=== PATIENT | female | born 1990 | race Caucasian/White ===

== ENCOUNTER 2017-01-04 15:49 | Inpatient (IN) | payer BC ==
[~2017-01-04] VITALS: Ht 165.1 cm; Wt 100.4 kg
[~2017-01-04 15:49] MED LIST: CLIN150 PO
[2017-01-04 15:55] VITALS: BP 123/71; PULSE 124; RESP 16; TEMP 103.1; O2SAT 96
[2017-01-04 17:50] VITALS: BP 119/56; PULSE 124; RESP 26; TEMP 100.8; O2SAT 96
[2017-01-04] MEDS ORDERED: SODIUM CHLOR 0.9% 1000 ML INJ 1,000 ML IV ONE ×3 (18:06)
[2017-01-04] MEDS ORDERED: CEFEPIME INJ 2,000 MG in SODIUM CHLORIDE 0.9% INJ 100 ML IV STA ×2 (18:09→22:59)
--- NOTE | 2017-01-04 18:11 | PD ---
HPI Chief Complaint: Pain: Acute or Chronic Time Seen by Provider: 18:11 Travel History International Travel<30 days: No Contact w/Intl Traveler<30days: No Traveled to known affect area: No History of Present Illness HPI 26-year-old female with history of IV drug use presents to emergency department for evaluation of severe left hip pain, inability to ambulate secondary to the pain, fever, chills, worsening over the last 3 days. Patient states 3 days ago she developed an ache in her left hip. She had associated fever but thought she was getting the flu. Hip pain persisted and this morning she was unable to bear weight on the left lower extremity secondary to the pain. She has had low back pain as well. Denies any injury. States the pain is a 10 out of 10, exacerbated with any movement or touch. Patient denies any chest pain or tightness. No difficulty breathing. Patient does not want her IV drug use discussed in front of her grandmother. PFSH Past Medical History ADHD: No Anxiety: Yes Depression: Yes Cancer: No Cardiovascular Problems: No Diabetes: No Diminished Hearing: No GERD: Yes Hepatitis: Yes (HEP C) Hypertension: Yes Psychiatric: No Immunizations Current: Yes Migraines: Yes Seizures: Yes ( A CHILD) Thyroid Disease: No Ulcer: No Influenza Vaccination: No ?: Not LMP: 12/28/2016 : 1 Miscarriage: 1 : 1 Ovarian Cysts: Yes Past Surgical History Appendectomy: No Cholecystectomy: No Tympanostomy Tube: Yes ( CHILD) Other Surgery: Yes (RIGHT ARM PLASTIC SURGERY/LACERATION REPAIR.) Social History Alcohol Use: No Tobacco Use: Yes (1/2 PPD) Substance Use: Yes (YEARS AGO) Allergies-Medications (Allergen,Severity, Reaction): Coded Allergies: Amoxicillin (Verified Allergy, Severe, HIVES, 01/04/17) Codeine (Verified Allergy, Severe, Hives, 01/04/17) Dilantin (Verified Allergy, Severe, HIVES, 01/04/17) *MDRO Multi-Drug Resistant Organism (Verified Adverse Reaction, Unknown, ) MRSA (wound) - 03/09/16 Reported Meds & Prescriptions Reported Meds & Active Scripts Active No Active Prescriptions or Reported Medications Review of Systems Except as stated in HPI: all other systems reviewed are Neg Physical Exam Narrative GENERAL: Well-nourished female patient, lying in bed, in no acute distress SKIN: Warm and dry. HEAD: Atraumatic. Normocephalic. EYES: Pupils equal and round. No scleral icterus. No injection or drainage. ENT: No nasal bleeding or discharge. Mucous membranes pink and moist. NECK: Trachea midline. No JVD. CARDIOVASCULAR: Tachycardic rate and rhythm. No murmur appreciated. RESPIRATORY: No accessory muscle use. Clear to auscultation. Breath sounds equal bilaterally. GASTROINTESTINAL: Abdomen soft, non-tender, nondistended. Hepatic and splenic margins not palpable. MUSCULOSKELETAL: No obvious deformities. No clubbing. No cyanosis. No edema. No erythema. Significant tenderness to palpation of the anterior aspect of the left hip. No deformity. Patient will not actively move the hip. She reports severe pain with passive flexion and rotation. Distal pulses are palpable. Cap refills within normal limits. NEUROLOGICAL: Awake and alert. No obvious cranial nerve deficits. Motor grossly within normal limits. Normal speech. Data Data Last Documented VS Vital Signs Date Time Temp Pulse Resp B/P Pulse Ox O2 Delivery O2 Flow Rate FiO2 01/04/17 20:38 98.5 86 18 107/61 100 Room Air Orders Influenzae A/B Antigen (01/04/17 16:19) Electrocardiogram (01/04/17 18:06) Complete Blood Count With Diff (01/04/17 18:06) Comprehensive Metabolic Panel (01/04/17 18:06) Prothrombin Time / Inr (Pt) (01/04/17 18:06) Act Partial Throm Time (Ptt) (01/04/17 18:06) Lactic Acid Sepsis Protocol (01/04/17 18:06) Magnesium (Mg) (01/04/17 18:06) Ckmb (Isoenzyme) Profile (01/04/17 18:06) Troponin I (01/04/17 18:06) Urinalysis - C+S If Indicated (01/04/17 18:06) Blood Culture (01/04/17 18:06) Chest, Single Ap (01/04/17 18:06) Blood Glucose (01/04/17 18:06) Ecg Monitoring (01/04/17 18:06) Iv Access Insert/Monitor (01/04/17 18:06) Oximetry (01/04/17 18:06) Oxygen Administration (01/04/17 18:06) Acetaminophen (Tylenol) (01/04/17 18:15) Sodium Chlor 0.9% 1000 Ml Inj (Ns 1000 M (01/04/17 18:06) Sodium Chlor 0.9% 1000 Ml Inj (Ns 1000 M (01/04/17 18:06) Sodium Chlor 0.9% 1000 Ml Inj (Ns 1000 M (01/04/17 18:06) Hip, Uni(Ap&Lat) W Ap Pelvis (01/04/17 ) Westergren Sedimentation Rate (01/04/17 18:06) Vancomycin Inj (Vancomycin Inj) (01/04/17 18:15) Cefepime Inj (Maxipime Inj) (01/04/17 18:09) Mri L Spine W&W/O Contrast (01/04/17 ) Mri Joint Hip W&W/O Contrast (01/04/17 ) Ketorolac Inj (Toradol Inj) (01/04/17 19:15) Morphine Inj (Morphine Inj) (01/04/17 19:15) Ondansetron Inj (Zofran Inj) (01/04/17 19:15) Urinary Catheter Management WM.Q8H (01/04/17 19:36) Gadodiamide Pf Inj (Omniscan Pf Inj) (01/04/17 20:15) Ct Guided Aspiration (01/04/17 21:23) Consult Orthopedic (01/04/17 ) Synovial Fl Cell Count + Diff (01/04/17 21:25) Fluid Culture And Gram Stain (01/04/17 21:25) Admit Order (Ed Use Only) (01/04/17 21:30) Labs Laboratory Tests Test 01/04/17 18:42 White Blood Count 17.3 TH/MM3 Red Blood Count 3.86 MIL/MM3 Hemoglobin 11.3 GM/DL Hematocrit 33.7 % Mean Corpuscular Volume 87.2 FL Mean Corpuscular Hemoglobin 29.2 PG Mean Corpuscular Hemoglobin 33.4 % Concent Red Cell Distribution Width 13.2 % Platelet Count 217 TH/MM3 Mean Platelet Volume 8.6 FL Neutrophils (%) (Auto) 87.3 % Lymphocytes (%) (Auto) 5.0 % Monocytes (%) (Auto) 7.5 % Eosinophils (%) (Auto) 0.0 % Basophils (%) (Auto) 0.2 % Neutrophils # (Auto) 15.1 TH/MM3 Lymphocytes # (Auto) 0.9 TH/MM3 Monocytes # (Auto) 1.3 TH/MM3 Eosinophils # (Auto) 0.0 TH/MM3 Basophils # (Auto) 0.0 TH/MM3 CBC Comment DIFF FINAL Differential Comment Erythrocyte Sedimentation Rate 72 mm/hr Prothrombin Time 11.8 SEC Prothromb Time International 1.1 RATIO Ratio Activated Partial 31.3 SEC Thromboplast Time Urine Color YELLOW Urine Turbidity HAZY Urine pH 8.0 Urine Specific [place] 1.013 Urine Protein 30 mg/dL Urine Glucose (UA) NEG mg/dL Urine Ketones NEG mg/dL Urine Occult Blood MOD Urine Nitrite NEG Urine Bilirubin NEG Urine Urobilinogen LESS THAN 2.0 MG/DL Urine Leukocyte Esterase NEG Urine RBC 10 /hpf Urine WBC 3 /hpf Urine Squamous Epithelial 7 /hpf Cells Urine Bacteria RARE /hpf Urine Mucus FEW /lpf Microscopic Urinalysis Comment CATH-CULT NOT IND Sodium Level 134 MEQ/L Potassium Level 3.6 MEQ/L Chloride Level 99 MEQ/L Carbon Dioxide Level 23.3 MEQ/L Anion Gap 12 MEQ/L Blood Urea Nitrogen 5 MG/DL Creatinine 0.77 MG/DL Estimat Glomerular Filtration 91 ML/MIN Rate Random Glucose 127 MG/DL Lactic Acid Level 1.0 mmol/L Calcium Level 8.2 MG/DL Magnesium Level 1.9 MG/DL Total Bilirubin 0.8 MG/DL Aspartate Amino Transf 9 U/L (AST/SGOT) Alanine Aminotransferase 21 U/L (ALT/SGPT) Alkaline Phosphatase 57 U/L Total Creatine Kinase 22 U/L Troponin I LESS THAN 0.02 NG/ML Total Protein 7.5 GM/DL Albumin 2.7 GM/DL [facility] Medical Decision Making Medical Screen Exam Complete: Yes Emergency Medical Condition: Yes Medical Record Reviewed: Yes Differential Diagnosis Septic joint versus discitis versus epidural abscess versus sepsis Narrative Course 26-year-old female with history of IV drug abuse presents to the emergency department for evaluation of worsening left hip pain over the last 3 days with associated fever. Patient is unable to ambulate secondary to pain. Assessment of the left hip is very limited secondary to severe left hip pain. Patient does have lumbar spine tenderness to palpation. Sepsis workup was initiated. Patient is given IV fluids. I discussed the patient with my attending physician Dr. Maco Banegas who recommends holding off on antibiotics at this time until further evaluation of the hip in case of septic joint for joint aspiration. Last Impressions Chest X-Ray 01/04/17 1806 Signed Impressions: Service Date/Time: Wednesday, January 04, 2017 18:49 - CONCLUSION: No acute disease. There is no evidence of pneumonia. Castillo Bedoya MD Lumbar Spine MRI 01/04/17 0000 Signed Impressions: Service Date/Time: Wednesday, January 04, 2017 19:33 - CONCLUSION: 1. Degenerative change at the L4-5 level with annular disc bulge and high intensity zone the posterior annulus most characteristic of a small annular tear. 2. Small amount of free fluid in the cul-de-sac. Castillo Bedoya MD Hip and Pelvis X-Ray 01/04/17 0000 Signed Impressions: Service Date/Time: Wednesday, January 04, 2017 18:51 - CONCLUSION: Unremarkable exam with no underlying bony abnormality. Castillo Bedoya MD Hip MRI 01/04/17 0000 Signed Impressions: Service Date/Time: Wednesday, January 04, 2017 19:33 - CONCLUSION: Tiny bilateral joint effusion. Miguel Bhatia MD Laboratory Tests Test 01/04/17 18:42 White Blood Count 17.3 TH/MM3 Red Blood Count 3.86 MIL/MM3 Hemoglobin 11.3 GM/DL Hematocrit 33.7 % Mean Corpuscular Volume 87.2 FL Mean Corpuscular Hemoglobin 29.2 PG Mean Corpuscular Hemoglobin 33.4 % Concent Red Cell Distribution Width 13.2 % Platelet Count 217 TH/MM3 Mean Platelet Volume 8.6 FL Neutrophils (%) (Auto) 87.3 % Lymphocytes (%) (Auto) 5.0 % Monocytes (%) (Auto) 7.5 % Eosinophils (%) (Auto) 0.0 % Basophils (%) (Auto) 0.2 % Neutrophils # (Auto) 15.1 TH/MM3 Lymphocytes # (Auto) 0.9 TH/MM3 Monocytes # (Auto) 1.3 TH/MM3 Eosinophils # (Auto) 0.0 TH/MM3 Basophils # (Auto) 0.0 TH/MM3 CBC Comment DIFF FINAL Differential Comment Erythrocyte Sedimentation Rate 72 mm/hr Prothrombin Time 11.8 SEC Prothromb Time International 1.1 RATIO Ratio Activated Partial 31.3 SEC Thromboplast Time Urine Color YELLOW Urine Turbidity HAZY Urine pH 8.0 Urine Specific [place] 1.013 Urine Protein 30 mg/dL Urine Glucose (UA) NEG mg/dL Urine Ketones NEG mg/dL Urine Occult Blood MOD Urine Nitrite NEG Urine Bilirubin NEG Urine Urobilinogen LESS THAN 2.0 MG/DL Urine Leukocyte Esterase NEG Urine RBC 10 /hpf Urine WBC 3 /hpf Urine Squamous Epithelial 7 /hpf Cells Urine Bacteria RARE /hpf Urine Mucus FEW /lpf Microscopic Urinalysis Comment CATH-CULT NOT IND Sodium Level 134 MEQ/L Potassium Level 3.6 MEQ/L Chloride Level 99 MEQ/L Carbon Dioxide Level 23.3 MEQ/L Anion Gap 12 MEQ/L Blood Urea Nitrogen 5 MG/DL Creatinine 0.77 MG/DL Estimat Glomerular Filtration 91 ML/MIN Rate Random Glucose 127 MG/DL Lactic Acid Level 1.0 mmol/L Calcium Level 8.2 MG/DL Magnesium Level 1.9 MG/DL Total Bilirubin 0.8 MG/DL Aspartate Amino Transf 9 U/L (AST/SGOT) Alanine Aminotransferase 21 U/L (ALT/SGPT) Alkaline Phosphatase 57 U/L Total Creatine Kinase 22 U/L Troponin I LESS THAN 0.02 NG/ML Total Protein 7.5 GM/DL Albumin 2.7 GM/DL 2100 MRI of the left hip show small bilateral joint effusions. MRI of the lumbar spine degenerative changes at L4 5 with an annular tear. A call has been placed to Dr. Andrea, orthopedic surgeon adult remedial education instructor. 2121 Dr Andrea is in the emergency department. He requests CT guided aspiration of the left hip. He also requests antibiotics be held until after the aspiration. [address] Morales. Patient be admitted to the hospitalist service. She is aware that the patient has not yet received antibiotics and is waiting for CT guided aspiration. I have also informed the patient about the need for aspiration. She is in agreement with the splenic care. I ordered culture Gram stain of synovial fluid as well as well as cell count and differential 0 I am informed by radiology that the aspiration procedure will not be done tonight. A call is placed to Dr. Andrea to make him aware and see if antibiotics can be administered in the meantime. 2254 I have not heard back from Dr. Andrea. I spoke with Dr. Morales the admitting physician who agrees that waiting until tomorrow morning for antibiotics is not ideal as the patient is septic. She will be given a dose of antibiotics her in the ED. Sepsis Criteria SIRS Criteria (2 or more): Temp > 100.9 or < 96.8, Heart rate over 90 Sepsis Criteria (SIRS+source): Infect source susp/known Diagnosis Primary Impression: Sepsis Qualified Code: A41.9 - Sepsis, due to unspecified organism Additional Impressions: Left hip pain IV drug abuse Admitting Information Admitting Physician Requests: Admit Scripts No Active Prescriptions or Reported Meds Condition: Stable Oralia Raymond Jan 04, 2017 18:11
[2017-01-04] MEDS ORDERED: VANCOMYCIN INJ 1,000 MG in SODIUM CHLOR 0.9% 250 ML INJ 250 ML IV ONE ×2 (18:15→23:00)
[2017-01-04] MEDS ORDERED: ACETAMINOPHEN 325 MG TAB PO ONE (18:15)
[2017-01-04 19:02] LABS: AUTOMATED NEUTROPHIL # 15.1 TH/MM3 (1.8-7.7); BASOPHIL % 0.2 % (0.0-2.0); HEMATOCRIT 33.7 % (35.0-46.0); HEMO FLAGS DIFF FINAL; LYMPHOCYTE # 0.9 TH/MM3 (1.0-4.8); MEAN CELL VOLUME 87.2 FL (80.0-100.0); MEAN CORPUSCULAR HEMOGLOBIN 29.2 PG (27.0-34.0); MEAN CORPUSCULAR HGB CONC 33.4 % (32.0-36.0); MONO % 7.5 % (0.0-8.0); NEUT % 87.3 % (16.0-70.0); PLATELET COUNT 217 TH/MM3 (150-450); RED BLOOD COUNT 3.86 MIL/MM3 (4.00-5.30); RED CELL DISTRIBUTION WIDTH 13.2 % (11.6-17.2); WHITE BLOOD COUNT 17.3 TH/MM3 (4.0-11.0)
[2017-01-04 19:05] LABS: APTT (PATIENT) 31.3 SEC (24.3-30.1); INTERNATIONAL NORMALIZED RATIO 1.1 RATIO; PROTHROMBIN TIME - PATIENT 11.8 SEC (9.8-11.6)
--- NOTE | 2017-01-04 19:07 | RADRPT ---
EXAM DATE/TIME: 01/04/2017 18:49 [facility] COMPARISON: No previous studies available for comparison. INDICATIONS : Fever MEDICAL HISTORY : None. SURGICAL HISTORY : None. ENCOUNTER: Initial ACUITY: 3 days PAIN SCORE: 0/10 LOCATION: chest FINDINGS: A single view of the chest demonstrates the lungs to be symmetrically aerated without evidence of mas s, infiltrate or effusion. The cardiomediastinal contours are unremarkable. Osseous structures are intact. CONCLUSION: No acute disease. There is no evidence of pneumonia. Castillo Bedoya MD on January 04, 2017 at 19:05 Board Certified Radiologist. This report was verified electronically.
[2017-01-04 19:13] LABS: ANION GAP 12 MEQ/L (5-15); AST (GOT) 9 U/L (15-37); BICARBONATE 23.3 MEQ/L (21.0-32.0); BLOOD UREA NITROGEN 5 MG/DL (7-18); CHLORIDE 99 MEQ/L (98-107); GLOMERULAR FILTRATION RATE 91 ML/MIN (>89); MAGNESIUM 1.9 MG/DL (1.5-2.5); POTASSIUM 3.6 MEQ/L (3.5-5.1); SODIUM (NA) 134 MEQ/L (136-145)
[2017-01-04 19:14] LABS: BACTERIA, URINE RARE /hpf; BLOOD, URINE MOD (NEG); GLUCOSE,URINE NEG (NEG); KETONE, URINE NEG (NEG); MUCUS URINE FEW /lpf (OCC); NITRITE,URINE NEG (NEG); SQUAMOUS EPITHELIAL CELL URINE 7 /hpf (0-5); URINE COLOR YELLOW (YELLW/STRAW)
[2017-01-04] MEDS ORDERED: ONDANSETRON HCL 4 MG/2 ML VIAL IV PUSH ONE (19:15)
[2017-01-04] MEDS ORDERED: KETOROLAC TROMETHAMINE 30 MG/ML (IVP) VIAL IV PUSH ONE (19:15)
[2017-01-04] MEDS ORDERED: MORPHINE SULFATE 4 MG/ML INJ IV PUSH ONE (19:15)
[2017-01-04 19:16] LABS: COMMENT (UR) CATH-CULT NOT IND; CULTURE IF INDICATED CATH CULTURE NOT IND
[2017-01-04 19:18] LABS: ALKALINE PHOSPHATASE 57 U/L (45-117); ALT (GPT) 21 U/L (10-53); TOTAL BILIRUBIN ADULT 0.8 MG/DL (0.2-1.0)
--- NOTE | 2017-01-04 19:20 | RADRPT ---
EXAM DATE/TIME: 01/04/2017 18:51 [facility] COMPARISON: No previous studies available for comparison. INDICATIONS : Left hip pain, denies injury MEDICAL HISTORY : None. SURGICAL HISTORY : None. ENCOUNTER: Initial ACUITY: 3 days PAIN SCORE: 10/10 LOCATION: chest FINDINGS: Examination of the left hip was performed with AP Pelvis. The primary and secondary trabecular patte rn of the femoral neck is intact. The hip joint is of normal width without significant sclerosis or bony hypertrophy. The acetabulum is grossly intact. CONCLUSION: Unremarkable exam with no underlying bony abnormality. Castillo Bedoya MD on January 04, 2017 at 19:17 Board Certified Radiologist. This report was verified electronically.
[2017-01-04 19:21] LABS: CREATINE KINASE 22 U/L (26-192)
[2017-01-04] MEDS ORDERED: GADODIAMIDE PF 287 MG/ML 20 ML VIAL (for RAD MRI) IV ONE (20:15)
[2017-01-04 20:38] VITALS: BP 107/61; PULSE 86; RESP 18; TEMP 98.5; O2SAT 100
--- NOTE | 2017-01-04 20:46 | RADRPT ---
EXAM DATE/TIME: 01/04/2017 19:33 [facility] COMPARISON: No previous studies available for comparison. INDICATIONS : Septic joint. CONTRAST: 20 cc Omniscan (gadodiamide) IV MEDICAL HISTORY : Hepatitis C. SURGICAL HISTORY : None. ENCOUNTER: Initial ACUITY: 1 day PAIN SCORE: 7/10 LOCATION: Left hip TECHNIQUE: Multiplanar, multisequence MRI examination was performed without contrast and after the intravenous a dministration of gadolinium. FINDINGS: BONE/CARTILAGE: Bone marrow signal is homogeneous. Articular cartilage signal is within normal limits. LABRUM: Within normal limits. MUSCLES/TENDONS: All of the visualized muscles and tendons are intact. Minimal fluid within the hip joint bilaterally. POST-CONTRAST: There are no abnormal areas of enhancement on the post-contrast images. CONCLUSION: Tiny bilateral joint effusion. Miguel Bhatia MD on January 04, 2017 at 20:40 Board Certified Radiologist. This report was verified electronically.
--- NOTE | 2017-01-04 20:48 | RADRPT ---
EXAM DATE/TIME: 01/04/2017 19:33 [facility] COMPARISON: No previous studies available for comparison. INDICATIONS : Lower back pain. Evaluate for Abscess. CONTRAST: 20 cc Omniscan (gadodiamide) IV MEDICAL HISTORY : Hepatitis C. SURGICAL HISTORY : None. ENCOUNTER: Initial ACUITY: 1 day PAIN SCORE: 5/10 LOCATION: Paraspinal TECHNIQUE: Multiplanar multisequence MRI of the lumbar spine was performed with and without contrast. FINDINGS: Study is degraded by motion artifact especially the axial images. The most caudal appearing lumbar vertebra is numbered as L5. VERTEBRAE: Homogeneous signal. Normal alignment. CONUS: Normal level and configuration. DISCS: There is desiccation of the L4-5 level with small anterior extradural defect present on the sagittal images. There is a small high intensity zone in the posterior annulus. This demonstrates enhancement after gadolinium administration. T12-L1: The thecal sac has a normal diameter. No evidence of disc bulge or protrusion. The neural foramina are patent bilaterally. L1-L2: The thecal sac has a normal diameter. No evidence of disc bulge or protrusion. The neural foramina are patent bilaterally. L2-L3: The thecal sac has a normal diameter. No evidence of disc bulge or protrusion. The neural foramina are patent bilaterally. L3-L4: The thecal sac has a normal diameter. No evidence of disc bulge or protrusion. The neural foramina are patent bilaterally. L4-L5: There is a diffuse annular disc bulge with high intensity zone along the posterior annular region. Th ere is mild flattening to the site. The neural foramina are patent. There are mild degenerative lucas es involving the facet joints. L5-S1: The thecal sac has a normal diameter. No evidence of disc bulge or protrusion. The neural foramina are patent bilaterally. There are mild degenerative changes involving the facet joints. There is a sm all amount of free fluid in the cul-de-sac. CONCLUSION: 1. Degenerative change at the L4-5 level with annular disc bulge and high intensity zone the posterio r annulus most characteristic of a small annular tear. 2. Small amount of free fluid in the cul-de-sac. Castillo Bedoya MD on January 04, 2017 at 20:42 Board Certified Radiologist. This report was verified electronically.
[2017-01-04] MEDS ORDERED: BISACODYL 10 MG SUPP PR PRN (21:45)
[2017-01-04] MEDS ORDERED: ONDANSETRON HCL 4 MG/2 ML VIAL IVP PRN (21:45)
--- NOTE | 2017-01-04 21:46 | HHI.HP ---
[facility] No Primary Care Physician Admission Diagnosis SEPSIS; r/o septic joint (L hip); IVDA Diagnoses: (1) Sepsis Diagnosis: Principal (2) Left hip pain Diagnosis: Principal (3) Septic joint Diagnosis: Principal (4) IVDU (intravenous drug user) Diagnosis: Principal (5) Tobacco abuse Diagnosis: Principal Travel History International Travel<30 Days: No Contact w/Intl Traveler <30 Da: No Traveled to Known Affected Are: No History of Present Illness This is a 26-year-old female with a PMH of Anxiety, Depression, Hepatitis C, Tobacco Abuse and IVDU who presented to the ER w/ complaints of severe left hip pain x3 days. States pain has become so severe she's unable to ambulate due to worsening pain. Reports associated fever/chills. Admits to recent IVDU, however doesn't want to discuss in front of family. On arrival, BP 123/71, HR 124, O2 sat 96% on RA, Temp 103.1. WBC 17.3. Chemistry essentially unremarkable. UA negative for UTI. CXR with no acute findings. Hip X-ray unremarkable. MRI L Spine degenerative changes at L4 5 with annular disc bulge and likely annular tear. MRI Hip with tiny bilateral joint effusion. Dr. Andrea consulted by ER physician, recommended CT-Guided Drainage by IR, no antibiotics until drainage. Review of Systems Except as stated in HPI: all other systems reviewed are Neg ROS: 14 point review of systems otherwise negative. Past Family Social History Past Medical History PMH: Anxiety, Depression, Hepatitis C, Tobacco Abuse and IVDU Past Surgical History PAST SURGICAL HISTORY: Right Arm Surgery, Tympanostomy Tube Allergies: Coded Allergies: Amoxicillin (Verified Allergy, Severe, HIVES, 01/04/17) Codeine (Verified Allergy, Severe, Hives, 01/04/17) Dilantin (Verified Allergy, Severe, HIVES, 01/04/17) *MDRO Multi-Drug Resistant Organism (Verified Adverse Reaction, Unknown, ) MRSA (wound) - 03/09/16 Family History PAST FAMILY HISTORY: Reviewed. No h/o DM or CAD Social History PAST SOCIAL HISTORY: Negative for all,. Smokes 1/2ppd. Admits to ongoing IVDU. Physical Exam Vital Signs Vital Signs Date Time Temp Pulse Resp B/P Pulse Ox O2 Delivery O2 Flow Rate FiO2 01/04/17 20:38 98.5 86 18 107/61 100 Room Air 01/04/17 17:50 100.8 124 26 119/56 96 Room Air 01/04/17 15:55 103.1 124 16 123/71 96 Physical Exam PE: GENERAL: Young female in no acute distress. HEENT: PERRLA, EOMI. No scleral icterus or conjunctival pallor. No lid lag or facial droop. CARDIOVASCULAR: Regular rate and rhythm. No obvious murmurs to auscultation. No chest tenderness to palpation. RESPIRATORY: No obvious rhonchi or wheezing. Clear to auscultation. Breath sounds equal bilaterally. GASTROINTESTINAL: Abdomen soft, non-tender, nondistended. BS normal. MUSCULOSKELETAL: Decreased ROM of LLE due to significant pain, no cyanosis or edema. Pulses intact. NEUROLOGICAL: Awake, alert and oriented x4. No focal neurologic deficits. Moving both upper and lower extremities spontaneously. Laboratory Laboratory Tests Test 01/04/17 18:42 White Blood Count 17.3 Red Blood Count 3.86 Hemoglobin 11.3 Hematocrit 33.7 Mean Corpuscular Volume 87.2 Mean Corpuscular Hemoglobin 29.2 Mean Corpuscular Hemoglobin 33.4 Concent Red Cell Distribution Width 13.2 Platelet Count 217 Mean Platelet Volume 8.6 Neutrophils (%) (Auto) 87.3 Lymphocytes (%) (Auto) 5.0 Monocytes (%) (Auto) 7.5 Eosinophils (%) (Auto) 0.0 Basophils (%) (Auto) 0.2 Neutrophils # (Auto) 15.1 Lymphocytes # (Auto) 0.9 Monocytes # (Auto) 1.3 Eosinophils # (Auto) 0.0 Basophils # (Auto) 0.0 CBC Comment DIFF FINAL Differential Comment Erythrocyte Sedimentation Rate 72 Prothrombin Time 11.8 Prothromb Time International 1.1 Ratio Activated Partial 31.3 Thromboplast Time Urine Color YELLOW Urine Turbidity HAZY Urine pH 8.0 Urine Specific [place] 1.013 Urine Protein 30 Urine Glucose (UA) NEG Urine Ketones NEG Urine Occult Blood MOD Urine Nitrite NEG Urine Bilirubin NEG Urine Urobilinogen LESS THAN 2.0 Urine Leukocyte Esterase NEG Urine RBC 10 Urine WBC 3 Urine Squamous Epithelial 7 Cells Urine Bacteria RARE Urine Mucus FEW Microscopic Urinalysis Comment CATH-CULT NOT IND Sodium Level 134 Potassium Level 3.6 Chloride Level 99 Carbon Dioxide Level 23.3 Anion Gap 12 Blood Urea Nitrogen 5 Creatinine 0.77 Estimat Glomerular Filtration 91 Rate Random Glucose 127 Lactic Acid Level 1.0 Calcium Level 8.2 Magnesium Level 1.9 Total Bilirubin 0.8 Aspartate Amino Transf 9 (AST/SGOT) Alanine Aminotransferase 21 (ALT/SGPT) Alkaline Phosphatase 57 Total Creatine Kinase 22 Troponin I LESS THAN 0.02 Total Protein 7.5 Albumin 2.7 Date/Time Procedure Status Source Growth 01/04/17 18:42 Aerobic Blood Culture Received Blood Peripheral Pending 01/04/17 18:42 Anaerobic Blood Culture Received Blood Peripheral Pending 01/04/17 16:20 Influenza Types A,B Antigen (MEERA) - Final Complete Nasal Washing NEGATIVE FOR FLU A AND B ANTIGEN.... Result Diagram: 01/04/17184101/04/171841 Assessment and Plan Problem List: (1) Sepsis ICD Code: A41.9 Status: Acute (2) Left hip pain ICD Code: M25.552 Status: Acute (3) Septic joint ICD Code: M00.9 Status: Acute (4) IVDU (intravenous drug user) ICD Code: F19.90 Status: Acute (5) Tobacco abuse ICD Code: Z72.0 Status: Acute Assessment and Plan A/P: 1. Sepsis: Temp 103.1, HR 124, WBC 17.3, Source-likely Left Hip/? Endocarditis. S/p Blood Cultures in ER. Follow up cultures, IVF for hydration. 2. Septic Joint: severe left hip pain w/ h/o IVDU, concern for septic joint, MRI Hip w/ small bilateral joint effusions, images reviewed by me. Dr. Andrea consulted by ER physician, recommended holding off on antibiotics and obtaining CT-Guided Drainage of left hip joint. Per Radiology, CT-Guided Drainage cannot be done till am. Holding off on antibiotics until tomorrow morning would not be ideal as pt has clear evidence of sepsis. Will proceed w/ initial doses, plan for drainage in am. 3. Left Hip Pain: Secondary to above. Analgesics/antiemetics as needed. 4. IVDU: admits to recent IVDU, however does not wish for this to be discussed in front of family. Ativan prn for agitation. 5. Tobacco Abuse: Counselled. Ativan/NicoDerm prn if needed. 6. DVT Prophylaxis: SCD/Teds. 7. Social work for d/c planning as needed. 8. Case discussed w/ ER physician at length. Physician Certification 2 Midnight Certification Type: Admission for Inpatient Services Order for Inpatient Services The services are ordered in accordance with Medicare regulations or non- Medicare payer requirements, as applicable. In the case of services not specified as inpatient-only, they are appropriately provided as inpatient services in accordance with the 2-midnight benchmark. Estimated LOS (days): 2 days is the estimated time the patient will need to remain in the hospital, assuming treatment plan goals are met and no additional complications. Post-Hospital Plan: Not yet determined Problem Qualifiers (1) Sepsis: Qualified Code: A41.9 - Sepsis, due to unspecified organism Fina Morales MD Jan 04, 2017 21:46
[2017-01-04] MEDS: SODIUM CHLOR 0.9% 1000 ML INJ 1,000 ML IV SCH (22:09)
[2017-01-04 22:50] VITALS: BP 98/69; PULSE 88; RESP 18; TEMP 98.5; O2SAT 98
[2017-01-05] VITALS (9 sets, daily range): BP systolic 96–115; BP diastolic 55–72; PULSE 85–134; RESP 22; TEMP 96.7–98.6; O2SAT 95–100
[2017-01-05] MEDS ORDERED: KETOROLAC TROMETHAMINE 30 MG/ML (IVP) VIAL IV PUSH ONE (00:15)
[2017-01-05] MEDS ORDERED: MIDAZOLAM HCL 2 MG/2 ML VIAL IV PUSH PRN (00:30)
[2017-01-05] MEDS ORDERED: LORazepam 2 MG/ML VIAL IV PUSH PRN (00:30)
[2017-01-05] MEDS ORDERED: fentaNYL 2,500 MCG/NS 250 ML IV SCH (00:30)
[2017-01-05] MEDS ORDERED: MORPHINE SULFATE 4 MG/ML INJ IV PUSH ONE (05:00)
[2017-01-05] MEDS: SODIUM CHLOR 0.9% 1000 ML INJ 1,000 ML IV SCH ×2 (05:11→13:49)
--- NOTE | 2017-01-05 07:03 | PD.ORT.PN ---
Subjective Subjective Remarks Patient has four-day history of left hip pain. Denies traumatic injury. Questionable septic joint. Objective Vitals Vital Signs Date Time Temp Pulse Resp B/P Pulse Ox O2 Delivery O2 Flow Rate FiO2 01/05/17 06:45 18 01/05/17 04:00 98.1 99 22 108/72 99 01/05/17 00:08 112/69 01/05/17 00:00 97.7 85 22 112/69 100 01/04/17 22:50 98.5 88 18 98/69 98 Room Air 01/04/17 20:38 98.5 86 18 107/61 100 Room Air 01/04/17 17:50 100.8 124 26 119/56 96 Room Air 01/04/17 15:55 103.1 124 16 123/71 96 I/O 01/04/17 01/04/17 01/04/17 01/05/17 01/05/17 01/05/17 07:00 15:00 23:00 07:00 15:00 23:00 Intake Total 480 ml Output Total 1550 ml Balance -1070 ml Intake Oral 480 ml Output Urine Total 1550 ml # Bowel Movements 0 Result Diagram: 01/04/17 1842 01/04/17 1842 Other Results Laboratory Tests Test 01/04/17 18:42 Prothrombin Time 11.8 SEC (9.8-11.6) Prothromb Time International 1.1 RATIO Ratio Imaging Last 24 hours Impressions Chest X-Ray 01/04/17 1806 Signed Impressions: Service Date/Time: Wednesday, January 04, 2017 18:49 - CONCLUSION: No acute disease. There is no evidence of pneumonia. Castillo Bedoya MD Objective Remarks Patient has pain with hip range of motion. Skin intact around hip. No warmth or erythema. No tenderness around her knee or ankle. Sensation intact left foot. Assessment & Plan Assessment and Plan History of IV drug use Possible septic left hip Interventional radiology to aspirate left hip today--need to send fluid for cultures, Gram stain, and cell count Possible surgery later today if hip aspirate fluid appears to be infection Nothing by mouth after 9 AM for possible surgery this evening Consents on chart Rex Vickers MD Jan 05, 2017 07:03
[2017-01-05 07:19] LABS: AUTOMATED NEUTROPHIL # 8.9 TH/MM3 (1.8-7.7); BASOPHIL % 0.2 % (0.0-2.0); EOSINOPHIL % 0.3 % (0.0-4.0); HEMATOCRIT 30.8 % (35.0-46.0); HEMO FLAGS DIFF FINAL; LYMPH % 6.6 % (9.0-44.0); LYMPHOCYTE # 0.7 TH/MM3 (1.0-4.8); MEAN CELL VOLUME 87.7 FL (80.0-100.0); MEAN CORPUSCULAR HEMOGLOBIN 29.4 PG (27.0-34.0); MEAN CORPUSCULAR HGB CONC 33.6 % (32.0-36.0); MONO % 5.8 % (0.0-8.0); NEUT % 87.1 % (16.0-70.0); PLATELET COUNT 188 TH/MM3 (150-450); RED BLOOD COUNT 3.51 MIL/MM3 (4.00-5.30); RED CELL DISTRIBUTION WIDTH 13.3 % (11.6-17.2); WHITE BLOOD COUNT 10.2 TH/MM3 (4.0-11.0)
[2017-01-05 07:36] LABS: ALT (GPT) 16 U/L (10-53); ANION GAP 11 MEQ/L (5-15); AST (GOT) 11 U/L (15-37); BICARBONATE 20.6 MEQ/L (21.0-32.0); BLOOD UREA NITROGEN 4 MG/DL (7-18); CHLORIDE 105 MEQ/L (98-107); GLOMERULAR FILTRATION RATE 124 ML/MIN (>89); POTASSIUM 3.9 MEQ/L (3.5-5.1); SODIUM (NA) 137 MEQ/L (136-145)
[2017-01-05 07:38] LABS: ALKALINE PHOSPHATASE 48 U/L (45-117); TOTAL BILIRUBIN ADULT 0.7 MG/DL (0.2-1.0)
[2017-01-05] MEDS: SODIUM CHLORIDE 0.9% FLUSH 5 ML FLUSH FLUSH SCH ×2 (09:00→21:00)
--- NOTE | 2017-01-05 09:06 | HHI.PR ---
Subjective Remarks Follow-up sepsis/septic joint 01/05/17-patient seen and examined, currently afebrile and nothing by mouth pending CT-guided left hip aspiration. Complains of poorly controlled pain Objective Vitals Vital Signs Date Time Temp Pulse Resp B/P Pulse Ox O2 Delivery O2 Flow Rate FiO2 01/05/17 08:20 98.5 134 22 115/55 95 01/05/17 06:45 18 01/05/17 04:00 98.1 99 22 108/72 99 01/05/17 00:08 112/69 01/05/17 00:00 97.7 85 22 112/69 100 01/04/17 22:50 98.5 88 18 98/69 98 Room Air 01/04/17 20:38 98.5 86 18 107/61 100 Room Air 01/04/17 17:50 100.8 124 26 119/56 96 Room Air 01/04/17 15:55 103.1 124 16 123/71 96 I/O 01/04/17 01/04/17 01/04/17 01/05/17 01/05/17 01/05/17 07:00 15:00 23:00 07:00 15:00 23:00 Intake Total 480 ml Output Total 1550 ml Balance -1070 ml Intake Oral 480 ml Output Urine Total 1550 ml # Bowel Movements 0 Result Diagram: 01/05/17 0638 01/05/17 0638 Imaging Last Impressions Chest X-Ray 01/04/17 1806 Signed Impressions: Service Date/Time: Wednesday, January 04, 2017 18:49 - CONCLUSION: No acute disease. There is no evidence of pneumonia. Castillo Bedoya MD Lumbar Spine MRI 01/04/17 0000 Signed Impressions: Service Date/Time: Wednesday, January 04, 2017 19:33 - CONCLUSION: 1. Degenerative change at the L4-5 level with annular disc bulge and high intensity zone the posterior annulus most characteristic of a small annular tear. 2. Small amount of free fluid in the cul-de-sac. Castillo Bedoya MD Hip and Pelvis X-Ray 01/04/17 0000 Signed Impressions: Service Date/Time: Wednesday, January 04, 2017 18:51 - CONCLUSION: Unremarkable exam with no underlying bony abnormality. Castillo Bedoya MD Hip MRI 01/04/17 0000 Signed Impressions: Service Date/Time: Wednesday, January 04, 2017 19:33 - CONCLUSION: Tiny bilateral joint effusion. Miguel Bhatia MD Objective Remarks GENERAL: NAD SKIN: Warm and dry. HEAD: Normocephalic. EYES: No scleral icterus. No injection or drainage. NECK: Supple, trachea midline. No JVD or lymphadenopathy. CARDIOVASCULAR: Regular rate and rhythm without murmurs, gallops, or rubs. RESPIRATORY: Breath sounds equal bilaterally. No accessory muscle use. GASTROINTESTINAL: Abdomen soft, non-tender, nondistended. MUSCULOSKELETAL: No cyanosis, or edema. Left Hip joint TTP with decrease ROM BACK: Nontender without obvious deformity. No CVA tenderness. A/P Problem List: (1) Sepsis ICD Code: A41.9 Status: Acute (2) Left hip pain ICD Code: M25.552 Status: Acute (3) Septic joint ICD Code: M00.9 Status: Acute (4) IVDU (intravenous drug user) ICD Code: F19.90 Status: Acute (5) Tobacco abuse ICD Code: Z72.0 Status: Acute Assessment and Plan 26-year-old female with 1. Sepsis: Source-likely Left Hip/?Endocarditis. Currently on cefepime pending culture report 2. Septic Joint: severe left hip pain w/ h/o IVDU, concern for septic joint, MRI Hip w/ small bilateral joint effusions. Appreciate input from orthopedic surgery however plan for CT-Guided Drainage of left hip joint if positive should proceed to the OR. Continue current IV antibiotics 3. Left Hip Pain: Secondary to above. Analgesics/antiemetics as needed. 4. IVDU: admits to recent IVDU, check UDS and 2-D echo pending. Ativan prn for agitation. 5. Tobacco Abuse: Counselled. Ativan/NicoDerm prn if needed. 6. DVT Prophylaxis: SCD/Teds. Problem Qualifiers (1) Sepsis: Qualified Code: A41.9 - Sepsis, due to unspecified organism Miguel Hernandez MD Jan 05, 2017 09:06
--- NOTE | 2017-01-05 09:27 | MB ---
cc: LASHA WOLFF MD, TODD DATE OF CONSULTATION: 01/05/2017 REASON FOR CONSULTATION Left hip pain. CONSULTING PHYSICIAN Dr. Wolff HISTORY OF PRESENT ILLNESS Carla is a 26-year-old female who has a history of anxiety, depression, hepatitis, tobacco abuse and IV drug use. She presented to the emergency room complaining of left hip pain x4 days. The pain has gotten so severe that she is unable to ambulate. She does not recall a recent fall or injury. She does have a recent history of IV drug use. She presented to the emergency room where x-rays were negative. MRI of her hips revealed small joint effusions. She is currently awake and alert on the fifth floor. Her main complaint is her left hip. Pain is worse with movement and is improved with rest. PAST MEDICAL HISTORY ILLNESSES 1. Anxiety. 2. Depression. 3. Hepatitis C. 4. Tobacco abuse. SURGERIES 1. Tympanostomy tubes. 2. Right arm surgery. ALLERGIES 1. AMOXICILLIN. 2. CODEINE. 3. DILANTIN. MEDICATIONS Please see the EMR for a complete list of inpatient medications. This was reviewed. FAMILY HISTORY Noncontributory. SOCIAL HISTORY The patient smokes half-a-pack a day. She uses IV drugs. REVIEW OF SYSTEMS The patient denies headache, visual changes, neck pain, chest pain, shortness of breath, abdominal pain, nausea, vomiting or recent weight loss, numbness or tingling of the extremities. She complains of left hip pain. Pain is worse with movement. PHYSICAL EXAMINATION GENERAL: The patient is a well-developed, well-nourished 26-year-old female who is moderately overweight. She is awake and alert. VITAL SIGNS: Temperature 98.5, pulse 134, respirations 22, blood pressure 115/55. O2 sat is 95% on room air. HEAD: The patient is normocephalic. Pupils are equal. NECK: Soft, nontender. Trachea is midline. ABDOMEN: Soft, nontender, nondistended. EXTREMITIES: Examination of right and left upper extremities reveals no pain with shoulder, elbow or wrist motion. Skin is intact to both hands. Radial pulses are palpable. Timber Estimator strength is +5. Sensation is intact in radial, ulna and median nerve distributions. Examination of right leg reveals no pain with hip, knee or ankle motion. Skin is intact. Dorsalis pedis pulse is palpable. Sensation is intact. Skin is intact in the right foot. Examination of left leg reveals pain with hip motion. She has mild tenderness to deep palpation around the hip. Skin is intact. She has no tenderness around her knee, tibia or ankle. Sensation is intact in the left foot. Dorsalis pedis pulse is palpable. MRI MRI of the pelvis was reviewed. MRI reveals no evidence of acute fracture. There is small joint effusions bilaterally. IMPRESSION 1. History of IV drug use. 2. Left hip pain. PLAN The treatment options were discussed with the patient. At that this point MRI reveals very small joint effusions of her hips. I would expect that if the patient had a septic joint she would have a larger joint effusion of her hip. At this point I would recommend interventional radiology to aspirate the left hip to obtain fluid for cell count, cultures and Gram stain. If this fluid appears to the infection then she would need surgery for arthrotomy of left hip with irrigation and debridement. Risks of surgery include bleeding, infection, injuries to arteries, nerves and blood vessels, avascular necrosis of her hip as well as medical complications including blood clot, stroke, heart attack and . All questions were answered. I will await the results of her hip aspiration to make final decision for surgery. All questions were answered. A mid-level provider in my office (nurse practitioner or physician billing assistant) may see this patient on follow-up visits and continue to implement the objectives of this plan including: Starting or adjusting medications, injections , cast application, orthotics, brace application, physical therapy, radiological studies (including x-ray, MRI, CT, ultrasound, bone scan), vascular studies, neurologic studies, specialist consultation, and proceeding with surgical management, as appropriate. MD JERSEY Hollis/AMINTA /9:05 AM /9:16 AM TRAVIS
--- NOTE | 2017-01-05 11:17 | RADRPT ---
EXAM DATE/TIME: 01/05/2017 07:00 [facility] COMPARISON: MRI HIP LEFT W & W/O CONTRAST, January 04, 2017, 19:33. INDICATIONS: Left hip aspiration. FINDINGS: The patient was sent for CT guided left hip aspiration. Upon review of the recent MRI of the hips it was noted that there was only a miniscule amount of joint fluid and therefore this patient's fluid i s not amenable to aspiration. CONCLUSION: Only a miniscule amount of joint fluid present which would not be amenable to CT guided aspiration. Dillon Archibald MD on January 05, 2017 at 10:54 Board Certified Radiologist. This report was verified electronically.
[2017-01-05 13:38] LABS: AMPHETAMINE, URINE NEG (NEG); BARBITURATES, URINE NEG (NEG); COCAINE, URINE NEG (NEG)
--- NOTE | 2017-01-05 14:42 | EKG ---
Date Performed: 01/04/2017 Time Performed: 19:07:58 PTAGE: 26 years EKG: SINUS TACHYCARDIA POSSIBLE LEFT ATRIAL ENLARGEMENT POSSIBLE RIGHT VENTRICULAR CONDUCTION DE LAY SEPTAL MYOCARDIAL INFARCTION ABNORMAL ECG PREVIOUS TRACING : 04/06/2014 09.43 Compared to prior tracing no significant change DOCTOR: Leo Bradford Interpretating Date/Time 01/05/2017 14:42:06
--- NOTE | 2017-01-05 15:43 | EC ---
Study Study Date:01/05/2017 STUDY CONCLUSIONS SUMMARY LEFT VENTRICLE: The cavity size was normal. Wall thickness was normal. Systolic function was normal. The estimated ejection fraction was in the range of 55% to 60%. Wall motion was normal; there were no regional wall motion abnormalities. Impressions: No evidence of endocarditis. If LV function is below 40, please consider prescribing an ACEI or ARB or document rationale for non-use. PROCEDURE DATA STUDY STATUS: Elective. Procedure: Transthoracic echocardiography. Image quality was good. Scanning was performed from the parasternal, apical, and subcostal acoustic windows. Study completion: The patient tolerated the procedure well. Transthoracic echocardiography. M-mode, complete 2D, complete spectral Doppler, and color Doppler. Patient status: Inpatient. CARDIAC ANATOMY LEFT VENTRICLE: The cavity size was normal. Wall thickness was normal. Systolic function was normal. The estimated ejection fraction was in the range of 55% to 60%. Wall motion was normal; there were no regional wall motion abnormalities. AORTIC VALVE: Trileaflet; normal thickness leaflets. Doppler: Transvalvular velocity was within the normal range. There was no stenosis. No regurgitation. AORTA: Aortic root: The aortic root was normal in size. MITRAL VALVE: Structurally normal valve. Doppler: Transvalvular velocity was within the normal range. There was no evidence for stenosis. No regurgitation. Peak gradient: 3mm Hg (D). LEFT ATRIUM: The atrium was normal in size. RIGHT VENTRICLE: The cavity size was normal. Wall thickness was normal. PULMONIC VALVE: Doppler: Transvalvular velocity was within the normal range. There was no evidence for stenosis. No regurgitation. TRICUSPID VALVE: Structurally normal valve. Doppler: Transvalvular velocity was within the normal range. No regurgitation. PULMONARY ARTERY: The main pulmonary artery was normal-sized. Systolic pressure was within the normal range. RIGHT ATRIUM: The atrium was normal in size. PERICARDIUM: There was no pericardial effusion. SYSTEMIC VEINS: Inferior vena cava: The vessel was normal in size. BASIC MEASUREMENTS ADULT NORMAL Left ventricle LV internal dimension, ED, chordal level, 47.3 mm 43-52 PLAX LV internal dimension, ES, chordal level, 36.2 mm 23-38 PLAX Fractional shortening, chordal level, PLAX *23 % >29 LV posterior wall thickness, ED 8.71 mm IVS/LVPW ratio, ED 1.17 <1.3 Ventricular septum Septal thickness, ED 10.2 mm Aortic valve Leaflet separation 22 mm 15-26 Left atrium Anterior-posterior dimension 33 mm Right ventricle RV internal dimension, ED, PLAX 26.2 mm 19-38 BASIC MEASUREMENTS ADULT NORMAL Aortic valve Leaflet separation 22 mm 15-26 Aorta Root diameter, ED 30 mm 20-37 DOPPLER MEASUREMENTS ADULT NORMAL Mitral valve Peak E-wave velocity 80.5 cm/s Peak A-wave velocity 66.6 cm/s Peak gradient, D 3 mm Hg Peak E/A ratio 1.2 Tricuspid valve Regurgitant peak velocity 242 cm/s Peak RV-RA gradient, S 23 mm Hg Maximal regurgitant velocity 242 cm/s LEGEND: Mean values are shown as u=mean value. Asterisk (*) wilde values outside specified normal range. Prepared and signed by Delmar Booker [id number]
[2017-01-05] MEDS ORDERED: Vancomycin Consult Pharmacy 1 EA OTHER SCH (16:30)
[2017-01-05] MEDS ORDERED: VANCOMYCIN INJ 1,000 MG in SODIUM CHLOR 0.9% 250 ML INJ 250 ML IV SCH (16:30)
[2017-01-05] MEDS: VANCOMYCIN INJ 1,400 MG in SODIUM CHLORID 0.9% 500 ML INJ 500 ML IV SCH (21:56)
[2017-01-06] VITALS: BP 102/58; PULSE 100; RESP 22; TEMP 97.3; O2SAT 98
[2017-01-06] MEDS: VANCOMYCIN INJ 1,400 MG in SODIUM CHLORID 0.9% 500 ML INJ 500 ML IV SCH ×3 (03:07→21:14)
[2017-01-06] MEDS: SODIUM CHLOR 0.9% 1000 ML INJ 1,000 ML IV SCH ×3 (03:08→23:43)
[2017-01-06 04:00] VITALS: BP 118/73; PULSE 97; RESP 18; TEMP 98.6; O2SAT 96
--- NOTE | 2017-01-06 07:08 | PD.ORT.PN ---
Subjective Subjective Remarks Patient has 5-day history of left hip pain. Denies traumatic injury or fall. She states that pain started when she was getting up out of bed and felt a pop in her hip Objective Vitals Vital Signs Date Time Temp Pulse Resp B/P Pulse Ox O2 Delivery O2 Flow Rate FiO2 01/06/17 04:00 98.6 97 18 118/73 96 01/06/17 00:00 97.3 100 22 102/58 98 01/05/17 21:00 105 01/05/17 20:00 97.0 102 22 98/56 98 01/05/17 16:27 96.7 105 22 96/58 97 01/05/17 15:59 96.7 105 22 96/58 97 01/05/17 14:50 20 01/05/17 12:34 98.6 95 22 105/59 96 01/05/17 08:20 98.5 134 22 115/55 95 I/O 01/05/17 01/05/17 01/05/17 01/06/17 01/06/17 01/06/17 07:00 15:00 23:00 07:00 15:00 23:00 Intake Total 480 ml 1100 ml 240 ml Output Total 1550 ml 925 ml 650 ml 1850 ml Balance -1070 ml -925 ml 450 ml -1610 ml Intake Oral 480 ml 1100 ml 240 ml Output Urine Total 1550 ml 925 ml 650 ml 1850 ml # Bowel Movements 0 Result Diagram: 01/05/17 0638 01/05/17 0638 Imaging Last 24 hours Impressions Chest X-Ray 01/04/17 1806 Signed Impressions: Service Date/Time: Wednesday, January 04, 2017 18:49 - CONCLUSION: No acute disease. There is no evidence of pneumonia. Castillo Bedoya MD Objective Remarks Patient has minimal pain with gentle hip range of motion. Skin intact around hip. No warmth or erythema. She has mild tenderness to palpation around the gluteus muscles of right hip. No tenderness around her knee or ankle. Sensation intact left foot. Assessment & Plan Assessment and Plan 5 day history of left hip pain--MRI reveals minimal fluid which makes hip joint infection unlikely. She has minimal pain with gentle rotation of her hip today. Continue physical therapy. Surgery will likely not be necessary. Rex Vickers MD Jan 06, 2017 07:08
[2017-01-06 08:00] VITALS: BP_SYST 114; BP_SYST 121; BP_DIAS 64; BP_DIAS 68; PULSE 109; PULSE 94; RESP 18; RESP 20; TEMP 100.2; TEMP 99.7; O2SAT 96; O2SAT 97
[2017-01-06] MEDS: SODIUM CHLORIDE 0.9% FLUSH 5 ML FLUSH FLUSH SCH ×2 (08:51→21:00)
--- NOTE | 2017-01-06 10:52 | HHI.PR ---
Subjective Remarks Follow-up sepsis/septic joint 01/05/17-patient seen and examined, currently afebrile and nothing by mouth pending CT-guided left hip aspiration. Complains of poorly controlled pain 01/06/17-patient seen and examined;all Repeat Blood culture +; patient still complaining of left hip pain. Afebrile today Objective Vitals Vital Signs Date Time Temp Pulse Resp B/P Pulse Ox O2 Delivery O2 Flow Rate FiO2 01/06/17 09:58 20 01/06/17 08:00 100.2 94 18 114/64 97 01/06/17 04:00 98.6 97 18 118/73 96 01/06/17 00:00 97.3 100 22 102/58 98 01/05/17 21:00 105 01/05/17 20:00 97.0 102 22 98/56 98 01/05/17 16:27 96.7 105 22 96/58 97 01/05/17 15:59 96.7 105 22 96/58 97 01/05/17 12:34 98.6 95 22 105/59 96 I/O 01/05/17 01/05/17 01/05/17 01/06/17 01/06/17 01/06/17 07:00 15:00 23:00 07:00 15:00 23:00 Intake Total 480 ml 1100 ml 240 ml Output Total 1550 ml 925 ml 650 ml 1850 ml Balance -1070 ml -925 ml 450 ml -1610 ml Intake Oral 480 ml 1100 ml 240 ml Output Urine Total 1550 ml 925 ml 650 ml 1850 ml # Bowel Movements 0 Result Diagram: 01/05/17 0638 01/05/17 0638 Imaging Last Impressions Consultation 01/05/17 0700 Signed Impressions: Service Date/Time: Thursday, January 05, 2017 07:00 - CONCLUSION: Only a miniscule amount of joint fluid present which would not be amenable to CT guided aspiration. Dillon Archibald MD Chest X-Ray 01/04/17 1806 Signed Impressions: Service Date/Time: Wednesday, January 04, 2017 18:49 - CONCLUSION: No acute disease. There is no evidence of pneumonia. Castillo Bedoya MD Lumbar Spine MRI 01/04/17 0000 Signed Impressions: Service Date/Time: Wednesday, January 04, 2017 19:33 - CONCLUSION: 1. Degenerative change at the L4-5 level with annular disc bulge and high intensity zone the posterior annulus most characteristic of a small annular tear. 2. Small amount of free fluid in the cul-de-sac. Castillo Bedoya MD Hip and Pelvis X-Ray 01/04/17 0000 Signed Impressions: Service Date/Time: Wednesday, January 04, 2017 18:51 - CONCLUSION: Unremarkable exam with no underlying bony abnormality. Castillo Bedoya MD Hip MRI 01/04/17 0000 Signed Impressions: Service Date/Time: Wednesday, January 04, 2017 19:33 - CONCLUSION: Tiny bilateral joint effusion. Miguel Bhatia MD Objective Remarks GENERAL: NAD SKIN: Warm and dry. HEAD: Normocephalic. EYES: No scleral icterus. No injection or drainage. NECK: Supple, trachea midline. No JVD or lymphadenopathy. CARDIOVASCULAR: Regular rate and rhythm without murmurs, gallops, or rubs. RESPIRATORY: Breath sounds equal bilaterally. No accessory muscle use. GASTROINTESTINAL: Abdomen soft, non-tender, nondistended. MUSCULOSKELETAL: No cyanosis, or edema. Left Hip joint TTP with decrease ROM BACK: Nontender without obvious deformity. No CVA tenderness. A/P Problem List: (1) Sepsis ICD Code: A41.9 Status: Acute (2) Left hip pain ICD Code: M25.552 Status: Acute (3) Septic joint ICD Code: M00.9 Status: Acute (4) IVDU (intravenous drug user) ICD Code: F19.90 Status: Acute (5) Tobacco abuse ICD Code: Z72.0 Status: Acute Assessment and Plan 26-year-old female with 1. Sepsis: Source-likely Left Hip/?Endocarditis. Currently on Vancomycin pending culture report 2. Bacteremia: Repeat culture all Positive therefore will consult Infectious Disease specialist. Continue with current abx. Consider CT abdomen vs Chest 3. Septic Joint?: MRI Hip w/ small bilateral joint effusions however per Orthopedic surgery this makes infection less likely. Continue current IV antibiotics and Analgesics/antiemetics as needed. PT to treat 4. IVDU: admits to recent IVDU negative UDS and 2-D echo without endocarditis however 2/2 bacteremia may consider Cardiology consult for KRISTINA. Ativan prn for agitation. 5. Tobacco Abuse: Counselled. Ativan/NicoDerm prn if needed. 6. DVT Prophylaxis: SCD/Teds. Problem Qualifiers (1) Sepsis: Qualified Code: A41.9 - Sepsis, due to unspecified organism Miguel Hernandez MD Jan 06, 2017 10:52
[2017-01-06] MEDS ORDERED: DOCUSATE SODIUM 50 MG/SENNA 8.6 MG TAB PO PRN (11:00)
[2017-01-06] MEDS ORDERED: ALUMINUM/MAGNESIUM/SIMETH 30 ML CUP PO PRN (11:00)
[2017-01-06 12:00] VITALS: BP 121/68; PULSE 109; RESP 20; TEMP 99.7; O2SAT 96
[2017-01-06 16:00] VITALS: BP 109/58; PULSE 105; TEMP 100.9; O2SAT 95
--- NOTE | 2017-01-06 18:18 | MB ---
cc: RAFFI POTTER MD DATE OF CONSULTATION 01/06/[address] Hernandez REASON FOR CONSULTATION Bacteremia, questionable left hip septic arthritis. HISTORY OF PRESENT ILLNESS This is a 26-year-old white female who presented to the emergency department with left hip pain of severe nature. The patient reportedly was having difficulty ambulating because of the pain and she was also having fever and chills. The patient reportedly felt like she was having the flu because of her symptoms. She presented to the emergency department because of the severe pain which was making it difficult for her to ambulate. The patient had blood cultures taken on admission and all of the bottles drawn have gram-positive cocci including four bottles identified as having staph aureus. The patient uses IV drugs. She notes that she has used IV Dilaudid and that the last time was within the week before admission. She is having current chills and was shaking while I was examining her a few minutes ago. The temperature was 103.1 degrees in the emergency department. Her last T-max was 100.2 degrees early today. She also had elevated white blood cell count on admission. 2-D echocardiogram did not reveal any evidence of endocarditis. The patient denies headache, visual difficulties, shortness of breath. She notes that she gets a pain which radiates from the back of her neck down her left side of her body to her left toes and comes back up to her left hip where she states the pain is currently severe. She expresses concerns that her pain medication has been changed. The MRI of the hip shows tiny bilateral joint effusions and an MRI of the lumbar spine shows degenerative changes at L4-L5 level with annular disk bulge and high intensity zone at the posterior annulus most characteristic of a small annular tear. A small amount of free fluid was noted in the cul-de-sac. Chest x-ray shows no acute disease. PAST MEDICAL HISTORY IV drug use. ALLERGIES AMOXICILLIN CODEINE DILANTIN MEDICATIONS 1. Vancomycin. 2. Oxycodone. SOCIAL HISTORY Positive tobacco, half a pack of cigarettes a day. No alcohol. Positive illicit drugs in the form of IV drug use. FAMILY HISTORY Noncontributory. REVIEW OF SYSTEMS Pertinent as mentioned above in history of present illness. PHYSICAL EXAMINATION GENERAL: This is a well-developed female who is in no acute distress. She is moderately obese. VITAL SIGNS: Temperature of 99.7, blood pressure 151/58, respirations 20, heart rate 109. HEENT: The head is atraumatic. Extraocular movements grossly intact, pupils reactive to light. No icterus. No conjunctival erythema. Oropharynx no visible lesions. Moist mucosa. NECK: Supple without adenopathy. LUNGS: Clear breath sounds bilateral. HEART: Regular rate and rhythm. No audible murmurs, rubs or gallops. ABDOMEN: Bowel sounds present, soft, no tenderness appreciated. RECTAL: Not performed. EXTREMITIES: No clubbing, cyanosis or edema. No splinter his hemorrhages at the nail bed. NEUROLOGIC: Nonfocal. SKIN: No rash. PSYCHIATRIC: Patient is calm and cooperative. LABORATORY DATA WBC 10.2, platelets 188, hemoglobin 10.3, 87% neutrophils, creatinine 0.59, BUN four, sodium 137. IMPRESSION 1. Bacteremia with staph aureus in patient was a history of IV drug use and is currently using IV drugs. 2. Rule out endocarditis. 3. Left hip pain. Questionable septic arthritis related to bacteremia. RECOMMENDATIONS 1. Continue vancomycin 2. Monitor sensitivity of the staph aureus 3. Repeat blood cultures to check for clearance of the bacteria from the blood stream 4. Consider cardiology consultation for KRISTINA Thank you for this consultation. The patient's progress will be monitored and further recommendations will be given on followup. Raffi Potter MD FD/ /3:05 PM /5:49 PM
[2017-01-06] MEDS ORDERED: PHARMACY ORDERED LAB XX ONE (19:45)
[2017-01-06 20:00] VITALS: BP 108/64; PULSE 95; PULSE 98; RESP 18; TEMP 98.7; O2SAT 96
[2017-01-07] VITALS: BP 105/67; PULSE 91; RESP 18; TEMP 98.5; O2SAT 97
[2017-01-07] MEDS: SODIUM CHLOR 0.9% 1000 ML INJ 1,000 ML IV SCH ×2 (03:45→19:43)
[2017-01-07] MEDS: VANCOMYCIN INJ 1,500 MG in SODIUM CHLORID 0.9% 500 ML INJ 500 ML IV SCH ×3 (03:47→20:01)
[2017-01-07 04:00] VITALS: BP 95/56; PULSE 105; RESP 18; TEMP 95.5; O2SAT 96
[2017-01-07 08:00] VITALS: BP 101/55; PULSE 95; RESP 18; TEMP 99.8; O2SAT 94
--- NOTE | 2017-01-07 08:44 | HHI.PR ---
Subjective Remarks Follow-up sepsis/septic joint 01/05/17-patient seen and examined, currently afebrile and nothing by mouth pending CT-guided left hip aspiration. Complains of poorly controlled pain 01/06/17-patient seen and examined;all Repeat Blood culture +; patient still complaining of left hip pain. Afebrile today 01/07/17-patient seen and examined; Tmax 100.9 at 4 PM yesterday however afebrile this morning. was able to lift left leg and hip however still has difficulty putting weight on it. Objective Vitals Vital Signs Date Time Temp Pulse Resp B/P Pulse Ox O2 Delivery O2 Flow Rate FiO2 01/07/17 07:28 20 01/07/17 04:00 95.5 105 18 95/56 96 01/07/17 00:00 98.5 91 18 105/67 97 01/06/17 20:00 98.7 98 18 108/64 96 01/06/17 20:00 95 01/06/17 16:00 100.9 105 109/58 95 01/06/17 12:00 99.7 109 20 121/68 96 I/O 01/06/17 01/06/17 01/06/17 01/07/17 01/07/17 01/07/17 07:00 15:00 23:00 07:00 15:00 23:00 Intake Total 240 ml 480 ml 2000 ml Output Total 1850 ml 1800 ml 3500 ml Balance -1610 ml -1320 ml -1500 ml Intake Oral 240 ml 480 ml IV Total 2000 ml Output Urine Total 1850 ml 1800 ml 3500 ml # Bowel Movements 1 Result Diagram: 01/05/17 0638 01/07/17 0706 Imaging Last Impressions Consultation 01/05/17 0700 Signed Impressions: Service Date/Time: Thursday, January 05, 2017 07:00 - CONCLUSION: Only a miniscule amount of joint fluid present which would not be amenable to CT guided aspiration. Dillon Archibald MD Chest X-Ray 01/04/17 1806 Signed Impressions: Service Date/Time: Wednesday, January 04, 2017 18:49 - CONCLUSION: No acute disease. There is no evidence of pneumonia. Castillo Bedoya MD Lumbar Spine MRI 01/04/17 0000 Signed Impressions: Service Date/Time: Wednesday, January 04, 2017 19:33 - CONCLUSION: 1. Degenerative change at the L4-5 level with annular disc bulge and high intensity zone the posterior annulus most characteristic of a small annular tear. 2. Small amount of free fluid in the cul-de-sac. Castillo Bedoya MD Hip and Pelvis X-Ray 01/04/17 0000 Signed Impressions: Service Date/Time: Wednesday, January 04, 2017 18:51 - CONCLUSION: Unremarkable exam with no underlying bony abnormality. Castillo Bedoya MD Hip MRI 01/04/17 0000 Signed Impressions: Service Date/Time: Wednesday, January 04, 2017 19:33 - CONCLUSION: Tiny bilateral joint effusion. Miguel Bhatia MD Objective Remarks GENERAL: NAD SKIN: Warm and dry. HEAD: Normocephalic. EYES: No scleral icterus. No injection or drainage. NECK: Supple, trachea midline. No JVD or lymphadenopathy. CARDIOVASCULAR: Regular rate and rhythm without murmurs, gallops, or rubs. RESPIRATORY: Breath sounds equal bilaterally. No accessory muscle use. GASTROINTESTINAL: Abdomen soft, non-tender, nondistended. MUSCULOSKELETAL: No cyanosis, or edema. Left Hip joint TTP with decrease ROM BACK: Nontender without obvious deformity. No CVA tenderness. A/P Problem List: (1) Sepsis ICD Code: A41.9 Status: Acute (2) Left hip pain ICD Code: M25.552 Status: Acute (3) Septic joint ICD Code: M00.9 Status: Acute (4) IVDU (intravenous drug user) ICD Code: F19.90 Status: Acute (5) Tobacco abuse ICD Code: Z72.0 Status: Acute Assessment and Plan 26-year-old female with 1. Sepsis: Source-likely Left Hip/?Endocarditis. Currently on Vancomycin 2. Bacteremia with staph aureus. Currently on vancomycin pending the repeat blood culture. Appreciate input from infectious disease specialist. Consider KRISTINA secondary to patient history of IVDU. 3. Hip Pain/Septic Joint?: MRI Hip w/ small bilateral joint effusions however per Orthopedic surgery this makes infection less likely. Continue current IV antibiotics and Analgesics/antiemetics as needed. PT to treat 4. IVDU: admits to recent IVDU negative UDS and 2-D echo without endocarditis however 2/2 bacteremia may consider Cardiology consult for KRISTINA. Ativan prn for agitation. 5. Tobacco Abuse: Counselled. Ativan/NicoDerm prn if needed. 6. DVT Prophylaxis: SCD/Teds. Problem Qualifiers (1) Sepsis: Qualified Code: A41.9 - Sepsis, due to unspecified organism Miguel Hernandez MD Jan 07, 2017 08:44
[2017-01-07] MEDS: SODIUM CHLORIDE 0.9% FLUSH 5 ML FLUSH FLUSH SCH ×2 (09:00→20:01)
[2017-01-07 12:00] VITALS: BP 109/62; PULSE 101; RESP 20; TEMP 101; O2SAT 96
--- NOTE | 2017-01-07 14:55 | HHI.IDPN ---
Note Infectious Disease Note Patient is sitting in bedside chair. Moved from bed by PT. Notes the chills has improved. Has night sweats. Blood culture has MSSA 01/05 and 01/06. Still febrile. Had temp of 101 today. Patient is a 26-year-old white female who presented to the emergency department with left hip pain of severe nature. The patient reportedly was having difficulty ambulating because of the pain and she was also having fever and chills. PAST MEDICAL HISTORY IV drug use. ALLERGIES AMOXICILLIN CODEINE DILANTIN MEDICATIONS Vancomycin. SOCIAL HISTORY Positive tobacco, half a pack of cigarettes a day. No alcohol. Positive illicit drugs in the form of IV drug use. OBJECTIVE: Vital Signs Date Time Temp Pulse Resp B/P Pulse Ox O2 Delivery O2 Flow Rate FiO2 01/07/17 12:00 101.0 101 20 109/62 96 01/07/17 11:23 18 01/07/17 08:00 99.8 95 18 101/55 94 01/07/17 04:00 95.5 105 18 95/56 96 01/07/17 00:00 98.5 91 18 105/67 97 01/06/17 20:00 98.7 98 18 108/64 96 01/06/17 20:00 95 01/06/17 16:00 100.9 105 109/58 95 01/06/17 01/06/17 01/07/17 15:00 23:00 07:00 Intake Total 480 ml 2000 ml Output Total 1800 ml 3500 ml Balance -1320 ml -1500 ml Intake Oral 480 ml IV Total 2000 ml Output Urine Total 1800 ml 3500 ml # Bowel Movements 1 Laboratory Tests Test 01/07/17 07:06 Creatinine 0.59 MG/DL Estimat Glomerular Filtration 124 ML/MIN Rate Microbiology Date/Time Procedure Status Source Growth 01/04/17 16:20 Influenza Types A,B Antigen (MEERA) - Final Complete Nasal Washing NEGATIVE FOR FLU A AND B ANTIGEN.... 01/04/17 18:30 Aerobic Blood Culture - Final Complete Blood Peripheral Staphylococcus Aureus 01/04/17 18:30 Anaerobic Blood Culture - Final Complete Staphylococcus Aureus 01/04/17 18:42 Aerobic Blood Culture - Final Complete Blood Peripheral Staphylococcus Aureus 01/04/17 18:42 Anaerobic Blood Culture - Final Complete Staphylococcus Aureus 01/05/17 12:55 Aerobic Blood Culture - Final Complete Blood Peripheral Staphylococcus Aureus 01/05/17 12:55 Anaerobic Blood Culture - Final Complete Staphylococcus Aureus 01/05/17 13:05 Aerobic Blood Culture - Final Complete Blood Peripheral Staphylococcus Aureus 01/05/17 13:05 Anaerobic Blood Culture - Final Complete Staphylococcus Aureus 01/06/17 20:59 Aerobic Blood Culture - Preliminary Resulted Blood Peripheral NO GROWTH IN 1 DAY 01/06/17 20:59 Anaerobic Blood Culture - Preliminary Resulted Blood Peripheral NO GROWTH IN 1 DAY IMAGING: Consultation 01/05/17 0700 Signed Impressions: Service Date/Time: Thursday, January 05, 2017 07:00 - CONCLUSION: Only a miniscule amount of joint fluid present which would not be amenable to CT guided aspiration. Dillon Archibald MD Chest X-Ray 01/04/17 1806 Signed Impressions: Service Date/Time: Wednesday, January 04, 2017 18:49 - CONCLUSION: No acute disease. There is no evidence of pneumonia. Castillo Bedoya MD Lumbar Spine MRI 01/04/17 0000 Signed Impressions: Service Date/Time: Wednesday, January 04, 2017 19:33 - CONCLUSION: 1. Degenerative change at the L4-5 level with annular disc bulge and high intensity zone the posterior annulus most characteristic of a small annular tear. 2. Small amount of free fluid in the cul-de-sac. Castillo Bedoya MD Hip and Pelvis X-Ray 01/04/17 0000 Signed Impressions: Service Date/Time: Wednesday, January 04, 2017 18:51 - CONCLUSION: Unremarkable exam with no underlying bony abnormality. Castillo Bedoya MD Hip MRI 01/04/17 0000 Signed Impressions: Service Date/Time: Wednesday, January 04, 2017 19:33 - CONCLUSION: Tiny bilateral joint effusion. Miguel Bhatia MD PHYSICAL EXAMINATION GENERAL: No acute distress. HEENT: No icterus. No conjunctival erythema. Oropharynx no visible lesions. Moist mucosa. NECK: Supple without adenopathy. LUNGS: Clear breath sounds. HEART: Regular rate and rhythm. No audible murmurs, rubs or gallops. ABDOMEN: Bowel sounds present, soft, no tenderness appreciated. EXTREMITIES: No clubbing, cyanosis or edema. No splinter hemorrhages at the nail bed. NEUROLOGIC: Nonfocal. SKIN: No rash. PSYCHIATRIC: Patient is calm and cooperative. IMPRESSION 1. Bacteremia with staph aureus in patient was a history of IV drug use and is currently using IV drugs. MSSA. 2. Rule out endocarditis. 3. Left hip pain. Questionable septic arthritis related to bacteremia. RECOMMENDATIONS 1. Continue vancomycin 2. Monitor repeat blood cultures to check for clearance of the bacteria from the blood Raffi Mccloud MD Jan 07, 2017 14:55
[2017-01-07 16:00] VITALS: BP 103/60; PULSE 105; RESP 20; TEMP 99.6; O2SAT 96
[2017-01-07 20:00] VITALS: BP 109/60; PULSE 100; PULSE 121; RESP 18; TEMP 98; O2SAT 94
[2017-01-07] MEDS: ACETAMINOPHEN 325 MG TAB PO PRN (20:00)
[2017-01-08] VITALS (10 sets, daily range): BP systolic 105–120; BP diastolic 50–67; PULSE 87–103; RESP 18–20; TEMP 97.8–100.4; O2SAT 94–97
[2017-01-08] MEDS ORDERED: PHARMACY ORDERED LAB XX ONE (03:45)
[2017-01-08] MEDS: VANCOMYCIN INJ 1,500 MG in SODIUM CHLORID 0.9% 500 ML INJ 500 ML IV SCH ×3 (04:17→20:15)
[2017-01-08] MEDS: SODIUM CHLOR 0.9% 1000 ML INJ 1,000 ML IV SCH ×2 (05:43→15:43)
--- NOTE | 2017-01-08 08:07 | PD.ORT.PN ---
Subjective Subjective Remarks s/p left hip pain with unknown etiology patient slightly improving. was able to stand and pivot. still pain with full weight bearing. Objective Vitals Vital Signs Date Time Temp Pulse Resp B/P Pulse Ox O2 Delivery O2 Flow Rate FiO2 01/08/17 04:00 97.8 97 18 105/50 97 01/08/17 00:00 98.1 87 18 109/64 94 01/07/17 20:00 98.0 100 18 109/60 94 01/07/17 20:00 121 01/07/17 16:00 99.6 105 20 103/60 96 01/07/17 15:38 18 01/07/17 12:00 101.0 101 20 109/62 96 I/O 01/07/17 01/07/17 01/07/17 01/08/17 01/08/17 01/08/17 07:00 15:00 23:00 07:00 15:00 23:00 Intake Total 2000 ml 1200 ml 1022 ml Output Total 3500 ml 4200 ml 2500 ml 8000 ml Balance -1500 ml -3000 ml -1478 ml -8000 ml Intake Oral 1200 ml IV Total 2000 ml 1022 ml Output Urine Total 3500 ml 4200 ml 2500 ml 8000 ml Result Diagram: 01/05/17 0638 01/07/17 0706 Imaging Last 24 hours Impressions Chest X-Ray 01/04/17 1806 Signed Impressions: Service Date/Time: Wednesday, January 04, 2017 18:49 - CONCLUSION: No acute disease. There is no evidence of pneumonia. Castillo Bedoya MD Objective Remarks Patient has minimal pain with gentle hip range of motion. Skin intact around hip. No warmth or erythema. She has mild tenderness to palpation around the gluteus muscles of right hip. No tenderness around her knee or ankle. Sensation intact left foot. Assessment & Plan Assessment and Plan 6 day history of left hip pain--MRI reveals minimal fluid which makes hip joint infection unlikely. She has minimal pain with gentle rotation of her hip today. Continue physical therapy. continue progressing with weight bearing and walking. continue medical management Surgery will likely not be necessary. John Stewart Jan 08, 2017 08:07
[2017-01-08] MEDS: ACETAMINOPHEN 325 MG TAB PO PRN (08:52)
[2017-01-08] MEDS: SODIUM CHLORIDE 0.9% FLUSH 5 ML FLUSH FLUSH SCH ×2 (08:53→20:15)
--- NOTE | 2017-01-08 09:16 | HHI.PR ---
Subjective Remarks Follow-up sepsis/septic joint 01/05/17-patient seen and examined, currently afebrile and nothing by mouth pending CT-guided left hip aspiration. Complains of poorly controlled pain 01/06/17-patient seen and examined;all Repeat Blood culture +; patient still complaining of left hip pain. Afebrile today 01/07/17-patient seen and examined; Tmax 100.9 at 4 PM yesterday however afebrile this morning. was able to lift left leg and hip however still has difficulty putting weight on it. 01/08/17-patient seen and examined, states she was able to sit in a chair yesterday however this morning she complains of some left hip pain . MAXIMUM TEMPERATURE current 100.4 Objective Vitals Vital Signs Date Time Temp Pulse Resp B/P Pulse Ox O2 Delivery O2 Flow Rate FiO2 01/08/17 08:25 100.4 94 20 117/67 95 01/08/17 04:00 97.8 97 18 105/50 97 01/08/17 00:00 98.1 87 18 109/64 94 01/07/17 20:00 98.0 100 18 109/60 94 01/07/17 20:00 121 01/07/17 16:00 99.6 105 20 103/60 96 01/07/17 15:38 18 01/07/17 12:00 101.0 101 20 109/62 96 I/O 01/07/17 01/07/17 01/07/17 01/08/17 01/08/17 01/08/17 07:00 15:00 23:00 07:00 15:00 23:00 Intake Total 2000 ml 1200 ml 1022 ml Output Total 3500 ml 4200 ml 2500 ml 8000 ml Balance -1500 ml -3000 ml -1478 ml -8000 ml Intake Oral 1200 ml IV Total 2000 ml 1022 ml Output Urine Total 3500 ml 4200 ml 2500 ml 8000 ml Result Diagram: 01/05/17 0638 01/07/17 0706 Objective Remarks GENERAL: NAD SKIN: Warm and dry. HEAD: Normocephalic. EYES: No scleral icterus. No injection or drainage. NECK: Supple, trachea midline. No JVD or lymphadenopathy. CARDIOVASCULAR: Regular rate and rhythm without murmurs, gallops, or rubs. RESPIRATORY: Breath sounds equal bilaterally. No accessory muscle use. GASTROINTESTINAL: Abdomen soft, non-tender, nondistended. MUSCULOSKELETAL: No cyanosis, or edema. Left Hip joint TTP with decrease ROM BACK: Nontender without obvious deformity. No CVA tenderness. A/P Problem List: (1) Sepsis ICD Code: A41.9 Status: Acute (2) Left hip pain ICD Code: M25.552 Status: Acute (3) Septic joint ICD Code: M00.9 Status: Acute (4) IVDU (intravenous drug user) ICD Code: F19.90 Status: Acute (5) Tobacco abuse ICD Code: Z72.0 Status: Acute Assessment and Plan 26-year-old female with 1. Sepsis: Currently on Vancomycin 2. Bacteremia with staph aureus. Currently on vancomycin pending the repeat blood culture. Appreciate input from infectious disease specialist. 3. Hip Pain/Septic Joint?: MRI Hip w/ small bilateral joint effusions however per Orthopedic surgery this makes infection less likely. Continue current IV antibiotics and Analgesics/antiemetics as needed. PT to treat 4. IVDU: admits to recent IVDU negative UDS and 2-D echo without endocarditis. Ativan prn for agitation. 5. Tobacco Abuse: Counselled. Ativan/NicoDerm prn if needed. 6. DVT Prophylaxis: SCD/Teds. Problem Qualifiers (1) Sepsis: Qualified Code: A41.9 - Sepsis, due to unspecified organism Miguel Hernandez MD Jan 08, 2017 09:16
--- NOTE | 2017-01-08 16:18 | HHI.IDPN ---
Note Infectious Disease Note Patient notes she gets sweats at night. Also notes mild chills. Has night sweats. Blood culture has MSSA 01/05 and 01/06 and 01/07. Still has febrile episodes. Notes left hip pain. Patient is a 26-year-old white female who presented to the emergency department with left hip pain of severe nature. The patient reportedly was having difficulty ambulating because of the pain and she was also having fever and chills. Patient reports that she was told by her mother that she got hives as a child when she was treated with amoxicillin. PAST MEDICAL HISTORY IV drug use. ALLERGIES AMOXICILLIN CODEINE DILANTIN MEDICATIONS Vancomycin. SOCIAL HISTORY Positive tobacco, half a pack of cigarettes a day. No alcohol. Positive illicit drugs in the form of IV drug use. OBJECTIVE: Vital Signs Date Time Temp Pulse Resp B/P Pulse Ox O2 Delivery O2 Flow Rate FiO2 01/08/17 12:00 98.0 93 20 120/66 94 01/08/17 08:25 100.4 94 20 117/67 95 01/08/17 08:00 89 01/08/17 04:00 97.8 97 18 105/50 97 01/08/17 00:00 98.1 87 18 109/64 94 01/07/17 20:00 98.0 100 18 109/60 94 01/07/17 20:00 121 01/07/17 01/07/17 01/08/17 15:00 23:00 07:00 Intake Total 1200 ml 1022 ml Output Total 4200 ml 2500 ml 8000 ml Balance -3000 ml -1478 ml -8000 ml Intake Oral 1200 ml IV Total 1022 ml Output Urine Total 4200 ml 2500 ml 8000 ml Laboratory Tests Test 01/07/17 07:06 Creatinine 0.59 MG/DL Estimat Glomerular Filtration 124 ML/MIN Rate Microbiology Date/Time Procedure Status Source Growth 01/06/17 20:59 Aerobic Blood Culture - Preliminary Resulted Blood Peripheral Gram Positive Cocci 01/06/17 20:59 Anaerobic Blood Culture - Final Resulted Staphylococcus Aureus Microbiology Date/Time Procedure Status Source Growth 01/04/17 16:20 Influenza Types A,B Antigen (MEERA) - Final Complete Nasal Washing NEGATIVE FOR FLU A AND B ANTIGEN.... 01/04/17 18:30 Aerobic Blood Culture - Final Complete Blood Peripheral Staphylococcus Aureus 01/04/17 18:30 Anaerobic Blood Culture - Final Complete Staphylococcus Aureus 01/04/17 18:42 Aerobic Blood Culture - Final Complete Blood Peripheral Staphylococcus Aureus 01/04/17 18:42 Anaerobic Blood Culture - Final Complete Staphylococcus Aureus 01/05/17 12:55 Aerobic Blood Culture - Final Complete Blood Peripheral Staphylococcus Aureus 01/05/17 12:55 Anaerobic Blood Culture - Final Complete Staphylococcus Aureus 01/05/17 13:05 Aerobic Blood Culture - Final Complete Blood Peripheral Staphylococcus Aureus 01/05/17 13:05 Anaerobic Blood Culture - Final Complete Staphylococcus Aureus 01/06/17 20:59 Aerobic Blood Culture - Preliminary Resulted Blood Peripheral NO GROWTH IN 1 DAY 01/06/17 20:59 Anaerobic Blood Culture - Preliminary Resulted Blood Peripheral NO GROWTH IN 1 DAY IMAGING: Consultation 01/05/17 0700 Signed Impressions: Service Date/Time: Thursday, January 05, 2017 07:00 - CONCLUSION: Only a miniscule amount of joint fluid present which would not be amenable to CT guided aspiration. Dillon Archibald MD Chest X-Ray 01/04/17 1806 Signed Impressions: Service Date/Time: Wednesday, January 04, 2017 18:49 - CONCLUSION: No acute disease. There is no evidence of pneumonia. Castillo Bedoya MD Lumbar Spine MRI 01/04/17 0000 Signed Impressions: Service Date/Time: Wednesday, January 04, 2017 19:33 - CONCLUSION: 1. Degenerative change at the L4-5 level with annular disc bulge and high intensity zone the posterior annulus most characteristic of a small annular tear. 2. Small amount of free fluid in the cul-de-sac. Castillo Bedoya MD Hip and Pelvis X-Ray 01/04/17 0000 Signed Impressions: Service Date/Time: Wednesday, January 04, 2017 18:51 - CONCLUSION: Unremarkable exam with no underlying bony abnormality. Castillo Bedoya MD Hip MRI 01/04/17 0000 Signed Impressions: Service Date/Time: Wednesday, January 04, 2017 19:33 - CONCLUSION: Tiny bilateral joint effusion. Miguel Bhatia MD PHYSICAL EXAMINATION GENERAL: No acute distress. HEENT: No icterus. No conjunctival erythema. Oropharynx no visible lesions. Moist mucosa. NECK: Supple without adenopathy. LUNGS: Clear breath sounds. HEART: Regular rate and rhythm. No audible murmurs, rubs or gallops. ABDOMEN: Bowel sounds present, soft, no tenderness. EXTREMITIES: No clubbing, cyanosis or edema. No splinter hemorrhages at the nail bed. no peripheral embolic phenomena. NEUROLOGIC: Nonfocal. SKIN: No rash. PSYCHIATRIC: Patient is calm and cooperative. IMPRESSION 1. Bacteremia with staph aureus in patient was a history of IV drug use and is currently using IV drugs. MSSA. persistent bacteremia. 2. Probable endocarditis. 3. Left hip pain. Questionable septic arthritis related to bacteremia. RECOMMENDATIONS 1. Continue vancomycin 2. Start Cefazolin. Bacteremia not clearing and therefore Vancomycin does not appear to be effective. Monitor closely for reaction. 3. Consult cardiology for KRISTINA. 4. Repeat blood culture. 5. Monitor repeat blood cultures to check for clearance of the bacteria from the blood. Raffi Mccloud MD Jan 08, 2017 16:18
[2017-01-09] MEDS: SODIUM CHLOR 0.9% 1000 ML INJ 1,000 ML IV SCH ×3 (01:31→21:16)
[2017-01-09] MEDS: VANCOMYCIN INJ 1,500 MG in SODIUM CHLORID 0.9% 500 ML INJ 500 ML IV SCH ×3 (04:05→21:16)
[2017-01-09 06:08] VITALS: BP 112/68; PULSE 90; RESP 18; TEMP 97.8; O2SAT 96
--- NOTE | 2017-01-09 07:24 | MB ---
cc: SHIMON GALICIA DO DATE OF CONSULTATION 01/08/2017 REASON FOR CONSULTATION Consideration of KRISTINA. HISTORY OF PRESENT ILLNESS Carla Baxter is a 26-year-old female who presents to [facility] emergency room on January 04, 2017 with the complaint of severe left hip pain for three days. She originally was unable to ambulate due to the worsening of pain. She has also had some fevers and chills. She does have a history of IV drug abuse using Dilaudid off and on since the age of 17. While here, she was found to have bacteremia with staph aureus. Because of this, I was asked to see her for consideration of KRISTINA. She denies chest pain or shortness of breath at this time. PAST MEDICAL HISTORY 1. Anxiety 2. Depression 3. Hepatitis C 4. Tobacco abuse 5. IV drug abuse PAST SURGICAL HISTORY 1. Right arm surgery 2. Tympanostomy tube ALLERGIES 1. Amoxicillin 2. Codeine 3. Dilantin MEDICATIONS Denies SOCIAL HISTORY Admits to IV drug abuse with Dilaudid off and on since the age of 17, last use was around one week ago. Smokes a half-a-pack a day. Denies alcohol abuse. FAMILY HISTORY Denies premature coronary artery disease or sudden cardiac within the family. PHYSICAL EXAMINATION VITAL SIGNS: Temperature 98.7, heart rate 95, blood pressure 109/59, respirations 20, pulse ox 95% on room air. GENERAL: In general, the patient appears in mild distress due to hip pain. Alert awake and oriented x3. HEAD, EYES, EARS, NOSE, AND THROAT: Extraocular muscles intact. Mucous membranes moist. NECK: Supple. No JVD at 45 degrees. No carotid bruits heard bilaterally. Carotid upstroke is brisk in nature. HEART: Regular rate and rhythm. Positive first and second heart sounds with no noted murmurs, gallops or rubs. PMI is difficult to ascertain, but does not appear displaced. LUNGS: Clear to auscultation bilaterally. No wheezes, rales or rhonchi. ABDOMEN: Soft, nontender, nondistended. No organomegaly noted. EXTREMITIES: Show no clubbing or cyanosis. Decreased range of motion of the left lower extremity due to pain. NEUROLOGIC: No focal deficits. SKIN: Warm, dry and intact. OSTEOPATHIC: No kyphoscoliosis, lordosis or paraspinal tender points. LABORATORY FINDINGS Hemoglobin 10.3, hematocrit 30.8, platelets 188. Potassium 3.9, BUN 8, creatinine 0.59, lactic acid 1.0. Electrocardiogram (January 04, 2017 at 1907) sinus tachycardia, possible left atrial enlargement, possible right ventricular conduction delay. IMPRESSION 1. Staph aureus bacteremia which has not cleared. 2. History of IV drug abuse with Dilaudid since the age of 17, last use around one week ago. 3. Left hip pain with possible septic arthritis 4. Probable endocarditis. RECOMMENDATIONS 1. Carla appears to have bacteremia with staph aureus which has been unable to clear with current antibiotics. 2. Transthoracic echocardiogram was done showing no valvular lesions for endocarditis, but due to her history as well as inability to clear her blood with antibiotics, it was felt that she needs to undergo transesophageal echocardiogram. 3. I spoke to her about the risks, benefits and alternatives and she understands and consents as such. 4. She will be n.p.o. after midnight with a plan for KRISTINA in the morning. 5. Further recommendations will be made after KRISTINA. Thank you for allowing me to Carla Baxter. If there are any questions, please do not hesitate to call. Shimon Galicia DO VGP/DJL /10:12 PM /7:13 AM
--- NOTE | 2017-01-09 07:28 | PD.ORT.PN ---
Subjective Subjective Remarks s/p left hip pain with unknown etiology patient slightly improving. was able to stand and pivot. still pain with full weight bearing. reports pain with motion is slightly improving Objective Vitals Vital Signs Date Time Temp Pulse Resp B/P Pulse Ox O2 Delivery O2 Flow Rate FiO2 01/09/17 06:08 97.8 90 18 112/68 96 01/08/17 23:00 97.9 97 20 109/57 95 01/08/17 20:05 100.0 102 18 118/63 94 01/08/17 18:11 98 01/08/17 16:00 98.7 95 20 109/59 95 01/08/17 15:00 103 01/08/17 12:00 98.0 93 20 120/66 94 01/08/17 08:25 100.4 94 20 117/67 95 01/08/17 08:00 89 I/O 01/08/17 01/08/17 01/08/17 01/09/17 01/09/17 01/09/17 07:00 15:00 23:00 07:00 15:00 23:00 Intake Total 600 ml 400 ml Output Total 8000 ml 2300 ml Balance -8000 ml -1700 ml 400 ml Intake Oral 600 ml IV Total 400 ml Output Urine Total 8000 ml 2300 ml # Voids 2 6 # Bowel Movements 0 Result Diagram: 01/05/17 0638 01/07/17 0706 Imaging Last 24 hours Impressions Chest X-Ray 01/04/17 1806 Signed Impressions: Service Date/Time: Wednesday, January 04, 2017 18:49 - CONCLUSION: No acute disease. There is no evidence of pneumonia. Castillo Bedoya MD Objective Remarks Patient has minimal pain with gentle hip range of motion. Skin intact around hip. No warmth or erythema. She has mild tenderness to palpation around the gluteus muscles of right hip. No tenderness around her knee or ankle. Sensation intact left foot. Assessment & Plan Assessment and Plan 7 day history of left hip pain--MRI reveals minimal fluid which makes hip joint infection unlikely. She has minimal pain with gentle rotation of her hip today. Continue physical therapy. continue progressing with weight bearing and walking. continue medical management Surgery will likely not be necessary. will order CRP and sed rate today to evaluate infection markers in blood John Stewart Jan 09, 2017 07:28
[2017-01-09 08:00] VITALS: BP 119/63; PULSE 85; PULSE 87; RESP 20; TEMP 97.8; O2SAT 96
[2017-01-09] MEDS: SODIUM CHLORIDE 0.9% FLUSH 5 ML FLUSH FLUSH SCH ×2 (09:00→21:16)
--- NOTE | 2017-01-09 09:27 | HHI.PR ---
Subjective Remarks Follow-up sepsis/septic joint 01/05/17-patient seen and examined, currently afebrile and nothing by mouth pending CT-guided left hip aspiration. Complains of poorly controlled pain 01/06/17-patient seen and examined;all Repeat Blood culture +; patient still complaining of left hip pain. Afebrile today 01/07/17-patient seen and examined; Tmax 100.9 at 4 PM yesterday however afebrile this morning. was able to lift left leg and hip however still has difficulty putting weight on it. 01/08/17-patient seen and examined, states she was able to sit in a chair yesterday however this morning she complains of some left hip pain . MAXIMUM TEMPERATURE current 100.4 01/09/17-patient seen and examined, still spiking fever. Currently nothing by mouth pending KRISTINA Objective Vitals Vital Signs Date Time Temp Pulse Resp B/P Pulse Ox O2 Delivery O2 Flow Rate FiO2 01/09/17 08:00 97.8 85 20 119/63 96 01/09/17 06:08 97.8 90 18 112/68 96 01/08/17 23:00 97.9 97 20 109/57 95 01/08/17 20:05 100.0 102 18 118/63 94 01/08/17 18:11 98 01/08/17 16:00 98.7 95 20 109/59 95 01/08/17 15:00 103 01/08/17 12:00 98.0 93 20 120/66 94 I/O 01/08/17 01/08/17 01/08/17 01/09/17 01/09/17 01/09/17 06:59 14:59 22:59 06:59 14:59 22:59 Intake Total 600 ml 400 ml Output Total 8000 ml 2300 ml Balance -8000 ml -1700 ml 400 ml Intake Oral 600 ml IV Total 400 ml Output Urine Total 8000 ml 2300 ml # Voids 2 6 # Bowel Movements 0 Result Diagram: 01/05/17 0638 01/07/17 0706 Objective Remarks GENERAL: NAD SKIN: Warm and dry. HEAD: Normocephalic. EYES: No scleral icterus. No injection or drainage. NECK: Supple, trachea midline. No JVD or lymphadenopathy. CARDIOVASCULAR: Regular rate and rhythm without murmurs, gallops, or rubs. RESPIRATORY: Breath sounds equal bilaterally. No accessory muscle use. GASTROINTESTINAL: Abdomen soft, non-tender, nondistended. MUSCULOSKELETAL: No cyanosis, or edema. Left Hip joint TTP with decrease ROM BACK: Nontender without obvious deformity. No CVA tenderness. A/P Problem List: (1) Sepsis ICD Code: A41.9 Status: Acute (2) Left hip pain ICD Code: M25.552 Status: Acute (3) Septic joint ICD Code: M00.9 Status: Acute (4) IVDU (intravenous drug user) ICD Code: F19.90 Status: Acute (5) Tobacco abuse ICD Code: Z72.0 Status: Acute (6) Bacteremia due to Gram-positive bacteria ICD Code: A49.9 Status: Acute Assessment and Plan 26-year-old female with 1. Sepsis: Currently on Vancomycin and Ancef 2. Bacteremia with staph aureus. Currently on vancomycin and Ancef pending KRISTINA 01/09/17 from cardiology to rule out endocarditis as patient with a history of IVDU. Appreciate input from infectious disease specialist. 3. Hip Pain/Septic Joint?: MRI Hip w/ small bilateral joint effusions however per Orthopedic surgery this makes infection less likely. Continue current IV antibiotics and Analgesics/antiemetics as needed. PT to treat 4. IVDU: admits to recent IVDU negative UDS and 2-D echo without endocarditis however patient still spiking fever therefore KRISTINA pending per cardiology today 01/09/17. Ativan prn for agitation. 5. Tobacco Abuse: Counselled. Ativan/NicoDerm prn if needed. 6. DVT Prophylaxis: SCD/Teds. Problem Qualifiers (1) Sepsis: Qualified Code: A41.9 - Sepsis, due to unspecified organism Miguel Hernandez MD Jan 09, 2017 09:27
--- NOTE | 2017-01-09 10:46 | PD.CARD.PN ---
Subjective Subjective Remarks No events overnight, still having fevers Hip pain is somewhat better Objective Medications Current Medications Medications (Trade) Dose Ordered Sig/Michelle Route Start Time Stop Time Status Last Admin (NS 1000 ml Inj) 1,000 ml @ 100 mls/hr Q10H IV 01/04/17 21:43 01/09/17 09:58 (NS Flush) 2 ml UNSCH PRN FLUSH 01/04/17 21:45 (NS Flush) 2 ml BID FLUSH 01/05/17 09:00 01/08/17 20:15 (Zofran Inj) 4 mg Q6H PRN IVP 01/04/17 21:45 (Dulcolax Supp) 10 mg DAILY PRN [place] 01/04/17 21:45 (Tylenol) 650 mg Q6H PRN PO 01/04/17 21:45 01/08/17 08:52 (Roxicodone) 10 mg Q4H PRN PO 01/04/17 21:45 01/09/17 08:40 Oxycodone HCl 5 mg 5 mg Q4H PRN PO 01/04/17 21:45 (Vancomycin Consult Pharmacy) 0 ml @ 0 mls/hr UNSCH OTHER 01/05/17 16:30 (Ibis-Colace) 1 tab BID PRN PO 01/06/17 11:00 (Mag-Al Plus Susp Liq) 30 ml Q6H PRN PO 01/06/17 11:00 Temazepam 15 mg 15 mg HS PRN PO 01/06/17 11:00 (Vancomycin Inj/ NS 500 ml Inj) 515 ml @ 250 mls/hr Q8H IV 01/07/17 04:00 01/09/17 04:05 Miscellaneous Information SPECIFIC LAB TO BE DRAWN:VANCOMYCIN TROUGH DATE TO... ONCE ONCE XX 01/10/17 03:45 01/10/17 03:46 (Ancef Inj/NS Inj) 100 ml @ 200 mls/hr Q8H IV 01/08/17 17:00 01/09/17 08:40 Vital Signs / I&O Vital Signs Date Time Temp Pulse Resp B/P Pulse Ox O2 Delivery O2 Flow Rate FiO2 01/09/17 08:00 97.8 85 20 119/63 96 01/09/17 06:08 97.8 90 18 112/68 96 01/08/17 23:00 97.9 97 20 109/57 95 01/08/17 20:05 100.0 102 18 118/63 94 01/08/17 18:11 98 01/08/17 16:00 98.7 95 20 109/59 95 01/08/17 15:00 103 01/08/17 12:00 98.0 93 20 120/66 94 I/O 01/08/17 01/08/17 01/08/17 01/09/17 01/09/17 01/09/17 07:00 15:00 23:00 07:00 15:00 23:00 Intake Total 600 ml 400 ml Output Total 8000 ml 2300 ml Balance -8000 ml -1700 ml 400 ml Intake Oral 600 ml IV Total 400 ml Output Urine Total 8000 ml 2300 ml # Voids 2 6 # Bowel Movements 0 Physical Exam GENERAL: NAD, AAOx3 SKIN: Warm and dry. HEAD: Atraumatic. Normocephalic. EYES: Pupils equal and round. No scleral icterus. No injection or drainage. ENT: No nasal bleeding or discharge. Mucous membranes pink and moist. NECK: Trachea midline. No JVD. CARDIOVASCULAR: Regular rate and rhythm. RESPIRATORY: No accessory muscle use. Clear to auscultation. Breath sounds equal bilaterally. GASTROINTESTINAL: Abdomen soft, non-tender, nondistended. Hepatic and splenic margins not palpable. MUSCULOSKELETAL: Extremities without clubbing, cyanosis, or edema. No obvious deformities. NEUROLOGICAL: Awake and alert. No obvious cranial nerve deficits. Motor grossly within normal limits. Five out of 5 muscle strength in the arms and legs. Normal speech. PSYCHIATRIC: Appropriate mood and affect; insight and judgment normal. Laboratory Laboratory Tests Test 01/06/17 01/07/17 01/08/17 20:59 07:06 04:00 Vancomycin Level Trough 8.2 MCG/ML 12.3 MCG/ML (5.0-10.0) (5.0-10.0) Creatinine 0.59 MG/DL (0.50-1.00) Estimat Glomerular Filtration 124 ML/MIN Rate (>89) Assessment and Plan Problem List: (1) Bacteremia due to Gram-positive bacteria (2) Left hip pain (3) IVDU (intravenous drug user) (4) Tobacco abuse Assessment and Plan 1) Continual bacteremia with concern for endocarditis due to recent IV drug use 2) Plan KRISTINA today, risk, benefits and alternatives were explained to the patient and patient consented 3) Discussed tobacco cessation for greater than 3 mins, unwilling to stop at this time 4) Further recommendations after KRISTINA Shimon Beth DO Jan 09, 2017 10:46
[2017-01-09 15:00] VITALS: PULSE 95
[2017-01-09 16:04] VITALS: BP 109/55; PULSE 91; RESP 20; TEMP 97.3; O2SAT 96
[2017-01-09 16:18] LABS: AUTOMATED NEUTROPHIL # 8.9 TH/MM3 (1.8-7.7); BASOPHIL # 0.1 TH/MM3 (0-0.2); BASOPHIL % 0.5 % (0.0-2.0); EOSINOPHIL # 0.4 TH/MM3 (0-0.4); EOSINOPHIL % 3.2 % (0.0-4.0); HEMATOCRIT 31.7 % (35.0-46.0); HEMO FLAGS DIFF FINAL; LYMPH % 18.4 % (9.0-44.0); LYMPHOCYTE # 2.3 TH/MM3 (1.0-4.8); MEAN CELL VOLUME 86.5 FL (80.0-100.0); MEAN CORPUSCULAR HEMOGLOBIN 28.7 PG (27.0-34.0); MEAN CORPUSCULAR HGB CONC 33.2 % (32.0-36.0); MONO % 6.6 % (0.0-8.0); NEUT % 71.3 % (16.0-70.0); PLATELET COUNT 414 TH/MM3 (150-450); RED BLOOD COUNT 3.67 MIL/MM3 (4.00-5.30); RED CELL DISTRIBUTION WIDTH 13.5 % (11.6-17.2); WHITE BLOOD COUNT 12.5 TH/MM3 (4.0-11.0)
--- NOTE | 2017-01-09 16:34 | HHI.IDPN ---
Note Infectious Disease Note Patient feels a little. Low grade temp. Complains of L. hip pain. Blood culture has MSSA 01/05 and 01/06 and 01/07. Tolerating Ancef. Patient is a 26-year-old white female who presented to the emergency department with left hip pain of severe nature. The patient reportedly was having difficulty ambulating because of the pain and she was also having fever and chills. Patient reports that she was told by her mother that she got hives as a child when she was treated with amoxicillin. PAST MEDICAL HISTORY IV drug use. ALLERGIES AMOXICILLIN CODEINE DILANTIN MEDICATIONS Vancomycin. Ancef. SOCIAL HISTORY Positive tobacco, half a pack of cigarettes a day. No alcohol. Positive illicit drugs in the form of IV drug use. OBJECTIVE: Vital Signs Date Time Temp Pulse Resp B/P Pulse Ox O2 Delivery O2 Flow Rate FiO2 01/09/17 16:04 97.3 91 20 109/55 96 01/09/17 15:00 95 01/09/17 08:00 97.8 85 20 119/63 96 01/09/17 08:00 87 01/09/17 06:08 97.8 90 18 112/68 96 01/08/17 23:00 97.9 97 20 109/57 95 01/08/17 20:05 100.0 102 18 118/63 94 01/08/17 18:11 98 01/08/17 01/08/17 01/09/17 15:00 23:00 07:00 Intake Total 600 ml 400 ml Output Total 2300 ml Balance -1700 ml 400 ml Intake Oral 600 ml IV Total 400 ml Output Urine Total 2300 ml # Voids 2 6 # Bowel Movements 0 Laboratory Tests Test 01/09/17 15:46 White Blood Count 12.5 TH/MM3 Red Blood Count 3.67 MIL/MM3 Hemoglobin 10.5 GM/DL Hematocrit 31.7 % Mean Corpuscular Volume 86.5 FL Mean Corpuscular Hemoglobin 28.7 PG Mean Corpuscular Hemoglobin 33.2 % Concent Red Cell Distribution Width 13.5 % Platelet Count 414 TH/MM3 Mean Platelet Volume 7.6 FL Neutrophils (%) (Auto) 71.3 % Lymphocytes (%) (Auto) 18.4 % Monocytes (%) (Auto) 6.6 % Eosinophils (%) (Auto) 3.2 % Basophils (%) (Auto) 0.5 % Neutrophils # (Auto) 8.9 TH/MM3 Lymphocytes # (Auto) 2.3 TH/MM3 Monocytes # (Auto) 0.8 TH/MM3 Eosinophils # (Auto) 0.4 TH/MM3 Basophils # (Auto) 0.1 TH/MM3 CBC Comment DIFF FINAL Differential Comment Microbiology Date/Time Procedure Status Source Growth 01/06/17 20:59 Aerobic Blood Culture - Final Complete Blood Peripheral Staphylococcus Aureus 01/06/17 20:59 Anaerobic Blood Culture - Final Complete Staphylococcus Aureus 01/09/17 15:46 Aerobic Blood Culture Received Blood Peripheral Pending 01/09/17 15:46 Anaerobic Blood Culture Received Blood Peripheral Pending Microbiology Date/Time Procedure Status Source Growth 01/06/17 20:59 Aerobic Blood Culture - Preliminary Resulted Blood Peripheral Gram Positive Cocci 01/06/17 20:59 Anaerobic Blood Culture - Final Resulted Staphylococcus Aureus Microbiology Date/Time Procedure Status Source Growth 01/04/17 16:20 Influenza Types A,B Antigen (MEERA) - Final Complete Nasal Washing NEGATIVE FOR FLU A AND B ANTIGEN.... 01/04/17 18:30 Aerobic Blood Culture - Final Complete Blood Peripheral Staphylococcus Aureus 01/04/17 18:30 Anaerobic Blood Culture - Final Complete Staphylococcus Aureus 01/04/17 18:42 Aerobic Blood Culture - Final Complete Blood Peripheral Staphylococcus Aureus 01/04/17 18:42 Anaerobic Blood Culture - Final Complete Staphylococcus Aureus 01/05/17 12:55 Aerobic Blood Culture - Final Complete Blood Peripheral Staphylococcus Aureus 01/05/17 12:55 Anaerobic Blood Culture - Final Complete Staphylococcus Aureus 01/05/17 13:05 Aerobic Blood Culture - Final Complete Blood Peripheral Staphylococcus Aureus 01/05/17 13:05 Anaerobic Blood Culture - Final Complete Staphylococcus Aureus 01/06/17 20:59 Aerobic Blood Culture - Preliminary Resulted Blood Peripheral NO GROWTH IN 1 DAY 01/06/17 20:59 Anaerobic Blood Culture - Preliminary Resulted Blood Peripheral NO GROWTH IN 1 DAY IMAGING: Consultation 01/05/17 0700 Signed Impressions: Service Date/Time: Thursday, January 05, 2017 07:00 - CONCLUSION: Only a miniscule amount of joint fluid present which would not be amenable to CT guided aspiration. Dillon Archibald MD Chest X-Ray 01/04/17 1806 Signed Impressions: Service Date/Time: Wednesday, January 04, 2017 18:49 - CONCLUSION: No acute disease. There is no evidence of pneumonia. Castillo Bedoya MD Lumbar Spine MRI 01/04/17 0000 Signed Impressions: Service Date/Time: Wednesday, January 04, 2017 19:33 - CONCLUSION: 1. Degenerative change at the L4-5 level with annular disc bulge and high intensity zone the posterior annulus most characteristic of a small annular tear. 2. Small amount of free fluid in the cul-de-sac. Castillo Bedoya MD Hip and Pelvis X-Ray 01/04/17 0000 Signed Impressions: Service Date/Time: Wednesday, January 04, 2017 18:51 - CONCLUSION: Unremarkable exam with no underlying bony abnormality. Castillo Bedoya MD Hip MRI 01/04/17 0000 Signed Impressions: Service Date/Time: Wednesday, January 04, 2017 19:33 - CONCLUSION: Tiny bilateral joint effusion. Miguel Bhatia MD PHYSICAL EXAMINATION GENERAL: No acute distress. HEENT: No icterus. No conjunctival erythema. Oropharynx no visible lesions. Moist mucosa. NECK: Supple without adenopathy. LUNGS: Clear breath sounds. HEART: Regular rate and rhythm. No audible murmurs, rubs or gallops. ABDOMEN: Bowel sounds present, soft. EXTREMITIES: L hip has focal cristhian of tenderness at the posterior aspect. No clubbing, cyanosis or edema. No splinter hemorrhages at the nail bed. no peripheral embolic phenomena. NEUROLOGIC: Nonfocal. SKIN: No rash. PSYCHIATRIC: Calm and cooperative. IMPRESSION 1. Bacteremia with staph aureus. History of IV drug use and is currently using IV drugs. MSSA. persistent bacteremia. 2. Probable endocarditis. 3. Left hip pain. Questionable septic arthritis related to bacteremia. Tiny amount of joint fluid seen. Thermal notamenable to aspiration. RECOMMENDATIONS 1. Stop vancomycin 2. Continue Ancef. Increase dose to 2gms IV Q8 hours. Bacteremia not clearing and therefore Vancomycin does not appear to be effective. Monitor closely for reaction. 3. Monitor KRISTINA results. 4. Repeat blood culture. 5. Monitor repeat blood cultures to check for clearance of the bacteria from the blood. 6. Heating pad to left hip. Raffi Mccloud MD Jan 09, 2017 16:34
[2017-01-09 16:40] LABS: BICARBONATE 30.4 MEQ/L (21.0-32.0); POTASSIUM 3.7 MEQ/L (3.5-5.1)
[2017-01-09] MEDS: ceFAZolin 2 GM PREMIX 50 ML IV SCH (16:50)
--- NOTE | 2017-01-09 19:03 | ETE ---
Study Study Date:01/09/2017 STUDY CONCLUSIONS SUMMARY - Left ventricle: The cavity size was normal. Systolic function was normal. The estimated ejection fraction was in the range of 55% to 60%. Wall motion was normal; there were no regional wall motion abnormalities. - Aortic valve: There is a probable, small, mobile vegetation on the aortic aspect of the right coronary cusp. - Left atrium: No evidence of thrombus in the atrial cavity or appendage. - Tricuspid valve: Appears that there is a mass with a mobile section to it on the tricuspid valve. Concern for possible chronic changes of the septal or posterior valve with acute endocarditis vs possible abscess. Mild tricuspid regurgitation. Clinical correlation. Impressions: Probableendocarditis of the aortic valve on the right coronary cusp. Probable endocarditis of the tricuspid valve with questionable chronic changes and acute component vs. possible abscess. If LV function is below 40, please consider prescribing an ACEI or ARB or document rationale for non-use. PROCEDURE DATA Consent: The risks, benefits, and alternatives to the procedure were explained to the patient and informed consent was obtained. Procedure: Initial setup. The patient was brought to the laboratory in the fasting state. Intravenous access was obtained. Surface ECG leads and pulse oximetric signals were monitored. Sedation. Conscious sedation was administered by cardiology staff. Transesophageal echocardiography. Topical anesthesia was obtained using viscous lidocaine. A transesophageal probe was inserted by the attending hat model. Image quality was good. Study completion: All IVs inserted during the procedure were removed. The patient tolerated the procedure well. There were no complications. Transesophageal echocardiography. 2D, complete spectral Doppler, and color Doppler. CARDIAC ANATOMY LEFT VENTRICLE: The cavity size was normal. Systolic function was normal. The estimated ejection fraction was in the range of 55% to 60%. Wall motion was normal; there were no regional wall motion abnormalities. AORTIC VALVE: [place]. There is a probable, small, mobile vegetation on the aortic aspect of the right coronary cusp. MITRAL VALVE: The valve appears to be grossly normal. Doppler: There was no evidence for stenosis. Trace regurgitation. LEFT ATRIUM: The atrium was normal in size. No evidence of thrombus in the atrial cavity or appendage. The appendage was morphologically a left appendage. ATRIAL SEPTUM: No defect or patent foramen ovale was identified. PULMONIC VALVE: Not well visualized. Doppler: There was no evidence for stenosis. No significant regurgitation. TRICUSPID VALVE: Appears that there is a mass with a mobile section to it on the tricuspid valve. Concern for possible chronic changes of the septal or posterior valve with acute endocarditis vs possible abscess. Mild tricuspid regurgitation. Clinical correlation. PERICARDIUM: There was no pericardial effusion. Amended Shimon Beth [id number]
[2017-01-09 20:00] VITALS: BP 106/58; PULSE 101; RESP 20; TEMP 98.6; O2SAT 93
[2017-01-09 23:00] VITALS: PULSE 95
[2017-01-10] VITALS (8 sets, daily range): BP systolic 99–125; BP diastolic 55–71; PULSE 80–100; RESP 18–20; TEMP 97.3–101.1; O2SAT 94–97
[2017-01-10] MEDS: ACETAMINOPHEN 325 MG TAB PO PRN (02:01)
[2017-01-10] MEDS: ceFAZolin 2 GM PREMIX 50 ML IV SCH ×3 (02:01→17:50)
[2017-01-10] MEDS ORDERED: PHARMACY ORDERED LAB XX ONE (03:45)
[2017-01-10] MEDS: VANCOMYCIN INJ 1,500 MG in SODIUM CHLORID 0.9% 500 ML INJ 500 ML IV SCH (05:58)
[2017-01-10 06:14] LABS: AUTOMATED NEUTROPHIL # 8.5 TH/MM3 (1.8-7.7); BASOPHIL # 0.1 TH/MM3 (0-0.2); BASOPHIL % 0.9 % (0.0-2.0); EOSINOPHIL # 0.3 TH/MM3 (0-0.4); EOSINOPHIL % 2.7 % (0.0-4.0); HEMATOCRIT 33.2 % (35.0-46.0); HEMO FLAGS DIFF FINAL; LYMPH % 16.8 % (9.0-44.0); MEAN CELL VOLUME 87.3 FL (80.0-100.0); MEAN CORPUSCULAR HEMOGLOBIN 28.6 PG (27.0-34.0); MEAN CORPUSCULAR HGB CONC 32.8 % (32.0-36.0); MONO % 7.3 % (0.0-8.0); NEUT % 72.3 % (16.0-70.0); PLATELET COUNT 366 TH/MM3 (150-450); RED CELL DISTRIBUTION WIDTH 13.5 % (11.6-17.2); WHITE BLOOD COUNT 11.7 TH/MM3 (4.0-11.0)
[2017-01-10 06:55] LABS: BICARBONATE 26.3 MEQ/L (21.0-32.0); POTASSIUM 4.1 MEQ/L (3.5-5.1)
--- NOTE | 2017-01-10 07:27 | PD.ORT.PN ---
Subjective Subjective Remarks Patient has left hip pain--she states that pain is improving. she still has difficulty walking. Denies traumatic injury or fall. She states that pain started when she was getting up out of bed and felt a pop in her hip Objective Vitals Vital Signs Date Time Temp Pulse Resp B/P Pulse Ox O2 Delivery O2 Flow Rate FiO2 01/10/17 04:00 97.6 90 20 99/61 97 01/10/17 00:00 101.1 100 20 102/55 94 01/09/17 23:00 95 01/09/17 20:00 98.6 101 20 106/58 93 01/09/17 16:04 97.3 91 20 109/55 96 01/09/17 15:00 95 01/09/17 08:00 97.8 85 20 119/63 96 01/09/17 08:00 87 I/O 01/09/17 01/09/17 01/09/17 01/10/17 01/10/17 01/10/17 07:00 15:00 23:00 07:00 15:00 23:00 Intake Total 0 ml 480 ml 240 ml Balance 0 ml 480 ml 240 ml Intake Oral 0 ml 480 ml 240 ml # Voids 6 2 2 2 # Bowel Movements 0 0 1 Result Diagram: 01/10/17 0518 01/10/17 0518 Imaging Last 24 hours Impressions Chest X-Ray 01/04/17 1806 Signed Impressions: Service Date/Time: Wednesday, January 04, 2017 18:49 - CONCLUSION: No acute disease. There is no evidence of pneumonia. Castillo Bedoya MD Objective Remarks Patient has minimal pain with gentle hip range of motion. She is able to flex her hip from 0 to 100 with minimal discomfort. Skin intact around hip. No warmth or erythema. She has mild tenderness to palpation around the gluteus muscles of right hip. No tenderness around her knee or ankle. Sensation intact left foot. Dorsalis pedis pulses palpable Assessment & Plan Assessment and Plan 8 day history of left hip pain--MRI reveals minimal fluid which makes hip joint infection unlikely. She has minimal pain with hip motion today. Continue physical therapy. continue progressing with weight bearing and walking. continue medical management Surgery will likely not be necessary. Rex Vickers MD Jan 10, 2017 07:27
--- NOTE | 2017-01-10 09:44 | HHI.PR ---
Subjective Remarks Follow-up sepsis/septic joint 01/05/17-patient seen and examined, currently afebrile and nothing by mouth pending CT-guided left hip aspiration. Complains of poorly controlled pain 01/06/17-patient seen and examined;all Repeat Blood culture +; patient still complaining of left hip pain. Afebrile today 01/07/17-patient seen and examined; Tmax 100.9 at 4 PM yesterday however afebrile this morning. was able to lift left leg and hip however still has difficulty putting weight on it. 01/08/17-patient seen and examined, states she was able to sit in a chair yesterday however this morning she complains of some left hip pain . MAXIMUM TEMPERATURE current 100.4 01/09/17-patient seen and examined, still spiking fever. Currently nothing by mouth pending KRISTINA 01/10/17-patient seen and examined, KRISTINA performed yesterday with finding of endocarditis to tricuspid and aortic valves. Patient still spiking fevers. Now able to move up her left hip more and walk Objective Vitals Vital Signs Date Time Temp Pulse Resp B/P Pulse Ox O2 Delivery O2 Flow Rate FiO2 01/10/17 08:26 97.3 80 18 105/56 95 01/10/17 04:00 97.6 90 20 99/61 97 01/10/17 00:00 101.1 100 20 102/55 94 01/09/17 23:00 95 01/09/17 20:00 98.6 101 20 106/58 93 01/09/17 16:04 97.3 91 20 109/55 96 01/09/17 15:00 95 I/O 01/09/17 01/09/17 01/09/17 01/10/17 01/10/17 01/10/17 07:00 15:00 23:00 07:00 15:00 23:00 Intake Total 0 ml 480 ml 240 ml Balance 0 ml 480 ml 240 ml Intake Oral 0 ml 480 ml 240 ml # Voids 6 2 2 2 # Bowel Movements 0 0 1 Result Diagram: 01/10/1751701/10/17517 Imaging Last Impressions Consultation 01/05/17 0700 Signed Impressions: Service Date/Time: Thursday, January 05, 2017 07:00 - CONCLUSION: Only a miniscule amount of joint fluid present which would not be amenable to CT guided aspiration. Dillon Archibald MD Chest X-Ray 01/04/17 1806 Signed Impressions: Service Date/Time: Wednesday, January 04, 2017 18:49 - CONCLUSION: No acute disease. There is no evidence of pneumonia. Castillo Bedoya MD Lumbar Spine MRI 01/04/17 0000 Signed Impressions: Service Date/Time: Wednesday, January 04, 2017 19:33 - CONCLUSION: 1. Degenerative change at the L4-5 level with annular disc bulge and high intensity zone the posterior annulus most characteristic of a small annular tear. 2. Small amount of free fluid in the cul-de-sac. Castillo Bedoya MD Hip and Pelvis X-Ray 01/04/17 0000 Signed Impressions: Service Date/Time: Wednesday, January 04, 2017 18:51 - CONCLUSION: Unremarkable exam with no underlying bony abnormality. Castillo Bedoya MD Hip MRI 01/04/17 0000 Signed Impressions: Service Date/Time: Wednesday, January 04, 2017 19:33 - CONCLUSION: Tiny bilateral joint effusion. Miguel Bhatia MD Objective Remarks GENERAL: NAD SKIN: Warm and dry. HEAD: Normocephalic. EYES: No scleral icterus. No injection or drainage. NECK: Supple, trachea midline. No JVD or lymphadenopathy. CARDIOVASCULAR: Regular rate and rhythm without murmurs, gallops, or rubs. RESPIRATORY: Breath sounds equal bilaterally. No accessory muscle use. GASTROINTESTINAL: Abdomen soft, non-tender, nondistended. MUSCULOSKELETAL: No cyanosis, or edema. Left Hip joint TTP with decrease ROM BACK: Nontender without obvious deformity. No CVA tenderness. 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 Endocarditis tricuspid valve, aortic valve endocarditis: Status post KRISTINA . Currently on Ancef IV pending the recommendation from ID. May consider CT as consult 2. Sepsis: Currently on Ancef 3. Bacteremia with staph aureus. Currently on Ancef . KRISTINA 01/09/17 positive for endocarditis. Appreciate input from cardiology. Appreciate input from infectious disease specialist. 4. Hip Pain/Septic Joint?: MRI Hip w/ small bilateral joint effusions however per Orthopedic surgery this makes infection less likely. Continue current IV antibiotics and Analgesics/antiemetics as needed. PT to treat 5. IVDU: admits to recent IVDU negative UDS and 2-D echo without endocarditis however KRISTINA positive for endocarditis performed on 01/09/17. Ativan prn for agitation. 6. Tobacco Abuse: Counselled. Ativan/NicoDerm prn if needed. 7. DVT Prophylaxis: SCD/Teds. Problem Qualifiers (1) Sepsis: Qualified Code: A41.9 - Sepsis, due to unspecified organism Miguel Hernandez MD Jan 10, 2017 09:44
[2017-01-10] MEDS: SODIUM CHLOR 0.9% 1000 ML INJ 1,000 ML IV SCH ×2 (10:04→13:04)
[2017-01-10] MEDS: SODIUM CHLORIDE 0.9% FLUSH 5 ML FLUSH FLUSH SCH ×2 (10:04→22:53)
[2017-01-10] MEDS: VANCOMYCIN INJ 1,600 MG in SODIUM CHLORID 0.9% 500 ML INJ 500 ML IV SCH ×2 (13:04→22:57)
[2017-01-10] MEDS ORDERED: VANCOMYCIN INJ 1,600 MG in SODIUM CHLORID 0.9% 500 ML INJ 500 ML IV SCH (14:00)
--- NOTE | 2017-01-10 17:15 | HHI.IDPN ---
Note Infectious Disease Note ID Xcover for . is a 26 y/o CF ([place] descent) who presented to the emergency department with left hip pain of severe nature. The patient reportedly was having difficulty ambulating because of the pain and she was also having fever and chills. Patient reports that she was told by her mother that she got hives as a child when she was treated with amoxicillin. Sepsis workup demonstrated MSSA bacteremia, persistent. KRISTINA positive for tricuspid and aortic valve vegetations. MRI with left hip changes likely septic emboli related early changes. Fevers, last temp 6 hrs back. Complains of Left hip pain and limited range of motion. Blood culture has MSSA 01/05 and 01/06 and 01/07. Tolerating Ancef. No rash No diarrhea No CP or airway symptoms. PAST MEDICAL HISTORY IV drug use. ALLERGIES AMOXICILLIN CODEINE DILANTIN MEDICATIONS Vancomycin. Ancef. SOCIAL HISTORY Positive tobacco, half a pack of cigarettes a day. No alcohol. Positive illicit drugs in the form of IV drug use. OBJECTIVE: Vital Signs Date Time Temp Pulse Resp B/P Pulse Ox O2 Delivery O2 Flow Rate FiO2 01/10/17 16:36 92 01/10/17 16:35 92 01/10/17 12:18 97.7 93 18 125/66 97 01/10/17 08:26 97.3 80 18 105/56 95 01/10/17 04:00 97.6 90 20 99/61 97 01/10/17 00:00 101.1 100 20 102/55 94 01/09/17 23:00 95 01/09/17 20:00 98.6 101 20 106/58 93 01/09/17 01/09/17 01/10/17 15:00 23:00 07:00 Intake Total 0 ml 480 ml 240 ml Balance 0 ml 480 ml 240 ml Intake Oral 0 ml 480 ml 240 ml # Voids 2 2 2 # Bowel Movements 0 1 Laboratory Tests Test 01/10/17 05:18 White Blood Count 11.7 TH/MM3 Red Blood Count 3.80 MIL/MM3 Hemoglobin 10.9 GM/DL Hematocrit 33.2 % Mean Corpuscular Volume 87.3 FL Mean Corpuscular Hemoglobin 28.6 PG Mean Corpuscular Hemoglobin 32.8 % Concent Red Cell Distribution Width 13.5 % Platelet Count 366 TH/MM3 Mean Platelet Volume 7.9 FL Neutrophils (%) (Auto) 72.3 % Lymphocytes (%) (Auto) 16.8 % Monocytes (%) (Auto) 7.3 % Eosinophils (%) (Auto) 2.7 % Basophils (%) (Auto) 0.9 % Neutrophils # (Auto) 8.5 TH/MM3 Lymphocytes # (Auto) 2.0 TH/MM3 Monocytes # (Auto) 0.9 TH/MM3 Eosinophils # (Auto) 0.3 TH/MM3 Basophils # (Auto) 0.1 TH/MM3 CBC Comment DIFF FINAL Differential Comment Sodium Level 136 MEQ/L Potassium Level 4.1 MEQ/L Chloride Level 101 MEQ/L Carbon Dioxide Level 26.3 MEQ/L Anion Gap 9 MEQ/L Blood Urea Nitrogen 6 MG/DL Creatinine 0.67 MG/DL Estimat Glomerular Filtration 107 ML/MIN Rate Random Glucose 100 MG/DL Calcium Level 9.3 MG/DL Vancomycin Level Trough 13.1 MCG/ML Microbiology Date/Time Procedure Status Source Growth 01/09/17 15:46 Aerobic Blood Culture - Preliminary Resulted Blood Peripheral NO GROWTH IN 1 DAY 01/09/17 15:46 Anaerobic Blood Culture - Preliminary Resulted Blood Peripheral NO GROWTH IN 1 DAY 01/06/17 20:59 Aerobic Blood Culture - Final Complete Blood Peripheral Staphylococcus Aureus 01/06/17 20:59 Anaerobic Blood Culture - Final Complete Staphylococcus Aureus IMAGING: Consultation 01/05/17 0700 Signed Impressions: Service Date/Time: Thursday, January 05, 2017 07:00 - CONCLUSION: Only a miniscule amount of joint fluid present which would not be amenable to CT guided aspiration. Dillon Archibald MD Chest X-Ray 01/04/17 1806 Signed Impressions: Service Date/Time: Wednesday, January 04, 2017 18:49 - CONCLUSION: No acute disease. There is no evidence of pneumonia. Castillo Bedoya MD Lumbar Spine MRI 01/04/17 0000 Signed Impressions: Service Date/Time: Wednesday, January 04, 2017 19:33 - CONCLUSION: 1. Degenerative change at the L4-5 level with annular disc bulge and high intensity zone the posterior annulus most characteristic of a small annular tear. 2. Small amount of free fluid in the cul-de-sac. Castillo Bedoya MD Hip and Pelvis X-Ray 01/04/17 0000 Signed Impressions: Service Date/Time: Wednesday, January 04, 2017 18:51 - CONCLUSION: Unremarkable exam with no underlying bony abnormality. Castillo Bedoya MD Hip MRI 01/04/17 0000 Signed Impressions: Service Date/Time: Wednesday, January 04, 2017 19:33 - CONCLUSION: Tiny bilateral joint effusion. Miguel Bhatia MD PHYSICAL EXAMINATION GENERAL: No acute distress. HEENT: No icterus. No conjunctival erythema. Oropharynx no visible lesions. Moist mucosa. NECK: Supple without adenopathy. LUNGS: Clear breath sounds. HEART: Regular rate and rhythm. No audible murmurs, rubs or gallops. ABDOMEN: Bowel sounds present, soft. EXTREMITIES: L hip has focal cristhian of tenderness at the posterior aspect. No clubbing, cyanosis or edema. No splinter hemorrhages at the nail bed. no peripheral embolic phenomena. NEUROLOGIC: Nonfocal. SKIN: No rash. PSYCHIATRIC: Calm and cooperative. 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 IVDA Left hip likely infected septic arthritis. Recs: Continue Ancef. Increase dose to 2gms IV Q8 hours. DC Vanco IV Tolerated Ancef well. Monitor repeat blood cultures to check for clearance of the bacteria from the blood. If bacteremia persists will consider Genta IV for synergy for 2 weeks or till clearance of bacteremia. Clinically stable at present time. Follow cultures Follow clinically. Will follow prn over the weekend. to resume care on Thursday. Daphne Garvin MD Jan 10, 2017 17:15
[2017-01-11] VITALS (8 sets, daily range): BP systolic 107–124; BP diastolic 56–68; PULSE 86–106; RESP 18–20; TEMP 96.3–98.9; O2SAT 93–96
[2017-01-11] MEDS: ceFAZolin 2 GM PREMIX 50 ML IV SCH ×3 (00:50→16:43)
[2017-01-11] MEDS: VANCOMYCIN INJ 1,600 MG in SODIUM CHLORID 0.9% 500 ML INJ 500 ML IV SCH ×2 (06:15→14:32)
[2017-01-11] MEDS: SODIUM CHLOR 0.9% 1000 ML INJ 1,000 ML IV SCH ×3 (06:17→23:43)
--- NOTE | 2017-01-11 07:16 | PD.ORT.PN ---
Subjective Subjective Remarks Patient has left hip pain--she states that pain is improving. she still has difficulty walking. Denies traumatic injury or fall. She states that pain started when she was getting up out of bed and felt a pop in her hip. Blood cultures positive. KRISTINA positive for endocarditis Objective Vitals Vital Signs Date Time Temp Pulse Resp B/P Pulse Ox O2 Delivery O2 Flow Rate FiO2 01/11/17 06:20 16 01/11/17 06:00 98.2 93 18 110/57 94 01/11/17 00:23 98.9 99 18 113/59 93 01/10/17 20:00 99.2 98 20 109/71 95 01/10/17 17:16 98.7 91 18 105/62 94 01/10/17 16:36 92 01/10/17 16:35 92 01/10/17 12:18 97.7 93 18 125/66 97 01/10/17 08:26 97.3 80 18 105/56 95 I/O 01/10/17 01/10/17 01/10/17 01/11/17 01/11/17 01/11/17 07:00 15:00 23:00 07:00 15:00 23:00 Intake Total 240 ml 120 ml 4097 ml 988 ml Balance 240 ml 120 ml 4097 ml 988 ml Intake Oral 240 ml 120 ml 480 ml IV Total 3617 ml 988 ml # Voids 2 3 5 2 # Bowel Movements 1 0 0 Result Diagram: 01/10/17 0518 01/10/17 0518 Imaging Last 24 hours Impressions Chest X-Ray 01/04/17 1806 Signed Impressions: Service Date/Time: Wednesday, January 04, 2017 18:49 - CONCLUSION: No acute disease. There is no evidence of pneumonia. Castillo Bedoya MD Objective Remarks Patient has minimal pain with gentle hip range of motion. She is able to flex her hip from 0 to 100 with minimal discomfort. Skin intact around hip. No warmth or erythema. She has mild tenderness to palpation around the gluteus muscles of right hip. No tenderness around her knee or ankle. Sensation intact left foot. Dorsalis pedis pulses palpable Assessment & Plan Assessment and Plan 9 day history of left hip pain--initial MRI reveals minimal effusion. She continues to have some pain with hip motion . Continue physical therapy. continue progressing with weight bearing and walking. continue medical management Repeat MRI of left hip to evaluate for joint effusion--if joint effusion present , needs aspiration of hip. Rex Vickers MD Jan 11, 2017 07:16
[2017-01-11] MEDS ORDERED: LORazepam 2 MG/ML VIAL IV PUSH ONE (09:00)
[2017-01-11] MEDS: SODIUM CHLORIDE 0.9% FLUSH 5 ML FLUSH FLUSH SCH ×2 (09:00→21:00)
--- NOTE | 2017-01-11 10:04 | HHI.PR ---
Subjective Remarks Follow-up sepsis/septic joint 01/05/17-patient seen and examined, currently afebrile and nothing by mouth pending CT-guided left hip aspiration. Complains of poorly controlled pain 01/06/17-patient seen and examined;all Repeat Blood culture +; patient still complaining of left hip pain. Afebrile today 01/07/17-patient seen and examined; Tmax 100.9 at 4 PM yesterday however afebrile this morning. was able to lift left leg and hip however still has difficulty putting weight on it. 01/08/17-patient seen and examined, states she was able to sit in a chair yesterday however this morning she complains of some left hip pain . MAXIMUM TEMPERATURE current 100.4 01/09/17-patient seen and examined, still spiking fever. Currently nothing by mouth pending KRISTINA 01/10/17-patient seen and examined, KRISTINA performed yesterday with finding of endocarditis to tricuspid and aortic valves. Patient still spiking fevers. Now able to move up her left hip more and walk 01/11/17-patient seen and examined; continue to complaint of left hip however currently afebrile. KRISTINA report was amended by cardiology 01/10/[address] Kirit Robins Objective Vitals Vital Signs Date Time Temp Pulse Resp B/P Pulse Ox O2 Delivery O2 Flow Rate FiO2 01/11/17 08:27 97.4 86 18 107/68 94 01/11/17 06:20 16 01/11/17 06:00 98.2 93 18 110/57 94 01/11/17 00:23 98.9 99 18 113/59 93 01/10/17 20:00 99.2 98 20 109/71 95 01/10/17 17:16 98.7 91 18 105/62 94 01/10/17 16:36 92 01/10/17 16:35 92 01/10/17 12:18 97.7 93 18 125/66 97 I/O 01/10/17 01/10/17 01/10/17 01/11/17 01/11/17 01/11/17 07:00 15:00 23:00 07:00 15:00 23:00 Intake Total 240 ml 120 ml 4097 ml 988 ml Balance 240 ml 120 ml 4097 ml 988 ml Intake Oral 240 ml 120 ml 480 ml IV Total 3617 ml 988 ml # Voids 2 3 5 2 # Bowel Movements 1 0 0 Result Diagram: 01/10/17 0518 01/11/17 0646 Imaging Last Impressions Consultation 01/05/17 0700 Signed Impressions: Service Date/Time: Thursday, January 05, 2017 07:00 - CONCLUSION: Only a miniscule amount of joint fluid present which would not be amenable to CT guided aspiration. Dillon Archibald MD Chest X-Ray 01/04/17 1806 Signed Impressions: Service Date/Time: Wednesday, January 04, 2017 18:49 - CONCLUSION: No acute disease. There is no evidence of pneumonia. Castillo Bedoya MD Lumbar Spine MRI 01/04/17 0000 Signed Impressions: Service Date/Time: Wednesday, January 04, 2017 19:33 - CONCLUSION: 1. Degenerative change at the L4-5 level with annular disc bulge and high intensity zone the posterior annulus most characteristic of a small annular tear. 2. Small amount of free fluid in the cul-de-sac. Castillo Bedoya MD Hip and Pelvis X-Ray 01/04/17 0000 Signed Impressions: Service Date/Time: Wednesday, January 04, 2017 18:51 - CONCLUSION: Unremarkable exam with no underlying bony abnormality. Castillo Bedoya MD Hip MRI 01/04/17 0000 Signed Impressions: Service Date/Time: Wednesday, January 04, 2017 19:33 - CONCLUSION: Tiny bilateral joint effusion. Miguel Bhatia MD Objective Remarks GENERAL: NAD SKIN: Warm and dry. HEAD: Normocephalic. EYES: No scleral icterus. No injection or drainage. NECK: Supple, trachea midline. No JVD or lymphadenopathy. CARDIOVASCULAR: Regular rate and rhythm without murmurs, gallops, or rubs. RESPIRATORY: Breath sounds equal bilaterally. No accessory muscle use. GASTROINTESTINAL: Abdomen soft, non-tender, nondistended. MUSCULOSKELETAL: No cyanosis, or edema. Left Hip joint TTP with decrease ROM BACK: Nontender without obvious deformity. No CVA tenderness. 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 Endocarditis tricuspid valve, aortic valve endocarditis: Status post KRISTINA however report amended by cardiology yesterday with possible finding of abscess versus endocarditis on tricuspid valve. Currently on Ancef IV pending the recommendation from ID. May consider CTS consult 2. Sepsis: Currently on Ancef 3. Bacteremia with staph aureus. Currently on Ancef . KRISTINA 01/09/17 positive for endocarditis. Appreciate input from cardiology. Appreciate input from infectious disease specialist. 4. Hip Pain/Septic Joint?: MRI Hip w/ small bilateral joint effusions however per Orthopedic surgery this makes infection less likely however secondary to continue left hip pain, will repeat hip MRI today 01/11/17. Continue current IV antibiotics and Analgesics/antiemetics as needed. PT to treat 5. IVDU: admits to recent IVDU negative UDS and 2-D echo without endocarditis however KRISTINA positive for endocarditis performed on 01/09/17. Ativan prn for agitation. 6. Tobacco Abuse: Counselled. Ativan/NicoDerm prn if needed. 7. DVT Prophylaxis: SCD/Teds. Problem Qualifiers (1) Sepsis: Qualified Code: A41.9 - Sepsis, due to unspecified organism Miguel Hernandez MD Jan 11, 2017 10:04
--- NOTE | 2017-01-11 10:04 | RADRPT ---
EXAM DATE/TIME: 01/11/2017 09:16 [facility] COMPARISON: MRI HIP LEFT W & W/O CONTRAST, January 04, 2017, 19:33. INDICATIONS : Increased size of left hip joint effusion MEDICAL HISTORY : IVDA SURGICAL HISTORY : None. ENCOUNTER: Initial ACUITY: 1 week PAIN SCORE: 7/10 LOCATION: Left hip TECHNIQUE: Multiplanar, multisequence MRI examination was performed without contrast. FINDINGS: BONE/CARTILAGE: Bone marrow signal is homogeneous. Articular cartilage signal is within normal limits. LABRUM: Within normal limits. MUSCLES/TENDONS: All of the visualized muscles and tendons are intact. MISCELLANEOUS: No evidence of joint effusion. Physiologic fluid is present. There is slight increase in T2 signal id entified within the tendon of the vastus lateralis muscle at the insertion of the greater trochanter. CONCLUSION: No evidence of significant joint effusion. There is a slight increase in T2 signal identified within the tendon of the vastus lateralis muscle at the insertion of the greater trochanter which may reflec t any tendinopathy.. Eula Núñez MD on January 11, 2017 at 9:40 Board Certified Radiologist. This report was verified electronically.
[2017-01-11] MEDS ORDERED: PHARMACY ORDERED LAB XX ONE (13:45)
[2017-01-12] VITALS: BP 102/55; PULSE 97; RESP 18; TEMP 98.8; O2SAT 96
[2017-01-12] MEDS: ceFAZolin 2 GM PREMIX 50 ML IV SCH ×3 (00:31→19:00)
[2017-01-12 05:23] VITALS: BP 100/59; PULSE 103; RESP 18; TEMP 98.2; O2SAT 94
[2017-01-12] MEDS: SODIUM CHLORIDE 0.9% FLUSH 5 ML FLUSH FLUSH SCH ×2 (08:00→21:17)
[2017-01-12 08:58] VITALS: BP 109/58; PULSE 95; RESP 18; TEMP 96.3; O2SAT 92
--- NOTE | 2017-01-12 09:05 | HHI.PR ---
Subjective Remarks Follow-up sepsis/septic joint 01/05/17-patient seen and examined, currently afebrile and nothing by mouth pending CT-guided left hip aspiration. Complains of poorly controlled pain 01/06/17-patient seen and examined;all Repeat Blood culture +; patient still complaining of left hip pain. Afebrile today 01/07/17-patient seen and examined; Tmax 100.9 at 4 PM yesterday however afebrile this morning. was able to lift left leg and hip however still has difficulty putting weight on it. 01/08/17-patient seen and examined, states she was able to sit in a chair yesterday however this morning she complains of some left hip pain . MAXIMUM TEMPERATURE current 100.4 01/09/17-patient seen and examined, still spiking fever. Currently nothing by mouth pending KRISTINA 01/10/17-patient seen and examined, KRISTINA performed yesterday with finding of endocarditis to tricuspid and aortic valves. Patient still spiking fevers. Now able to move up her left hip more and walk 01/11/17-patient seen and examined; continue to complaint of left hip however currently afebrile. KRISTINA report was amended by cardiology 01/10/[address] Kirit Robins 01/12/17-patient seen and examined, afebrile, repeat blood culture 01/09/17 negative to date, no acute event overnight Objective Vitals Vital Signs Date Time Temp Pulse Resp B/P Pulse Ox O2 Delivery O2 Flow Rate FiO2 01/12/17 08:58 96.3 95 18 109/58 92 01/12/17 05:23 98.2 103 18 100/59 94 01/12/17 00:00 98.8 97 18 102/55 96 01/11/17 21:00 93 01/11/17 20:00 97.8 106 20 113/56 96 01/11/17 17:43 17 01/11/17 16:13 96.3 87 18 110/59 96 01/11/17 12:33 97.1 88 18 124/65 95 I/O 01/11/17 01/11/17 01/11/17 01/12/17 01/12/17 01/12/17 07:00 15:00 23:00 07:00 15:00 23:00 Intake Total 988 ml 360 ml 720 ml Balance 988 ml 360 ml 720 ml Intake Oral 360 ml 720 ml IV Total 988 ml # Voids 2 4 5 2 1 # Bowel Movements 0 2 1 0 Result Diagram: 01/10/17 0518 01/11/17 0646 Imaging Last Impressions Hip MRI 01/11/17 0000 Signed Impressions: Service Date/Time: Wednesday, January 11, 2017 09:16 - CONCLUSION: No evidence of significant joint effusion. There is a slight increase in T2 signal identified within the tendon of the vastus lateralis muscle at the insertion of the greater trochanter which may reflect any tendinopathy.. Eula Núñez MD Consultation 01/05/17 0700 Signed Impressions: Service Date/Time: Thursday, January 05, 2017 07:00 - CONCLUSION: Only a miniscule amount of joint fluid present which would not be amenable to CT guided aspiration. Dillon Archibald MD Chest X-Ray 01/04/17 1806 Signed Impressions: Service Date/Time: Wednesday, January 04, 2017 18:49 - CONCLUSION: No acute disease. There is no evidence of pneumonia. Castillo Bedoya MD Lumbar Spine MRI 01/04/17 0000 Signed Impressions: Service Date/Time: Wednesday, January 04, 2017 19:33 - CONCLUSION: 1. Degenerative change at the L4-5 level with annular disc bulge and high intensity zone the posterior annulus most characteristic of a small annular tear. 2. Small amount of free fluid in the cul-de-sac. Castillo Bedoya MD Hip and Pelvis X-Ray 01/04/17 0000 Signed Impressions: Service Date/Time: Wednesday, January 04, 2017 18:51 - CONCLUSION: Unremarkable exam with no underlying bony abnormality. Castillo eBdoya MD Objective Remarks GENERAL: NAD SKIN: Warm and dry. HEAD: Normocephalic. EYES: No scleral icterus. No injection or drainage. NECK: Supple, trachea midline. No JVD or lymphadenopathy. CARDIOVASCULAR: Regular rate and rhythm without murmurs, gallops, or rubs. RESPIRATORY: Breath sounds equal bilaterally. No accessory muscle use. GASTROINTESTINAL: Abdomen soft, non-tender, nondistended. MUSCULOSKELETAL: No cyanosis, or edema. BACK: Nontender without obvious deformity. No CVA tenderness. 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 Endocarditis tricuspid valve, aortic valve endocarditis: Status post KRISTINA however report amended by cardiology yesterday with possible finding of abscess versus endocarditis on tricuspid valve. Currently on Ancef IV pending the recommendation from ID. 2. Sepsis: Currently on Ancef 3. Bacteremia with staph aureus. Currently on Ancef and repeat blood culture NTD. KRISTINA 01/09/17 positive for endocarditis. Appreciate input from cardiology. Appreciate input from infectious disease specialist. 4. Hip Pain/Septic Joint?: MRI Hip w/ small bilateral joint effusions however per Orthopedic surgery this makes infection less likely however secondary to continue left hip pain, repeat hip MRI 01/11/17 with No evidence of significant joint effusion . Continue current IV antibiotics and Analgesics/ antiemetics as needed. PT to treat 5. IVDU: admits to recent IVDU negative UDS and 2-D echo without endocarditis however KRISTINA positive for endocarditis performed on 01/09/17. Ativan prn for agitation. 6. Tobacco Abuse: Counselled. Ativan/NicoDerm prn if needed. 7. DVT Prophylaxis: SCD/Teds. Problem Qualifiers (1) Sepsis: Qualified Code: A41.9 - Sepsis, due to unspecified organism Miguel Hernandez MD Jan 12, 2017 09:05
[2017-01-12 12:00] VITALS: BP 129/58; PULSE 100; RESP 18; TEMP 97.1; O2SAT 90
[2017-01-12] MEDS: SODIUM CHLOR 0.9% 1000 ML INJ 1,000 ML IV SCH ×2 (12:32→19:43)
--- NOTE | 2017-01-12 13:30 | HHI.IDPN ---
Note Infectious Disease Note Patient feels okay. No longer getting chills. Denies SOB Afebrile. Last blood culture negative x 3 days. Complains of L. hip pain. Reported to be ambulating. Blood culture has MSSA 01/05 and 01/06 and 01/07. Tolerating Ancef. Patient is a 26-year-old white female who presented to the emergency department with left hip pain of severe nature. PAST MEDICAL HISTORY IV drug use. ALLERGIES AMOXICILLIN CODEINE DILANTIN MEDICATIONS Ancef. SOCIAL HISTORY Positive tobacco, half a pack of cigarettes a day. No alcohol. Positive illicit drugs in the form of IV drug use. OBJECTIVE: Vital Signs Date Time Temp Pulse Resp B/P Pulse Ox O2 Delivery O2 Flow Rate FiO2 01/12/17 12:00 97.1 100 18 129/58 90 01/12/17 08:58 96.3 95 18 109/58 92 01/12/17 05:23 98.2 103 18 100/59 94 01/12/17 00:00 98.8 97 18 102/55 96 01/11/17 21:00 93 01/11/17 20:00 97.8 106 20 113/56 96 01/11/17 17:43 17 01/11/17 16:13 96.3 87 18 110/59 96 01/11/17 01/11/17 01/12/17 15:00 23:00 07:00 Intake Total 360 ml 720 ml Balance 360 ml 720 ml Intake Oral 360 ml 720 ml # Voids 4 5 2 # Bowel Movements 2 1 0 Laboratory Tests Test 01/11/17 06:46 Creatinine 0.55 MG/DL Estimat Glomerular Filtration 135 ML/MIN Rate Microbiology Date/Time Procedure Status Source Growth 01/09/17 15:46 Aerobic Blood Culture - Preliminary Resulted Blood Peripheral NO GROWTH IN 3 DAYS 01/09/17 15:46 Anaerobic Blood Culture - Preliminary Resulted Blood Peripheral NO GROWTH IN 3 DAYS Microbiology Date/Time Procedure Status Source Growth 01/06/17 20:59 Aerobic Blood Culture - Preliminary Resulted Blood Peripheral Gram Positive Cocci 01/06/17 20:59 Anaerobic Blood Culture - Final Resulted Staphylococcus Aureus Date/Time Procedure Status Source Growth 01/04/17 16:20 Influenza Types A,B Antigen (MEERA) - Final Complete Nasal Washing NEGATIVE FOR FLU A AND B ANTIGEN.... 01/04/17 18:30 Aerobic Blood Culture - Final Complete Blood Peripheral Staphylococcus Aureus 01/04/17 18:30 Anaerobic Blood Culture - Final Complete Staphylococcus Aureus 01/04/17 18:42 Aerobic Blood Culture - Final Complete Blood Peripheral Staphylococcus Aureus 01/04/17 18:42 Anaerobic Blood Culture - Final Complete Staphylococcus Aureus 01/05/17 12:55 Aerobic Blood Culture - Final Complete Blood Peripheral Staphylococcus Aureus 01/05/17 12:55 Anaerobic Blood Culture - Final Complete Staphylococcus Aureus 01/05/17 13:05 Aerobic Blood Culture - Final Complete Blood Peripheral Staphylococcus Aureus 01/05/17 13:05 Anaerobic Blood Culture - Final Complete Staphylococcus Aureus 01/06/17 20:59 Aerobic Blood Culture - Preliminary Resulted Blood Peripheral NO GROWTH IN 1 DAY 01/06/17 20:59 Anaerobic Blood Culture - Preliminary Resulted Blood Peripheral NO GROWTH IN 1 DAY IMAGING: Consultation 01/05/17 0700 Signed Impressions: Service Date/Time: Thursday, January 05, 2017 07:00 - CONCLUSION: Only a miniscule amount of joint fluid present which would not be amenable to CT guided aspiration. Dillon Archibald MD Chest X-Ray 01/04/17 1806 Signed Impressions: Service Date/Time: Wednesday, January 04, 2017 18:49 - CONCLUSION: No acute disease. There is no evidence of pneumonia. Castillo Bedoya MD Lumbar Spine MRI 01/04/17 0000 Signed Impressions: Service Date/Time: Wednesday, January 04, 2017 19:33 - CONCLUSION: 1. Degenerative change at the L4-5 level with annular disc bulge and high intensity zone the posterior annulus most characteristic of a small annular tear. 2. Small amount of free fluid in the cul-de-sac. Castillo Bedoya MD Hip and Pelvis X-Ray 01/04/17 0000 Signed Impressions: Service Date/Time: Wednesday, January 04, 2017 18:51 - CONCLUSION: Unremarkable exam with no underlying bony abnormality. Castillo Bedoya MD Hip MRI 01/04/17 0000 Signed Impressions: Service Date/Time: Wednesday, January 04, 2017 19:33 - CONCLUSION: Tiny bilateral joint effusion. Miguel Bhatia MD PHYSICAL EXAMINATION GENERAL: No acute distress. HEENT: No icterus. No conjunctival erythema. Oropharynx no visible lesions. Moist mucosa. NECK: Supple without adenopathy. LUNGS: Clear breath sounds. HEART: Regular rate and rhythm. No audible murmurs, rubs or gallops. ABDOMEN: Bowel sounds present, soft. EXTREMITIES: No clubbing, cyanosis or edema. No splinter hemorrhages at the nail bed. no peripheral embolic phenomena. NEUROLOGIC: Nonfocal. SKIN: No rash. PSYCHIATRIC: Calm and cooperative. IMPRESSION 1. Tricuspid and Aortic valve endocarditis. MSSA. Positive KRISTINA. Bacteremia with staph aureus. History of IV drug use and is 2. Left hip pain. bilateral tiny hip joint effusion. RECOMMENDATIONS 1. Continue Ancef. Plan on 6 weeks of treatment given the involvement of the aortic valve. 2. Repeat blood culture tomorrow. 3. Cardiothoracic surgery to determine if surgery is necessary. Raffi Mccloud MD Jan 12, 2017 13:30
[2017-01-12 16:07] VITALS: BP 111/59; PULSE 98; RESP 17; TEMP 98.2; O2SAT 95
[2017-01-12 20:32] VITALS: BP 115/64; PULSE 109; RESP 20; TEMP 97.1; O2SAT 95
[2017-01-13] VITALS (7 sets, daily range): BP systolic 108–147; BP diastolic 56–66; PULSE 90–110; RESP 16–20; TEMP 96.2–99.5; O2SAT 93–96
[2017-01-13] MEDS: ceFAZolin 2 GM PREMIX 50 ML IV SCH ×3 (01:17→18:03)
[2017-01-13] MEDS: SODIUM CHLORIDE 0.9% FLUSH 5 ML FLUSH FLUSH SCH ×2 (09:30→20:08)
[2017-01-13 09:50] LABS: BASOPHIL # 0.1 TH/MM3 (0-0.2); BASOPHIL % 0.8 % (0.0-2.0); EOSINOPHIL # 0.2 TH/MM3 (0-0.4); EOSINOPHIL % 2.5 % (0.0-4.0); HEMATOCRIT 34.6 % (35.0-46.0); HEMO FLAGS DIFF FINAL; LYMPH % 23.4 % (9.0-44.0); MEAN CELL VOLUME 87.6 FL (80.0-100.0); MEAN CORPUSCULAR HEMOGLOBIN 29.3 PG (27.0-34.0); MEAN CORPUSCULAR HGB CONC 33.4 % (32.0-36.0); MONO % 4.6 % (0.0-8.0); NEUT % 68.7 % (16.0-70.0); PLATELET COUNT 417 TH/MM3 (150-450); RED BLOOD COUNT 3.96 MIL/MM3 (4.00-5.30); RED CELL DISTRIBUTION WIDTH 13.5 % (11.6-17.2); WHITE BLOOD COUNT 8.7 TH/MM3 (4.0-11.0)
--- NOTE | 2017-01-13 11:56 | HHI.PR ---
Subjective Remarks The pt was resting comfortably. Pain was controlled. She has been having bowel movements. She is working on quitting using drugs. Discussed with nursing. Objective Vitals Vital Signs Date Time Temp Pulse Resp B/P Pulse Ox O2 Delivery O2 Flow Rate FiO2 01/13/17 08:05 97.4 91 17 108/57 95 01/13/17 05:00 97.7 90 20 108/60 96 01/13/17 00:29 96.7 110 18 120/56 96 01/12/17 20:32 97.1 109 20 115/64 95 01/12/17 16:07 98.2 98 17 111/59 95 01/12/17 12:00 97.1 100 18 129/58 90 I/O 01/12/17 01/12/17 01/12/17 01/13/17 01/13/17 01/13/17 07:00 15:00 23:00 07:00 15:00 23:00 Intake Total 353 ml Output Total 600 ml 13 ml Balance -247 ml -13 ml IV Total 353 ml Output Urine Total 600 ml 13 ml # Voids 2 1 1 1 # Bowel Movements 0 1 0 0 1 Result Diagram: 01/13/17 0932 01/11/17 0646 Imaging Last Impressions Hip MRI 01/11/17 0000 Signed Impressions: Service Date/Time: Wednesday, January 11, 2017 09:16 - CONCLUSION: No evidence of significant joint effusion. There is a slight increase in T2 signal identified within the tendon of the vastus lateralis muscle at the insertion of the greater trochanter which may reflect any tendinopathy.. Eula Núñez MD Consultation 01/05/17 0700 Signed Impressions: Service Date/Time: Thursday, January 05, 2017 07:00 - CONCLUSION: Only a miniscule amount of joint fluid present which would not be amenable to CT guided aspiration. Dillon Archibald MD Chest X-Ray 01/04/17 1806 Signed Impressions: Service Date/Time: Wednesday, January 04, 2017 18:49 - CONCLUSION: No acute disease. There is no evidence of pneumonia. Castillo Bedoya MD Lumbar Spine MRI 01/04/17 0000 Signed Impressions: Service Date/Time: Wednesday, January 04, 2017 19:33 - CONCLUSION: 1. Degenerative change at the L4-5 level with annular disc bulge and high intensity zone the posterior annulus most characteristic of a small annular tear. 2. Small amount of free fluid in the cul-de-sac. Castillo Bedoya MD Hip and Pelvis X-Ray 01/04/17 0000 Signed Impressions: Service Date/Time: Wednesday, January 04, 2017 18:51 - CONCLUSION: Unremarkable exam with no underlying bony abnormality. Castillo Bedoya MD Objective Remarks GENERAL: NAD SKIN: Warm and dry. HEAD: Normocephalic. EYES: No scleral icterus. No injection or drainage. NECK: Supple, trachea midline. No JVD or lymphadenopathy. CARDIOVASCULAR: Regular rate and rhythm without murmurs, gallops, or rubs. RESPIRATORY: Breath sounds equal bilaterally. No accessory muscle use. GASTROINTESTINAL: Abdomen soft, non-tender, nondistended. MUSCULOSKELETAL: No cyanosis, or edema. BACK: Nontender without obvious deformity. No CVA tenderness. PSYCH: Mood and affect appropriate. Procedures KRISTINA Medications and IVs Current Medications Medications (Trade) Dose Ordered Sig/Michelle Route Start Time Stop Time Status Last Admin (NS 1000 ml Inj) 1,000 ml @ 100 mls/hr Q10H IV 01/04/17 21:43 01/12/17 12:32 (NS Flush) 2 ml UNSCH PRN FLUSH 01/04/17 21:45 (NS Flush) 2 ml BID FLUSH 01/05/17 09:00 01/13/17 09:30 (Zofran Inj) 4 mg Q6H PRN IVP 01/04/17 21:45 (Dulcolax Supp) 10 mg DAILY PRN ND 01/04/17 21:45 (Tylenol) 650 mg Q6H PRN PO 01/04/17 21:45 01/10/17 02:01 (Roxicodone) 10 mg Q4H PRN PO 01/04/17 21:45 01/13/17 09:30 (Roxicodone) 5 mg Q4H PRN PO 01/04/17 21:45 (Ibis-Colace) 1 tab BID PRN PO 01/06/17 11:00 (Mag-Al Plus Susp Liq) 30 ml Q6H PRN PO 01/06/17 11:00 Temazepam 15 mg 15 mg HS PRN PO 01/06/17 11:00 (Ancef 2 Gm Premix) 50 ml @ 100 mls/hr Q8H IV 01/09/17 17:00 01/13/17 09:29 A/P Problem List: (1) 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 Cardiology and ID consults appreciated. Status post KRISTINA 01/09/17. Has bacteremia with staph aureus. Repeat cultures negative. - continue Ancef. - CT surgery consult pending. Hip Pain MRI hip w/ small bilateral joint effusions, however per orthopedic surgery this makes infection less likely. Repeat hip MRI 01/11/17 with no evidence of significant joint effusion. - Continue analgesics/antiemetics as needed. - PT to treat. IVDU Admits to recent IVDU. Negative UDS. - Ativan prn for agitation. Tobacco Abuse Counselled. - Ativan/NicoDerm prn if needed. DVT Prophylaxis: SCD/Teds. Discharge Planning Awaiting CTS input. Problem Qualifiers (1) Sepsis: Qualified Code: A41.9 - Sepsis, due to unspecified organism Castillo Lane DO Jan 13, 2017 11:56
[2017-01-13] MEDS: SODIUM CHLOR 0.9% 1000 ML INJ 1,000 ML IV SCH ×2 (14:04→15:43)
[2017-01-14] VITALS (9 sets, daily range): BP systolic 109–125; BP diastolic 55–70; PULSE 86–110; RESP 16–18; TEMP 97.2–98.2; O2SAT 94–96
[2017-01-14] MEDS: ceFAZolin 2 GM PREMIX 50 ML IV SCH ×3 (00:18→16:36)
[2017-01-14] MEDS: SODIUM CHLOR 0.9% 1000 ML INJ 1,000 ML IV SCH ×3 (01:43→23:54)
[2017-01-14] MEDS: SODIUM CHLORIDE 0.9% FLUSH 5 ML FLUSH FLUSH SCH ×2 (07:47→21:38)
--- NOTE | 2017-01-14 16:18 | HHI.PR ---
Subjective Remarks The pt complained of left hip pain. She said it got worse overnight. Her friends were at the bedside. Objective Vitals Vital Signs Date Time Temp Pulse Resp B/P Pulse Ox O2 Delivery O2 Flow Rate FiO2 01/14/17 15:56 96 01/14/17 13:18 97.8 96 18 124/67 95 01/14/17 09:10 97.9 88 18 110/64 94 01/14/17 08:52 87 01/14/17 06:18 20 01/14/17 04:24 98.2 86 18 111/66 94 01/14/17 00:52 97.8 106 18 118/55 95 01/13/17 20:22 99.5 103 16 141/61 93 01/13/17 20:00 104 01/13/17 16:50 96.2 103 16 147/56 94 I/O 01/13/17 01/13/17 01/13/17 01/14/17 01/14/17 01/14/17 07:00 15:00 23:00 07:00 15:00 23:00 Intake Total 353 ml 1053 ml 850 ml Output Total 600 ml 13 ml Balance -247 ml -13 ml 1053 ml 850 ml IV Total 353 ml 1053 ml 850 ml Output Urine Total 600 ml 13 ml # Voids 1 2 2 # Bowel Movements 0 1 0 Result Diagram: 01/13/17 0932 01/11/17 0646 Imaging Last Impressions Hip MRI 01/11/17 0000 Signed Impressions: Service Date/Time: Wednesday, January 11, 2017 09:16 - CONCLUSION: No evidence of significant joint effusion. There is a slight increase in T2 signal identified within the tendon of the vastus lateralis muscle at the insertion of the greater trochanter which may reflect any tendinopathy.. Eula Núñez MD Consultation 01/05/17 0700 Signed Impressions: Service Date/Time: Thursday, January 05, 2017 07:00 - CONCLUSION: Only a miniscule amount of joint fluid present which would not be amenable to CT guided aspiration. Dillon Archibald MD Chest X-Ray 01/04/17 1806 Signed Impressions: Service Date/Time: Wednesday, January 04, 2017 18:49 - CONCLUSION: No acute disease. There is no evidence of pneumonia. Castillo Bedoya MD Lumbar Spine MRI 01/04/17 0000 Signed Impressions: Service Date/Time: Wednesday, January 04, 2017 19:33 - CONCLUSION: 1. Degenerative change at the L4-5 level with annular disc bulge and high intensity zone the posterior annulus most characteristic of a small annular tear. 2. Small amount of free fluid in the cul-de-sac. Castillo Bedoya MD Hip and Pelvis X-Ray 01/04/17 0000 Signed Impressions: Service Date/Time: Wednesday, January 04, 2017 18:51 - CONCLUSION: Unremarkable exam with no underlying bony abnormality. Castillo Bedoya MD Objective Remarks GENERAL: NAD SKIN: Warm and dry. HEAD: Normocephalic. EYES: No scleral icterus. No injection or drainage. NECK: Supple, trachea midline. No JVD or lymphadenopathy. CARDIOVASCULAR: Regular rate and rhythm without murmurs, gallops, or rubs. RESPIRATORY: Breath sounds equal bilaterally. No accessory muscle use. GASTROINTESTINAL: Abdomen soft, non-tender, nondistended. MUSCULOSKELETAL: No cyanosis, or edema. Tenderness to palpation of left hip. BACK: Nontender without obvious deformity. No CVA tenderness. PSYCH: Mood and affect appropriate. Procedures KRISTINA Medications and IVs Current Medications Medications (Trade) Dose Ordered Sig/Michelle Route Start Time Stop Time Status Last Admin (NS 1000 ml Inj) 1,000 ml @ 100 mls/hr Q10H IV 01/04/17 21:43 01/14/17 12:32 (NS Flush) 2 ml UNSCH PRN FLUSH 01/04/17 21:45 (NS Flush) 2 ml BID FLUSH 01/05/17 09:00 01/13/17 20:08 (Zofran Inj) 4 mg Q6H PRN IVP 01/04/17 21:45 (Dulcolax Supp) 10 mg DAILY PRN [place] 01/04/17 21:45 (Tylenol) 650 mg Q6H PRN PO 01/04/17 21:45 01/10/17 02:01 (Roxicodone) 10 mg Q4H PRN PO 01/04/17 21:45 01/14/17 14:19 (Roxicodone) 5 mg Q4H PRN PO 01/04/17 21:45 (Ibis-Colace) 1 tab BID PRN PO 01/06/17 11:00 (Mag-Al Plus Susp Liq) 30 ml Q6H PRN PO 01/06/17 11:00 Temazepam 15 mg 15 mg HS PRN PO 01/06/17 11:00 (Ancef 2 Gm Premix) 50 ml @ 100 mls/hr Q8H IV 01/09/17 17:00 01/14/17 07:45 A/P Problem List: (1) 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 Cardiology and ID consults appreciated. Status post KRISTINA 01/09/17. Has bacteremia with staph aureus. Repeat cultures negative. - continue Ancef. - CT surgery consult pending. Hip Pain MRI hip w/ small bilateral joint effusions, however per orthopedic surgery this makes infection less likely. Repeat hip MRI 01/11/17 with no evidence of significant joint effusion. - Continue analgesics/antiemetics as needed. Added Toradol 01/14. - PT to treat. IVDU Admits to recent IVDU. Negative UDS. - Ativan prn for agitation. Tobacco Abuse Counselled. - Ativan/NicoDerm prn if needed. DVT Prophylaxis: SCD/Teds. Discharge Planning Awaiting CTS input. Problem Qualifiers (1) Sepsis: Qualified Code: A41.9 - Sepsis, due to unspecified organism Castillo Lane DO Jan 14, 2017 16:18
[2017-01-14] MEDS ORDERED: KETOROLAC TROMETHAMINE 30 MG/ML (IVP) VIAL IV PUSH ONE (17:00)
[2017-01-14] MEDS: KETOROLAC TROMETHAMINE 30 MG/ML (IVP) VIAL IV PUSH SCH (18:00)
[2017-01-15] VITALS (7 sets, daily range): BP systolic 97–125; BP diastolic 55–69; PULSE 81–106; RESP 16–18; TEMP 97.1–98.2; O2SAT 93–97
[2017-01-15] MEDS: KETOROLAC TROMETHAMINE 30 MG/ML (IVP) VIAL IV PUSH SCH ×4 (00:16→17:07)
[2017-01-15] MEDS: ceFAZolin 2 GM PREMIX 50 ML IV SCH ×3 (00:16→17:07)
[2017-01-15] MEDS: SODIUM CHLOR 0.9% 1000 ML INJ 1,000 ML IV SCH ×2 (06:04→17:07)
[2017-01-15] MEDS: SODIUM CHLORIDE 0.9% FLUSH 5 ML FLUSH FLUSH SCH ×2 (08:51→21:00)
--- NOTE | 2017-01-15 10:13 | PD.CONS ---
History of Present Illness Service CT Surgery Consult Requested By Dr. Lane Reason for Consult Endocarditis of tricuspid and aortic valves Primary Care Physician No Primary Care Physician Diagnoses: (1) Endocarditis of tricuspid valve (2) Endocarditis of aortic valve (3) Endocarditis due to Staphylococcus (4) Septic joint (5) IV drug abuse History of Present Illness 26-year-old female with a PMH of Anxiety, Depression, Hepatitis C, Tobacco Abuse and IVDU who presented to the ER w/ complaints of severe left hip pain x3 days. She was admitted and found to have staph sepsis. She had a KRISTINA which showed vegetations on the tricuspid and aortic valves. She continues to use IV drugs.. Review of Systems ROS Limitations: Clinical Condition Constitutional: COMPLAINS OF: Diaphoretic episodes, Fatigue, Fever, Chills Endocrine: DENIES: Abnorml menstrual pattern, Heat/cold intolerance, Polydipsia , Polyuria, Polyphagia Eyes: DENIES: Blurred vision, Diplopia, Eye inflammation, Eye pain, Vision loss , Photosensitivity, Double Vision Ears, nose, mouth, throat: DENIES: Tinnitus, Hearing loss, Vertigo, Nasal discharge, Oral lesions, Throat pain, Hoarseness, Ear Pain, Running Nose, Epistaxis, Sinus Pain, Toothache, Odynophagia Respiratory: COMPLAINS OF: Cough, DENIES: Apneas, Snoring, Wheezing, Hemoptysis, Sputum production, Shortness of breath Cardiovascular: DENIES: Chest pain, Palpitations, Syncope, Dyspnea on Exertion , PND, Lower Extremity Edema, Orthopnea, Claudication Gastrointestinal: DENIES: Abdominal pain, Black stools, Bloody stools, Constipation, Diarrhea, Nausea, Vomiting, Difficulty Swallowing, Anorexia Genitourinary: DENIES: Abnormal vaginal bleeding, Dysmenorrhea, Dyspareunia, Sexual dysfunction, Urinary frequency, Urinary incontinence, Urgency, Hematuria , Dysuria, Nocturia, Vaginal discharge Musculoskeletal: COMPLAINS OF: Joint pain, Muscle aches, Stiffness Integumentary: DENIES: Abnormal pigmentation, Pruritus, Rash, Nail changes, Breast masses, Breast skin changes, Nipple discharge Hematologic/lymphatic: DENIES: Bruising, Lymphadenopathy Immunologic/allergic: DENIES: Eczema, Urticaria Neurologic: COMPLAINS OF: Abnormal gait Except as stated in HPI: all other systems reviewed are Neg Past Family Social History Allergies: Coded Allergies: Amoxicillin (Verified Allergy, Severe, HIVES, 01/04/17) Codeine (Verified Allergy, Severe, Hives, 01/04/17) Dilantin (Verified Allergy, Severe, HIVES, 01/04/17) *MDRO Multi-Drug Resistant Organism (Verified Adverse Reaction, Unknown, ) MRSA (wound) - 03/09/16 Past Medical History Past Medical History PMH: Anxiety, Depression, Hepatitis C, Tobacco Abuse and IVDU Past Surgical History PAST SURGICAL HISTORY: Right Arm Surgery, Tympanostomy Tube Family History PAST FAMILY HISTORY: Reviewed. No h/o DM or CAD Social History PAST SOCIAL HISTORY: Negative for all,. Smokes 1/2ppd. Admits to ongoing IVDU. Physical Exam Vital Signs Vital Signs Date Time Temp Pulse Resp B/P Pulse Ox O2 Delivery O2 Flow Rate FiO2 01/15/17 07:57 97.6 81 18 102/55 93 01/15/17 04:55 97.6 84 16 97/56 94 01/15/17 00:03 97.1 88 16 118/67 97 01/14/17 20:40 97.3 92 16 109/60 96 01/14/17 18:00 110 01/14/17 17:28 97.2 103 18 125/70 96 01/14/17 15:56 96 01/14/17 13:18 97.8 96 18 124/67 95 Physical Exam GENERAL: This is a well-nourished, well-developed patient, in no apparent distress. SKIN: No rashes, ecchymoses or lesions. Cool and dry. HEAD: Atraumatic. Normocephalic. No temporal or scalp tenderness. EYES: Pupils equal round and reactive. Extraocular motions intact. No scleral icterus. No injection or drainage. ENT: Nose without bleeding, purulent drainage or septal hematoma. Throat without erythema, tonsillar hypertrophy or exudate. Uvula midline. Airway patent. NECK: Trachea midline. No JVD or lymphadenopathy. Supple, nontender, no meningeal signs. CARDIOVASCULAR: Regular rate and rhythm without murmurs, gallops, or rubs. RESPIRATORY: Clear to auscultation. Breath sounds equal bilaterally. No wheezes , rales, or rhonchi. GASTROINTESTINAL: Abdomen soft, non-tender, nondistended. No hepato-splenomegaly , or palpable masses. No guarding. MUSCULOSKELETAL: Extremities without clubbing, cyanosis, or edema. No joint tenderness, effusion, or edema noted. No calf tenderness. Negative Homans sign bilaterally. NEUROLOGICAL: Awake and alert. Cranial nerves II through XII intact. Motor and sensory grossly within normal limits. Five out of 5 muscle strength in all muscle groups. Normal speech. Laboratory Date/Time Procedure Status Source Growth 01/13/17 09:32 Aerobic Blood Culture - Preliminary Resulted Blood Peripheral NO GROWTH IN 1 DAY 01/13/17 09:32 Anaerobic Blood Culture - Preliminary Resulted Blood Peripheral NO GROWTH IN 1 DAY Result Diagram: 01/13/17 0932 01/11/17 0646 Imaging Last Impressions Hip MRI 01/11/17 0000 Signed Impressions: Service Date/Time: Wednesday, January 11, 2017 09:16 - CONCLUSION: No evidence of significant joint effusion. There is a slight increase in T2 signal identified within the tendon of the vastus lateralis muscle at the insertion of the greater trochanter which may reflect any tendinopathy.. Eula Núñez MD Consultation 01/05/17 0700 Signed Impressions: Service Date/Time: Thursday, January 05, 2017 07:00 - CONCLUSION: Only a miniscule amount of joint fluid present which would not be amenable to CT guided aspiration. Dillon Archibald MD Chest X-Ray 01/04/17 1806 Signed Impressions: Service Date/Time: Wednesday, January 04, 2017 18:49 - CONCLUSION: No acute disease. There is no evidence of pneumonia. Castillo Bedoya MD Lumbar Spine MRI 01/04/17 0000 Signed Impressions: Service Date/Time: Wednesday, January 04, 2017 19:33 - CONCLUSION: 1. Degenerative change at the L4-5 level with annular disc bulge and high intensity zone the posterior annulus most characteristic of a small annular tear. 2. Small amount of free fluid in the cul-de-sac. Castillo Bedoya MD Hip and Pelvis X-Ray 01/04/17 0000 Signed Impressions: Service Date/Time: Wednesday, January 04, 2017 18:51 - CONCLUSION: Unremarkable exam with no underlying bony abnormality. Castillo Bedoya MD Assessment and Plan Problem List: (1) Endocarditis of aortic valve Status: Acute (2) Endocarditis due to Staphylococcus Status: Acute (3) Endocarditis of tricuspid valve Status: Acute (4) IV drug abuse Status: Acute Assessment and Plan 26 y/o female IV drug user with endocarditis involving aortic and tricuspid valves. She has been recently bacteremic with MSSA. Recommend IV antibiotics per ID recommendations. I would not consider surgical intervention as her prognosis is equally poor with or without surgery. Problem Qualifiers (1) Septic joint: Dee Dunham MD Jan 15, 2017 10:13
--- NOTE | 2017-01-15 11:10 | HHI.PR ---
Subjective Remarks The patient's family was at the bedside. The patient said that her pain was improved with the Toradol. She has been ambulating. She has been having bowel movements regularly. Objective Vitals Vital Signs Date Time Temp Pulse Resp B/P Pulse Ox O2 Delivery O2 Flow Rate FiO2 01/15/17 07:57 97.6 81 18 102/55 93 01/15/17 04:55 97.6 84 16 97/56 94 01/15/17 00:03 97.1 88 16 118/67 97 01/14/17 20:40 97.3 92 16 109/60 96 01/14/17 18:00 110 01/14/17 17:28 97.2 103 18 125/70 96 01/14/17 15:56 96 01/14/17 13:18 97.8 96 18 124/67 95 I/O 01/14/17 01/14/17 01/14/17 01/15/17 01/15/17 01/15/17 07:00 15:00 23:00 07:00 15:00 23:00 Intake Total 1053 ml 850 ml 504 ml 1090 ml Balance 1053 ml 850 ml 504 ml 1090 ml Intake Oral 504 ml IV Total 1053 ml 850 ml 1090 ml # Voids 2 13 4 # Bowel Movements 0 13 1 Result Diagram: 01/13/17 0932 01/11/17 0646 Imaging Last Impressions Hip MRI 01/11/17 0000 Signed Impressions: Service Date/Time: Wednesday, January 11, 2017 09:16 - CONCLUSION: No evidence of significant joint effusion. There is a slight increase in T2 signal identified within the tendon of the vastus lateralis muscle at the insertion of the greater trochanter which may reflect any tendinopathy.. Eula Núñez MD Consultation 01/05/17 0700 Signed Impressions: Service Date/Time: Thursday, January 05, 2017 07:00 - CONCLUSION: Only a miniscule amount of joint fluid present which would not be amenable to CT guided aspiration. Dillon Archibald MD Chest X-Ray 01/04/17 1806 Signed Impressions: Service Date/Time: Wednesday, January 04, 2017 18:49 - CONCLUSION: No acute disease. There is no evidence of pneumonia. Castillo Bedoya MD Lumbar Spine MRI 01/04/17 0000 Signed Impressions: Service Date/Time: Wednesday, January 04, 2017 19:33 - CONCLUSION: 1. Degenerative change at the L4-5 level with annular disc bulge and high intensity zone the posterior annulus most characteristic of a small annular tear. 2. Small amount of free fluid in the cul-de-sac. Castillo Bedoya MD Hip and Pelvis X-Ray 01/04/17 0000 Signed Impressions: Service Date/Time: Wednesday, January 04, 2017 18:51 - CONCLUSION: Unremarkable exam with no underlying bony abnormality. Castillo Bedoya MD Objective Remarks GENERAL: NAD SKIN: Warm and dry. HEAD: Normocephalic. EYES: No scleral icterus. No injection or drainage. NECK: Supple, trachea midline. No JVD or lymphadenopathy. CARDIOVASCULAR: Regular rate and rhythm without murmurs, gallops, or rubs. RESPIRATORY: Breath sounds equal bilaterally. No accessory muscle use. GASTROINTESTINAL: Abdomen soft, non-tender, nondistended. MUSCULOSKELETAL: No cyanosis, or edema. Tenderness to palpation of left hip. BACK: Nontender without obvious deformity. No CVA tenderness. PSYCH: Mood and affect appropriate. Procedures KRISTINA Medications and IVs Current Medications Medications (Trade) Dose Ordered Sig/Michelle Route Start Time Stop Time Status Last Admin (NS 1000 ml Inj) 1,000 ml @ 100 mls/hr Q10H IV 01/04/17 21:43 01/15/17 06:04 (NS Flush) 2 ml UNSCH PRN FLUSH 01/04/17 21:45 (NS Flush) 2 ml BID FLUSH 01/05/17 09:00 01/14/17 21:38 (Zofran Inj) 4 mg Q6H PRN IVP 01/04/17 21:45 (Dulcolax Supp) 10 mg DAILY PRN [place] 01/04/17 21:45 (Tylenol) 650 mg Q6H PRN PO 01/04/17 21:45 01/10/17 02:01 (Roxicodone) 10 mg Q4H PRN PO 01/04/17 21:45 01/15/17 08:53 (Roxicodone) 5 mg Q4H PRN PO 01/04/17 21:45 (Ibis-Colace) 1 tab BID PRN PO 01/06/17 11:00 (Mag-Al Plus Susp Liq) 30 ml Q6H PRN PO 01/06/17 11:00 Temazepam 15 mg 15 mg HS PRN PO 01/06/17 11:00 (Ancef 2 Gm Premix) 50 ml @ 100 mls/hr Q8H IV 01/09/17 17:00 01/15/17 08:52 (Toradol Inj) 15 mg Q6HR IV PUSH 01/14/17 00:00 01/16/17 06:01 01/15/17 06:06 A/P Problem List: (1) 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 Cardiology and ID consults appreciated. Status post KRISTINA 01/09/17. Has bacteremia with staph aureus. Repeat cultures negative. Not a good candidate for surgery per cardiothoracics. - continue Ancef per ID. Hip Pain MRI hip w/ small bilateral joint effusions, however per orthopedic surgery this makes infection less likely. Repeat hip MRI 01/11/17 with no evidence of significant joint effusion. - Continue analgesics/antiemetics as needed. Added Toradol 01/14. Improved. - PT to treat. IVDU Admits to recent IVDU. Negative UDS. - Ativan prn for agitation. Tobacco Abuse Counselled. - Ativan/NicoDerm prn if needed. DVT Prophylaxis: SCD/Teds. Discharge Planning Possible transfer to [place]. Problem Qualifiers (1) Sepsis: Qualified Code: A41.9 - Sepsis, due to unspecified organism (2) Septic joint: Castillo Lane DO Jan 15, 2017 11:10
[2017-01-15] MEDS: TEMAZEPAM 15 MG CAP PO PRN (21:49)
[2017-01-16] VITALS: BP 123/67; PULSE 90; RESP 18; TEMP 97.3; O2SAT 96
[2017-01-16] MEDS: KETOROLAC TROMETHAMINE 30 MG/ML (IVP) VIAL IV PUSH SCH ×5 (00:10→23:44)
[2017-01-16] MEDS: ceFAZolin 2 GM PREMIX 50 ML IV SCH ×4 (00:11→23:44)
[2017-01-16 04:00] VITALS: BP 106/58; PULSE 91; RESP 18; TEMP 98.9; O2SAT 96
[2017-01-16] MEDS: SODIUM CHLOR 0.9% 1000 ML INJ 1,000 ML IV SCH ×3 (05:56→23:43)
[2017-01-16] MEDS: SODIUM CHLORIDE 0.9% FLUSH 5 ML FLUSH FLUSH SCH ×2 (09:00→20:51)
--- NOTE | 2017-01-16 09:41 | PD.ORT.PN ---
Subjective Subjective Remarks Continuing to improve of left hip pain Objective Vitals Vital Signs Date Time Temp Pulse Resp B/P Pulse Ox O2 Delivery O2 Flow Rate FiO2 01/16/17 04:00 98.9 91 18 106/58 96 01/16/17 00:00 97.3 90 18 123/67 96 01/15/17 20:00 106 01/15/17 20:00 97.6 95 18 125/69 97 01/15/17 16:13 97.9 97 18 100/55 94 01/15/17 12:28 98.2 94 18 109/61 94 01/15/17 10:00 81 I/O 01/15/17 01/15/17 01/15/17 01/16/17 01/16/17 01/16/17 07:00 15:00 23:00 07:00 15:00 23:00 Intake Total 1090 ml 1172 ml 1380 ml Balance 1090 ml 1172 ml 1380 ml Intake Oral 360 ml IV Total 1090 ml 812 ml 1380 ml # Voids 4 5 3 # Bowel Movements 1 2 Result Diagram: 01/13/17 0932 Imaging Last 24 hours Impressions Chest X-Ray 01/04/17 1806 Signed Impressions: Service Date/Time: Wednesday, January 04, 2017 18:49 - CONCLUSION: No acute disease. There is no evidence of pneumonia. Castillo Bedoya MD Objective Remarks Patient has minimal pain with gentle hip range of motion. She is able to flex her hip from 0 to 100 with minimal discomfort. Skin intact around hip. No warmth or erythema. She has mild tenderness to palpation around the gluteus muscles of right hip. No tenderness around her knee or ankle. Sensation intact left foot. Dorsalis pedis pulses palpable Assessment & Plan Assessment and Plan 9 day history of left hip pain--initial MRI reveals minimal effusion. Pain is continuing to improve with hip motion and ambulating Continue physical therapy. continue progressing with weight bearing and walking. continue medical management Castillo Bergman Jr. Jan 16, 2017 09:41
[2017-01-16 12:53] VITALS: BP 129/65; PULSE 97; RESP 20; TEMP 96.4; O2SAT 97
--- NOTE | 2017-01-16 13:41 | HHI.PR ---
Subjective Remarks The patient was wondering if she could get more Toradol because she believed that helped the most with her pain. She wanted to know whether or not she would require surgery for her heart. She had questions about being transferred to [place]. She says she still has left-sided hip pain that radiates down her left leg. She has been trying to ambulate. Discussed with nursing. Objective Vitals Vital Signs Date Time Temp Pulse Resp B/P Pulse Ox O2 Delivery O2 Flow Rate FiO2 01/16/17 12:53 96.4 97 20 129/65 97 01/16/17 04:00 98.9 91 18 106/58 96 01/16/17 00:00 97.3 90 18 123/67 96 01/15/17 20:00 106 01/15/17 20:00 97.6 95 18 125/69 97 01/15/17 16:13 97.9 97 18 100/55 94 I/O 01/15/17 01/15/17 01/15/17 01/16/17 01/16/17 01/16/17 07:00 15:00 23:00 07:00 15:00 23:00 Intake Total 1090 ml 1172 ml 1380 ml Balance 1090 ml 1172 ml 1380 ml Intake Oral 360 ml IV Total 1090 ml 812 ml 1380 ml # Voids 4 5 3 # Bowel Movements 1 2 Result Diagram: 01/13/17 0932 Imaging Last Impressions Hip MRI 01/11/17 0000 Signed Impressions: Service Date/Time: Wednesday, January 11, 2017 09:16 - CONCLUSION: No evidence of significant joint effusion. There is a slight increase in T2 signal identified within the tendon of the vastus lateralis muscle at the insertion of the greater trochanter which may reflect any tendinopathy.. Eula Núñez MD Consultation 01/05/17 0700 Signed Impressions: Service Date/Time: Thursday, January 05, 2017 07:00 - CONCLUSION: Only a miniscule amount of joint fluid present which would not be amenable to CT guided aspiration. Dillon Archibald MD Chest X-Ray 01/04/17 1806 Signed Impressions: Service Date/Time: Wednesday, January 04, 2017 18:49 - CONCLUSION: No acute disease. There is no evidence of pneumonia. Castillo Bedoya MD Lumbar Spine MRI 01/04/17 0000 Signed Impressions: Service Date/Time: Wednesday, January 04, 2017 19:33 - CONCLUSION: 1. Degenerative change at the L4-5 level with annular disc bulge and high intensity zone the posterior annulus most characteristic of a small annular tear. 2. Small amount of free fluid in the cul-de-sac. Castillo Bedoya MD Hip and Pelvis X-Ray 01/04/17 0000 Signed Impressions: Service Date/Time: Wednesday, January 04, 2017 18:51 - CONCLUSION: Unremarkable exam with no underlying bony abnormality. Castillo Bedoya MD Objective Remarks GENERAL: NAD SKIN: Warm and dry. HEAD: Normocephalic. EYES: No scleral icterus. No injection or drainage. NECK: Supple, trachea midline. No JVD or lymphadenopathy. CARDIOVASCULAR: Regular rate and rhythm without murmurs, gallops, or rubs. RESPIRATORY: Breath sounds equal bilaterally. No accessory muscle use. GASTROINTESTINAL: Abdomen soft, non-tender, nondistended. MUSCULOSKELETAL: No cyanosis, or edema. Tenderness to palpation of left hip. BACK: Nontender without obvious deformity. No CVA tenderness. PSYCH: Mood and affect appropriate. Procedures KRISTINA Medications and IVs Current Medications Medications (Trade) Dose Ordered Sig/Michelle Route Start Time Stop Time Status Last Admin (NS 1000 ml Inj) 1,000 ml @ 100 mls/hr Q10H IV 01/04/17 21:43 01/16/17 05:56 (NS Flush) 2 ml UNSCH PRN FLUSH 01/04/17 21:45 (NS Flush) 2 ml BID FLUSH 01/05/17 09:00 01/14/17 21:38 (Zofran Inj) 4 mg Q6H PRN IVP 01/04/17 21:45 (Dulcolax Supp) 10 mg DAILY PRN [place] 01/04/17 21:45 (Tylenol) 650 mg Q6H PRN PO 01/04/17 21:45 01/10/17 02:01 (Roxicodone) 10 mg Q4H PRN PO 01/04/17 21:45 01/16/17 09:27 (Roxicodone) 5 mg Q4H PRN PO 01/04/17 21:45 (Ibis-Colace) 1 tab BID PRN PO 01/06/17 11:00 (Mag-Al Plus Susp Liq) 30 ml Q6H PRN PO 01/06/17 11:00 Temazepam 15 mg 15 mg HS PRN PO 01/06/17 11:00 01/15/17 21:49 (Ancef 2 Gm Premix) 50 ml @ 100 mls/hr Q8H IV 01/09/17 17:00 01/16/17 09:27 (Toradol Inj) 15 mg Q6HR IV PUSH 01/16/17 13:45 01/17/17 18:01 UNV A/P Problem List: (1) 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 Cardiology and ID consults appreciated. Status post KRISTINA 01/09/17. Has bacteremia with staph aureus. Repeat cultures negative. Not a good candidate for surgery per cardiothoracics. - continue Ancef per ID. - drug abuse cessation instruction. Hip Pain MRI hip w/ small bilateral joint effusions, however per orthopedic surgery this makes infection less likely. Repeat hip MRI 01/11/17 with no evidence of significant joint effusion. - Continue analgesics/antiemetics as needed. Added Toradol 01/14. Improved. - PT to treat. - follow up with orthopedic surgery. IVDU Admits to recent IVDU. Negative UDS. - Ativan prn for agitation. - cessation instruction. Tobacco Abuse Counselled. - Ativan/NicoDerm prn if needed. DVT Prophylaxis: SCD/Teds. Discharge Planning Transfer to [place] when bed available. Problem Qualifiers (1) Sepsis: Qualified Code: A41.9 - Sepsis, due to unspecified organism (2) Septic joint: Sayess,Hari. DO Jan 16, 2017 13:41
[2017-01-16 15:58] VITALS: BP 127/73; PULSE 100; RESP 20; TEMP 96.7; O2SAT 96
--- NOTE | 2017-01-16 16:00 | HHI.IDPN ---
Note Infectious Disease Note Patient feels okay. No longer getting chills. Denies SOB Afebrile. Last blood culture negative x 3 days. Complains of L. hip pain. Reported to be ambulating. Blood culture has MSSA 01/04 and 01/05 and 01/06. Tolerating Ancef. Patient is a 26-year-old white female who presented to the emergency department with left hip pain of severe nature. PAST MEDICAL HISTORY IV drug use. ALLERGIES AMOXICILLIN CODEINE DILANTIN MEDICATIONS Ancef. SOCIAL HISTORY Positive tobacco, half a pack of cigarettes a day. No alcohol. Positive illicit drugs in the form of IV drug use. OBJECTIVE: Vital Signs Date Time Temp Pulse Resp B/P Pulse Ox O2 Delivery O2 Flow Rate FiO2 01/16/17 12:53 96.4 97 20 129/65 97 01/16/17 04:00 98.9 91 18 106/58 96 01/16/17 00:00 97.3 90 18 123/67 96 01/15/17 20:00 106 01/15/17 20:00 97.6 95 18 125/69 97 01/15/17 16:13 97.9 97 18 100/55 94 01/15/17 01/15/17 01/16/17 15:00 23:00 07:00 Intake Total 1172 ml 1380 ml Balance 1172 ml 1380 ml Intake Oral 360 ml IV Total 812 ml 1380 ml # Voids 5 3 # Bowel Movements 2 Microbiology Date/Time Procedure Status Source Growth 01/06/17 20:59 Aerobic Blood Culture - Preliminary Resulted Blood Peripheral Gram Positive Cocci 01/06/17 20:59 Anaerobic Blood Culture - Final Resulted Staphylococcus Aureus Date/Time Procedure Status Source Growth 01/04/17 16:20 Influenza Types A,B Antigen ([facility]) - Final Complete Nasal Washing NEGATIVE FOR FLU A AND B ANTIGEN.... 01/04/17 18:30 Aerobic Blood Culture - Final Complete Blood Peripheral Staphylococcus Aureus 01/04/17 18:30 Anaerobic Blood Culture - Final Complete Staphylococcus Aureus 01/04/17 18:42 Aerobic Blood Culture - Final Complete Blood Peripheral Staphylococcus Aureus 01/04/17 18:42 Anaerobic Blood Culture - Final Complete Staphylococcus Aureus 01/05/17 12:55 Aerobic Blood Culture - Final Complete Blood Peripheral Staphylococcus Aureus 01/05/17 12:55 Anaerobic Blood Culture - Final Complete Staphylococcus Aureus 01/05/17 13:05 Aerobic Blood Culture - Final Complete Blood Peripheral Staphylococcus Aureus 01/05/17 13:05 Anaerobic Blood Culture - Final Complete Staphylococcus Aureus 01/06/17 20:59 Aerobic Blood Culture - Preliminary Resulted Blood Peripheral NO GROWTH IN 1 DAY 01/06/17 20:59 Anaerobic Blood Culture - Preliminary Resulted Blood Peripheral NO GROWTH IN 1 DAY IMAGING: Consultation 01/05/17 0700 Signed Impressions: Service Date/Time: Thursday, January 05, 2017 07:00 - CONCLUSION: Only a miniscule amount of joint fluid present which would not be amenable to CT guided aspiration. Dillon Archibald MD Chest X-Ray 01/04/17 1806 Signed Impressions: Service Date/Time: Wednesday, January 04, 2017 18:49 - CONCLUSION: No acute disease. There is no evidence of pneumonia. Castillo Bedoya MD Lumbar Spine MRI 01/04/17 0000 Signed Impressions: Service Date/Time: Wednesday, January 04, 2017 19:33 - CONCLUSION: 1. Degenerative change at the L4-5 level with annular disc bulge and high intensity zone the posterior annulus most characteristic of a small annular tear. 2. Small amount of free fluid in the cul-de-sac. Castillo Bedoya MD Hip and Pelvis X-Ray 01/04/17 0000 Signed Impressions: Service Date/Time: Wednesday, January 04, 2017 18:51 - CONCLUSION: Unremarkable exam with no underlying bony abnormality. Castillo Bedoya MD Hip MRI 01/04/17 0000 Signed Impressions: Service Date/Time: Wednesday, January 04, 2017 19:33 - CONCLUSION: Tiny bilateral joint effusion. Miguel Bhatia MD PHYSICAL EXAMINATION GENERAL: No acute distress. HEENT: No icterus. No conjunctival erythema. Oropharynx no visible lesions. Moist mucosa. NECK: Supple without adenopathy. LUNGS: Clear breath sounds. HEART: Regular rate and rhythm. TIARRA at LSB. No rubs or gallops. ABDOMEN: Bowel sounds present, soft. EXTREMITIES: No clubbing, cyanosis or edema. no peripheral embolic phenomena. NEUROLOGIC: Nonfocal. SKIN: No rash. PSYCHIATRIC: Calm and cooperative. IMPRESSION 1. Tricuspid and Aortic valve endocarditis. MSSA. Positive KRISTINA. Bacteremia with staph aureus. History of IV drug use and is 2. Left hip pain. bilateral tiny hip joint effusion. RECOMMENDATIONS 1. Continue Ancef until February 18, 2017 2. Repeat 2D ECHO 1 week before stopping IV antibiotic to assess Mitral valve abscess. Please call ID if further input is needed. Raffi Mccloud MD Jan 16, 2017 16:00
[2017-01-16 20:00] VITALS: BP 122/74; PULSE 103; PULSE 121; RESP 18; TEMP 96; O2SAT 96
[2017-01-16] MEDS: TEMAZEPAM 15 MG CAP PO PRN (20:51)
[2017-01-17] VITALS (7 sets, daily range): BP systolic 107–127; BP diastolic 60–73; PULSE 87–108; RESP 16–18; TEMP 97–98.4; O2SAT 94–100
[2017-01-17] MEDS: SODIUM CHLOR 0.9% 1000 ML INJ 1,000 ML IV SCH ×3 (03:33→19:52)
[2017-01-17] MEDS: KETOROLAC TROMETHAMINE 30 MG/ML (IVP) VIAL IV PUSH SCH ×3 (05:31→17:33)
[2017-01-17 07:38] LABS: HEMATOCRIT 29.8 % (35.0-46.0); MEAN CELL VOLUME 85.8 FL (80.0-100.0); MEAN CORPUSCULAR HEMOGLOBIN 29.2 PG (27.0-34.0); MEAN CORPUSCULAR HGB CONC 34.1 % (32.0-36.0); PLATELET COUNT 271 TH/MM3 (150-450); RED BLOOD COUNT 3.48 MIL/MM3 (4.00-5.30); RED CELL DISTRIBUTION WIDTH 13.4 % (11.6-17.2); REVIEW FLAG FINAL; WHITE BLOOD COUNT 8.3 TH/MM3 (4.0-11.0)
[2017-01-17 07:39] LABS: BICARBONATE 25.7 MEQ/L (21.0-32.0); POTASSIUM 4.3 MEQ/L (3.5-5.1)
[2017-01-17] MEDS: ceFAZolin 2 GM PREMIX 50 ML IV SCH ×2 (09:04→17:33)
[2017-01-17] MEDS: SODIUM CHLORIDE 0.9% FLUSH 5 ML FLUSH FLUSH SCH ×2 (09:04→21:51)
--- NOTE | 2017-01-17 09:45 | HHI.PR ---
Subjective Remarks The pt wanted to know if she could have a PICC line placed and go home. She had no acute complaints. Discussed with nursing. Objective Vitals Vital Signs Date Time Temp Pulse Resp B/P Pulse Ox O2 Delivery O2 Flow Rate FiO2 01/17/17 09:13 97.6 91 16 117/71 99 01/17/17 04:00 98.0 98 18 107/64 100 01/17/17 00:00 97.3 87 18 127/63 94 01/16/17 20:00 121 01/16/17 20:00 96.0 103 18 122/74 96 01/16/17 15:58 96.7 100 20 127/73 96 01/16/17 12:53 96.4 97 20 129/65 97 I/O 01/16/17 01/16/17 01/16/17 01/17/17 01/17/17 01/17/17 07:00 15:00 23:00 07:00 15:00 23:00 Intake Total 1380 ml 775 ml Output Total 1000 ml Balance 1380 ml 775 ml -1000 ml IV Total 1380 ml 775 ml Output Urine Total 1000 ml # Voids 3 15 # Bowel Movements 2 Result Diagram: 01/17/17 0654 01/17/17 0654 Imaging Last Impressions Hip MRI 01/11/17 0000 Signed Impressions: Service Date/Time: Wednesday, January 11, 2017 09:16 - CONCLUSION: No evidence of significant joint effusion. There is a slight increase in T2 signal identified within the tendon of the vastus lateralis muscle at the insertion of the greater trochanter which may reflect any tendinopathy.. Eula Núñez MD Consultation 01/05/17 0700 Signed Impressions: Service Date/Time: Thursday, January 05, 2017 07:00 - CONCLUSION: Only a miniscule amount of joint fluid present which would not be amenable to CT guided aspiration. Dillon Archibald MD Chest X-Ray 01/04/17 1806 Signed Impressions: Service Date/Time: Wednesday, January 04, 2017 18:49 - CONCLUSION: No acute disease. There is no evidence of pneumonia. Castillo Bedoya MD Lumbar Spine MRI 01/04/17 0000 Signed Impressions: Service Date/Time: Wednesday, January 04, 2017 19:33 - CONCLUSION: 1. Degenerative change at the L4-5 level with annular disc bulge and high intensity zone the posterior annulus most characteristic of a small annular tear. 2. Small amount of free fluid in the cul-de-sac. Castillo Bedoya MD Hip and Pelvis X-Ray 01/04/17 0000 Signed Impressions: Service Date/Time: Wednesday, January 04, 2017 18:51 - CONCLUSION: Unremarkable exam with no underlying bony abnormality. Castillo Bedoya MD Objective Remarks GENERAL: NAD SKIN: Warm and dry. HEAD: Normocephalic. EYES: No scleral icterus. No injection or drainage. NECK: Supple, trachea midline. No JVD or lymphadenopathy. CARDIOVASCULAR: Regular rate and rhythm without murmurs, gallops, or rubs. RESPIRATORY: Breath sounds equal bilaterally. No accessory muscle use. GASTROINTESTINAL: Abdomen soft, non-tender, nondistended. MUSCULOSKELETAL: No cyanosis, or edema. Tenderness to palpation of left hip. BACK: Nontender without obvious deformity. No CVA tenderness. PSYCH: Mood and affect appropriate. Procedures KRISTINA Medications and IVs Current Medications Medications (Trade) Dose Ordered Sig/Michelle Route Start Time Stop Time Status Last Admin (NS 1000 ml Inj) 1,000 ml @ 100 mls/hr Q10H IV 01/04/17 21:43 01/17/17 03:33 (NS Flush) 2 ml UNSCH PRN FLUSH 01/04/17 21:45 (NS Flush) 2 ml BID FLUSH 01/05/17 09:00 01/16/17 20:51 (Zofran Inj) 4 mg Q6H PRN IVP 01/04/17 21:45 (Dulcolax Supp) 10 mg DAILY PRN [place] 01/04/17 21:45 (Tylenol) 650 mg Q6H PRN PO 01/04/17 21:45 01/10/17 02:01 (Roxicodone) 10 mg Q4H PRN PO 01/04/17 21:45 01/17/17 05:32 (Roxicodone) 5 mg Q4H PRN PO 01/04/17 21:45 (Ibis-Colace) 1 tab BID PRN PO 01/06/17 11:00 (Mag-Al Plus Susp Liq) 30 ml Q6H PRN PO 01/06/17 11:00 Temazepam 15 mg 15 mg HS PRN PO 01/06/17 11:00 01/16/17 20:51 (Ancef 2 Gm Premix) 50 ml @ 100 mls/hr Q8H IV 01/09/17 17:00 01/17/17 09:04 (Toradol Inj) 15 mg Q6HR IV PUSH 01/16/17 14:00 01/17/17 18:01 01/17/17 05:31 A/P Problem List: (1) 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 Cardiology and ID consults appreciated. Status post KRISTINA 01/09/17. Has bacteremia with staph aureus. Repeat cultures negative. Not a good candidate for surgery per cardiothoracics. - continue Ancef until 02/18 per ID. - drug abuse cessation instruction. - unable to place PICC line per history of drug use. Hip Pain MRI hip w/ small bilateral joint effusions, however per orthopedic surgery this makes infection less likely. Repeat hip MRI 01/11/17 with no evidence of significant joint effusion. - Continue analgesics/antiemetics as needed. Added Toradol 01/14. Improved. - PT to treat. - follow up with orthopedic surgery. IVDU Admits to recent IVDU. Negative UDS. - Ativan prn for agitation. - cessation instruction. Tobacco Abuse Counselled. - Ativan/NicoDerm prn if needed. DVT Prophylaxis: SCD/Teds. Discharge Planning Transfer to [place] when bed available. Problem Qualifiers (1) Sepsis: Qualified Code: A41.9 - Sepsis, due to unspecified organism (2) Septic joint: Castillo Lane DO Jan 17, 2017 09:45
[2017-01-17] MEDS: TEMAZEPAM 15 MG CAP PO PRN (21:50)
[2017-01-18] VITALS (7 sets, daily range): BP systolic 97–124; BP diastolic 61–73; PULSE 73–125; RESP 18–20; TEMP 96.3–98.9; O2SAT 94–99
[2017-01-18] MEDS: ceFAZolin 2 GM PREMIX 50 ML IV SCH ×3 (00:27→15:26)
[2017-01-18] MEDS: SODIUM CHLOR 0.9% 1000 ML INJ 1,000 ML IV SCH (00:28)
[2017-01-18] MEDS ORDERED: IBUPROFEN 600 MG TAB PO PRN (09:00)
[2017-01-18] MEDS: SODIUM CHLORIDE 0.9% FLUSH 5 ML FLUSH FLUSH SCH ×2 (09:20→20:38)
--- NOTE | 2017-01-18 09:43 | HHI.PR ---
Subjective Remarks The pt said she hasn't received her pain meds in a while. She wanted to know when she would be going to [place]. No acute complaints. Discussed with nursing. Objective Vitals Vital Signs Date Time Temp Pulse Resp B/P Pulse Ox O2 Delivery O2 Flow Rate FiO2 01/18/17 08:50 98.9 94 18 119/73 94 01/18/17 04:00 98.4 100 18 124/70 97 01/18/17 00:00 98.4 102 18 124/70 97 01/17/17 20:00 98.4 105 18 122/73 97 01/17/17 17:56 97.0 104 16 108/65 100 01/17/17 14:28 102 01/17/17 13:36 97.0 108 16 115/60 94 I/O 01/17/17 01/17/17 01/17/17 01/18/17 01/18/17 01/18/17 07:00 15:00 23:00 07:00 15:00 23:00 Intake Total 638 ml 480 ml 800 ml Output Total 1000 ml Balance -1000 ml 638 ml 480 ml 800 ml Intake Oral 480 ml IV Total 638 ml 800 ml Output Urine Total 1000 ml # Voids 2 1 Result Diagram: 01/17/17 0654 01/17/17 0654 Imaging Last Impressions Hip MRI 01/11/17 0000 Signed Impressions: Service Date/Time: Wednesday, January 11, 2017 09:16 - CONCLUSION: No evidence of significant joint effusion. There is a slight increase in T2 signal identified within the tendon of the vastus lateralis muscle at the insertion of the greater trochanter which may reflect any tendinopathy.. Eula Núñez MD Consultation 01/05/17 0700 Signed Impressions: Service Date/Time: Thursday, January 05, 2017 07:00 - CONCLUSION: Only a miniscule amount of joint fluid present which would not be amenable to CT guided aspiration. Dillon Archibald MD Chest X-Ray 01/04/17 1806 Signed Impressions: Service Date/Time: Wednesday, January 04, 2017 18:49 - CONCLUSION: No acute disease. There is no evidence of pneumonia. Castillo Bedoya MD Lumbar Spine MRI 01/04/17 0000 Signed Impressions: Service Date/Time: Wednesday, January 04, 2017 19:33 - CONCLUSION: 1. Degenerative change at the L4-5 level with annular disc bulge and high intensity zone the posterior annulus most characteristic of a small annular tear. 2. Small amount of free fluid in the cul-de-sac. Castillo Bedoya MD Hip and Pelvis X-Ray 01/04/17 0000 Signed Impressions: Service Date/Time: Wednesday, January 04, 2017 18:51 - CONCLUSION: Unremarkable exam with no underlying bony abnormality. Castillo Bedoya MD Objective Remarks GENERAL: NAD SKIN: Warm and dry. HEAD: Normocephalic. EYES: No scleral icterus. No injection or drainage. NECK: Supple, trachea midline. No JVD or lymphadenopathy. CARDIOVASCULAR: Regular rate and rhythm without murmurs, gallops, or rubs. RESPIRATORY: Breath sounds equal bilaterally. No accessory muscle use. GASTROINTESTINAL: Abdomen soft, non-tender, nondistended. MUSCULOSKELETAL: No cyanosis, or edema. Tenderness to palpation of left hip. BACK: Nontender without obvious deformity. No CVA tenderness. PSYCH: Mood and affect appropriate. Procedures KRISTINA Medications and IVs Current Medications Medications (Trade) Dose Ordered Sig/Michelle Route Start Time Stop Time Status Last Admin (NS 1000 ml Inj) 1,000 ml @ 100 mls/hr Q10H IV 01/04/17 21:43 01/18/17 00:28 (NS Flush) 2 ml UNSCH PRN FLUSH 01/04/17 21:45 (NS Flush) 2 ml BID FLUSH 01/05/17 09:00 01/18/17 09:20 (Zofran Inj) 4 mg Q6H PRN IVP 01/04/17 21:45 (Dulcolax Supp) 10 mg DAILY PRN LA 01/04/17 21:45 (Tylenol) 650 mg Q6H PRN PO 01/04/17 21:45 01/10/17 02:01 (Roxicodone) 10 mg Q4H PRN PO 01/04/17 21:45 01/18/17 09:20 (Roxicodone) 5 mg Q4H PRN PO 01/04/17 21:45 (Ibis-Colace) 1 tab BID PRN PO 01/06/17 11:00 (Mag-Al Plus Susp Liq) 30 ml Q6H PRN PO 01/06/17 11:00 Temazepam 15 mg 15 mg HS PRN PO 01/06/17 11:00 01/17/17 21:50 (Ancef 2 Gm Premix) 50 ml @ 100 mls/hr Q8H IV 01/09/17 17:00 01/18/17 09:19 (Motrin) 600 mg Q8H PRN PO 01/18/17 09:00 A/P Problem List: (1) 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 Cardiology and ID consults appreciated. Status post KRISTINA 01/09/17. Has bacteremia with staph aureus. Repeat cultures negative. Not a good candidate for surgery per cardiothoracics. - continue Ancef until 02/18 per ID. - drug abuse cessation instruction. Hip Pain MRI hip w/ small bilateral joint effusions, however per orthopedic surgery this makes infection less likely. Repeat hip MRI 01/11/17 with no evidence of significant joint effusion. - Continue analgesics/antiemetics as needed. Added Toradol 01/14. Improved. Switch to ibuprofen prn 01/18. - PT to treat. - follow up with orthopedic surgery. IVDU Admits to recent IVDU. Negative UDS. - Ativan prn for agitation. - cessation instruction. - no PICC line. Tobacco Abuse Counselled. - Ativan/NicoDerm prn if needed. DVT Prophylaxis: SCD/Teds. Discharge Planning Transfer to [place]. Problem Qualifiers (1) Sepsis: Qualified Code: A41.9 - Sepsis, due to unspecified organism (2) Septic joint: Castillo Lane DO Jan 18, 2017 09:43
[2017-01-18] MEDS: SODIUM CHLORIDE 0.9% FLUSH 5 ML FLUSH FLUSH PRN (15:27)
[2017-01-18] MEDS ORDERED: DOCUSATE SODIUM 50 MG/SENNA 8.6 MG TAB PO PRN (22:30)
[2017-01-18] MEDS: TEMAZEPAM 15 MG CAP PO PRN (22:30)
[2017-01-19] MEDS: ceFAZolin 2 GM PREMIX 50 ML IV SCH ×3 (00:56→16:57)
[2017-01-19 08:00] VITALS: BP 103/76; PULSE 91; RESP 20; TEMP 96.9; O2SAT 93
--- NOTE | 2017-01-19 09:05 | HHI.PR ---
Subjective Remarks 26-year-old female who originally presented to the hospital because of severe pain in the left hip. Patient was admitted for sepsis with a fever 103.1. Leukocytosis, tachycardia. MRI was done of the hip which did show small joint effusions. Orthopedic was consulted, repeat MRI does not indicate any effusions. No surgical indication. Blood cultures were taken patient had positive blood cultures with staph aureus. Patient had workup for endocarditis with echocardiogram and KRISTINA which did indicate vegetation and endocarditis of aortic and tricuspid valve. Infectious disease follow the patient in patient was started on cefazolin. Recommended that patient continue on Cefzil and until February 18, 2017. Indicating repeat echocardiogram 1 week prior to stopping antibiotic to assess for mitral valve abscess. This patient is going require prolonged hospitalization for IV antibiotics due to IV drug use, endocarditis patient was transferred to [place] for continued care. Objective Vitals Vital Signs Date Time Temp Pulse Resp B/P Pulse Ox O2 Delivery O2 Flow Rate FiO2 01/19/17 03:32 16 01/18/17 21:00 97.9 108 18 97/68 96 01/18/17 16:00 96.3 125 20 114/61 96 01/18/17 12:58 96.8 73 18 104/62 99 01/18/17 08:50 98.9 94 18 119/73 94 I/O 01/18/17 01/18/17 01/18/17 01/19/17 01/19/17 01/19/17 07:00 15:00 23:00 07:00 15:00 23:00 Intake Total 800 ml 240 ml 480 ml Balance 800 ml 240 ml 480 ml Intake Oral 240 ml 480 ml IV Total 800 ml # Voids 6 3 2 # Bowel Movements 2 0 Result Diagram: 01/17/17 0654 01/17/17 0654 Objective Remarks GENERAL: Well-developed, well-nourished, in no acute distress. alert and orientated HEENT: Head is normocephalic without any lesions or masses noted. Facial features are symmetric. Eyes: Extraocular muscles are intact. Conjunctivae were clear. NECK: Supple without any masses. Trachea midline no deviation. No JVD, CARDIAC: Regular rhythm, regular rate. S1/S2 are heard. No murmurs gallops or rubs. LUNGS: Clear to auscultation bilaterally. No wheeze, rhonchi or rales. No use of accessory muscles on inspiration or expiration. ABDOMEN: Soft, nontender. Nondistended. Bowel sounds heard in all 4 quadrants. No organomegaly or masses. Negative rebound, negative guarding EXTREMITIES: No edema, pulses are equal bilaterally. No cyanosis or clubbing NEUROLOGY: Mood and affect appear appropriate. Cranial nerves II through XII grossly intact. Moving all extremities, speech is clear Procedures KRISTINA Urinary Catheter: No Vascular Central Line Catheter: No A/P Assessment and Plan Endocarditis/bacteremia Echocardiogram and KRISTINA indicates Tricuspid valve, aortic valve involvement.. Cardiology and ID consults appreciated. Status post KRISTINA 01/09/17. Has bacteremia with staph aureus. Cardiothoracic surgery evaluated the patient indicated that she is not a surgical candidate Blood cultures positive with staph aureus, negative culture as of 01/09/17 Infectious disease following and made recommendations Continue Ancef until 02/18/17 Repeat echocardiogram 1 week prior to antibiotics discontinuing Hip Pain MRI hip w/ small bilateral joint effusions, repeat MRI showed no evidence of joint effusion Orthopedic consulted who indicated patient is not a surgical candidate Continue pain control: We'll need to wean patient off all narcotics within the next 3 weeks Oxycodone 5 mg every 4 hours for pain 3-5, discontinue that at this time Oxycodone 10 mg every 4 hours as needed for pain 6-10, changed to oxycodone 10 mg every 6 as needed for pain 610 Continue physical therapy IVDU Patient will plan minutes says she has been IV drug user since she was 15 years old with heroin Patient states that she does not want to be on any medications prior to leaving the hospital Patient counseled on cessation DVT Prophylaxis: SCD/Teds. Discharge Planning Discharge planning after patient completes IV antibiotics Christiano Sandhu Jan 19, 2017 09:04
[2017-01-19] MEDS: SODIUM CHLORIDE 0.9% FLUSH 5 ML FLUSH FLUSH SCH ×2 (09:54→20:41)
[2017-01-19 20:00] VITALS: BP 128/76; PULSE 104; RESP 20; TEMP 98.7; O2SAT 95
[2017-01-19] MEDS: TEMAZEPAM 15 MG CAP PO PRN (20:40)
[2017-01-20] MEDS: ceFAZolin 2 GM PREMIX 50 ML IV SCH ×3 (00:17→17:19)
[2017-01-20 08:00] VITALS: BP 115/77; PULSE 95; RESP 20; TEMP 98.8; O2SAT 94
[2017-01-20] MEDS: SODIUM CHLORIDE 0.9% FLUSH 5 ML FLUSH FLUSH SCH ×2 (09:24→20:29)
--- NOTE | 2017-01-20 12:45 | HHI.PR ---
Subjective Remarks Follow-up for endocarditis, left hip effusion. Patient complains of left hip pain 9/10 lateral aspect as well as the groin. Requests Toradol. She admits to sweats and chills primarily at night. Nurse informs me the patient has some red areas to both forearms and the patient indicates hard tender area over previous IV site on each arm. She states there was some white drainage from the area to the left arm. Objective Vitals Vital Signs Date Time Temp Pulse Resp B/P Pulse Ox O2 Delivery O2 Flow Rate FiO2 01/20/17 10:31 18 01/20/17 08:00 98.8 95 20 115/77 94 01/19/17 20:00 98.7 104 20 128/76 95 I/O 01/19/17 01/19/17 01/19/17 01/20/17 01/20/17 01/20/17 07:00 15:00 23:00 07:00 15:00 23:00 Intake Total 480 ml 660 ml 840 ml 240 ml 290 ml Balance 480 ml 660 ml 840 ml 240 ml 290 ml Intake Oral 480 ml 660 ml 840 ml 240 ml 240 ml IV Total 50 ml # Voids 2 8 3 2 # Bowel Movements 0 2 1 0 Result Diagram: 01/17/17 0654 01/17/17 0654 Objective Remarks GENERAL: BMI 34.3. Well-nourished, well-developed patient in no apparent distress. SKIN: Warm and dry. There is a lightly erythematous indurated area over the right proximal dorsal forearm in area of previous IV. There is no palpable fluctuance. There is an indurated area to the volar proximal left forearm and again no fluctuance noted nor drainage. No area of induration surrounding current IV site to the left upper arm. CARDIOVASCULAR: Regular rate and rhythm. RESPIRATORY: No accessory muscle use. Clear to auscultation. Breath sounds equal bilaterally. GASTROINTESTINAL: Abdomen soft, non-tender, nondistended. MUSCULOSKELETAL: Tender over left lateral hip and groin, but no swelling evident. NEUROLOGICAL: Awake and alert. Motor grossly within normal limits. Normal speech. PSYCHIATRIC: Appropriate mood and affect; insight and judgment normal. 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 Cardiology and ID consults appreciated. Status post KRISTINA 01/09/17. Has bacteremia with staph aureus. Cardiothoracic surgery evaluated the patient but indicated she is not a surgical candidate Blood cultures positive with staph aureus, negative culture as of 01/09/17 Infectious disease following and made recommendations: Continue Ancef until 02/18/17 Repeat echocardiogram 1 week prior to antibiotic completion L Hip Pain: MRI hip w/ small bilateral joint effusions, repeat MRI showed no evidence of joint effusion Orthopedic consulted who indicated patient is not a surgical candidate; last evaluated by ortho on 01/16. Continue pain control: We'll need to wean patient off all narcotics within the next 3 weeks Oxycodone 10 mg every 6 as needed for pain 610. Will not restart Toradol as patient has Ibuprofen as needed q8 hours. Continue physical therapy IVDU She has been IV drug user since she was 15 years old with heroin Patient states that she does not want to be on any medications prior to leaving the hospital Patient counseled on cessation Possible superficial venous thrombi: Small indurated areas over R and L forearms in area of previous IV sites. No indication of infection or abscess. Afebrile. Arms appear non-edematous; no concern for DVT at this time. New CBC today with normal WBC count. -Patient instructed to apply warm compresses to areas -Ibuprofen -Monitor clinically for signs of infection. DVT Prophylaxis: SCD/Teds. Problem Qualifiers (1) Sepsis: Qualified Code: A41.9 - Sepsis, due to unspecified organism (2) Septic joint: Della Blackwell Jan 20, 2017 12:45
[2017-01-20 14:06] LABS: AUTOMATED NEUTROPHIL # 4.8 TH/MM3 (1.8-7.7); BASOPHIL # 0.1 TH/MM3 (0-0.2); EOSINOPHIL # 0.5 TH/MM3 (0-0.4); EOSINOPHIL % 6.2 % (0.0-4.0); HEMATOCRIT 37.6 % (35.0-46.0); HEMO FLAGS DIFF FINAL; LYMPH % 25.3 % (9.0-44.0); LYMPHOCYTE # 2.1 TH/MM3 (1.0-4.8); MEAN CELL VOLUME 86.8 FL (80.0-100.0); MEAN CORPUSCULAR HEMOGLOBIN 28.3 PG (27.0-34.0); MEAN CORPUSCULAR HGB CONC 32.7 % (32.0-36.0); MONO % 8.2 % (0.0-8.0); NEUT % 59.3 % (16.0-70.0); PLATELET COUNT 386 TH/MM3 (150-450); RED BLOOD COUNT 4.33 MIL/MM3 (4.00-5.30); WHITE BLOOD COUNT 8.2 TH/MM3 (4.0-11.0)
[2017-01-20] MEDS: IBUPROFEN 600 MG TAB PO PRN (16:07)
[2017-01-20 20:00] VITALS: BP 121/72; PULSE 96; RESP 20; TEMP 96.6; O2SAT 97
[2017-01-20] MEDS: TEMAZEPAM 15 MG CAP PO PRN (21:37)
[2017-01-21] MEDS: ceFAZolin 2 GM PREMIX 50 ML IV SCH ×3 (00:47→17:53)
[2017-01-21 07:15] VITALS: BP 115/84; PULSE 105; RESP 20; TEMP 97.2; O2SAT 94
[2017-01-21] MEDS: SODIUM CHLORIDE 0.9% FLUSH 5 ML FLUSH FLUSH SCH ×2 (09:00→21:00)
[2017-01-21] MEDS: IBUPROFEN 600 MG TAB PO PRN (11:02)
--- NOTE | 2017-01-21 11:37 | HHI.PR ---
Subjective Remarks Follow-up for endocarditis, left hip pain. RN states the patient's IV was removed from the left upper arm due to pain. There is now some redness over the left upper arm as well. Objective Vitals Vital Signs Date Time Temp Pulse Resp B/P Pulse Ox O2 Delivery O2 Flow Rate FiO2 01/20/17 23:00 18 01/20/17 20:00 96.6 96 20 121/72 97 01/20/17 17:04 18 I/O 01/20/17 01/20/17 01/20/17 01/21/17 01/21/17 01/21/17 07:00 15:00 23:00 07:00 15:00 23:00 Intake Total 240 ml 1190 ml 300 ml 120 ml Balance 240 ml 1190 ml 300 ml 120 ml Intake Oral 240 ml 1140 ml 300 ml 120 ml IV Total 50 ml # Voids 2 3 6 2 # Bowel Movements 0 1 Result Diagram: 01/20/17 1340 01/17/17 0654 Objective Remarks GENERAL: BMI 34.3. Well-nourished, well-developed patient in no apparent distress. SKIN: Warm and dry. There is a lightly erythematous indurated area over the right proximal dorsal forearm in area of previous IV. There is no palpable fluctuance. There is an indurated area, feels like a cord, over the volar proximal left forearm and again no fluctuance noted nor drainage or erythema. There is now a lightly erythematous indurated area over the left upper arm where IV was removed. CARDIOVASCULAR: Regular rate and rhythm. RESPIRATORY: No accessory muscle use. Clear to auscultation. Breath sounds equal bilaterally. GASTROINTESTINAL: Abdomen soft, non-tender, nondistended. NEUROLOGICAL: Awake and alert. Normal speech. Patient witnessed to be ambulating with PT. PSYCHIATRIC: Appropriate mood and affect; insight and judgment normal. 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 Cardiology and ID consults appreciated. Status post KRISTINA 01/09/17. Has bacteremia with staph aureus. Cardiothoracic surgery evaluated the patient but indicated she is not a surgical candidate Blood cultures positive with staph aureus, negative culture as of 01/09/17 Infectious disease following and made recommendations: Continue Ancef until 02/18/17 Repeat echocardiogram 1 week prior to antibiotic completion L Hip Pain: MRI hip w/ small bilateral joint effusions, repeat MRI showed no evidence of joint effusion Orthopedic consulted who indicated patient is not a surgical candidate; last evaluated by ortho on 01/16. Continue pain control: We'll need to wean patient off all narcotics within the next 3 weeks Oxycodone 10 mg every 6 as needed for pain 610. Will not restart Toradol as patient has Ibuprofen as needed q8 hours. Continue physical therapy IVDU She has been IV drug user since she was 15 years old with heroin Patient states that she does not want to be on any medications prior to leaving the hospital Patient counseled on cessation Superficial venous thrombi: Indurated areas over R and L forearms as well as L upper arm in area of previous IV sites. No indication of infection or abscess. Afebrile. Arms appear non-edematous; no concern for DVT at this time. -Patient instructed to apply warm compresses to areas -Ibuprofen -Monitor clinically for signs of infection. -Patient's IV was removed this morning from the left upper arm due to pain. Vascular access has been consulted. I spoke with Jasen vascular automobile accessories installer who recommends midline which is appropriate based on length of antibiotics. This is to be placed in the R arm. DVT Prophylaxis: SCD/Teds. Patient states she gets up and goes to a chair and was witnessed to be ambulating with PT, but likely spends much of the time in bed. Due to this in addition to multiple suspected superficial venous thrombi, will start prophylactic Lovenox. Problem Qualifiers (1) Sepsis: Qualified Code: A41.9 - Sepsis, due to unspecified organism (2) Septic joint: Della Blackwell Jan 21, 2017 11:37
[2017-01-21] MEDS: ENOXAPARIN SODIUM 40 MG/0.4 ML SYRINGE SQ SCH (12:34)
[2017-01-21 20:00] VITALS: BP 117/73; PULSE 112; RESP 20; TEMP 99.6; O2SAT 98
[2017-01-21] MEDS: TEMAZEPAM 15 MG CAP PO PRN (21:51)
[2017-01-22] MEDS: ceFAZolin 2 GM PREMIX 50 ML IV SCH ×3 (00:40→16:24)
[2017-01-22] MEDS: IBUPROFEN 600 MG TAB PO PRN (00:42)
[2017-01-22 08:00] VITALS: BP 109/85; PULSE 90; RESP 18; TEMP 95.7; O2SAT 99
[2017-01-22] MEDS: SODIUM CHLORIDE 0.9% FLUSH 5 ML FLUSH FLUSH SCH ×2 (09:19→20:25)
--- NOTE | 2017-01-22 09:41 | HHI.PR ---
Subjective Remarks Follow-up for endocarditis, left hip pain. Midline was placed yesterday in the patient's right upper arm as she was developing multiple superficial clots from peripheral IVs. She is tolerating the midline well. No acute complaints. Objective Vitals Vital Signs Date Time Temp Pulse Resp B/P Pulse Ox O2 Delivery O2 Flow Rate FiO2 01/21/17 20:00 99.6 112 20 117/73 98 01/21/17 17:09 18 01/21/17 12:39 20 I/O 01/21/17 01/21/17 01/21/17 01/22/17 01/22/17 01/22/17 06:59 14:59 22:59 06:59 14:59 22:59 Intake Total 120 ml 1000 ml 360 ml 460 ml 100 ml Balance 120 ml 1000 ml 360 ml 460 ml 100 ml Intake Oral 120 ml 1000 ml 360 ml 360 ml 100 ml IV Total 0 ml 100 ml # Voids 2 4 3 2 # Bowel Movements 1 Result Diagram: 01/20/17 1340 Objective Remarks GENERAL: BMI 34.9. Well-nourished, well-developed patient in no apparent distress. SKIN: Warm and dry. The indurated area over the right proximal dorsal forearm is improved; erythema is resolved. There is an indurated area, possible cord, over the volar proximal left forearm and again no fluctuance noted nor drainage or erythema. Thee lightly erythematous indurated area over the left upper arm seems to have resolved. CARDIOVASCULAR: Regular rate and rhythm. RESPIRATORY: No accessory muscle use. Clear to auscultation. Breath sounds equal bilaterally. GASTROINTESTINAL: Abdomen soft, non-tender, nondistended. NEUROLOGICAL: Awake and alert. Normal speech. PSYCHIATRIC: Appropriate mood and affect; insight and judgment normal. 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 Cardiology and ID consults appreciated. Status post KRISTINA 01/09/17. Has bacteremia with staph aureus. Cardiothoracic surgery evaluated the patient but indicated she is not a surgical candidate Blood cultures positive with staph aureus, negative culture as of 01/09/17 Infectious disease following and made recommendations: Continue Ancef until 02/18/17 Repeat echocardiogram 1 week prior to antibiotic completion L Hip Pain: MRI hip w/ small bilateral joint effusions, repeat MRI showed no evidence of joint effusion Orthopedic consulted who indicated patient is not a surgical candidate; last evaluated by ortho on 01/16. Continue pain control: We'll need to wean patient off all narcotics within the next 3 weeks Oxycodone 10 mg every 6 as needed for pain 610. Will not restart Toradol as patient has Ibuprofen as needed q8 hours. Continue physical therapy IVDU She has been IV drug user since she was 15 years old with heroin Patient states that she does not want to be on any medications prior to leaving the hospital Patient counseled on cessation Superficial venous thrombi: Improving; one to volar L forearm unchanged. No indication of infection or abscess. Afebrile. Arms appear non-edematous; no concern for DVT at this time. -Patient instructed to apply warm compresses to areas -Ibuprofen -Monitor clinically for signs of infection. -Midline was placed R arm on 01/21/17. DVT Prophylaxis: SCD/Teds, Lovenox. Problem Qualifiers (1) Sepsis: Qualified Code: A41.9 - Sepsis, due to unspecified organism (2) Septic joint: Della Blackwell Jan 22, 2017 09:41
[2017-01-22] MEDS: ENOXAPARIN SODIUM 40 MG/0.4 ML SYRINGE SQ SCH (11:46)
[2017-01-22 20:00] VITALS: BP 99/83; PULSE 112; RESP 16; TEMP 100.6; O2SAT 96
[2017-01-22] MEDS: TEMAZEPAM 15 MG CAP PO PRN (20:24)
[2017-01-23] MEDS: ceFAZolin 2 GM PREMIX 50 ML IV SCH ×3 (01:16→17:14)
[2017-01-23 08:00] VITALS: BP 137/86; PULSE 100; RESP 19; TEMP 96.2; O2SAT 100
[2017-01-23] MEDS: SODIUM CHLORIDE 0.9% FLUSH 5 ML FLUSH FLUSH SCH ×2 (09:16→22:39)
--- NOTE | 2017-01-23 10:43 | HHI.PR ---
Subjective Remarks Follow-up for endocarditis, left hip pain, and superficial venous thrombi in upper extremities. Patient states her hip is feeling better. She is tolerating the midline in the right upper extremity which was recently placed. She feels the affected area from peripheral IV to left arm is spreading. Again states she had drainage from L volar forearm site. Admits to chills. Did have a fever of 100.6 last night at 2000, afebrile this morning. Objective Vitals Vital Signs Date Time Temp Pulse Resp B/P Pulse Ox O2 Delivery O2 Flow Rate FiO2 01/23/17 10:16 18 01/23/17 08:00 96.2 100 19 137/86 100 01/22/17 20:00 100.6 112 16 99/83 96 I/O 01/22/17 01/22/17 01/22/17 01/23/17 01/23/17 01/23/17 07:00 15:00 23:00 07:00 15:00 23:00 Intake Total 460 ml 460 ml 480 ml Balance 460 ml 460 ml 480 ml Intake Oral 360 ml 460 ml 480 ml IV Total 100 ml # Voids 2 1 5 3 # Bowel Movements 1 0 Result Diagram: 01/20/17 1340 Imaging Last Impressions Upper Extremity Ultrasound 01/23/17 0901 Signed Impressions: Service Date/Time: Monday, January 23, 2017 10:09 - CONCLUSION: 1. Thrombosis of the cephalic and basilic veins in the left arm. Domenico Larsen MD Hip MRI 01/11/17 0000 Signed Impressions: Service Date/Time: Wednesday, January 11, 2017 09:16 - CONCLUSION: No evidence of significant joint effusion. There is a slight increase in T2 signal identified within the tendon of the vastus lateralis muscle at the insertion of the greater trochanter which may reflect any tendinopathy.. Eula Núñez MD Consultation 01/05/17 0700 Signed Impressions: Service Date/Time: Thursday, January 05, 2017 07:00 - CONCLUSION: Only a miniscule amount of joint fluid present which would not be amenable to CT guided aspiration. Dillon Archibald MD Chest X-Ray 01/04/17 1806 Signed Impressions: Service Date/Time: Wednesday, January 04, 2017 18:49 - CONCLUSION: No acute disease. There is no evidence of pneumonia. Castillo Bedoya MD Lumbar Spine MRI 01/04/17 0000 Signed Impressions: Service Date/Time: Wednesday, January 04, 2017 19:33 - CONCLUSION: 1. Degenerative change at the L4-5 level with annular disc bulge and high intensity zone the posterior annulus most characteristic of a small annular tear. 2. Small amount of free fluid in the cul-de-sac. Castillo Bedoya MD Hip and Pelvis X-Ray 01/04/17 0000 Signed Impressions: Service Date/Time: Wednesday, January 04, 2017 18:51 - CONCLUSION: Unremarkable exam with no underlying bony abnormality. Castillo Bedoya MD Objective Remarks GENERAL: BMI 34.7. Well-nourished, well-developed patient in no apparent distress. SKIN: Warm and dry. The indurated area over the right proximal dorsal forearm is improved, small; erythema is resolved. There is a non-erythematous palpable cord over the volar proximal left forearm; no fluctuance or drainage. There is a palpable cord over the L upper arm and L upper arm appears swollen compared to R. CARDIOVASCULAR: Regular rate and rhythm. RESPIRATORY: No accessory muscle use. Clear to auscultation. Breath sounds equal bilaterally. GASTROINTESTINAL: Abdomen soft, non-tender, nondistended. NEUROLOGICAL: Awake and alert. Normal speech. PSYCHIATRIC: Appropriate mood and affect; insight and judgment normal. Procedures KRISTINA Urinary Catheter: No Vascular Central Line Catheter: No A/P Problem List: (1) Superficial venous thrombosis of both arms ICD Code: I82.613 Status: Acute (2) Sepsis ICD Code: A41.9 Status: Resolved (3) Bacteremia due to Gram-positive bacteria ICD Code: A49.9 Status: Acute (4) Endocarditis due to Staphylococcus ICD Code: I33.0 Status: Acute (5) Endocarditis of tricuspid valve ICD Code: I36.8 Status: Acute (6) Endocarditis of aortic valve ICD Code: I35.8 Status: Acute (7) IVDU (intravenous drug user) ICD Code: F19.90 Status: Acute (8) Left hip pain ICD Code: M25.552 Status: Acute (9) Septic joint ICD Code: M00.9 Status: Acute (10) Tobacco abuse ICD Code: Z72.0 Status: Acute Assessment and Plan Superficial venous thrombi: Acute. B/L upper extremities affected, palpable on exam, but L upper arm appears swollen and patient feels affected area is spreading over L upper arm today. Small area to R forearm is improved. -Patient has been using heating pad to areas -Ibuprofen -Midline was placed R arm on 01/21/17 due to multiple SVT with peripheral IVs. -Doppler US LUE ordered today to rule out DVT. Thrombosis of the cephalic and basilic veins evident in the left upper extremity. Although superficial multiple veins are affected. This was discussed with Dr. Baptiste. He advises starting treatment dose of Lovenox and obtaining hematology consult. Patient started on 100 mg Lovenox every 12 hours. 01/23 Fever: Acute. Patient had temp last night of 100.6 and received Motrin at midnight. She is afebrile this morning. New CBC with normal WBC count. BMP unremarkable. Fever likely attributed to multiple superficial clots. New blood cultures x 2 ordered. O2 saturation normal. Discussed with ID, Dr. Vernon, who agrees fever is likely due to clots. Endocarditis/bacteremia Echocardiogram and KRISTINA indicates Tricuspid valve, aortic valve involvement. Cardiology and ID consults appreciated. Status post KRISTINA 01/09/17. Has bacteremia with staph aureus. Cardiothoracic surgery evaluated the patient but indicated she is not a surgical candidate Blood cultures positive with staph aureus, negative culture as of 01/09/17 Infectious disease following and made recommendations: Continue Ancef until 02/18/17 Repeat echocardiogram 1 week prior to antibiotic completion -01/23: CRP improved. LFTs normal. L Hip Pain: MRI hip w/ small bilateral joint effusions, repeat MRI showed no evidence of joint effusion Orthopedic consulted who indicated patient is not a surgical candidate; last evaluated by ortho on 01/16. Continue pain control: We'll need to wean patient off all narcotics within the next 3 weeks Oxycodone 10 mg every 6 as needed for pain 610. Will not restart Toradol as patient has Ibuprofen as needed q8 hours. 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 Problem Qualifiers (1) Sepsis: Qualified Code: A41.9 - Sepsis, due to unspecified organism (2) Septic joint: Della Blackwell Jan 23, 2017 10:43
--- NOTE | 2017-01-23 10:57 | RADHPO ---
EXAM DATE/TIME: 01/23/2017 10:09 [facility] COMPARISON: No previous studies available for comparison. INDICATIONS : Induration left forearm. Palpable lumps lower arm. MEDICAL HISTORY : Hepatitis C. Endocarditis. IV drug use. SURGICAL HISTORY : Right arm surgery. Tympanostomy tube. ENCOUNTER: Initial ACUITY: 1 day PAIN SCORE: 9/10 LOCATION: Left arm. FINDINGS: The examination demonstrates venous thrombosis of the cephalic and basilic veins within the left uppe r arm. The brachial veins are patent. CONCLUSION: 1. Thrombosis of the cephalic and basilic veins in the left arm. Domenico Larsen MD on January 23, 2017 at 10:54 Board Certified Radiologist. This report was verified electronically.
[2017-01-23] MEDS ORDERED: ENOXAPARIN SODIUM 100 MG/ML SYRINGE SQ SCH (13:00)
[2017-01-23 13:28] LABS: AUTOMATED NEUTROPHIL # 3.9 TH/MM3 (1.8-7.7); BASOPHIL # 0.1 TH/MM3 (0-0.2); BASOPHIL % 1.2 % (0.0-2.0); EOSINOPHIL # 0.8 TH/MM3 (0-0.4); EOSINOPHIL % 10.6 % (0.0-4.0); HEMATOCRIT 33.8 % (35.0-46.0); HEMO FLAGS DIFF FINAL; LYMPH % 25.8 % (9.0-44.0); MEAN CELL VOLUME 85.4 FL (80.0-100.0); MEAN CORPUSCULAR HEMOGLOBIN 28.4 PG (27.0-34.0); MEAN CORPUSCULAR HGB CONC 33.3 % (32.0-36.0); MONO % 12.9 % (0.0-8.0); NEUT % 49.5 % (16.0-70.0); PLATELET COUNT 324 TH/MM3 (150-450); RED BLOOD COUNT 3.95 MIL/MM3 (4.00-5.30); RED CELL DISTRIBUTION WIDTH 12.6 % (11.6-17.2); WHITE BLOOD COUNT 7.8 TH/MM3 (4.0-11.0)
[2017-01-23 13:32] LABS: BICARBONATE 28.2 MEQ/L (21.0-32.0)
[2017-01-23 15:23] LABS: ALT (GPT) 20 U/L (10-53)
[2017-01-23 15:24] LABS: AST (GOT) 19 U/L (15-37)
[2017-01-23 15:25] LABS: INDIRECT BILIRUBIN 0.2 MG/DL (0.0-0.8); TOTAL BILIRUBIN ADULT 0.3 MG/DL (0.2-1.0)
[2017-01-23 15:26] LABS: ALKALINE PHOSPHATASE 50 U/L (45-117)
[2017-01-23 20:00] VITALS: BP 102/63; PULSE 104; RESP 17; TEMP 98.8; O2SAT 98
[2017-01-23] MEDS: TEMAZEPAM 15 MG CAP PO PRN (22:38)
--- NOTE | 2017-01-23 23:05 | MB ---
cc: DOMINGA TROY RUBY ANNE E. M.D. DATE OF CONSULTATION 01/23/17 DATE OF 1990 REFERRING PHYSICIAN Dominga Troy CHIEF COMPLAINT Dominga Rishi requests a consultation for Ms. Baxter regarding new left upper extremity cephalic and basilic vein thromboses. HISTORY OF PRESENT ILLNESS Mrs. Baxter is a 26-year-old woman with history of anxiety, depression, chronic tobacco use and IV drug abuse. She initially presented to the emergency room with left hip pain. Evaluation of the hip shows no significant amount of fluid for culture. However, during the course of her hospitalization she had fevers. Cultures from 01/04/17 shows Staphylococcus aureus. Additional cultures from 01/05 shows Staphylococcus aureus and on 01/06 again shows Staphylococcus aureus. Workup is consistent with bacterial endocarditis. She has tricuspid and aortic valve endocarditis with positive transesophageal echocardiogram. Bacteremia with Staphylococcus aureus in a history of IV drug use. She was placed on antibiotic therapy. She is on Ancef until February 18, 2017. She was transferred to [facility] to complete her course of IV antibiotics. Her case was reviewed by cardiothoracic surgery who recommended more conservative followup as her prognosis is quite poor either ways. She describes having a left arm IV that started to burn and hurt. Doppler ultrasound on 01/23/2017 showed thromboses of the cephalic and basilic veins in the left arm. The deep veins were negative. She was started on anticoagulant therapy in full dose of Lovenox. She noted some decrease in the swelling. She has tolerated the Lovenox well. REVIEW OF SYSTEMS She denies any leg swelling. She has no headaches. No vision changes. She has had some fever recently and periods of tachycardia. She describes her menses as being heavy. She has a normocytic anemia which is mild. Her white blood cell count and platelet count are normal. Her renal functions are normal. The rest of her review of systems is negative. She denies any previous history of venous thromboembolic event. No family history of venous thromboembolic event. PAST MEDICAL HISTORY 1. Anxiety depression 2. Tobacco use 3. IV drug abuse 4. Aortic valve and tricuspid valve endocarditis with staph aureus PAST SURGICAL HISTORY 1. Right arm surgery 2. Pharyngotomy tube ALLERGIES AMOXICILLIN CODEINE DILANTIN FAMILY HISTORY No family history of venous thromboembolic event. SOCIAL HISTORY Smokes half a pack a day. Has not smoked while hospitalized. She plans to stop smoking altogether. She admits to IV drug abuse. She reports intention to stop altogether. She denies any alcohol use. MEDICATIONS Current, 1. Ondansetron p.r.n. 2. Roxicodone 3. Ibis-Colace. 4. Ibuprofen 5. Cephazolin q.8 h 6. Temazepam 7. Bisacodyl 8. Enoxaparin 100 mg subcu q.12 PHYSICAL EXAMINATION VITAL SIGNS: Temperature 96.2, heart rate 100, T-max 100.6, respiratory rate 19, blood pressure 137/86, saturation 100%. GENERAL: Ms. Baxter is a 26-year-old woman in no acute distress. HEENT: Her pupils are round, reactive to light and accommodation. Sclerae are nonicteric. Oropharynx is clear. NECK: Supple. LUNGS: Clear to auscultation. CARDIOVASCULAR: Mild tachycardia, right upper line midline is noted. EXTREMITIES: Left upper arm mild diffuse erythema with unclear borders, a palpable cord is noted in the left forearm with previous IV site. No cord in the upper arm. LABORATORY DATA C-reactive protein of 5.8. ASSESSMENT/PLAN Mr. Baxter is a 26-year-old woman with multiple medical problems presenting with left hip pain and diagnosed with bacterial endocarditis staph aureus. She has aortic valve and tricuspid valve involvement. We had a lengthy discussion of plan to continue antibiotic therapy as prescribed by infectious disease. We discussed the complications of IV access peripherally. She has superficial vein thromboses, both in the cephalic and basilic veins. She appears to have had a catheter or IV in the basilic vein. She denies having one in the cephalic vein but had an IV in the forearm that has a cord. We discussed the need to treat her with anticoagulant therapy. Lovenox appears to be effective. I recommend decreasing the dose of Lovenox to once daily dosing 100 mg once daily. We may need to decrease the dose when she is on her cycle. She reports having heavy menses. We will take care to monitor closely that no excessive loss of blood during the anticoagulant therapy. I anticipate needing the low-molecular weight heparin for approximately 4-6 weeks time. That should be the duration of her antibiotic therapy. The low molecular weight heparin can be discontinued when the mid line is removed and antibiotic therapy is completed. Procedure for a followup since been line. Her questions were answered to her satisfaction. MD PHILIPP Huffman/ /5:54 PM /10:50 PM [facility]VIS
[2017-01-24] MEDS: ceFAZolin 2 GM PREMIX 50 ML IV SCH ×3 (00:42→17:36)
[2017-01-24 08:00] VITALS: BP 105/76; PULSE 84; RESP 16; TEMP 97.2; O2SAT 100
[2017-01-24] MEDS: SODIUM CHLORIDE 0.9% FLUSH 5 ML FLUSH FLUSH SCH ×2 (08:27→21:08)
[2017-01-24] MEDS: ENOXAPARIN SODIUM 100 MG/ML SYRINGE SQ SCH ×2 (08:29→12:27)
[2017-01-24] MEDS ORDERED: diphenhydrAMINE HCL 50 MG CAP PO ONE (12:00)
--- NOTE | 2017-01-24 12:21 | HHI.PR ---
Subjective Remarks Follow-up for endocarditis, superficial venous thrombi. Patient complains of pruritic rash over her lower abdomen in areas of Lovenox injections. States when she got the first shot she had a hive and it has now spread (with further injections). She denies difficulty swallowing or breathing. Objective Vitals Vital Signs Date Time Temp Pulse Resp B/P Pulse Ox O2 Delivery O2 Flow Rate FiO2 01/24/17 09:28 18 01/24/17 08:00 97.2 84 16 105/76 100 01/23/17 20:00 98.8 104 17 102/63 98 I/O 01/23/17 01/23/17 01/23/17 01/24/17 01/24/17 01/24/17 07:00 15:00 23:00 07:00 15:00 23:00 Intake Total 480 ml 360 ml 600 ml 600 ml Balance 480 ml 360 ml 600 ml 600 ml Intake Oral 480 ml 360 ml 480 ml 600 ml IV Total 120 ml # Voids 3 3 3 2 # Bowel Movements 0 0 0 Result Diagram: 01/23/17 1250 01/23/17 1250 Imaging Last Impressions Upper Extremity Ultrasound 01/23/17 0901 Signed Impressions: Service Date/Time: Monday, January 23, 2017 10:09 - CONCLUSION: 1. Thrombosis of the cephalic and basilic veins in the left arm. Domenico Larsen MD Hip MRI 01/11/17 0000 Signed Impressions: Service Date/Time: Wednesday, January 11, 2017 09:16 - CONCLUSION: No evidence of significant joint effusion. There is a slight increase in T2 signal identified within the tendon of the vastus lateralis muscle at the insertion of the greater trochanter which may reflect any tendinopathy.. Eula Núñez MD Consultation 01/05/17 0700 Signed Impressions: Service Date/Time: Thursday, January 05, 2017 07:00 - CONCLUSION: Only a miniscule amount of joint fluid present which would not be amenable to CT guided aspiration. Dillon Archibald MD Chest X-Ray 01/04/17 1806 Signed Impressions: Service Date/Time: Wednesday, January 04, 2017 18:49 - CONCLUSION: No acute disease. There is no evidence of pneumonia. Castillo Bedoya MD Lumbar Spine MRI 01/04/17 0000 Signed Impressions: Service Date/Time: Wednesday, January 04, 2017 19:33 - CONCLUSION: 1. Degenerative change at the L4-5 level with annular disc bulge and high intensity zone the posterior annulus most characteristic of a small annular tear. 2. Small amount of free fluid in the cul-de-sac. Castillo Bedoya MD Hip and Pelvis X-Ray 01/04/17 0000 Signed Impressions: Service Date/Time: Wednesday, January 04, 2017 18:51 - CONCLUSION: Unremarkable exam with no underlying bony abnormality. Castillo Bedoya MD Objective Remarks GENERAL: BMI 34.7. Well-nourished, well-developed patient in no apparent distress. SKIN: Warm and dry. Rash over lower abdomen-small red papules. CARDIOVASCULAR: Regular rate and rhythm. RESPIRATORY: No accessory muscle use. Clear to auscultation. Breath sounds equal bilaterally. GASTROINTESTINAL: Abdomen soft, non-tender, nondistended. NEUROLOGICAL: Awake and alert. Normal speech. PSYCHIATRIC: Appropriate mood and affect; insight and judgment normal. Procedures KRISTINA Urinary Catheter: No Vascular Central Line Catheter: No A/P Problem List: (1) Superficial venous thrombosis of both arms ICD Code: I82.613 Status: Acute (2) Sepsis ICD Code: A41.9 Status: Resolved (3) Bacteremia due to Gram-positive bacteria ICD Code: A49.9 Status: Acute (4) Endocarditis due to Staphylococcus ICD Code: I33.0 Status: Acute (5) Endocarditis of tricuspid valve ICD Code: I36.8 Status: Acute (6) Endocarditis of aortic valve ICD Code: I35.8 Status: Acute (7) IVDU (intravenous drug user) ICD Code: F19.90 Status: Acute (8) Left hip pain ICD Code: M25.552 Status: Acute (9) Septic joint ICD Code: M00.9 Status: Acute (10) Rash ICD Code: R21 Status: Acute (11) Tobacco abuse ICD Code: Z72.0 Status: Acute Assessment and Plan Superficial venous thrombi: Acute. B/L upper extremities affected, palpable on exam, but L upper arm appears swollen and patient feels affected area is spreading over L upper arm today. Small area to R forearm is improved. -Patient has been using heating pad to areas -Midline was placed R arm on 01/21/17 due to multiple SVT with peripheral IVs. -Doppler US LUE shows thrombosis of the cephalic and basilic veins evident in the left upper extremity. -Hematology was consulted due to multiple veins affected. Recommends once daily therapeutic dosing of Lovenox for duration of antibiotic use and then can discontinue when midline is removed. Recommends lowering dose during menses as patient has heavy flow. Rash: Acute 01/24. Patient has pruritic rash, small red papules over the lower abdomen. Patient attributes to Lovenox injections. -Give Benadryl 50 mg po now. -Start Benadryl 25 mg po every 6 hours scheduled and continue Lovenox. Discussed with Dr. Baptiste. -Monitor clinically. Fever: Resolved. Patient had temp of 100.6 on 01/22. Afebrile since. CBC with normal WBC count. BMP unremarkable. Fever likely attributed to multiple superficial clots. 01/23 blood cultures x 2 NGTD. O2 saturation normal. Discussed with ID, Dr. Vernon, who agrees fever is likely due to clots. Endocarditis/bacteremia Echocardiogram and KRISTINA indicates Tricuspid valve, aortic valve involvement. Cardiology and ID consults appreciated. Status post KRISTINA 01/09/17. Has bacteremia with staph aureus. Cardiothoracic surgery evaluated the patient but indicated she is not a surgical candidate Blood cultures positive with staph aureus, negative culture as of 01/09/17 Infectious disease following and made recommendations: Continue Ancef until 02/18/17 Repeat echocardiogram 1 week prior to antibiotic completion -01/23: CRP improved. LFTs normal. L Hip Pain: MRI hip w/ small bilateral joint effusions, repeat MRI showed no evidence of joint effusion Orthopedic consulted who indicated patient is not a surgical candidate; last evaluated by ortho on 01/16. Continue pain control: We'll need to wean patient off all narcotics within the next 3 weeks Oxycodone 10 mg every 6 as needed for pain 610. Will not restart Toradol as patient has Ibuprofen as needed q8 hours. 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 Problem Qualifiers (1) Sepsis: Qualified Code: A41.9 - Sepsis, due to unspecified organism (2) Septic joint: Della Blackwell Jan 24, 2017 12:21
[2017-01-24] MEDS: diphenhydrAMINE HCL 25 MG CAP PO SCH (17:36)
[2017-01-24] MEDS: IBUPROFEN 600 MG TAB PO PRN (18:06)
[2017-01-24 20:00] VITALS: BP 107/87; PULSE 92; RESP 20; TEMP 98.5; O2SAT 98
[2017-01-24] MEDS: TEMAZEPAM 15 MG CAP PO PRN (21:07)
[2017-01-25] MEDS: diphenhydrAMINE HCL 25 MG CAP PO SCH ×4 (00:01→17:26)
[2017-01-25 08:00] VITALS: BP 121/86; PULSE 115; RESP 18; TEMP 97; O2SAT 95
[2017-01-25] MEDS: ENOXAPARIN SODIUM 100 MG/ML SYRINGE SQ SCH (09:00)
[2017-01-25] MEDS: SODIUM CHLORIDE 0.9% FLUSH 5 ML FLUSH FLUSH SCH ×2 (09:45→20:21)
[2017-01-25] MEDS: ceFAZolin 2 GM PREMIX 50 ML IV SCH ×3 (09:45→17:26)
--- NOTE | 2017-01-25 10:05 | HHI.PR ---
Subjective Remarks Follow-up for endocarditis, superficial venous thrombi. Patient had a pruritic rash over her abdomen yesterday which is now resolved with Benadryl use. Patient is no longer pruritic in this area. The nurse does inform me that she has some dryness in the intertriginous region below the abdomen and also rash in the groin area bilaterally. Objective Vitals Vital Signs Date Time Temp Pulse Resp B/P Pulse Ox O2 Delivery O2 Flow Rate FiO2 01/25/17 08:00 97.0 115 18 121/86 95 01/24/17 20:00 98.5 92 20 107/87 98 I/O 01/24/17 01/24/17 01/24/17 01/25/17 01/25/17 01/25/17 07:00 15:00 23:00 07:00 15:00 23:00 Intake Total 600 ml 480 ml 360 ml Balance 600 ml 480 ml 360 ml Intake Oral 600 ml 360 ml 360 ml IV Total 120 ml # Voids 2 2 2 # Bowel Movements 0 Result Diagram: 01/23/17 1250 01/23/17 1250 Objective Remarks GENERAL: BMI 34.8. Well-nourished, well-developed patient in no apparent distress. SKIN: Patient examined in the presence of nurseSonya. Papular rash over lower abdomen is no longer present. There are some dry scales in intertriginous area of lower abdomen. Erythema in bilateral groin, no drainage. No rash evident under the breasts. CARDIOVASCULAR: Regular rate and rhythm. RESPIRATORY: No accessory muscle use. Clear to auscultation. Breath sounds equal bilaterally. GASTROINTESTINAL: Abdomen soft, non-tender, nondistended. NEUROLOGICAL: Awake and alert. Normal speech. PSYCHIATRIC: Appropriate mood and affect; insight and judgment normal. Procedures KRISTINA Urinary Catheter: No Vascular Central Line Catheter: No A/P Problem List: (1) Superficial venous thrombosis of both arms ICD Code: I82.613 Status: Acute (2) Sepsis ICD Code: A41.9 Status: Resolved (3) Bacteremia due to Gram-positive bacteria ICD Code: A49.9 Status: Acute (4) Endocarditis due to Staphylococcus ICD Code: I33.0 Status: Acute (5) Endocarditis of tricuspid valve ICD Code: I36.8 Status: Acute (6) Endocarditis of aortic valve ICD Code: I35.8 Status: Acute (7) IVDU (intravenous drug user) ICD Code: F19.90 Status: Acute (8) Left hip pain ICD Code: M25.552 Status: Acute (9) Septic joint ICD Code: M00.9 Status: Acute (10) Rash ICD Code: R21 Status: Acute (11) Tobacco abuse ICD Code: Z72.0 Status: Acute Assessment and Plan Superficial venous thrombi: Acute. B/L upper extremities affected, palpable on exam, but L upper arm appears swollen and patient feels affected area is spreading over L upper arm today. Small area to R forearm is improved. -Patient has been using heating pad to areas -Midline was placed R arm on 01/21/17 due to multiple SVT with peripheral IVs. -Doppler US LUE shows thrombosis of the cephalic and basilic veins evident in the left upper extremity. -Hematology was consulted due to multiple veins affected. Recommends once daily therapeutic dosing of Lovenox for duration of antibiotic use and then can discontinue when midline is removed. Recommends lowering dose during menses as patient has heavy flow. Abdominal rash: Resolved with Benadryl use. Patient had pruritic rash on 01/24, small red papules over the lower abdomen appeared allergic. Patient attributed to Lovenox injections. -Continue scheduled Benadryl 25 mg po every 6 hours and continue Lovenox. -Monitor clinically. Groin rash: Acute 01/25. Possible candidal infection developing. -Will start Nystatin ointment. Fever: Resolved. Patient had temp of 100.6 on 01/22. Afebrile since. CBC with normal WBC count. BMP unremarkable. Fever likely attributed to multiple superficial clots. 01/23 blood cultures x 2 NGTD. O2 saturation normal. Discussed with ID, Dr. Vernon, who agrees fever is likely due to clots. Endocarditis/bacteremia Echocardiogram and KRISTINA indicates Tricuspid valve, aortic valve involvement. Cardiology and ID consults appreciated. Status post KRISTINA 01/09/17. Has bacteremia with staph aureus. Cardiothoracic surgery evaluated the patient but indicated she is not a surgical candidate Blood cultures positive with staph aureus, negative culture as of 01/09/17 Infectious disease following and made recommendations: Continue Ancef until 02/18/17 Repeat echocardiogram 1 week prior to antibiotic completion -01/23: CRP improved. LFTs normal. L Hip Pain: MRI hip w/ small bilateral joint effusions, repeat MRI showed no evidence of joint effusion Orthopedic consulted who indicated patient is not a surgical candidate; last evaluated by ortho on 01/16. Continue pain control: We'll need to wean patient off all narcotics within the next 3 weeks Oxycodone 10 mg every 6 as needed for pain 610. Will not restart Toradol as patient has Ibuprofen as needed q8 hours. 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 Problem Qualifiers (1) Sepsis: Qualified Code: A41.9 - Sepsis, due to unspecified organism (2) Septic joint: Della Blackwell Jan 25, 2017 10:05
[2017-01-25] MEDS: IBUPROFEN 600 MG TAB PO PRN (17:26)
[2017-01-25 20:00] VITALS: BP 112/88; PULSE 98; RESP 20; TEMP 97.5; O2SAT 99
[2017-01-25] MEDS: NYSTATIN 100,000 U/GM OINT 15 GM TUBE TOPICAL SCH (20:08)
[2017-01-25] MEDS: TEMAZEPAM 15 MG CAP PO PRN (20:15)
[2017-01-25] MEDS: SODIUM CHLORIDE 0.9% FLUSH 5 ML FLUSH FLUSH PRN (20:16)
[2017-01-26] MEDS: ceFAZolin 2 GM PREMIX 50 ML IV SCH ×3 (01:31→17:51)
[2017-01-26] MEDS: diphenhydrAMINE HCL 25 MG CAP PO SCH ×4 (01:34→17:50)
[2017-01-26 08:00] VITALS: BP 118/87; PULSE 109; RESP 18; TEMP 99.4; O2SAT 95
[2017-01-26] MEDS: SODIUM CHLORIDE 0.9% FLUSH 5 ML FLUSH FLUSH SCH ×2 (09:00→21:16)
[2017-01-26] MEDS: ENOXAPARIN SODIUM 100 MG/ML SYRINGE SQ SCH (09:00)
--- NOTE | 2017-01-26 09:15 | HHI.PR ---
Subjective Remarks Patient seen and examined today. Patient states that she is now experiencing pain in her right arm where she had the midline place. She states that since last night after they flushed with saline she is had severe pain. Objective Vitals Vital Signs Date Time Temp Pulse Resp B/P Pulse Ox O2 Delivery O2 Flow Rate FiO2 01/26/17 08:00 99.4 109 18 118/87 95 01/25/17 21:15 16 01/25/17 20:00 97.5 98 20 112/88 99 01/25/17 18:26 18 I/O 01/25/17 01/25/17 01/25/17 01/26/17 01/26/17 01/26/17 07:00 15:00 23:00 07:00 15:00 23:00 Intake Total 360 ml 600 ml 240 ml Balance 360 ml 600 ml 240 ml Intake Oral 360 ml 480 ml 240 ml IV Total 120 ml # Voids 2 2 2 Result Diagram: 01/23/17 1250 01/23/17 1250 Objective Remarks GENERAL: Well-developed, well-nourished, in no acute distress. alert and orientated HEENT: Head is normocephalic without any lesions or masses noted. Facial features are symmetric. Eyes: Extraocular muscles are intact. Conjunctivae were clear. NECK: Supple without any masses. Trachea midline no deviation. No JVD, CARDIAC: Regular rhythm, regular rate. S1/S2 are heard. No murmurs gallops or rubs. LUNGS: Clear to auscultation bilaterally. No wheeze, rhonchi or rales. No use of accessory muscles on inspiration or expiration. ABDOMEN: Soft, nontender. Nondistended. Bowel sounds heard in all 4 quadrants. No organomegaly or masses. Negative rebound, negative guarding EXTREMITIES: No edema, pulses are equal bilaterally. No cyanosis or clubbing NEUROLOGY: Mood and affect appear appropriate. Cranial nerves II through XII grossly intact. Moving all extremities, speech is clear RIGHT UPPER EXTREMITY: Does not appear to have any edema. There is pain on movement in the biceps area. No signs of any cellulitis or abscess Procedures KRISTINA Urinary Catheter: No Vascular Central Line Catheter: Yes Assessment to: Continue A/P Assessment and Plan Endocarditis/bacteremia Echocardiogram and KRISTINA indicates Tricuspid valve, aortic valve involvement.. Cardiology and ID consults appreciated. Status post KRISTINA 01/09/17. Has bacteremia with staph aureus. Cardiothoracic surgery evaluated the patient indicated that she is not a surgical candidate Blood cultures positive with staph aureus, negative culture as of 01/09/17 Infectious disease following and made recommendations Continue Ancef until 02/18/17 Repeat echocardiogram 1 week (02/11/17) prior to antibiotics discontinuing Superficial vein thrombosis Ultrasound indicates thrombosis of the cephalic and basilic veins of left arm Hematology consulted for recommendations Patient started on Lovenox 01/26/17 patient now complaining of pain in the right arm where midline has been inserted on 01/21/17 Fever, one documented elevated temperature, resolved Infectious workup was performed and was negative Infectious disease indicated that elevated temperature likely secondary to thrombosis Skin rash, improving Patient had pruritic rash and 01/24 small red papules which has resolved Patient had rash in her groin on 01/25 which has resolved Patient started on Benadryl and nystatin ointment Hip Pain MRI hip w/ small bilateral joint effusions, repeat MRI showed no evidence of joint effusion Orthopedic consulted who indicated patient is not a surgical candidate Continue pain control: We'll need to wean patient off all narcotics within the next 3 weeks Oxycodone 10 mg every 6 as needed for pain 610, changed to Percocet 7.5 mg every 6 hours as needed for pain Continue physical therapy IVDU Patient will plan minutes says 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 Discharge Planning Discharge planning after patient completes IV antibiotics Christiano Sandhu Jan 26, 2017 09:15
[2017-01-26] MEDS: NYSTATIN 100,000 U/GM OINT 15 GM TUBE TOPICAL SCH ×2 (09:36→21:00)
[2017-01-26] MEDS: oxyCODONE/ACETAMINOPHEN 7.5 MG/325 MG TAB PO PRN ×2 (09:37→21:15)
--- NOTE | 2017-01-26 15:56 | RADHPO ---
EXAM DATE/TIME: 01/26/2017 14:44 [facility] COMPARISON: No previous studies available for comparison. INDICATIONS : Right upper arm pain and swelling. MEDICAL HISTORY : Gastroesophageal reflux disease. Hepatitis C. Seizure. Migraine. Hypertension. Fatigue. MRSA. Endoc arditis. SURGICAL HISTORY : Tympanostomy tube. Ovarian cysts. Right arm surgery due to laceration. ENCOUNTER: Initial ACUITY: 1 day PAIN SCORE: 10/10 LOCATION: Right arm. FINDINGS: The deep venous structures of the right arm are patent throughout. Specifically, the right internal j ugular vein, subclavian vein, axillary vein and brachial vein are patent. There is thrombus present in the cephalic vein distal to the elbow and there is echogenic thrombus pr esent throughout the basilic vein which is swollen and notable for a hypoechoic change in the periven ous soft tissues. The appearance of the worrisome for septic thrombophlebitis. CONCLUSION: No evidence of right arm DVT. Superficial thrombosis including findings worrisome for septic thrombophlebitis in the basilic vein. Gregory Taylor MD on January 26, 2017 at 15:51 Board Certified Radiologist. This report was verified electronically.
[2017-01-26] MEDS: IBUPROFEN 600 MG TAB PO PRN (16:02)
[2017-01-26 20:00] VITALS: BP 112/70; PULSE 101; RESP 20; TEMP 98.1; O2SAT 99
[2017-01-26] MEDS: TEMAZEPAM 15 MG CAP PO PRN (21:15)
[2017-01-27] MEDS: ceFAZolin 2 GM PREMIX 50 ML IV SCH ×4 (01:00→16:45)
[2017-01-27] MEDS: diphenhydrAMINE HCL 25 MG CAP PO SCH ×4 (08:58→16:45)
[2017-01-27] MEDS: SODIUM CHLORIDE 0.9% FLUSH 5 ML FLUSH FLUSH SCH ×2 (08:59→20:37)
[2017-01-27] MEDS: ENOXAPARIN SODIUM 100 MG/ML SYRINGE SQ SCH (09:00)
[2017-01-27] MEDS: NYSTATIN 100,000 U/GM OINT 15 GM TUBE TOPICAL SCH ×2 (09:07→20:39)
[2017-01-27] MEDS: oxyCODONE/ACETAMINOPHEN 7.5 MG/325 MG TAB PO PRN ×2 (09:07→20:34)
--- NOTE | 2017-01-27 10:24 | HHI.PR ---
Subjective Remarks Patient seen and examined today. Patient now with septic thrombophlebitis of the right upper extremity. Midline has been removed. We'll need to discuss with hematology/infectious disease what the next step is going to be. Patient unable to get any other peripheral IV sites. Objective Vitals Vital Signs Date Time Temp Pulse Resp B/P Pulse Ox O2 Delivery O2 Flow Rate FiO2 01/26/17 20:00 98.1 101 20 112/70 99 01/26/17 17:02 18 01/26/17 10:37 18 I/O 01/26/17 01/26/17 01/26/17 01/27/17 01/27/17 01/27/17 07:00 15:00 23:00 07:00 15:00 23:00 Intake Total 240 ml 510 ml 240 ml Balance 240 ml 510 ml 240 ml Intake Oral 240 ml 510 ml 240 ml # Voids 2 3 # Bowel Movements 0 Result Diagram: 01/23/17 1250 01/23/17 1250 Objective Remarks GENERAL: Well-developed, well-nourished, in no acute distress. alert and orientated HEENT: Head is normocephalic without any lesions or masses noted. Facial features are symmetric. Eyes: Extraocular muscles are intact. Conjunctivae were clear. NECK: Supple without any masses. Trachea midline no deviation. No JVD, CARDIAC: Regular rhythm, regular rate. S1/S2 are heard. No murmurs gallops or rubs. LUNGS: Clear to auscultation bilaterally. No wheeze, rhonchi or rales. No use of accessory muscles on inspiration or expiration. ABDOMEN: Soft, nontender. Nondistended. Bowel sounds heard in all 4 quadrants. No organomegaly or masses. Negative rebound, negative guarding EXTREMITIES: No edema, pulses are equal bilaterally. No cyanosis or clubbing NEUROLOGY: Mood and affect appear appropriate. Cranial nerves II through XII grossly intact. Moving all extremities, speech is clear RIGHT UPPER EXTREMITY: Does have edema, granulation noted. There is pain on movement in the biceps area. Procedures KRISTINA Urinary Catheter: No Vascular Central Line Catheter: No A/P Assessment and Plan Endocarditis/bacteremia Echocardiogram and KRISTINA indicates Tricuspid valve, aortic valve involvement.. Cardiology and ID consults appreciated. Status post KRISTINA 01/09/17. Has bacteremia with staph aureus. Cardiothoracic surgery evaluated the patient indicated that she is not a surgical candidate Blood cultures positive with staph aureus, negative culture as of 01/09/17 Infectious disease following and made recommendations Continue Ancef until 02/18/17 Repeat echocardiogram 1 week (02/11/17) prior to antibiotics discontinuing Superficial vein thrombosis in the left upper extremity, now has developed in the right upper extremity Ultrasound indicates thrombosis of the cephalic and basilic veins of left arm Hematology consulted for recommendations Patient started on Lovenox 01/26/17 patient now complaining of pain in the right arm where midline has been inserted on 01/21/17 Ultrasound performed which did indicate superficial thrombosis which is worrisome for septic thrombophlebitis in the basilic vein. Midline has been removed, vascular access team unable to place any other IVs in her periphery considering patient has thrombophlebitis in bilateral upper extremities We'll need to discuss with rn admissions if further workup for hypercoagulability needs to be performed Fever, one documented elevated temperature, resolved Infectious workup was performed and was negative Infectious disease indicated that elevated temperature likely secondary to thrombosis Skin rash, improving Patient had pruritic rash and 01/24 small red papules which has resolved Patient had rash in her groin on 01/25 which has resolved Patient started on Benadryl and nystatin ointment Hip Pain MRI hip w/ small bilateral joint effusions, repeat MRI showed no evidence of joint effusion Orthopedic consulted who indicated patient is not a surgical candidate Continue pain control: We'll need to wean patient off all narcotics weekly Percocet 7.5 mg every 6 hours as needed for pain 610 Continue physical therapy IVDU Patient will plan minutes says 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 Discharge Planning Discharge planning after patient completes IV antibiotics Christiano Sandhu Jan 27, 2017 10:24
[2017-01-27 11:38] VITALS: BP 114/100; PULSE 107; RESP 17; TEMP 97.7; O2SAT 97
--- NOTE | 2017-01-27 15:56 | HHI.IDPN ---
Note Infectious Disease Note Asked to see patient for new thrombosis of the RUE. Ultrasound showed superficial thrombosis of the basilic vein. Has RUE swelling. Patient says she has night sweats unchanged from previous 9 months. No chills. Denies SOB Afebrile. Last blood culture 01/23, 01/13, 01/09 negative. Ambulating. Blood culture has MSSA 01/04 and 01/05 and 01/06. Tolerating Ancef. Patient is a 26-year-old white female who presented to the emergency department with left hip pain of severe nature. PAST MEDICAL HISTORY IV drug use. ALLERGIES AMOXICILLIN CODEINE DILANTIN MEDICATIONS Ancef. SOCIAL HISTORY Positive tobacco, half a pack of cigarettes a day. No alcohol. Positive illicit IV drugs. OBJECTIVE: Vital Signs Date Time Temp Pulse Resp B/P Pulse Ox O2 Delivery O2 Flow Rate FiO2 01/27/17 11:38 97.7 107 17 114/100 97 01/26/17 20:00 98.1 101 20 112/70 99 01/26/17 17:02 18 01/26/17 01/26/17 01/27/17 15:00 23:00 07:00 Intake Total 510 ml 240 ml Balance 510 ml 240 ml Intake Oral 510 ml 240 ml # Voids 3 # Bowel Movements 0 Microbiology Date/Time Procedure Status Source Growth 01/06/17 20:59 Aerobic Blood Culture - Preliminary Resulted Blood Peripheral Gram Positive Cocci 01/06/17 20:59 Anaerobic Blood Culture - Final Resulted Staphylococcus Aureus Date/Time Procedure Status Source Growth 01/04/17 16:20 Influenza Types A,B Antigen ([facility]) - Final Complete Nasal Washing NEGATIVE FOR FLU A AND B ANTIGEN.... 01/04/17 18:30 Aerobic Blood Culture - Final Complete Blood Peripheral Staphylococcus Aureus 01/04/17 18:30 Anaerobic Blood Culture - Final Complete Staphylococcus Aureus 01/04/17 18:42 Aerobic Blood Culture - Final Complete Blood Peripheral Staphylococcus Aureus 01/04/17 18:42 Anaerobic Blood Culture - Final Complete Staphylococcus Aureus 01/05/17 12:55 Aerobic Blood Culture - Final Complete Blood Peripheral Staphylococcus Aureus 01/05/17 12:55 Anaerobic Blood Culture - Final Complete Staphylococcus Aureus 01/05/17 13:05 Aerobic Blood Culture - Final Complete Blood Peripheral Staphylococcus Aureus 01/05/17 13:05 Anaerobic Blood Culture - Final Complete Staphylococcus Aureus 01/06/17 20:59 Aerobic Blood Culture - Preliminary Resulted Blood Peripheral NO GROWTH IN 1 DAY 01/06/17 20:59 Anaerobic Blood Culture - Preliminary Resulted Blood Peripheral NO GROWTH IN 1 DAY IMAGING: Upper Extremity Ultrasound 01/26/17 0000 Signed Impressions: Service Date/Time: Thursday, January 26, 2017 14:44 - CONCLUSION: No evidence of right arm DVT. Superficial thrombosis including findings worrisome for septic thrombophlebitis in the basilic vein. Gregory Taylor MD Consultation 01/05/17 0700 Signed Impressions: Service Date/Time: Thursday, January 05, 2017 07:00 - CONCLUSION: Only a miniscule amount of joint fluid present which would not be amenable to CT guided aspiration. Dillon Archibald MD Chest X-Ray 01/04/17 1806 Signed Impressions: Service Date/Time: Wednesday, January 04, 2017 18:49 - CONCLUSION: No acute disease. There is no evidence of pneumonia. Castillo Bedoya MD Lumbar Spine MRI 01/04/17 0000 Signed Impressions: Service Date/Time: Wednesday, January 04, 2017 19:33 - CONCLUSION: 1. Degenerative change at the L4-5 level with annular disc bulge and high intensity zone the posterior annulus most characteristic of a small annular tear. 2. Small amount of free fluid in the cul-de-sac. Castillo Bedoya MD Hip and Pelvis X-Ray 01/04/17 0000 Signed Impressions: Service Date/Time: Wednesday, January 04, 2017 18:51 - CONCLUSION: Unremarkable exam with no underlying bony abnormality. Castillo Bedoya MD Hip MRI 01/04/17 0000 Signed Impressions: Service Date/Time: Wednesday, January 04, 2017 19:33 - CONCLUSION: Tiny bilateral joint effusion. iMguel Bhatia MD PHYSICAL EXAMINATION GENERAL: No acute distress. HEENT: No icterus. No conjunctival erythema. Oropharynx no visible lesions. Moist mucosa. NECK: Supple without adenopathy. LUNGS: Clear breath sounds. HEART: Regular rate and rhythm. TIARRA at LSB. No rubs or gallops. ABDOMEN: Bowel sounds present, soft. EXTREMITIES: Swelling of the RUE above the elbow in area around the prior IV catheter site. Cord present on palpation. two tiny punctate pin head erythematous lesions at the catheter site. NEUROLOGIC: Nonfocal. SKIN: No rash. PSYCHIATRIC: Calm, cooperative. IMPRESSION Tricuspid and Aortic valve endocarditis. MSSA. Positive KRISTINA. Bacteremia with staph aureus. MSSA. History of IV drug use. RECOMMENDATIONS 1. Continue Ancef until February 18, 2017. 2. Place central line to continue IV antibiotic treatment. 3. Repeat 2D ECHO 1 week before stopping IV antibiotic to assess Mitral valve abscess. Follow clinically. Raffi Mccloud MD Jan 27, 2017 15:56
[2017-01-27 16:20] LABS: COCAINE, URINE NEG (NEG)
[2017-01-27 16:28] LABS: AMPHETAMINE, URINE NEG (NEG)
[2017-01-27 16:30] LABS: BARBITURATES, URINE NEG (NEG)
--- NOTE | 2017-01-27 18:11 | PD.RAD ---
Post Procedure Progress Note Pre Procedure Diagnosis: (1) Septic joint (2) Endocarditis of tricuspid valve Post Procedure Diagnosis: (1) Septic joint (2) Endocarditis of tricuspid valve Procedure Date: Jan 27, 2017 Supervising Radiologist: Gregory Taylor Proceduralist/Assist: RT Chikis(R)() Anesthesia: Local Plan of Activity Patient to Unit: Nursing Unit Patient Condition: Fair See PACS Report for procedural detail/treatment Central Venous Access Device Procedure 1 Right Subclavian Central Line Placement triple lumen [place]ian: 7 Gregory Taylor MD Jan 27, 2017 18:11
[2017-01-27 20:00] VITALS: BP 120/105; PULSE 113; RESP 16; TEMP 98.5; O2SAT 98
[2017-01-27] MEDS: TEMAZEPAM 15 MG CAP PO PRN (20:34)
[2017-01-27] MEDS ORDERED: ceFAZolin 2 GM PREMIX 50 ML IV PRN (20:45)
[2017-01-28] MEDS: diphenhydrAMINE HCL 25 MG CAP PO SCH ×4 (01:08→17:10)
[2017-01-28] MEDS: ceFAZolin 2 GM PREMIX 50 ML IV SCH ×3 (01:08→17:11)
[2017-01-28] MEDS: SODIUM CHLORIDE 0.9% FLUSH 5 ML FLUSH FLUSH PRN ×2 (01:09→08:33)
[2017-01-28] MEDS: oxyCODONE/ACETAMINOPHEN 7.5 MG/325 MG TAB PO PRN ×3 (06:12→20:33)
--- NOTE | 2017-01-28 07:41 | RADHPO ---
EXAM DATE/TIME: 01/27/2017 17:50 [facility] COMPARISON: No previous studies available for comparison. INDICATIONS : Patient presents with septic thrombophlebitis of the right upper extremity in need of central line pl acement for medication administration. MEDICAL HISTORY : Hep C Smoker IVDU HTN GERD SURGICAL HISTORY : Right arm plastic sx Tympanostomy ENCOUNTER: Initial ACUITY: 3 weeks PAIN SCORE: 0/10 LOCATION: N/A FLUORO TIME: 1.46 minutes IMAGE SERIES: 0 ACCESS: Right subclavian vein DEVICE(S): 1.) 7 Spanish 16 cm Arrow central line PROCEDURE : 1. Ultrasound guided venipuncture. 2. Fluoroscopic guidance. 3. Central line placement. The risks, benefits and alternatives to the procedure were explained and verbal and written consent w as obtained. The site was prepped in sterile fashion. Full sterile technique was used, including ca p, mask, sterile gloves and gown and a large sterile sheet. Hand hygiene and 2% chlorhexidine prep w as utilized per protocol for cutaneous antisepsis with appropriate dry time for site. The skin and subcutaneous tissues were infiltrated with local anesthetic solution. A suitable site a erwin the vein was selected with ultrasound and fluoroscopic guidance. A small incision was made. Th e vein was accessed under direct ultrasound visualization using the micropuncture technique. The thom ropuncture set was exchanged for a 0.035 wire. The tract was dilated. The catheter was advanced int o position under direct fluoroscopic visualization. The catheter was fixed in place with suture and a sterile dressing was applied. The patient tolerated the procedure well and there were no complications. CONCLUSION: Uncomplicated line placement as above. Gregory Taylor MD on January 28, 2017 at 7:39 Board Certified Radiologist. This report was verified electronically.
[2017-01-28] MEDS: SODIUM CHLORIDE 0.9% FLUSH 5 ML FLUSH FLUSH SCH ×2 (08:33→20:34)
[2017-01-28] MEDS: SODIUM CHLORIDE 0.9% FLUSH 10 ML FLUSH IVF SCH (08:34)
[2017-01-28] MEDS: NYSTATIN 100,000 U/GM OINT 15 GM TUBE TOPICAL SCH ×2 (08:35→20:37)
[2017-01-28] MEDS: ENOXAPARIN SODIUM 100 MG/ML SYRINGE SQ SCH (08:36)
[2017-01-28 08:40] VITALS: BP 92/97; PULSE 96; RESP 19; TEMP 97.9; O2SAT 98
--- NOTE | 2017-01-28 10:33 | HHI.PR ---
Subjective Remarks Patient seen and examined today. Patient appears be in better spirits today. She is asking questions about her condition and if she is going to require open heart surgery. I counseled patient on endocarditis, valvular abscesses. We'll need to repeat echocardiogram one week prior to discharge for further delineation Objective Vitals Vital Signs Date Time Temp Pulse Resp B/P Pulse Ox O2 Delivery O2 Flow Rate FiO2 01/28/17 08:40 97.9 96 19 92/97 98 01/27/17 20:00 98.5 113 16 120/105 98 01/27/17 11:38 97.7 107 17 114/100 97 I/O 01/27/17 01/27/17 01/27/17 01/28/17 01/28/17 01/28/17 07:00 15:00 23:00 07:00 15:00 23:00 Intake Total 240 ml 58 ml Balance 240 ml 58 ml Intake Oral 240 ml 58 ml # Voids 3 7 # Bowel Movements 0 0 Objective Remarks GENERAL: Well-developed, well-nourished, in no acute distress. alert and orientated HEENT: Head is normocephalic without any lesions or masses noted. Facial features are symmetric. Eyes: Extraocular muscles are intact. Conjunctivae were clear. NECK: Supple without any masses. Trachea midline no deviation. No JVD, CARDIAC: Regular rhythm, regular rate. S1/S2 are heard. No murmurs gallops or rubs. LUNGS: Clear to auscultation bilaterally. No wheeze, rhonchi or rales. No use of accessory muscles on inspiration or expiration. ABDOMEN: Soft, nontender. Nondistended. Bowel sounds heard in all 4 quadrants. No organomegaly or masses. Negative rebound, negative guarding EXTREMITIES: No edema, pulses are equal bilaterally. No cyanosis or clubbing NEUROLOGY: Mood and affect appear appropriate. Cranial nerves II through XII grossly intact. Moving all extremities, speech is clear RIGHT UPPER EXTREMITY: Does have edema, granulation noted. There is pain on movement in the biceps area. 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 Cardiology and ID consults appreciated. Status post KRISTINA 01/09/17. Has bacteremia with staph aureus. Cardiothoracic surgery evaluated the patient indicated that she is not a surgical candidate Blood cultures positive with staph aureus, negative culture as of 01/09/17 Infectious disease following and made recommendations Continue Ancef until 02/18/17 Repeat echocardiogram 1 week (02/11/17) prior to antibiotics discontinuing Superficial vein thrombosis in the left upper extremity, now has developed in the right upper extremity Ultrasound indicates thrombosis of the cephalic and basilic veins of left arm Hematology consulted for recommendations Patient started on Lovenox 01/26/17 patient now complaining of pain in the right arm where midline has been inserted on 01/21/17 Ultrasound performed which did indicate superficial thrombosis which is worrisome for septic thrombophlebitis in the basilic vein. Midline has been removed, vascular access team unable to place any other IVs in her periphery considering patient has thrombophlebitis in bilateral upper extremities We'll need to discuss with ceramic products sales engineer if further workup for hypercoagulability needs to be performed Discussed with infectious disease, could be due from systemic infection versus continued IV drug use while in the hospital. Urine drug screen was performed which is positive for opiates. However, patient's drug of choice is heroin which is not detected on our drug screens. Nursing staff did notify patient of her urine drug screen and the patient was not argumentative or give any explanation. She accepted the result almost unemotionally Fever, one documented elevated temperature, resolved Infectious workup was performed and was negative Infectious disease indicated that elevated temperature likely secondary to thrombosis Skin rash, improving Patient had pruritic rash and 01/24 small red papules which has resolved Patient had rash in her groin on 01/25 which has resolved Patient started on Benadryl and nystatin ointment Hip Pain MRI hip w/ small bilateral joint effusions, repeat MRI showed no evidence of joint effusion Orthopedic consulted who indicated patient is not a surgical candidate Continue pain control: We'll need to wean patient off all narcotics weekly Percocet 7.5 mg every 6 hours as needed for pain 610 Continue physical therapy IVDU Patient will plan minutes says 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 Discharge Planning Discharge planning after patient completes IV antibiotics Christiano Sandhu Jan 28, 2017 10:33
[2017-01-28] MEDS: IBUPROFEN 600 MG TAB PO PRN (17:15)
[2017-01-28 20:00] VITALS: BP 140/86; PULSE 106; RESP 16; TEMP 97.6; O2SAT 98
[2017-01-28] MEDS: TEMAZEPAM 15 MG CAP PO PRN (20:32)
[2017-01-29] MEDS: diphenhydrAMINE HCL 25 MG CAP PO SCH ×4 (00:21→16:32)
[2017-01-29] MEDS: ceFAZolin 2 GM PREMIX 50 ML IV SCH ×3 (00:21→16:33)
[2017-01-29 08:00] VITALS: BP 119/95; PULSE 99; RESP 20; TEMP 96.5; O2SAT 100
[2017-01-29] MEDS: SODIUM CHLORIDE 0.9% FLUSH 5 ML FLUSH FLUSH SCH ×2 (08:10→22:38)
[2017-01-29] MEDS: ENOXAPARIN SODIUM 100 MG/ML SYRINGE SQ SCH (08:10)
[2017-01-29] MEDS: SODIUM CHLORIDE 0.9% FLUSH 10 ML FLUSH IVF SCH (08:10)
[2017-01-29] MEDS: NYSTATIN 100,000 U/GM OINT 15 GM TUBE TOPICAL SCH ×2 (08:11→22:40)
--- NOTE | 2017-01-29 15:20 | HHI.PR ---
Subjective Remarks Patient sees examined today. Patient denies any new complaints. Patient states that her right arm appears be improving. However she is getting some exudate out at this time. Will continue monitor and may have to pursue ultrasound to evaluate for any abscess if does not continue to improve. Objective Vitals Vital Signs Date Time Temp Pulse Resp B/P Pulse Ox O2 Delivery O2 Flow Rate FiO2 01/29/17 08:00 96.5 99 20 119/95 100 01/28/17 20:00 97.6 106 16 140/86 98 I/O 01/28/17 01/28/17 01/28/17 01/29/17 01/29/17 01/29/17 07:00 15:00 23:00 07:00 15:00 23:00 Intake Total 700 ml 580 ml 1380 ml Balance 700 ml 580 ml 1380 ml Intake Oral 700 ml 480 ml 1380 ml IV Total 0 ml 100 ml # Voids 3 3 3 # Bowel Movements 1 0 1 Objective Remarks GENERAL: Well-developed, well-nourished, in no acute distress. alert and orientated HEENT: Head is normocephalic without any lesions or masses noted. Facial features are symmetric. Eyes: Extraocular muscles are intact. Conjunctivae were clear. NECK: Supple without any masses. Trachea midline no deviation. No JVD, CARDIAC: Regular rhythm, regular rate. S1/S2 are heard. No murmurs gallops or rubs. LUNGS: Clear to auscultation bilaterally. No wheeze, rhonchi or rales. No use of accessory muscles on inspiration or expiration. ABDOMEN: Soft, nontender. Nondistended. Bowel sounds heard in all 4 quadrants. No organomegaly or masses. Negative rebound, negative guarding EXTREMITIES: No edema, pulses are equal bilaterally. No cyanosis or clubbing NEUROLOGY: Mood and affect appear appropriate. Cranial nerves II through XII grossly intact. Moving all extremities, speech is clear RIGHT UPPER EXTREMITY: Does have edema, granulation noted. There is pain on movement in the biceps area. 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 Cardiology and ID consults appreciated. Status post KRISTINA 01/09/17. Has bacteremia with staph aureus. Cardiothoracic surgery evaluated the patient indicated that she is not a surgical candidate Blood cultures positive with staph aureus, negative culture as of 01/09/17 Infectious disease following and made recommendations Continue Ancef until 02/18/17 Repeat echocardiogram 1 week (02/11/17) prior to antibiotics discontinuing Superficial vein thrombosis in the left upper extremity, now has developed in the right upper extremity Ultrasound indicates thrombosis of the cephalic and basilic veins of left arm Hematology consulted for recommendations Patient started on Lovenox 01/26/17 patient now complaining of pain in the right arm where midline has been inserted on 01/21/17 Ultrasound performed which did indicate superficial thrombosis which is worrisome for septic thrombophlebitis in the basilic vein. Midline has been removed, vascular access team unable to place any other IVs in her periphery considering patient has thrombophlebitis in bilateral upper extremities We'll need to discuss with electronic repair troubleshooter if further workup for hypercoagulability needs to be performed Discussed with infectious disease, could be due from systemic infection versus continued IV drug use while in the hospital. Urine drug screen was performed which is positive for opiates. However, patient's drug of choice is heroin which is not detected on our drug screens. Nursing staff did notify patient of her urine drug screen and the patient was not argumentative or give any explanation. She accepted the result almost unemotionally Fever, one documented elevated temperature, resolved Infectious workup was performed and was negative Infectious disease indicated that elevated temperature likely secondary to thrombosis Skin rash, improving Patient had pruritic rash and 01/24 small red papules which has resolved Patient had rash in her groin on 01/25 which has resolved Patient started on Benadryl and nystatin ointment Hip Pain MRI hip w/ small bilateral joint effusions, repeat MRI showed no evidence of joint effusion Orthopedic consulted who indicated patient is not a surgical candidate Continue pain control: We'll need to wean patient off all narcotics weekly Percocet 7.5 mg every 6 hours as needed for pain 610 Continue physical therapy IVDU Patient will plan minutes says 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 Discharge Planning Discharge planning after patient completes IV antibiotics Sandhu,Christiano J. PA Jan 29, 2017 15:20 Gregory Koenig MD Jan 30, 2017 17:32
[2017-01-29 20:00] VITALS: BP 110/72; PULSE 105; RESP 18; TEMP 98.6; O2SAT 96
[2017-01-29] MEDS: oxyCODONE/ACETAMINOPHEN 7.5 MG/325 MG TAB PO PRN (22:47)
[2017-01-29] MEDS: TEMAZEPAM 15 MG CAP PO PRN (22:47)
[2017-01-30] MEDS: diphenhydrAMINE HCL 25 MG CAP PO SCH ×5 (01:45→23:01)
[2017-01-30] MEDS: ceFAZolin 2 GM PREMIX 50 ML IV SCH ×3 (01:46→17:47)
[2017-01-30 08:15] VITALS: BP 116/82; PULSE 88; RESP 19; TEMP 97.9; O2SAT 95
[2017-01-30] MEDS: SODIUM CHLORIDE 0.9% FLUSH 5 ML FLUSH FLUSH SCH ×2 (09:00→23:01)
[2017-01-30] MEDS: SODIUM CHLORIDE 0.9% FLUSH 10 ML FLUSH IVF SCH (09:31)
[2017-01-30] MEDS: NYSTATIN 100,000 U/GM OINT 15 GM TUBE TOPICAL SCH ×2 (09:32→23:01)
[2017-01-30] MEDS: oxyCODONE/ACETAMINOPHEN 7.5 MG/325 MG TAB PO PRN ×2 (09:32→20:17)
--- NOTE | 2017-01-30 09:36 | HHI.PR ---
Subjective Remarks Patient seen and examined today. Patient has any new complaints. Patient indicates that her right arm is improving. There was some mild erythema last night but has resolved. She is not experiencing any exudate at this time. Objective Vitals Vital Signs Date Time Temp Pulse Resp B/P Pulse Ox O2 Delivery O2 Flow Rate FiO2 01/30/17 08:15 97.9 88 19 116/82 95 01/29/17 20:00 98.6 105 18 110/72 96 I/O 01/29/17 01/29/17 01/29/17 01/30/17 01/30/17 01/30/17 07:00 15:00 23:00 07:00 15:00 23:00 Intake Total 580 ml 1380 ml 860 ml Balance 580 ml 1380 ml 860 ml Intake Oral 480 ml 1380 ml 860 ml IV Total 100 ml # Voids 3 3 7 # Bowel Movements 0 1 1 Imaging Last Impressions Central Venous Line 01/27/17 0000 Signed Impressions: Service Date/Time: Friday, January 27, 2017 17:50 - CONCLUSION: Uncomplicated line placement as above. Gregory Taylor MD Upper Extremity Ultrasound 01/26/17 0000 Signed Impressions: Service Date/Time: Thursday, January 26, 2017 14:44 - CONCLUSION: No evidence of right arm DVT. Superficial thrombosis including findings worrisome for septic thrombophlebitis in the basilic vein. Gregory Taylor MD Hip MRI 01/11/17 0000 Signed Impressions: Service Date/Time: Wednesday, January 11, 2017 09:16 - CONCLUSION: No evidence of significant joint effusion. There is a slight increase in T2 signal identified within the tendon of the vastus lateralis muscle at the insertion of the greater trochanter which may reflect any tendinopathy.. Eula Núñez MD Consultation 01/05/17 0700 Signed Impressions: Service Date/Time: Thursday, January 05, 2017 07:00 - CONCLUSION: Only a miniscule amount of joint fluid present which would not be amenable to CT guided aspiration. Dillon Archibald MD Chest X-Ray 01/04/17 1806 Signed Impressions: Service Date/Time: Wednesday, January 04, 2017 18:49 - CONCLUSION: No acute disease. There is no evidence of pneumonia. Castillo Bedoya MD Lumbar Spine MRI 01/04/17 0000 Signed Impressions: Service Date/Time: Wednesday, January 04, 2017 19:33 - CONCLUSION: 1. Degenerative change at the L4-5 level with annular disc bulge and high intensity zone the posterior annulus most characteristic of a small annular tear. 2. Small amount of free fluid in the cul-de-sac. Castillo Bedoya MD Hip and Pelvis X-Ray 01/04/17 0000 Signed Impressions: Service Date/Time: Wednesday, January 04, 2017 18:51 - CONCLUSION: Unremarkable exam with no underlying bony abnormality. Castillo Bedoya MD Objective Remarks GENERAL: Well-developed, well-nourished, in no acute distress. alert and orientated HEENT: Head is normocephalic without any lesions or masses noted. Facial features are symmetric. Eyes: Extraocular muscles are intact. Conjunctivae were clear. NECK: Supple without any masses. Trachea midline no deviation. No JVD, CARDIAC: Regular rhythm, regular rate. S1/S2 are heard. No murmurs gallops or rubs. LUNGS: Clear to auscultation bilaterally. No wheeze, rhonchi or rales. No use of accessory muscles on inspiration or expiration. ABDOMEN: Soft, nontender. Nondistended. Bowel sounds heard in all 4 quadrants. No organomegaly or masses. Negative rebound, negative guarding EXTREMITIES: No edema, pulses are equal bilaterally. No cyanosis or clubbing NEUROLOGY: Mood and affect appear appropriate. Cranial nerves II through XII grossly intact. Moving all extremities, speech is clear RIGHT UPPER EXTREMITY: Does have edema, granulation noted. There is pain on movement in the biceps area. 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 Cardiology and ID consults appreciated. Status post KRISTINA 01/09/17. Has bacteremia with staph aureus. Cardiothoracic surgery evaluated the patient indicated that she is not a surgical candidate Blood cultures positive with staph aureus, negative culture as of 01/09/17 Infectious disease following and made recommendations Continue Ancef until 02/18/17 Repeat echocardiogram 1 week (02/11/17) prior to antibiotics discontinuing Superficial vein thrombosis in the left upper extremity, now has developed in the right upper extremity Ultrasound indicates thrombosis of the cephalic and basilic veins of left arm Hematology consulted for recommendations Patient started on Lovenox 01/26/17 patient now complaining of pain in the right arm where midline has been inserted on 01/21/17 Ultrasound performed which did indicate superficial thrombosis which is worrisome for septic thrombophlebitis in the basilic vein. Midline has been removed, vascular access team unable to place any other IVs in her periphery considering patient has thrombophlebitis in bilateral upper extremities Discussed with infectious disease, could be due from systemic infection versus continued IV drug use while in the hospital. Urine drug screen was performed which is positive for opiates. Fever, one documented elevated temperature, resolved Infectious workup was performed and was negative Infectious disease indicated that elevated temperature likely secondary to thrombosis Skin rash, improving Patient had pruritic rash and 01/24 small red papules which has resolved Patient had rash in her groin on 01/25 which has resolved Patient started on Benadryl and nystatin ointment Hip Pain MRI hip w/ small bilateral joint effusions, repeat MRI showed no evidence of joint effusion Orthopedic consulted who indicated patient is not a surgical candidate Continue pain control: We'll need to wean patient off all narcotics weekly Percocet 7.5 mg every 6 hours as needed for pain 610 Continue physical therapy IVDU Patient will plan minutes says 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 Discharge Planning Discharge planning after patient completes IV antibiotics Christiano Sandhu Jan 30, 2017 09:36 Gregory Koenig MD Jan 30, 2017 17:33
[2017-01-30] MEDS: ENOXAPARIN SODIUM 100 MG/ML SYRINGE SQ SCH (10:13)
[2017-01-30 20:00] VITALS: BP 114/86; PULSE 110; RESP 19; TEMP 98; O2SAT 100
[2017-01-30] MEDS: TEMAZEPAM 15 MG CAP PO PRN (20:16)
[2017-01-31] MEDS: ceFAZolin 2 GM PREMIX 50 ML IV SCH ×3 (01:00→17:11)
[2017-01-31] MEDS: diphenhydrAMINE HCL 25 MG CAP PO SCH ×3 (06:19→17:10)
[2017-01-31 08:00] VITALS: BP 134/84; PULSE 109; RESP 18; TEMP 97.2; O2SAT 98
[2017-01-31] MEDS: ENOXAPARIN SODIUM 100 MG/ML SYRINGE SQ SCH (09:00)
[2017-01-31] MEDS: SODIUM CHLORIDE 0.9% FLUSH 10 ML FLUSH IVF SCH (09:00)
[2017-01-31] MEDS: SODIUM CHLORIDE 0.9% FLUSH 5 ML FLUSH FLUSH SCH ×2 (09:00→20:39)
[2017-01-31] MEDS: oxyCODONE/ACETAMINOPHEN 7.5 MG/325 MG TAB PO PRN ×2 (09:01→20:38)
[2017-01-31] MEDS: NYSTATIN 100,000 U/GM OINT 15 GM TUBE TOPICAL SCH ×2 (09:06→20:40)
--- NOTE | 2017-01-31 12:23 | HHI.PR ---
Subjective Remarks Patient seen and examined today. Patient's right arm appears to be improving nicely. She denies any new complaints. Objective Vitals Vital Signs Date Time Temp Pulse Resp B/P Pulse Ox O2 Delivery O2 Flow Rate FiO2 01/31/17 08:00 97.2 109 18 134/84 98 01/30/17 20:00 98.0 110 19 114/86 100 I/O 01/30/17 01/30/17 01/30/17 01/31/17 01/31/17 01/31/17 07:00 15:00 23:00 07:00 15:00 23:00 Intake Total 860 ml 1520 ml 240 ml 100 ml Balance 860 ml 1520 ml 240 ml 100 ml Intake Oral 860 ml 1520 ml 240 ml 100 ml # Voids 7 7 2 # Bowel Movements 1 2 Objective Remarks GENERAL: Well-developed, well-nourished, in no acute distress. alert and orientated HEENT: Head is normocephalic without any lesions or masses noted. Facial features are symmetric. Eyes: Extraocular muscles are intact. Conjunctivae were clear. NECK: Supple without any masses. Trachea midline no deviation. No JVD, CARDIAC: Regular rhythm, regular rate. S1/S2 are heard. No murmurs gallops or rubs. LUNGS: Clear to auscultation bilaterally. No wheeze, rhonchi or rales. No use of accessory muscles on inspiration or expiration. ABDOMEN: Soft, nontender. Nondistended. Bowel sounds heard in all 4 quadrants. No organomegaly or masses. Negative rebound, negative guarding EXTREMITIES: No edema, pulses are equal bilaterally. No cyanosis or clubbing NEUROLOGY: Mood and affect appear appropriate. Cranial nerves II through XII grossly intact. Moving all extremities, speech is clear RIGHT UPPER EXTREMITY: Edema and granulation appears to be improving. 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 Cardiology and ID consults appreciated. Status post KRISTINA 01/09/17. Has bacteremia with staph aureus. Cardiothoracic surgery evaluated the patient indicated that she is not a surgical candidate Blood cultures positive with staph aureus, negative culture as of 01/09/17 Infectious disease following and made recommendations Continue Ancef until 02/18/17 Repeat echocardiogram 1 week (02/11/17) prior to antibiotics discontinuing Superficial vein thrombosis in the left upper extremity, now has developed in the right upper extremity Ultrasound indicates thrombosis of the cephalic and basilic veins of left arm Hematology consulted for recommendations Patient started on Lovenox 01/26/17 patient now complaining of pain in the right arm where midline has been inserted on 01/21/17 Ultrasound performed which did indicate superficial thrombosis which is worrisome for septic thrombophlebitis in the basilic vein. Midline has been removed, vascular access team unable to place any other IVs in her periphery considering patient has thrombophlebitis in bilateral upper extremities Discussed with infectious disease, could be due from systemic infection versus continued IV drug use while in the hospital. Urine drug screen was performed which is positive for opiates. Fever, one documented elevated temperature, resolved Infectious workup was performed and was negative Infectious disease indicated that elevated temperature likely secondary to thrombosis Skin rash, improving Patient had pruritic rash and 01/24 small red papules which has resolved Patient had rash in her groin on 01/25 which has resolved Patient started on Benadryl and nystatin ointment Hip Pain MRI hip w/ small bilateral joint effusions, repeat MRI showed no evidence of joint effusion Orthopedic consulted who indicated patient is not a surgical candidate Continue pain control: We'll need to wean patient off all narcotics weekly Percocet 7.5 mg every 6 hours as needed for pain 610 Continue physical therapy IVDU Patient will plan minutes says 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 Discharge Planning Discharge planning after patient completes IV antibiotics Christiano Sandhu Jan 31, 2017 12:23 Gregory Koenig MD Jan 31, 2017 12:45
[2017-01-31] MEDS: IBUPROFEN 600 MG TAB PO PRN (17:11)
[2017-01-31 20:00] VITALS: BP 143/95; PULSE 104; RESP 18; TEMP 97.9; O2SAT 99
[2017-01-31] MEDS: TEMAZEPAM 15 MG CAP PO PRN (20:38)
[2017-02-01] MEDS: SODIUM CHLORIDE 0.9% FLUSH 5 ML FLUSH FLUSH PRN (00:20)
[2017-02-01] MEDS: diphenhydrAMINE HCL 25 MG CAP PO SCH ×4 (00:20→16:30)
[2017-02-01] MEDS: ceFAZolin 2 GM PREMIX 50 ML IV SCH ×3 (00:20→16:30)
[2017-02-01] MEDS: IBUPROFEN 600 MG TAB PO PRN ×2 (01:27→17:11)
[2017-02-01 08:00] VITALS: BP 103/77; PULSE 106; RESP 20; TEMP 96.7; O2SAT 98
[2017-02-01] MEDS: ENOXAPARIN SODIUM 100 MG/ML SYRINGE SQ SCH (08:53)
[2017-02-01] MEDS: SODIUM CHLORIDE 0.9% FLUSH 10 ML FLUSH IVF SCH (08:54)
[2017-02-01] MEDS: SODIUM CHLORIDE 0.9% FLUSH 5 ML FLUSH FLUSH SCH ×2 (08:54→20:52)
[2017-02-01] MEDS: NYSTATIN 100,000 U/GM OINT 15 GM TUBE TOPICAL SCH ×2 (08:55→20:52)
[2017-02-01] MEDS: oxyCODONE/ACETAMINOPHEN 7.5 MG/325 MG TAB PO PRN ×2 (10:00→20:51)
--- NOTE | 2017-02-01 12:01 | HHI.PR ---
Subjective Remarks Patient seen and examined today. Patient denies any new complaints. No change in clinical status. Objective Vitals Vital Signs Date Time Temp Pulse Resp B/P Pulse Ox O2 Delivery O2 Flow Rate FiO2 02/01/17 08:00 96.7 106 20 103/77 98 01/31/17 20:00 97.9 104 18 143/95 99 I/O 01/31/17 01/31/17 01/31/17 02/01/17 02/01/17 02/01/17 07:00 15:00 23:00 07:00 15:00 23:00 Intake Total 240 ml 800 ml 720 ml 580 ml 100 ml Balance 240 ml 800 ml 720 ml 580 ml 100 ml Intake Oral 240 ml 800 ml 720 ml 480 ml 100 ml IV Total 0 ml 100 ml # Voids 2 4 3 2 # Bowel Movements 0 0 0 Objective Remarks GENERAL: Well-developed, well-nourished, in no acute distress. alert and orientated HEENT: Head is normocephalic without any lesions or masses noted. Facial features are symmetric. Eyes: Extraocular muscles are intact. Conjunctivae were clear. NECK: Supple without any masses. Trachea midline no deviation. No JVD, CARDIAC: Regular rhythm, regular rate. S1/S2 are heard. No murmurs gallops or rubs. LUNGS: Clear to auscultation bilaterally. No wheeze, rhonchi or rales. No use of accessory muscles on inspiration or expiration. ABDOMEN: Soft, nontender. Nondistended. Bowel sounds heard in all 4 quadrants. No organomegaly or masses. Negative rebound, negative guarding EXTREMITIES: No edema, pulses are equal bilaterally. No cyanosis or clubbing NEUROLOGY: Mood and affect appear appropriate. Cranial nerves II through XII grossly intact. Moving all extremities, speech is clear RIGHT UPPER EXTREMITY: Edema and granulation appears to be improving and almost resolved. 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 Cardiology and ID consults appreciated. Status post KRISTINA 01/09/17. Has bacteremia with staph aureus. Cardiothoracic surgery evaluated the patient indicated that she is not a surgical candidate Blood cultures positive with staph aureus, negative culture as of 3/24/17 Infectious disease following and made recommendations Continue Ancef until 02/18/17 Repeat echocardiogram 1 week (02/11/17) prior to antibiotics discontinuing Superficial vein thrombosis in the left upper extremity, now has developed in the right upper extremity Ultrasound indicates thrombosis of the cephalic and basilic veins of left arm Hematology consulted for recommendations Patient started on Lovenox 01/26/17 patient now complaining of pain in the right arm where midline has been inserted on 01/21/17 Ultrasound performed which did indicate superficial thrombosis which is worrisome for septic thrombophlebitis in the basilic vein. Midline has been removed, vascular access team unable to place any other IVs in her periphery considering patient has thrombophlebitis in bilateral upper extremities Discussed with infectious disease, could be due from systemic infection versus continued IV drug use while in the hospital. Urine drug screen was performed which is positive for opiates. Fever, one documented elevated temperature, resolved Infectious workup was performed and was negative Infectious disease indicated that elevated temperature likely secondary to thrombosis Skin rash, improving Patient had pruritic rash and 01/24 small red papules which has resolved Patient had rash in her groin on 01/25 which has resolved Patient started on Benadryl and nystatin ointment Hip Pain MRI hip w/ small bilateral joint effusions, repeat MRI showed no evidence of joint effusion Orthopedic consulted who indicated patient is not a surgical candidate Continue pain control: We'll need to wean patient off all narcotics weekly Percocet 7.5 mg every 6 hours as needed for pain 610 Continue physical therapy IVDU Patient will plan minutes says 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 Discharge Planning Discharge planning after patient completes IV antibiotics Christiano Sandhu Feb 01, 2017 12:01
[2017-02-01 20:00] VITALS: BP 136/88; PULSE 107; RESP 20; TEMP 96; O2SAT 98
[2017-02-01] MEDS: TEMAZEPAM 15 MG CAP PO PRN (20:51)
[2017-02-02] MEDS: diphenhydrAMINE HCL 25 MG CAP PO SCH ×4 (00:27→15:32)
[2017-02-02] MEDS: ceFAZolin 2 GM PREMIX 50 ML IV SCH ×3 (00:28→15:33)
[2017-02-02] MEDS: SODIUM CHLORIDE 0.9% FLUSH 5 ML FLUSH FLUSH PRN (00:28)
[2017-02-02] MEDS: IBUPROFEN 600 MG TAB PO PRN ×2 (00:28→15:32)
[2017-02-02] MEDS: oxyCODONE/ACETAMINOPHEN 7.5 MG/325 MG TAB PO PRN (08:56)
[2017-02-02] MEDS: ENOXAPARIN SODIUM 100 MG/ML SYRINGE SQ SCH (08:56)
[2017-02-02] MEDS: NYSTATIN 100,000 U/GM OINT 15 GM TUBE TOPICAL SCH ×2 (08:56→21:27)
[2017-02-02] MEDS: SODIUM CHLORIDE 0.9% FLUSH 5 ML FLUSH FLUSH SCH ×2 (08:57→21:28)
[2017-02-02] MEDS: SODIUM CHLORIDE 0.9% FLUSH 10 ML FLUSH IVF SCH (08:57)
[2017-02-02 10:30] VITALS: BP 105/71; PULSE 110; RESP 18; TEMP 98.2; O2SAT 98
--- NOTE | 2017-02-02 10:57 | HHI.PR ---
Subjective Remarks Patient seen and examined today in follow-up for bacteremia, bacterial endocarditis, IV drug user, right arm septic thrombosis. Patient is doing better. The right upper arm no longer showing signs of any cellulitis or palpable mass. Patient denies any new complaints. Patient remained afebrile. Objective Vitals Vital Signs Date Time Temp Pulse Resp B/P Pulse Ox O2 Delivery O2 Flow Rate FiO2 02/02/17 10:30 98.2 110 18 105/71 98 02/01/17 20:00 96.0 107 20 136/88 98 02/01/17 18:11 14 I/O 02/01/17 02/01/17 02/01/17 02/02/17 02/02/17 02/02/17 07:00 15:00 23:00 07:00 15:00 23:00 Intake Total 580 ml 720 ml 480 ml 220 ml 100 ml Balance 580 ml 720 ml 480 ml 220 ml 100 ml Intake Oral 480 ml 720 ml 480 ml 120 ml 100 ml IV Total 100 ml 0 ml 100 ml # Voids 2 3 3 2 # Bowel Movements 0 0 0 0 Objective Remarks GENERAL: Well-developed, well-nourished, in no acute distress. alert and orientated HEENT: Head is normocephalic without any lesions or masses noted. Facial features are symmetric. Eyes: Extraocular muscles are intact. Conjunctivae were clear. NECK: Supple without any masses. Trachea midline no deviation. No JVD, CARDIAC: Regular rhythm, regular rate. S1/S2 are heard. No murmurs gallops or rubs. LUNGS: Clear to auscultation bilaterally. No wheeze, rhonchi or rales. No use of accessory muscles on inspiration or expiration. ABDOMEN: Soft, nontender. Nondistended. Bowel sounds heard in all 4 quadrants. No organomegaly or masses. Negative rebound, negative guarding EXTREMITIES: No edema, pulses are equal bilaterally. No cyanosis or clubbing NEUROLOGY: Mood and affect appear appropriate. Cranial nerves II through XII grossly intact. Moving all extremities, speech is clear RIGHT UPPER EXTREMITY: Edema and granulation appears to be improving and almost resolved. 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 Cardiology and ID consults appreciated. Status post KRISTINA 01/09/17. Has bacteremia with staph aureus. Cardiothoracic surgery evaluated the patient indicated that she is not a surgical candidate Blood cultures positive with staph aureus, negative culture as of 01/09/17 Infectious disease following and made recommendations Continue Ancef until 02/18/17 Repeat echocardiogram 1 week (02/11/17) prior to antibiotics discontinuing Superficial vein thrombosis in the left upper extremity, now has developed in the right upper extremity Ultrasound indicates thrombosis of the cephalic and basilic veins of left arm Hematology consulted for recommendations Patient started on Lovenox 01/26/17 patient now complaining of pain in the right arm where midline has been inserted on 01/21/17 Ultrasound performed which did indicate superficial thrombosis which is worrisome for septic thrombophlebitis in the basilic vein. Midline has been removed, vascular access team unable to place any other IVs in her periphery considering patient has thrombophlebitis in bilateral upper extremities Discussed with infectious disease, could be due from systemic infection versus continued IV drug use while in the hospital. Urine drug screen was performed which is positive for opiates. Fever, one documented elevated temperature, resolved Infectious workup was performed and was negative Infectious disease indicated that elevated temperature likely secondary to thrombosis Skin rash, improving Patient had pruritic rash and 01/24 small red papules which has resolved Patient had rash in her groin on 01/25 which has resolved Patient started on Benadryl and nystatin ointment Hip Pain MRI hip w/ small bilateral joint effusions, repeat MRI showed no evidence of joint effusion Orthopedic consulted who indicated patient is not a surgical candidate Continue pain control: We'll need to wean patient off all narcotics weekly, last changed 02/02/17 Percocet 5 mg every 6 hours as needed for pain 610 Continue physical therapy IVDU Patient will plan minutes says 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 Discharge Planning Discharge planning after patient completes IV antibiotics Christiano Sandhu Feb 02, 2017 10:57 Gregory Koenig MD Feb 02, 2017 15:39
[2017-02-02 20:00] VITALS: BP 100/69; PULSE 104; RESP 20; TEMP 97.4; O2SAT 95
[2017-02-02] MEDS: oxyCODONE/ACETAMINOPHEN 5 MG/325 MG TAB PO PRN (21:27)
[2017-02-02] MEDS: TEMAZEPAM 15 MG CAP PO PRN (21:27)
[2017-02-03] MEDS: diphenhydrAMINE HCL 25 MG CAP PO SCH ×4 (00:29→15:54)
[2017-02-03] MEDS: IBUPROFEN 600 MG TAB PO PRN ×2 (00:30→15:54)
[2017-02-03] MEDS: SODIUM CHLORIDE 0.9% FLUSH 5 ML FLUSH FLUSH PRN (00:30)
[2017-02-03] MEDS: ceFAZolin 2 GM PREMIX 50 ML IV SCH ×3 (00:32→15:54)
[2017-02-03 05:15] LABS: AUTOMATED NEUTROPHIL # 4.1 TH/MM3 (1.8-7.7); BASOPHIL % 0.6 % (0.0-2.0); EOSINOPHIL # 0.9 TH/MM3 (0-0.4); HEMATOCRIT 29.8 % (35.0-46.0); HEMO FLAGS DIFF FINAL; LYMPH % 26.1 % (9.0-44.0); MEAN CELL VOLUME 84.8 FL (80.0-100.0); MEAN CORPUSCULAR HEMOGLOBIN 27.7 PG (27.0-34.0); MEAN CORPUSCULAR HGB CONC 32.6 % (32.0-36.0); MONO % 9.1 % (0.0-8.0); NEUT % 52.2 % (16.0-70.0); PLATELET COUNT 266 TH/MM3 (150-450); RED BLOOD COUNT 3.51 MIL/MM3 (4.00-5.30); RED CELL DISTRIBUTION WIDTH 13.8 % (11.6-17.2); WHITE BLOOD COUNT 7.7 TH/MM3 (4.0-11.0)
[2017-02-03 05:23] LABS: CHLORIDE 104 MEQ/L (98-107); SODIUM (NA) 142 MEQ/L (136-145)
[2017-02-03 05:28] LABS: ANION GAP 8 MEQ/L (5-15)
[2017-02-03 05:29] LABS: BLOOD UREA NITROGEN 7 MG/DL (7-18)
[2017-02-03 05:31] LABS: ALT (GPT) 14 U/L (10-53); AST (GOT) 16 U/L (15-37)
[2017-02-03 05:32] LABS: GLOMERULAR FILTRATION RATE 132 ML/MIN (>89)
[2017-02-03 05:33] LABS: TOTAL BILIRUBIN ADULT 0.2 MG/DL (0.2-1.0)
[2017-02-03 05:34] LABS: ALKALINE PHOSPHATASE 43 U/L (45-117)
[2017-02-03 06:31] LABS: WESTERGREN SEDIMENTATION RATE 40 mm/hr (0-20)
[2017-02-03 08:00] VITALS: BP 105/71; PULSE 110; RESP 18; TEMP 98.2; O2SAT 98
[2017-02-03] MEDS: ENOXAPARIN SODIUM 100 MG/ML SYRINGE SQ SCH (08:07)
[2017-02-03] MEDS: NYSTATIN 100,000 U/GM OINT 15 GM TUBE TOPICAL SCH ×2 (08:08→21:49)
[2017-02-03] MEDS: SODIUM CHLORIDE 0.9% FLUSH 5 ML FLUSH FLUSH SCH ×2 (08:08→21:00)
[2017-02-03] MEDS: SODIUM CHLORIDE 0.9% FLUSH 10 ML FLUSH IVF SCH ×2 (08:08→21:49)
[2017-02-03] MEDS: oxyCODONE/ACETAMINOPHEN 5 MG/325 MG TAB PO PRN ×2 (08:09→21:47)
--- NOTE | 2017-02-03 15:35 | HHI.PR ---
Subjective Remarks Follow-up for bacterial endocarditis, upper extremity thrombosis, hip pain. Patient states she has had increasing left hip pain over the last 3 days but does state she did extensive physical therapy a few days ago including 50 laps. She admits to sweats and chills. Rash is improved over the abdomen. Objective Vitals Vital Signs Date Time Temp Pulse Resp B/P Pulse Ox O2 Delivery O2 Flow Rate FiO2 02/03/17 08:00 98.2 110 18 105/71 98 02/02/17 20:00 97.4 104 20 100/69 95 I/O 02/02/17 02/02/17 02/02/17 02/03/17 02/03/17 02/03/17 07:00 15:00 23:00 07:00 15:00 23:00 Intake Total 220 ml 100 ml 240 ml 100 ml 100 ml Balance 220 ml 100 ml 240 ml 100 ml 100 ml Intake Oral 120 ml 100 ml 240 ml 100 ml IV Total 100 ml 0 ml 100 ml # Voids 2 2 2 # Bowel Movements 0 0 Result Diagram: 02/03/1743902/03/170 Objective Remarks GENERAL: BMI 37.6. Well-nourished, well-developed patient in no apparent distress. SKIN: Light erythema in bilateral groin, improved. No rash evident over the abdomen. No erythema over the left hip. CARDIOVASCULAR: Regular rate and rhythm. RESPIRATORY: No accessory muscle use. Clear to auscultation. Breath sounds equal bilaterally. GASTROINTESTINAL: Abdomen soft, non-tender, nondistended. MUSCULOSKELETAL: Tender over the left lateral hip, patient witnessed to be ambulating well from bathroom to bed. Intact LLE distal pulses. NEUROLOGICAL: Awake and alert. Normal speech. PSYCHIATRIC: Appropriate mood and affect; insight and judgment normal. 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 B/L upper extremities affected, palpable on exam, but L upper arm appears swollen and patient feels affected area is spreading over L upper arm today. Small area to R forearm is improved. -Patient has been using heating pad to areas -Midline was placed R arm on 01/21/17 due to multiple SVT with peripheral IVs. -Doppler US LUE shows thrombosis of the cephalic and basilic veins evident in the left upper extremity. -Hematology was consulted due to multiple veins affected. Recommends once daily therapeutic dosing of Lovenox for duration of antibiotic use and then can discontinue when midline is removed. Recommends lowering dose during menses as patient has heavy flow. 01/26/17 patient complained of pain in the right arm where midline has been inserted on 01/21/17 Ultrasound performed which did indicate superficial thrombosis which is worrisome for septic thrombophlebitis in the basilic vein. Midline has been removed, vascular access team unable to place any other IVs in her periphery considering patient has thrombophlebitis in bilateral upper extremities Discussed with infectious disease, could be due from systemic infection versus continued IV drug use while in the hospital. Urine drug screen was performed which is positive for opiates. PICC was placed 01/27. Abdominal rash: Resolved with Benadryl use. Patient had pruritic rash on 01/24, small red papules over the lower abdomen appeared allergic. Patient attributed to Lovenox injections. -Continue scheduled Benadryl 25 mg po every 6 hours and continue Lovenox. -Monitor clinically. Groin rash: Improved. -Continue Nystatin ointment. Fever: Resolved. Patient had temp of 100.6 on 01/22. Afebrile since. 01/23 blood cultures x 2 NGTD. O2 saturation normal. Discussed with ID, Dr. Vernon, who agrees fever is likely due to clots. Endocarditis/bacteremia Echocardiogram and KRISTINA indicates Tricuspid valve, aortic valve involvement. Cardiology and ID consults appreciated. Status post KRISTINA 01/09/17. Has bacteremia with staph aureus. Cardiothoracic surgery evaluated the patient but indicated she is not a surgical candidate Blood cultures positive with staph aureus, negative culture as of 01/09/17 Infectious disease following and made recommendations: Continue Ancef until 02/18/17 Repeat echocardiogram 1 week prior to antibiotic completion -02/03: CBC with normal white blood cell count. ESR improved at 40. CRP improved 1.5. CMP unremarkable. Continue to monitor labs weekly. L Hip Pain: MRI hip w/ small bilateral joint effusions, repeat MRI showed no evidence of joint effusion Orthopedic consulted who indicated patient is not a surgical candidate; last evaluated by ortho on 01/16. Continue pain control: We'll need to wean patient off all narcotics within the next 3 weeks Oxycodone 10 mg every 6 as needed for pain 610. Will not restart Toradol as patient has Ibuprofen as needed q8 hours. Physical therapy indicates patient is independent with transfers and ambulation without assistive device, they have signed off. 02/03: Patient admits to increased pain in hip over the last 3 days but did do intense physical therapy a few days ago. She was witnessed to be ambulating fairly well in the room. Labs do not indicate any worsening infection. Patient remains afebrile. Monitor clinically. 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 Discharge Planning Patient will remain hospitalized until discontinuation of antibiotics. Problem Qualifiers (1) Sepsis: Qualified Code: A41.9 - Sepsis, due to unspecified organism (2) Septic joint: Della Blackwell Feb 03, 2017 15:35
[2017-02-03 20:00] VITALS: BP 111/74; PULSE 88; RESP 20; TEMP 95.9; O2SAT 100
--- NOTE | 2017-02-03 20:34 | PD.ONC.PN ---
Subjective Subjective Remarks Denies any bleeding. c/o clotting off midline in L upper arm. No problem with triple lumen central line in R subclavian vein. Has menses, not too heavy. Objective Data Date Time Temp Pulse Resp B/P Pulse Ox O2 Delivery O2 Flow Rate FiO2 02/03/17 08:00 98.2 110 18 105/71 98 02/03/17 02/03/17 02/03/17 07:00 15:00 23:00 Intake Total 100 ml 100 ml 900 ml Balance 100 ml 100 ml 900 ml Result Diagram: 02/03/17 0440 02/03/17 044 Laboratory Results Laboratory Tests Test 02/03/17 04:40 White Blood Count 7.7 TH/MM3 Red Blood Count 3.51 MIL/MM3 Hemoglobin 9.7 GM/DL Hematocrit 29.8 % Mean Corpuscular Volume 84.8 FL Mean Corpuscular Hemoglobin 27.7 PG Mean Corpuscular Hemoglobin 32.6 % Concent Red Cell Distribution Width 13.8 % Platelet Count 266 TH/MM3 Mean Platelet Volume 7.3 FL Neutrophils (%) (Auto) 52.2 % Lymphocytes (%) (Auto) 26.1 % Monocytes (%) (Auto) 9.1 % Eosinophils (%) (Auto) 12.0 % Basophils (%) (Auto) 0.6 % Neutrophils # (Auto) 4.1 TH/MM3 Lymphocytes # (Auto) 2.0 TH/MM3 Monocytes # (Auto) 0.7 TH/MM3 Eosinophils # (Auto) 0.9 TH/MM3 Basophils # (Auto) 0.0 TH/MM3 CBC Comment DIFF FINAL Differential Comment Erythrocyte Sedimentation Rate 40 mm/hr Sodium Level 142 MEQ/L Potassium Level 4.0 MEQ/L Chloride Level 104 MEQ/L Carbon Dioxide Level 30.0 MEQ/L Anion Gap 8 MEQ/L Blood Urea Nitrogen 7 MG/DL Creatinine 0.56 MG/DL Estimat Glomerular Filtration 132 ML/MIN Rate Random Glucose 107 MG/DL Calcium Level 8.2 MG/DL Total Bilirubin 0.2 MG/DL Aspartate Amino Transf 16 U/L (AST/SGOT) Alanine Aminotransferase 14 U/L (ALT/SGPT) Alkaline Phosphatase 43 U/L C-Reactive Protein 1.50 MG/DL Total Protein 6.6 GM/DL Albumin 2.4 GM/DL Administered Medications Medications (Trade) Dose Ordered Sig/Michelle Route PRN Reason Start Time Stop Time Status Last Admin Dose Admin IV Flush (NS Flush) 2 ml UNSCH PRN FLUSH FLUSH AFTER USING IV ACCESS 01/04/17 21:45 02/03/17 00:30 IV Flush (NS Flush) 2 ml BID FLUSH 01/05/17 09:00 02/03/17 08:08 Acetaminophen (Tylenol) 650 mg Q6H PRN PO FEVER/PAIN SCALE 1 TO 5 01/04/17 21:45 01/10/17 02:01 Temazepam 15 mg 15 mg HS PRN PO INSOMNIA 01/06/17 11:00 02/02/17 21:27 Cefazolin Sodium/ Dextrose (Ancef 2 Gm Premix) 50 ml @ 100 mls/hr Q8H IV 01/09/17 17:00 02/03/17 15:54 Senna/Docusate Sodium (Ibis-Colace) 1 tab BID PRN PO CONSTIPATION 01/18/17 22:30 01/27/17 12:32 Ibuprofen (Motrin) 600 mg Q8H PRN PO Hip/ leg pain 01/18/17 22:30 02/03/17 15:54 Enoxaparin Sodium (Lovenox Inj) 100 mg DAILY SQ 01/24/17 09:00 02/03/17 08:07 Diphenhydramine HCl (Benadryl) 25 mg Q6H PO 01/24/17 18:00 02/03/17 15:54 Nystatin (Mycostatin Oint) 1 applic Q12HR TOPICAL 01/25/17 21:00 02/03/17 08:08 Sodium Chloride (NS Flush) DAILY IVF 01/28/17 09:00 02/03/17 08:08 Oxycodone/ Acetaminophen (Percocet 5-325 Mg) 1 tab Q6H PRN PO PAIN SCALE 6 TO 10 02/02/17 11:00 02/03/17 08:09 Objective Remarks GENERAL: Well-nourished, well-developed patient. SKIN: Warm and dry. Small injection ecchymotic area over abdomen. HEAD: Normocephalic. EYES: No scleral icterus. No injection or drainage. NECK: Supple, trachea midline. No JVD or lymphadenopathy. LYMPHATIC: No adenopathy. CARDIOVASCULAR: Regular rate and rhythm without murmurs. RESPIRATORY: Breath sounds equal bilaterally. No accessory muscle use. GASTROINTESTINAL: Abdomen soft, non-tender, nondistended. EXTREMITIES: Arm swelling resolved. R upper arm insertion site scar from midline. MUSCULOSKELETAL: Adequate muscle tone. NEUROLOGICAL: No obvious focal deficit. Awake, alert, and oriented x3. PSYCHIATRIC: Appropriate mood and affect; insight and judgment normal. Assessment/Plan Problem List: (1) Superficial venous thrombosis of both arms Status: Acute Plan: Continue on Lovenox 100mg daily- goal 6 weeks, time to stop at completion of abx therapy. Clinically clot resolved in both upper arms. R subclavian catheter functioning well. Monitor hgb during cycle, noted decrease in hgb, no other site of bleedin. Discussed decrease dose to limit blood loss from menses. Assessment 26 y/o woman with endocarditis, complicated by line related superficial vein thrombosis on LMWH. Plan 1. Cont Lovenox until completion of antibiotics but decrease dose due to anemia with menses. 2. Monitor for bleeding. 3. Monitor hgb. Sepideh Rivera MD Feb 03, 2017 20:33
[2017-02-04] MEDS: diphenhydrAMINE HCL 25 MG CAP PO SCH ×4 (00:20→17:48)
[2017-02-04] MEDS: ceFAZolin 2 GM PREMIX 50 ML IV SCH ×3 (00:21→15:32)
[2017-02-04] MEDS: IBUPROFEN 600 MG TAB PO PRN ×2 (00:21→12:14)
[2017-02-04] MEDS: TEMAZEPAM 15 MG CAP PO PRN ×2 (00:26→21:33)
[2017-02-04 08:00] VITALS: BP 113/74; PULSE 96; RESP 19; TEMP 97.7; O2SAT 98
[2017-02-04] MEDS: ENOXAPARIN SODIUM 100 MG/ML SYRINGE SQ SCH (08:26)
[2017-02-04] MEDS: oxyCODONE/ACETAMINOPHEN 5 MG/325 MG TAB PO PRN ×3 (08:27→21:33)
[2017-02-04] MEDS: SODIUM CHLORIDE 0.9% FLUSH 5 ML FLUSH FLUSH SCH ×2 (08:28→20:29)
[2017-02-04] MEDS: NYSTATIN 100,000 U/GM OINT 15 GM TUBE TOPICAL SCH ×2 (08:28→20:29)
--- NOTE | 2017-02-04 10:38 | HHI.PR ---
Subjective Remarks Follow-up for bacterial endocarditis, upper extremity thrombosis, hip pain. Patient still admits to left hip pain but denies it being any worse than yesterday. Objective Vitals Vital Signs Date Time Temp Pulse Resp B/P Pulse Ox O2 Delivery O2 Flow Rate FiO2 02/04/17 08:00 97.7 96 19 113/74 98 02/03/17 20:00 95.9 88 20 111/74 100 I/O 02/03/17 02/03/17 02/03/17 02/04/17 02/04/17 02/04/17 07:00 15:00 23:00 07:00 15:00 23:00 Intake Total 100 ml 100 ml 1380 ml 415 ml Balance 100 ml 100 ml 1380 ml 415 ml Intake Oral 100 ml 1380 ml 240 ml IV Total 100 ml 175 ml # Voids 2 6 2 # Bowel Movements 1 Result Diagram: 02/03/170 02/03/17 0440 Objective Remarks GENERAL: BMI 37.8. Well-nourished, well-developed patient in no apparent distress. CARDIOVASCULAR: Regular rate and rhythm. RESPIRATORY: No accessory muscle use. Clear to auscultation. Breath sounds equal bilaterally. MUSCULOSKELETAL: Tender over the left groin. Capillary refill intact L toes. NEUROLOGICAL: Awake and alert. Normal speech. PSYCHIATRIC: Appropriate mood and affect; insight and judgment normal. 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 B/L upper extremities affected, palpable on exam, but L upper arm appears swollen and patient feels affected area is spreading over L upper arm today. Small area to R forearm is improved. -Patient has been using heating pad to areas -Midline was placed R arm on 01/21/17 due to multiple SVT with peripheral IVs. -Doppler US LUE shows thrombosis of the cephalic and basilic veins evident in the left upper extremity. -Hematology was consulted due to multiple veins affected. Recommends once daily therapeutic dosing of Lovenox for duration of antibiotic use and then can discontinue when midline is removed. Recommends lowering dose during menses as patient has heavy flow. Dr. Rivera reevaluated patient yesterday 02/03 and lowered Lovenox to 40 mg daily while currently on menses. Advises monitoring hemoglobin. Will recheck H&H tomorrow am. 01/26/17 patient complained of pain in the right arm where midline has been inserted on 01/21/17 Ultrasound performed which did indicate superficial thrombosis which is worrisome for septic thrombophlebitis in the basilic vein. Midline has been removed, vascular access team unable to place any other IVs in her periphery considering patient has thrombophlebitis in bilateral upper extremities Discussed with infectious disease, could be due from systemic infection versus continued IV drug use while in the hospital. Urine drug screen was performed which is positive for opiates. PICC was placed 01/27. Abdominal rash: Resolved with Benadryl use. Patient had pruritic rash on 01/24, small red papules over the lower abdomen appeared allergic. Patient attributed to Lovenox injections. -Continue scheduled Benadryl 25 mg po every 6 hours and continue Lovenox. -Monitor clinically. Groin rash: Improved. -Continue Nystatin ointment. Fever: Resolved. Patient had temp of 100.6 on 01/22. Afebrile since. 01/23 blood cultures x 2 NGTD. O2 saturation normal. Discussed with ID, Dr. Vernon, who agrees fever is likely due to clots. Endocarditis/bacteremia Echocardiogram and KRISTINA indicates Tricuspid valve, aortic valve involvement. Cardiology and ID consults appreciated. Status post KRISTINA 03/24/17. Has bacteremia with staph aureus. Cardiothoracic surgery evaluated the patient but indicated she is not a surgical candidate Blood cultures positive with staph aureus, negative culture as of 01/09/17 Infectious disease following and made recommendations: Continue Ancef until 02/18/17 Repeat echocardiogram 1 week prior to antibiotic completion -Most recent CBC with normal white blood cell count. ESR improved at 40. CRP improved 1.5. CMP unremarkable. Continue to monitor labs weekly. L Hip Pain: MRI hip w/ small bilateral joint effusions, repeat MRI showed no evidence of joint effusion Orthopedic consulted who indicated patient is not a surgical candidate; last evaluated by ortho on 01/16. Continue pain control: We'll need to wean patient off all narcotics within the next 3 weeks Oxycodone 10 mg every 6 as needed for pain 610. Will not restart Toradol as patient has Ibuprofen as needed q8 hours. Physical therapy indicates patient is independent with transfers and ambulation without assistive device, they have signed off. 02/03: Patient admits to increased pain in hip over the last 3 days but did do intense physical therapy a few days ago. She was witnessed to be ambulating fairly well in the room. Labs do not indicate any worsening infection. Patient remains afebrile. Monitor clinically. 02/04: Still c/o L hip pain. Will have PT reevaluate tomorrow as they previously signed off. 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 Discharge Planning Patient will remain hospitalized until discontinuation of antibiotics. Problem Qualifiers (1) Sepsis: Qualified Code: A41.9 - Sepsis, due to unspecified organism (2) Septic joint: Della Blackwell Feb 04, 2017 10:38
[2017-02-04] MEDS: ONDANSETRON ODT 4 MG TAB PO PRN (17:48)
[2017-02-04 20:00] VITALS: BP 108/66; PULSE 100; RESP 19; TEMP 97.5; O2SAT 100
[2017-02-05] MEDS: diphenhydrAMINE HCL 25 MG CAP PO SCH ×4 (00:07→17:22)
[2017-02-05] MEDS: ceFAZolin 2 GM PREMIX 50 ML IV SCH ×3 (00:07→17:23)
[2017-02-05 06:32] LABS: HEMATOCRIT 30.6 % (35.0-46.0); REVIEW FLAG FINAL
[2017-02-05 08:00] VITALS: BP 105/69; PULSE 100; RESP 18; TEMP 97.9; O2SAT 94
[2017-02-05] MEDS: SODIUM CHLORIDE 0.9% FLUSH 5 ML FLUSH FLUSH SCH ×2 (09:00→22:02)
[2017-02-05] MEDS: NYSTATIN 100,000 U/GM OINT 15 GM TUBE TOPICAL SCH ×2 (09:00→22:01)
--- NOTE | 2017-02-05 11:13 | HHI.PR ---
Subjective Remarks Follow-up for bacterial endocarditis, B/L superficial upper extremity thrombosis , hip pain. Sister and grandmother at bedside. Patient states her left hip pain is improving. She believes it was a muscle spasm because it is starting to work itself out. Objective Vitals Vital Signs Date Time Temp Pulse Resp B/P Pulse Ox O2 Delivery O2 Flow Rate FiO2 02/05/17 08:00 97.9 100 18 105/69 94 02/04/17 22:39 18 02/04/17 20:00 97.5 100 19 108/66 100 02/04/17 13:40 18 I/O 02/04/17 02/04/17 02/04/17 02/05/17 02/05/17 02/05/17 06:59 14:59 22:59 06:59 14:59 22:59 Intake Total 415 ml 960 ml 480 ml 480 ml Balance 415 ml 960 ml 480 ml 480 ml Intake Oral 240 ml 960 ml 480 ml 480 ml IV Total 175 ml # Voids 2 5 4 2 # Bowel Movements 0 1 Result Diagram: 02/05/17 0625 02/03/17 0440 Objective Remarks GENERAL: BMI 37.1. Well-nourished, well-developed patient in no apparent distress. CARDIOVASCULAR: Regular rate and rhythm. RESPIRATORY: No accessory muscle use. Clear to auscultation. Breath sounds equal bilaterally. GASTROINTESTINAL: Abdomen soft, nontender, nondistended. MUSCULOSKELETAL: Capillary refill intact L toes. NEUROLOGICAL: Awake and alert. Normal speech. PSYCHIATRIC: Appropriate mood and affect; insight and judgment normal. 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 B/L upper extremities affected, palpable on exam, but L upper arm appears swollen and patient feels affected area is spreading over L upper arm today. Small area to R forearm is improved. -Patient has been using heating pad to areas -Midline was placed R arm on 01/21/17 due to multiple SVT with peripheral IVs. -Doppler US LUE shows thrombosis of the cephalic and basilic veins evident in the left upper extremity. -Hematology was consulted due to multiple veins affected. Recommends once daily therapeutic dosing of Lovenox for duration of antibiotic use and then can discontinue when midline is removed. Recommends lowering dose during menses as patient has heavy flow. Dr. Rivera reevaluated patient on 02/03 and lowered Lovenox to 40 mg daily while currently on menses. Advises monitoring hemoglobin. Hemoglobin stable at 9.9 today. 01/26/17 patient complained of pain in the right arm where midline has been inserted on 01/21/17 Ultrasound performed which did indicate superficial thrombosis which is worrisome for septic thrombophlebitis in the basilic vein. Midline has been removed, vascular access team unable to place any other IVs in her periphery considering patient has thrombophlebitis in bilateral upper extremities Discussed with infectious disease, could be due from systemic infection versus continued IV drug use while in the hospital. Urine drug screen was performed which is positive for opiates. PICC was placed 01/27. Abdominal rash: Resolved with Benadryl use. Patient had pruritic rash on 01/24, small red papules over the lower abdomen appeared allergic. Patient attributed to Lovenox injections. -Continue scheduled Benadryl 25 mg po every 6 hours and continue Lovenox. -Monitor clinically. Groin rash: Improved. -Continue Nystatin ointment. Fever: Resolved. Patient had temp of 100.6 on 01/22. Afebrile since. 01/23 blood cultures x 2 NGTD. O2 saturation normal. Discussed with ID, Dr. Vernon, who agrees fever is likely due to clots. Endocarditis/bacteremia Echocardiogram and KRISTINA indicates Tricuspid valve, aortic valve involvement. Cardiology and ID consults appreciated. Status post KRISTINA 01/09/17. Has bacteremia with staph aureus. Cardiothoracic surgery evaluated the patient but indicated she is not a surgical candidate Blood cultures positive with staph aureus, negative culture as of 01/09/17 Infectious disease following and made recommendations: Continue Ancef until 02/18/17 Repeat echocardiogram 1 week prior to antibiotic completion -Most recent CBC with normal white blood cell count. ESR improved at 40. CRP improved 1.5. CMP unremarkable. Continue to monitor labs weekly. L Hip Pain: MRI hip w/ small bilateral joint effusions, repeat MRI showed no evidence of joint effusion Orthopedic consulted who indicated patient is not a surgical candidate; last evaluated by ortho on 01/16. Continue pain control: We'll need to wean patient off all narcotics within the next 3 weeks Oxycodone 10 mg every 6 as needed for pain 610. Will not restart Toradol as patient has Ibuprofen as needed q8 hours. Physical therapy indicates patient is independent with transfers and ambulation without assistive device, they have signed off. -02/05: L hip pain improving. PT to reevaluate today as they previously signed off. 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 Discharge Planning Patient will remain hospitalized until discontinuation of antibiotics. Problem Qualifiers (1) Sepsis: Qualified Code: A41.9 - Sepsis, due to unspecified organism (2) Septic joint: Della Blackwell Feb 05, 2017 11:12
[2017-02-05] MEDS: oxyCODONE/ACETAMINOPHEN 5 MG/325 MG TAB PO PRN ×2 (11:31→22:01)
[2017-02-05] MEDS: SODIUM CHLORIDE 0.9% FLUSH 10 ML FLUSH IVF SCH (11:31)
[2017-02-05] MEDS: ENOXAPARIN SODIUM 100 MG/ML SYRINGE SQ SCH (11:32)
[2017-02-05 20:00] VITALS: BP 136/113; PULSE 101; RESP 18; TEMP 97.1; O2SAT 97
[2017-02-05 22:00] VITALS: BP 116/86; PULSE 96; RESP 16; TEMP 97.1; O2SAT 96
[2017-02-05] MEDS: TEMAZEPAM 15 MG CAP PO PRN (22:01)
[2017-02-06] MEDS: diphenhydrAMINE HCL 25 MG CAP PO SCH ×4 (00:31→17:28)
[2017-02-06] MEDS: ceFAZolin 2 GM PREMIX 50 ML IV SCH ×3 (00:32→17:28)
[2017-02-06 08:00] VITALS: BP 100/81; PULSE 111; RESP 16; TEMP 96.3; O2SAT 97
[2017-02-06] MEDS: NYSTATIN 100,000 U/GM OINT 15 GM TUBE TOPICAL SCH ×2 (09:00→21:04)
[2017-02-06] MEDS: SODIUM CHLORIDE 0.9% FLUSH 5 ML FLUSH FLUSH SCH ×2 (09:00→21:00)
[2017-02-06] MEDS: ENOXAPARIN SODIUM 100 MG/ML SYRINGE SQ SCH (09:40)
[2017-02-06] MEDS: oxyCODONE/ACETAMINOPHEN 5 MG/325 MG TAB PO PRN ×2 (09:41→21:01)
[2017-02-06] MEDS: SODIUM CHLORIDE 0.9% FLUSH 10 ML FLUSH IVF SCH (09:41)
--- NOTE | 2017-02-06 10:14 | HHI.PR ---
Subjective Remarks Follow-up for bacterial endocarditis, B/L superficial upper extremity thrombosis , hip pain. Patient states her left hip pain is improved. No other complaints. Objective Vitals Vital Signs Date Time Temp Pulse Resp B/P Pulse Ox O2 Delivery O2 Flow Rate FiO2 02/05/17 22:00 97.1 96 16 116/86 96 02/05/17 20:00 97.1 101 18 136/113 97 I/O 02/05/17 02/05/17 02/05/17 02/06/17 02/06/17 02/06/17 07:00 15:00 23:00 07:00 15:00 23:00 Intake Total 480 ml 680 ml 720 ml 720 ml 0 ml Balance 480 ml 680 ml 720 ml 720 ml 0 ml Intake Oral 480 ml 680 ml 720 ml 720 ml IV Total 0 ml # Voids 2 3 4 3 # Bowel Movements 2 0 0 Result Diagram: 02/05/17 0625 02/03/17 0440 Objective Remarks GENERAL: Obese, well-developed patient in no apparent distress. CARDIOVASCULAR: Regular rate and rhythm. RESPIRATORY: No accessory muscle use. Clear to auscultation. Breath sounds equal bilaterally. GASTROINTESTINAL: Abdomen soft, nontender, nondistended. NEUROLOGICAL: Sleeping but arouses to voice. Awake and alert. Normal speech. PSYCHIATRIC: Appropriate mood and affect; insight and judgment normal. 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 B/L upper extremities affected, palpable on exam, but L upper arm appears swollen and patient feels affected area is spreading over L upper arm today. Small area to R forearm is improved. -Patient has been using heating pad to areas -Midline was placed R arm on 01/21/17 due to multiple SVT with peripheral IVs. -Doppler US LUE shows thrombosis of the cephalic and basilic veins evident in the left upper extremity. -Hematology was consulted due to multiple veins affected. Recommends once daily therapeutic dosing of Lovenox for duration of antibiotic use and then can discontinue when midline is removed. Recommends lowering dose during menses as patient has heavy flow. Dr. Rivera reevaluated patient on 02/03 and lowered Lovenox to 40 mg daily while currently on menses. Advises monitoring hemoglobin. Hemoglobin stable at 9.9 on 02/05. 01/26/17 patient complained of pain in the right arm where midline has been inserted on 01/21/17 Ultrasound performed which did indicate superficial thrombosis which is worrisome for septic thrombophlebitis in the basilic vein. Midline has been removed, vascular access team unable to place any other IVs in her periphery considering patient has thrombophlebitis in bilateral upper extremities Discussed with infectious disease, could be due from systemic infection versus continued IV drug use while in the hospital. Urine drug screen was performed which is positive for opiates. PICC was placed 01/27. Abdominal rash: Resolved with Benadryl use. Patient had pruritic rash on 01/24, small red papules over the lower abdomen appeared allergic. Patient attributed to Lovenox injections. -Continue scheduled Benadryl 25 mg po every 6 hours and continue Lovenox. -Monitor clinically. Groin rash: Improved. -Continue Nystatin ointment. Fever: Resolved. Patient had temp of 100.6 on 01/22. Afebrile since. 01/23 blood cultures x 2 NGTD. O2 saturation normal. Discussed with ID, Dr. Vernon, who agrees fever is likely due to clots. Endocarditis/bacteremia Echocardiogram and KRISTINA indicates Tricuspid valve, aortic valve involvement. Cardiology and ID consults appreciated. Status post KRISTINA 01/09/17. Has bacteremia with staph aureus. Cardiothoracic surgery evaluated the patient but indicated she is not a surgical candidate Blood cultures positive with staph aureus, negative culture as of 01/09/17 Infectious disease following and made recommendations: Continue Ancef until 02/18/17 Repeat echocardiogram 1 week prior to antibiotic completion -Most recent CBC with normal white blood cell count. ESR improved at 40. CRP improved 1.5. CMP unremarkable. Continue to monitor labs weekly. L Hip Pain: MRI hip w/ small bilateral joint effusions, repeat MRI showed no evidence of joint effusion Orthopedic consulted who indicated patient is not a surgical candidate; last evaluated by ortho on 01/16. Continue pain control: We'll need to wean patient off all narcotics within the next 3 weeks Oxycodone 10 mg every 6 as needed for pain 610. Will not restart Toradol as patient has Ibuprofen as needed q8 hours. Physical therapy indicates patient is independent with transfers and ambulation without assistive device, they have signed off. -02/05: L hip pain improving. PT to reevaluate today as they previously signed off. 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 Discharge Planning Patient will remain hospitalized until discontinuation of antibiotics. Problem Qualifiers (1) Sepsis: Qualified Code: A41.9 - Sepsis, due to unspecified organism (2) Septic joint: Della Blackwell Feb 06, 2017 10:13
--- NOTE | 2017-02-06 17:50 | PD.ONC.PN ---
Subjective Subjective Remarks I hardly bled at all (referring to her cycle) Menses stopped. Arm unchanged no new swelling. Objective Data Date Time Temp Pulse Resp B/P Pulse Ox O2 Delivery O2 Flow Rate FiO2 02/06/17 08:00 96.3 111 16 100/81 97 02/05/17 22:00 97.1 96 16 116/86 96 02/05/17 20:00 97.1 101 18 136/113 97 02/06/17 02/06/17 02/06/17 07:00 15:00 23:00 Intake Total 720 ml 0 ml Balance 720 ml 0 ml Result Diagram: 02/05/17 0625 02/03/17 0440 Administered Medications Medications (Trade) Dose Ordered Sig/Michelle Route PRN Reason Start Time Stop Time Status Last Admin Dose Admin IV Flush (NS Flush) 2 ml UNSCH PRN FLUSH FLUSH AFTER USING IV ACCESS 01/04/17 21:45 02/03/17 00:30 IV Flush (NS Flush) 2 ml BID FLUSH 01/05/17 09:00 02/06/17 09:00 Acetaminophen (Tylenol) 650 mg Q6H PRN PO FEVER/PAIN SCALE 1 TO 5 01/04/17 21:45 01/10/17 02:01 Temazepam 15 mg 15 mg HS PRN PO INSOMNIA 01/06/17 11:00 02/05/17 22:01 Cefazolin Sodium/ Dextrose (Ancef 2 Gm Premix) 50 ml @ 100 mls/hr Q8H IV 01/09/17 17:00 02/06/17 17:28 Senna/Docusate Sodium (Ibis-Colace) 1 tab BID PRN PO CONSTIPATION 01/18/17 22:30 01/27/17 12:32 Ibuprofen (Motrin) 600 mg Q8H PRN PO Hip/ leg pain 01/18/17 22:30 02/04/17 12:14 Ondansetron HCl (Zofran Odt) 4 mg Q6H PRN PO NAUSEA OR VOMITING 01/19/17 09:15 02/04/17 17:48 Diphenhydramine HCl (Benadryl) 25 mg Q6H PO 01/24/17 18:00 02/06/17 17:28 Nystatin (Mycostatin Oint) 1 applic Q12HR TOPICAL 01/25/17 21:00 02/06/17 09:00 Sodium Chloride (NS Flush) DAILY IVF 01/28/17 09:00 02/06/17 09:41 Oxycodone/ Acetaminophen (Percocet 5-325 Mg) 1 tab Q6H PRN PO PAIN SCALE 6 TO 10 02/02/17 11:00 02/06/17 09:41 Enoxaparin Sodium (Lovenox Inj) 40 mg DAILY SQ 02/04/17 09:00 02/06/17 09:40 Objective Remarks GENERAL: Well-nourished, well-developed patient. SKIN: Warm and dry. R chest wall triple lumen. HEAD: Normocephalic. EYES: No scleral icterus. No injection or drainage. NECK: Supple, trachea midline. No JVD or lymphadenopathy. LYMPHATIC: No adenopathy. CARDIOVASCULAR: Regular rate and rhythm without murmurs. RESPIRATORY: Breath sounds equal bilaterally. No accessory muscle use. GASTROINTESTINAL: Abdomen soft, non-tender, nondistended. EXTREMITIES: No cyanosis, or edema. MUSCULOSKELETAL: Adequate muscle tone. Assessment/Plan Problem List: (1) Superficial venous thrombosis of both arms Status: Acute Plan: 02/06/17. Menses stopped. Ok to resume Lovenox 100mg daily. Noted decrease in hgb, no other obvious source of bleed, check iron studies. Anemia normocytic. Continue on Lovenox 100mg daily- goal 6 weeks, time to stop at completion of abx therapy. Clinically clot resolved in both upper arms. R subclavian catheter functioning well. Monitor hgb during cycle, noted decrease in hgb, no other site of bleedin. Discussed decrease dose to limit blood loss from menses. Assessment 26 y/o woman with endocarditis, complicated by line related superficial vein thrombosis on LMWH. Plan 1. Cont Lovenox resume 100mg until completion of antibiotics but decrease dose due to anemia with menses. 2. Monitor for bleeding. 3. Monitor anemia. Sepideh Rivera MD Feb 06, 2017 17:50
[2017-02-06 20:00] VITALS: BP 93/59; PULSE 102; RESP 16; TEMP 96.9; O2SAT 98
[2017-02-06] MEDS: ONDANSETRON ODT 4 MG TAB PO PRN (21:01)
[2017-02-06] MEDS: TEMAZEPAM 15 MG CAP PO PRN (21:01)
[2017-02-07] MEDS: ceFAZolin 2 GM PREMIX 50 ML IV SCH ×3 (00:48→17:08)
[2017-02-07] MEDS: diphenhydrAMINE HCL 25 MG CAP PO SCH ×4 (00:48→17:07)
[2017-02-07 08:00] VITALS: BP 98/64; PULSE 98; RESP 17; TEMP 98; O2SAT 97
[2017-02-07] MEDS: SODIUM CHLORIDE 0.9% FLUSH 5 ML FLUSH FLUSH SCH ×2 (08:04→21:00)
[2017-02-07] MEDS: SODIUM CHLORIDE 0.9% FLUSH 10 ML FLUSH IVF PRN ×2 (08:04→21:02)
[2017-02-07] MEDS: ENOXAPARIN SODIUM 100 MG/ML SYRINGE SQ SCH (08:05)
[2017-02-07] MEDS: SODIUM CHLORIDE 0.9% FLUSH 10 ML FLUSH IVF SCH (08:05)
[2017-02-07] MEDS: NYSTATIN 100,000 U/GM OINT 15 GM TUBE TOPICAL SCH ×2 (08:12→21:00)
[2017-02-07] MEDS: oxyCODONE/ACETAMINOPHEN 5 MG/325 MG TAB PO PRN ×2 (08:12→21:03)
--- NOTE | 2017-02-07 11:54 | HHI.PR ---
Subjective Remarks Follow-up for endocarditis, left hip pain. No acute complaints. Objective Vitals Vital Signs Date Time Temp Pulse Resp B/P Pulse Ox O2 Delivery O2 Flow Rate FiO2 02/07/17 08:00 98.0 98 17 98/64 97 02/06/17 20:00 96.9 102 16 93/59 98 I/O 02/06/17 02/06/17 02/06/17 02/07/17 02/07/17 02/07/17 07:00 15:00 23:00 07:00 15:00 23:00 Intake Total 720 ml 0 ml 720 ml 480 ml Balance 720 ml 0 ml 720 ml 480 ml Intake Oral 720 ml 720 ml 480 ml IV Total 0 ml # Voids 3 3 3 # Bowel Movements 0 0 0 Result Diagram: 02/05/17 0625 02/03/17 0440 Objective Remarks GENERAL: Obese, well-developed patient in no apparent distress. CARDIOVASCULAR: Regular rate and rhythm. RESPIRATORY: No accessory muscle use. Clear to auscultation. Breath sounds equal bilaterally. GASTROINTESTINAL: Abdomen soft, nontender, nondistended. NEUROLOGICAL: Awake and alert. Normal speech. PSYCHIATRIC: Appropriate mood and affect; insight and judgment normal. 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 Will monitor. Superficial venous thrombi: Acute. B/L upper extremities affected, palpable on exam, but L upper arm appears swollen and patient feels affected area is spreading over L upper arm today. Small area to R forearm is improved. -Patient has been using heating pad to areas -Midline was placed R arm on 01/21/17 due to multiple SVT with peripheral IVs. -Doppler US LUE shows thrombosis of the cephalic and basilic veins evident in the left upper extremity. -Hematology was consulted due to multiple veins affected. Recommends once daily therapeutic dosing of Lovenox for duration of antibiotic use and then can discontinue when midline is removed. Recommends lowering dose during menses as patient has heavy flow. Dr. Rivera reevaluated patient on 02/03 and lowered Lovenox to 40 mg daily while currently on menses. Advises monitoring hemoglobin. Hemoglobin stable at 9.9 on 02/05. 01/26/17 patient complained of pain in the right arm where midline has been inserted on 01/21/17 Ultrasound performed which did indicate superficial thrombosis which is worrisome for septic thrombophlebitis in the basilic vein. Midline has been removed, vascular access team unable to place any other IVs in her periphery considering patient has thrombophlebitis in bilateral upper extremities Discussed with infectious disease, could be due from systemic infection versus continued IV drug use while in the hospital. Urine drug screen was performed which is positive for opiates. PICC was placed 01/27. Abdominal rash: Resolved with Benadryl use. Patient had pruritic rash on 01/24, small red papules over the lower abdomen appeared allergic. Patient attributed to Lovenox injections. -Continue scheduled Benadryl 25 mg po every 6 hours and continue Lovenox. -Monitor clinically. Groin rash: Improved. -Continue Nystatin ointment. Fever: Resolved. Patient had temp of 100.6 on 01/22. Afebrile since. 01/23 blood cultures x 2 NGTD. O2 saturation normal. Discussed with ID, Dr. Vernon, who agrees fever is likely due to clots. Endocarditis/bacteremia Echocardiogram and KRISTINA indicates Tricuspid valve, aortic valve involvement. Cardiology and ID consults appreciated. Status post KRISTINA 01/09/17. Has bacteremia with staph aureus. Cardiothoracic surgery evaluated the patient but indicated she is not a surgical candidate Blood cultures positive with staph aureus, negative culture as of 01/09/17 Infectious disease following and made recommendations: Continue Ancef until 02/18/17 Repeat echocardiogram 1 week prior to antibiotic completion -Most recent CBC with normal white blood cell count. ESR improved at 40. CRP improved 1.5. CMP unremarkable. Continue to monitor labs weekly. L Hip Pain: MRI hip w/ small bilateral joint effusions, repeat MRI showed no evidence of joint effusion Orthopedic consulted who indicated patient is not a surgical candidate; last evaluated by ortho on 01/16. Continue pain control: We'll need to wean patient off all narcotics within the next 3 weeks Oxycodone 10 mg every 6 as needed for pain 610. Will not restart Toradol as patient has Ibuprofen as needed q8 hours. Physical therapy indicates patient is independent with transfers and ambulation without assistive device, they have signed off. L hip pain improving. PT following. 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 Discharge Planning Patient will remain hospitalized until discontinuation of antibiotics. Problem Qualifiers (1) Sepsis: Qualified Code: A41.9 - Sepsis, due to unspecified organism (2) Septic joint: Della Blackwell Feb 07, 2017 11:54
[2017-02-07 19:15] VITALS: BP 123/81; PULSE 72; RESP 20; TEMP 99.1; O2SAT 95
[2017-02-07] MEDS: TEMAZEPAM 15 MG CAP PO PRN (21:03)
[2017-02-08] MEDS: diphenhydrAMINE HCL 25 MG CAP PO SCH ×4 (01:17→17:00)
[2017-02-08] MEDS: ceFAZolin 2 GM PREMIX 50 ML IV SCH ×3 (01:17→16:59)
[2017-02-08 08:00] VITALS: BP_SYST 123; BP_SYST 88; BP_DIAS 50; BP_DIAS 94; PULSE 97; RESP 18; TEMP 97.9; O2SAT 94
[2017-02-08] MEDS: ENOXAPARIN SODIUM 100 MG/ML SYRINGE SQ SCH (08:24)
[2017-02-08] MEDS: SODIUM CHLORIDE 0.9% FLUSH 5 ML FLUSH FLUSH SCH ×2 (08:25→20:34)
[2017-02-08] MEDS: SODIUM CHLORIDE 0.9% FLUSH 10 ML FLUSH IVF SCH (08:25)
[2017-02-08] MEDS: NYSTATIN 100,000 U/GM OINT 15 GM TUBE TOPICAL SCH ×2 (08:25→20:34)
--- NOTE | 2017-02-08 12:00 | HHI.PR ---
Subjective Remarks Follow-up for endocarditis, left hip pain. Patient states she is tired today. She states she had nausea and vomiting starting yesterday and had to limit her diet. The patient denies any diarrhea. She denies any dizziness or chest pain. Objective Vitals Vital Signs Date Time Temp Pulse Resp B/P Pulse Ox O2 Delivery O2 Flow Rate FiO2 02/08/17 08:00 97.9 97 18 88/50 94 123/94 02/07/17 19:15 99.1 72 20 123/81 95 I/O 02/07/17 02/07/17 02/07/17 02/08/17 02/08/17 02/08/17 07:00 15:00 23:00 07:00 15:00 23:00 Intake Total 480 ml 1080 ml Balance 480 ml 1080 ml Intake Oral 480 ml 1080 ml # Voids 3 3 # Bowel Movements 0 Result Diagram: 02/05/17 0625 Objective Remarks GENERAL: Obese, well-developed patient in no apparent distress. CARDIOVASCULAR: Regular rate and rhythm. RESPIRATORY: No accessory muscle use. Clear to auscultation. Breath sounds equal bilaterally. NEUROLOGICAL: Awake and alert. Normal speech. PSYCHIATRIC: Appropriate mood and affect; insight and judgment normal. Procedures KRISTINA Urinary Catheter: No Vascular Central Line Catheter: Yes Assessment to: Continue Date of Insertion: Jan 27, 2017 Line: Central Venous Catheter Side: Right Location: Subclavian A/P Problem List: (1) Superficial venous thrombosis of both arms ICD Code: I82.613 Status: Acute (2) Sepsis ICD Code: A41.9 Status: Resolved (3) Bacteremia due to Gram-positive bacteria ICD Code: A49.9 Status: Acute (4) Endocarditis due to Staphylococcus ICD Code: I33.0 Status: Acute (5) Endocarditis of tricuspid valve ICD Code: I36.8 Status: Acute (6) Endocarditis of aortic valve ICD Code: I35.8 Status: Acute (7) IVDU (intravenous drug user) ICD Code: F19.90 Status: Acute (8) Left hip pain ICD Code: M25.552 Status: Acute (9) Septic joint ICD Code: M00.9 Status: Acute (10) Rash ICD Code: R21 Status: Acute (11) Tobacco abuse ICD Code: Z72.0 Status: Acute Assessment and Plan Nausea/vomiting: Patient states she was nauseous and vomiting yesterday. Could be due to antibiotics. I spoke with the RN this afternoon who states there has been no report of nausea or vomiting, patient has been eating and has been out of her room. -Zofran as needed -Monitor clinically Hypotension: Acute. BP 88/50 (MAP 63) when supine this morning but increased to 123/94 (104) sitting. Patient states she is tired, but denies any dizziness or chest pain. Last hemoglobin 9.9 on 02/05. -Monitor clinically and monitor BP -Dr. Rivera has already ordered CBC for tomorrow, but will check hemoglobin level today. Superficial venous thrombi: Acute. B/L upper extremities affected, palpable on exam, but L upper arm appears swollen and patient feels affected area is spreading over L upper arm today. Small area to R forearm is improved. -Patient has been using heating pad to areas -Midline was placed R arm on 01/21/17 due to multiple SVT with peripheral IVs. -Doppler US LUE shows thrombosis of the cephalic and basilic veins evident in the left upper extremity. -Hematology was consulted due to multiple veins affected. Recommends once daily therapeutic dosing of Lovenox for duration of antibiotic use and then can discontinue when midline is removed. Recommends lowering dose during menses as patient has heavy flow. Dr. Rivera lowered Lovenox to 40 mg daily while on menses. Hemoglobin low but stable at 9.9 on 02/05. Increased Lovenox back to 100 mg sq daily on 02/07. 01/26/17 patient complained of pain in the right arm where midline has been inserted on 01/21/17 Ultrasound performed which did indicate superficial thrombosis which is worrisome for septic thrombophlebitis in the basilic vein. Midline has been removed, vascular access team unable to place any other IVs in her periphery considering patient has thrombophlebitis in bilateral upper extremities Discussed with infectious disease, could be due from systemic infection versus continued IV drug use while in the hospital. Urine drug screen was performed which is positive for opiates. PICC was placed 01/27. Abdominal rash: Resolved with Benadryl use. Patient had pruritic rash on 01/24, small red papules over the lower abdomen appeared allergic. Patient attributed to Lovenox injections. -Continue scheduled Benadryl 25 mg po every 6 hours and continue Lovenox. -Monitor clinically. Groin rash: Improved. -Continue Nystatin ointment. Fever: Resolved. Patient had temp of 100.6 on 01/22. Afebrile since. 01/23 blood cultures x 2 NGTD. O2 saturation normal. Discussed with ID, Dr. Vernon, who agrees fever is likely due to clots. Endocarditis/bacteremia Echocardiogram and KRISTINA indicates Tricuspid valve, aortic valve involvement. Cardiology and ID consults appreciated. Status post KRISTINA 01/09/17. Has bacteremia with staph aureus. Cardiothoracic surgery evaluated the patient but indicated she is not a surgical candidate Blood cultures positive with staph aureus, negative culture as of 01/09/17 Infectious disease following and made recommendations: Continue Ancef until 02/18/17 Repeat echocardiogram 1 week prior to antibiotic completion -Most recent CBC with normal white blood cell count. ESR improved at 40. CRP improved 1.5. CMP unremarkable. Continue to monitor labs weekly. Labs ordered for 02/10/17. L Hip Pain: MRI hip w/ small bilateral joint effusions, repeat MRI showed no evidence of joint effusion Orthopedic consulted who indicated patient is not a surgical candidate; last evaluated by ortho on 01/16. Continue pain control: We'll need to wean patient off all narcotics within the next 3 weeks Oxycodone 10 mg every 6 as needed for pain 610. Will not restart Toradol as patient has Ibuprofen as needed q8 hours. Physical therapy indicates patient is independent with transfers and ambulation without assistive device, they have signed off. L hip pain improving. PT following. 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 Discharge Planning Patient will remain hospitalized until discontinuation of antibiotics. Problem Qualifiers (1) Sepsis: Qualified Code: A41.9 - Sepsis, due to unspecified organism (2) Septic joint: Della Blackwell Feb 08, 2017 12:00
[2017-02-08] MEDS: TEMAZEPAM 15 MG CAP PO PRN (19:57)
[2017-02-08] MEDS: oxyCODONE/ACETAMINOPHEN 5 MG/325 MG TAB PO PRN (19:57)
[2017-02-08 20:07] VITALS: BP 112/68; PULSE 99; RESP 18; TEMP 98.1; O2SAT 99
[2017-02-09] MEDS: diphenhydrAMINE HCL 25 MG CAP PO SCH ×4 (00:26→17:10)
[2017-02-09] MEDS: ceFAZolin 2 GM PREMIX 50 ML IV SCH ×3 (00:26→17:00)
[2017-02-09 00:31] VITALS: BP 118/87; PULSE 109; RESP 20; TEMP 97.9; O2SAT 99
[2017-02-09 05:00] VITALS: BP 123/80; PULSE 97; RESP 18; TEMP 96.9; O2SAT 97
[2017-02-09 06:15] LABS: AUTOMATED NEUTROPHIL # 4.7 TH/MM3 (1.8-7.7); BASOPHIL # 0.1 TH/MM3 (0-0.2); BASOPHIL % 0.7 % (0.0-2.0); EOSINOPHIL # 1.7 TH/MM3 (0-0.4); EOSINOPHIL % 18.5 % (0.0-4.0); HEMATOCRIT 29.9 % (35.0-46.0); HEMO FLAGS DIFF FINAL; LYMPH % 21.7 % (9.0-44.0); LYMPHOCYTE # 1.9 TH/MM3 (1.0-4.8); MEAN CELL VOLUME 84.3 FL (80.0-100.0); MEAN CORPUSCULAR HEMOGLOBIN 28.4 PG (27.0-34.0); MEAN CORPUSCULAR HGB CONC 33.7 % (32.0-36.0); MONO % 7.2 % (0.0-8.0); NEUT % 51.9 % (16.0-70.0); PLATELET COUNT 275 TH/MM3 (150-450); RED BLOOD COUNT 3.55 MIL/MM3 (4.00-5.30); RED CELL DISTRIBUTION WIDTH 14.1 % (11.6-17.2)
[2017-02-09 08:00] VITALS: BP 112/68; PULSE 99; RESP 18; TEMP 98.1; O2SAT 99
[2017-02-09] MEDS: SODIUM CHLORIDE 0.9% FLUSH 5 ML FLUSH FLUSH SCH ×2 (09:00→20:57)
[2017-02-09] MEDS: NYSTATIN 100,000 U/GM OINT 15 GM TUBE TOPICAL SCH ×2 (09:00→21:00)
[2017-02-09 09:30] LABS: RETIC % 2.6 % (0.4-3.0); REVIEW FLAG FINAL
--- NOTE | 2017-02-09 10:35 | HHI.PR ---
Subjective Remarks Follow-up for endocarditis, superficial thrombosis of B/L upper extremities, left hip pain, n/v. Patient states her nausea and vomiting is slowing down. She states last episode of emesis was last night. She states she ate this morning. She states she may have had a "bug", which she has told me in the past. She denies any fevers or chills. Denies any diarrhea. Objective Vitals Vital Signs Date Time Temp Pulse Resp B/P Pulse Ox O2 Delivery O2 Flow Rate FiO2 02/09/17 05:00 96.9 97 18 123/80 97 02/09/17 00:31 97.9 109 20 118/87 99 02/08/17 21:01 18 02/08/17 20:07 98.1 99 18 112/68 99 I/O 02/08/17 02/08/17 02/08/17 02/09/17 02/09/17 02/09/17 07:00 15:00 23:00 07:00 15:00 23:00 Intake Total 1080 ml 1280 ml 240 ml Balance 1080 ml 1280 ml 240 ml Intake Oral 1080 ml 1280 ml 240 ml # Voids 3 4 1 # Bowel Movements 1 Result Diagram: 02/09/17 0545 Objective Remarks GENERAL: Obese, well-developed patient in no apparent distress. CARDIOVASCULAR: Regular rate and rhythm. RESPIRATORY: No accessory muscle use. Clear to auscultation. Breath sounds equal bilaterally. GASTROINTESTINAL: Abdomen soft, non-tender, non-distended. NEUROLOGICAL: Awake and alert. Normal speech. PSYCHIATRIC: Appropriate mood and affect; insight and judgment normal. Procedures KRISTINA Urinary Catheter: No Vascular Central Line Catheter: Yes Assessment to: Continue Date of Insertion: Jan 27, 2017 Line: Central Venous Catheter Side: Right Location: Subclavian A/P Problem List: (1) Superficial venous thrombosis of both arms ICD Code: I82.613 Status: Acute (2) Sepsis ICD Code: A41.9 Status: Resolved (3) Bacteremia due to Gram-positive bacteria ICD Code: A49.9 Status: Acute (4) Endocarditis due to Staphylococcus ICD Code: I33.0 Status: Acute (5) Endocarditis of tricuspid valve ICD Code: I36.8 Status: Acute (6) Endocarditis of aortic valve ICD Code: I35.8 Status: Acute (7) IVDU (intravenous drug user) ICD Code: F19.90 Status: Acute (8) Left hip pain ICD Code: M25.552 Status: Acute (9) Septic joint ICD Code: M00.9 Status: Acute (10) Rash ICD Code: R21 Status: Acute (11) Tobacco abuse ICD Code: Z72.0 Status: Acute Assessment and Plan Nausea/vomiting: Improved. Patient states she was nauseous and vomiting yesterday. Could be due to antibiotics. I spoke with the RN yesterday afternoon who states there has been no report of nausea or vomiting, patient has been eating and has been out of her room. -Zofran as needed -Monitor clinically Hypotension: Resolved. Superficial venous thrombi: Acute. B/L upper extremities affected, palpable on exam, but L upper arm appears swollen and patient feels affected area is spreading over L upper arm today. Small area to R forearm is improved. -Patient has been using heating pad to areas -Midline was placed R arm on 01/21/17 due to multiple SVT with peripheral IVs. -Doppler US LUE shows thrombosis of the cephalic and basilic veins evident in the left upper extremity. -Hematology was consulted due to multiple veins affected. Recommends once daily therapeutic dosing of Lovenox for duration of antibiotic use and then can discontinue when midline is removed. Recommends lowering dose during menses as patient has heavy flow. Dr. Rivera lowered Lovenox to 40 mg daily while on menses. Hemoglobin low but stable at 10.1. Increased Lovenox back to 100 mg sq daily on 02/07. -02/09: Dr. Rivera evaluated the patient today. Patient told Dr. Rivera about allergic rash to abdomen that she had previously attributing it to the Lovenox although this rash is no longer apparent because she has been on Benadryl treatment. Dr. Rivera has stopped Lovenox and switched patient to Arixtra. 01/26/17 patient complained of pain in the right arm where midline has been inserted on 01/21/17 Ultrasound performed which did indicate superficial thrombosis which is worrisome for septic thrombophlebitis in the basilic vein. Midline has been removed, vascular access team unable to place any other IVs in her periphery considering patient has thrombophlebitis in bilateral upper extremities Discussed with infectious disease, could be due from systemic infection versus continued IV drug use while in the hospital. Urine drug screen was performed which is positive for opiates. PICC was placed 01/27. Abdominal rash: Resolved with Benadryl use. Patient had pruritic rash on 01/24, small red papules over the lower abdomen appeared allergic. Patient attributed to Lovenox injections. -Lovenox stopped. Stop Benadryl. -Monitor clinically. Groin rash: Improved. -Continue Nystatin ointment. Fever: Resolved. Patient had temp of 100.6 on 01/22. Afebrile since. 01/23 blood cultures x 2 NGTD. O2 saturation normal. Discussed with ID, Dr. Vernon, who agrees fever is likely due to clots. Endocarditis/bacteremia Echocardiogram and KRISTINA indicates Tricuspid valve, aortic valve involvement. Cardiology and ID consults appreciated. Status post KRISTINA 01/09/17. Has bacteremia with staph aureus. Cardiothoracic surgery evaluated the patient but indicated she is not a surgical candidate Blood cultures positive with staph aureus, negative culture as of 01/09/17 Infectious disease following and made recommendations: Continue Ancef until 02/18/17 Repeat echocardiogram 1 week prior to antibiotic completion -Most recent CBC with normal white blood cell count. ESR improved at 40. CRP improved 1.5. CMP unremarkable. Continue to monitor labs weekly. Labs ordered for 02/10/17. L Hip Pain: MRI hip w/ small bilateral joint effusions, repeat MRI showed no evidence of joint effusion Orthopedic consulted who indicated patient is not a surgical candidate; last evaluated by ortho on 01/16. Continue pain control: We'll need to wean patient off all narcotics within the next 3 weeks Oxycodone 10 mg every 6 as needed for pain 610. Will not restart Toradol as patient has Ibuprofen prn q8h. L hip pain improving. PT following. 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 Discharge Planning Patient will remain hospitalized until discontinuation of antibiotics. Problem Qualifiers (1) Sepsis: Qualified Code: A41.9 - Sepsis, due to unspecified organism (2) Septic joint: Della Blackwell Feb 09, 2017 10:35
[2017-02-09 12:00] VITALS: BP 108/75; PULSE 95; RESP 16; TEMP 98; O2SAT 95
[2017-02-09] MEDS: oxyCODONE/ACETAMINOPHEN 5 MG/325 MG TAB PO PRN ×2 (12:08→20:55)
[2017-02-09] MEDS: ENOXAPARIN SODIUM 100 MG/ML SYRINGE SQ SCH (12:09)
[2017-02-09] MEDS: SODIUM CHLORIDE 0.9% FLUSH 10 ML FLUSH IVF SCH (12:09)
[2017-02-09] MEDS: IBUPROFEN 600 MG TAB PO PRN (17:10)
--- NOTE | 2017-02-09 17:45 | PD.ONC.PN ---
Subjective Subjective Remarks I'm Ok, I take the benadryl every 6 hours. Objective Data Date Time Temp Pulse Resp B/P Pulse Ox O2 Delivery O2 Flow Rate FiO2 02/09/17 05:00 96.9 97 18 123/80 97 02/09/17 00:31 97.9 109 20 118/87 99 02/08/17 21:01 18 02/08/17 20:07 98.1 99 18 112/68 99 02/09/17 02/09/17 02/09/17 07:00 15:00 23:00 Intake Total 240 ml Balance 240 ml Result Diagram: 02/09/17 0545 Laboratory Results Laboratory Tests Test 02/08/17 02/09/17 18:21 05:45 Hemoglobin 10.4 GM/DL 10.1 GM/DL White Blood Count 9.0 TH/MM3 Red Blood Count 3.55 MIL/MM3 Hematocrit 29.9 % Mean Corpuscular Volume 84.3 FL Mean Corpuscular Hemoglobin 28.4 PG Mean Corpuscular Hemoglobin 33.7 % Concent Red Cell Distribution Width 14.1 % Platelet Count 275 TH/MM3 Mean Platelet Volume 7.7 FL Neutrophils (%) (Auto) 51.9 % Lymphocytes (%) (Auto) 21.7 % Monocytes (%) (Auto) 7.2 % Eosinophils (%) (Auto) 18.5 % Basophils (%) (Auto) 0.7 % Neutrophils # (Auto) 4.7 TH/MM3 Lymphocytes # (Auto) 1.9 TH/MM3 Monocytes # (Auto) 0.6 TH/MM3 Eosinophils # (Auto) 1.7 TH/MM3 Basophils # (Auto) 0.1 TH/MM3 CBC Comment DIFF FINAL Differential Comment Reticulocyte Count 2.6 % Absolute Reticulocyte Count 92.1 MIL/L Ferritin 54 NG/ML Administered Medications Medications (Trade) Dose Ordered Sig/Michelle Route PRN Reason Start Time Stop Time Status Last Admin Dose Admin IV Flush (NS Flush) 2 ml UNSCH PRN FLUSH FLUSH AFTER USING IV ACCESS 01/04/17 21:45 02/03/17 00:30 IV Flush (NS Flush) 2 ml BID FLUSH 01/05/17 09:00 02/09/17 09:00 Acetaminophen (Tylenol) 650 mg Q6H PRN PO FEVER/PAIN SCALE 1 TO 5 01/04/17 21:45 01/10/17 02:01 Temazepam 15 mg 15 mg HS PRN PO INSOMNIA 01/06/17 11:00 02/08/17 19:57 Cefazolin Sodium/ Dextrose (Ancef 2 Gm Premix) 50 ml @ 100 mls/hr Q8H IV 01/09/17 17:00 02/09/17 17:00 Senna/Docusate Sodium (Ibis-Colace) 1 tab BID PRN PO CONSTIPATION 01/18/17 22:30 01/27/17 12:32 Ibuprofen (Motrin) 600 mg Q8H PRN PO Hip/ leg pain 01/18/17 22:30 02/09/17 17:10 Ondansetron HCl (Zofran Odt) 4 mg Q6H PRN PO NAUSEA OR VOMITING 01/19/17 09:15 02/06/17 21:01 Diphenhydramine HCl (Benadryl) 25 mg Q6H PO 01/24/17 18:00 02/09/17 17:10 Nystatin (Mycostatin Oint) 1 applic Q12HR TOPICAL 01/25/17 21:00 02/09/17 09:00 Sodium Chloride (NS Flush) DAILY IVF 01/28/17 09:00 02/09/17 12:09 Sodium Chloride (NS Flush) UNSCH PRN IVF SEE PROTOCOL 01/27/17 18:15 02/07/17 21:02 Oxycodone/ Acetaminophen (Percocet 5-325 Mg) 1 tab Q6H PRN PO PAIN SCALE 6 TO 10 02/02/17 11:00 02/09/17 12:08 Enoxaparin Sodium (Lovenox Inj) 100 mg DAILY SQ 02/07/17 09:00 02/09/17 12:09 Objective Remarks GENERAL: Well-nourished, well-developed patient. SKIN: Warm and dry. Dry skin low abdominal area. HEAD: Normocephalic. EYES: No scleral icterus. No injection or drainage. NECK: Supple, trachea midline. No JVD or lymphadenopathy. LYMPHATIC: No adenopathy. CARDIOVASCULAR: Regular rate and rhythm without murmurs. RESPIRATORY: Breath sounds equal bilaterally. No accessory muscle use. GASTROINTESTINAL: Abdomen soft, non-tender, nondistended. EXTREMITIES: No cyanosis, or edema. No arm swelling. MUSCULOSKELETAL: Adequate muscle tone. NEUROLOGICAL: No obvious focal deficit. Awake, alert, and oriented x3. PSYCHIATRIC: Appropriate mood and affect; insight and judgment normal. Assessment/Plan Problem List: (1) Superficial venous thrombosis of both arms Status: Acute Plan: 02/09/17. Convinced that she is allergic to lovenox. Pointed out that the bruise in her abdomen is a small injection site hematoma not an allergy. Dry skin was below the area of injection. However, she reports a rash present in the upper abdomen and was told by the doctor it was an allergy. Noted normal platelet count. No bleeding. Hgb stable. Discussed trial of different medication Arixtra. 02/06/17. Menses stopped. Ok to resume Lovenox 100mg daily. Noted decrease in hgb, no other obvious source of bleed, check iron studies. Anemia normocytic. Continue on Lovenox 100mg daily- goal 6 weeks, time to stop at completion of abx therapy. Clinically clot resolved in both upper arms. R subclavian catheter functioning well. Monitor hgb during cycle, noted decrease in hgb, no other site of bleedin. Discussed decrease dose to limit blood loss from menses. Assessment 26 y/o woman with endocarditis, complicated by line related superficial vein thrombosis on LMWH. Plan 1. Start Arixtra. 2. Monitor for bleeding. 3. Monitor anemia. 4. Lotion to dry skin. Sepideh Rivera MD Feb 09, 2017 17:45
[2017-02-09 20:00] VITALS: BP 116/68; PULSE 100; RESP 18; TEMP 98.2; O2SAT 98
[2017-02-09] MEDS: TEMAZEPAM 15 MG CAP PO PRN (20:55)
[2017-02-09] MEDS: SODIUM CHLORIDE 0.9% FLUSH 10 ML FLUSH IVF PRN (20:56)
[2017-02-10] MEDS: ceFAZolin 2 GM PREMIX 50 ML IV SCH ×3 (00:20→17:12)
[2017-02-10] MEDS: SODIUM CHLORIDE 0.9% FLUSH 5 ML FLUSH FLUSH PRN (00:20)
[2017-02-10 05:17] LABS: CHLORIDE 102 MEQ/L (98-107); SODIUM (NA) 140 MEQ/L (136-145)
[2017-02-10 05:21] LABS: ANION GAP 5 MEQ/L (5-15); BICARBONATE 32.9 MEQ/L (21.0-32.0); BLOOD UREA NITROGEN 9 MG/DL (7-18)
[2017-02-10 05:24] LABS: ALT (GPT) 15 U/L (10-53); AST (GOT) 17 U/L (15-37); GLOMERULAR FILTRATION RATE 126 ML/MIN (>89)
[2017-02-10 05:25] LABS: TOTAL BILIRUBIN ADULT 0.2 MG/DL (0.2-1.0)
[2017-02-10 05:27] LABS: ALKALINE PHOSPHATASE 47 U/L (45-117)
[2017-02-10 08:00] VITALS: BP 104/68; PULSE 94; RESP 18; TEMP 97.8; O2SAT 97
[2017-02-10] MEDS: NYSTATIN 100,000 U/GM OINT 15 GM TUBE TOPICAL SCH ×2 (09:00→21:36)
[2017-02-10] MEDS: SODIUM CHLORIDE 0.9% FLUSH 5 ML FLUSH FLUSH SCH ×2 (09:00→21:31)
[2017-02-10] MEDS: oxyCODONE/ACETAMINOPHEN 5 MG/325 MG TAB PO PRN (09:48)
[2017-02-10] MEDS: SODIUM CHLORIDE 0.9% FLUSH 10 ML FLUSH IVF SCH (09:48)
[2017-02-10] MEDS: FONDAPARINUX SODIUM 2.5 MG/0.5 ML SYRINGE SQ SCH (09:49)
--- NOTE | 2017-02-10 14:54 | HHI.PR ---
Subjective Remarks Patient seen and examined today for follow-up on IV drug use, bacterial endocarditis. Patient denies any new complaints today. Discussed with her will follow up echocardiogram tomorrow for evaluation of her mitral valve the recommendation made for discharge in one week. Objective Vitals Vital Signs Date Time Temp Pulse Resp B/P Pulse Ox O2 Delivery O2 Flow Rate FiO2 02/10/17 08:00 97.8 94 18 104/68 97 02/09/17 20:00 98.2 100 18 116/68 98 I/O 02/09/17 02/09/17 02/09/17 02/10/17 02/10/17 02/10/17 07:00 15:00 23:00 07:00 15:00 23:00 Intake Total 240 ml 720 ml 480 ml Balance 240 ml 720 ml 480 ml Intake Oral 240 ml 720 ml 480 ml # Voids 1 1 2 # Bowel Movements 0 0 Result Diagram: 02/09/17 0545 02/10/17 0450 Objective Remarks GENERAL: Well-developed, well-nourished, in no acute distress. alert and orientated HEENT: Head is normocephalic without any lesions or masses noted. Facial features are symmetric. Eyes: Extraocular muscles are intact. Conjunctivae were clear. NECK: Supple without any masses. Trachea midline no deviation. No JVD, CARDIAC: Regular rhythm, regular rate. S1/S2 are heard. No murmurs gallops or rubs. LUNGS: Clear to auscultation bilaterally. No wheeze, rhonchi or rales. No use of accessory muscles on inspiration or expiration. ABDOMEN: Soft, nontender. Nondistended. Bowel sounds heard in all 4 quadrants. No organomegaly or masses. Negative rebound, negative guarding EXTREMITIES: No edema, pulses are equal bilaterally. No cyanosis or clubbing NEUROLOGY: Mood and affect appear appropriate. Cranial nerves II through XII grossly intact. Moving all extremities, speech is clear RIGHT UPPER EXTREMITY: Edema and granulation have resolved Procedures KRISTINA Urinary Catheter: No Vascular Central Line Catheter: Yes Assessment to: Continue Date of Insertion: Jan 27, 2017 Line: Central Venous Catheter Side: Right Location: Subclavian A/P Assessment and Plan Endocarditis/bacteremia Echocardiogram and KRISTINA indicates Tricuspid valve, aortic valve involvement.. Cardiology and ID consults appreciated. Status post KRISTINA 01/09/17. Has bacteremia with staph aureus. Cardiothoracic surgery evaluated the patient indicated that she is not a surgical candidate Blood cultures positive with staph aureus, negative culture as of 01/09/17 Follow weekly CBC, CMP, C-reactive protein, sedimentation rate, which all appear to be improving Infectious disease following and made recommendations Continue Ancef until 02/18/17 Repeat echocardiogram 1 week (02/11/17) prior to antibiotics discontinuing Superficial vein thrombosis in the left upper extremity, now has developed in the right upper extremity Ultrasound indicates thrombosis of the cephalic and basilic veins of left arm Hematology consulted for recommendations Patient switched to Arixtra because of possible allergy to Lovenox 01/26/17 patient now complaining of pain in the right arm where midline has been inserted on 01/21/17 Ultrasound performed which did indicate superficial thrombosis which is worrisome for septic thrombophlebitis in the basilic vein. Midline has been removed, vascular access team unable to place any other IVs in her periphery considering patient has thrombophlebitis in bilateral upper extremities Discussed with infectious disease, could be due from systemic infection versus continued IV drug use while in the hospital. Urine drug screen was performed which is positive for opiates. Fever, one documented elevated temperature, resolved Infectious workup was performed and was negative Infectious disease indicated that elevated temperature likely secondary to thrombosis Skin rash, improving Patient had pruritic rash and 01/24 small red papules which has resolved Patient had rash in her groin on 01/25 which has resolved Patient started on Benadryl and nystatin ointment Hip Pain MRI hip w/ small bilateral joint effusions, repeat MRI showed no evidence of joint effusion Orthopedic consulted who indicated patient is not a surgical candidate Continue pain control: We'll need to wean patient off all narcotics weekly, Start ibuprofen 600 mg 3 times daily as needed for pain 610 Discontinue Percocet 5 mg every 6 hours as needed for pain 610, Continue physical therapy IVDU Patient will plan minutes says 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 Discharge Planning Discharge planning after patient completes IV antibiotics Christiano Sandhu Feb 10, 2017 14:54
[2017-02-10] MEDS: IBUPROFEN 600 MG TAB PO PRN (17:12)
[2017-02-10 20:00] VITALS: BP 150/84; PULSE 93; RESP 18; TEMP 98.2; O2SAT 100
[2017-02-10] MEDS: TEMAZEPAM 15 MG CAP PO PRN (21:35)
[2017-02-10] MEDS: ACETAMINOPHEN 325 MG TAB PO PRN (21:35)
[2017-02-11] MEDS: SODIUM CHLORIDE 0.9% FLUSH 5 ML FLUSH FLUSH PRN (00:52)
[2017-02-11] MEDS: ceFAZolin 2 GM PREMIX 50 ML IV SCH ×3 (00:52→16:35)
[2017-02-11] MEDS: IBUPROFEN 600 MG TAB PO PRN ×3 (00:53→16:35)
[2017-02-11 08:00] VITALS: BP 120/76; PULSE 85; RESP 17; TEMP 98.5; O2SAT 96
[2017-02-11] MEDS: FONDAPARINUX SODIUM 2.5 MG/0.5 ML SYRINGE SQ SCH (09:03)
[2017-02-11] MEDS: SODIUM CHLORIDE 0.9% FLUSH 5 ML FLUSH FLUSH SCH ×2 (09:05→20:29)
[2017-02-11] MEDS: SODIUM CHLORIDE 0.9% FLUSH 10 ML FLUSH IVF SCH (09:05)
[2017-02-11] MEDS: NYSTATIN 100,000 U/GM OINT 15 GM TUBE TOPICAL SCH ×2 (09:06→20:28)
--- NOTE | 2017-02-11 11:18 | HHI.PR ---
Subjective Remarks Patient seen and examined today in follow-up for her bacteremia, endocarditis. Patient states still having some pain in her hip. She did have echocardiogram done today and should only have one more week left of antibiotics. Objective Vitals Vital Signs Date Time Temp Pulse Resp B/P Pulse Ox O2 Delivery O2 Flow Rate FiO2 02/11/17 08:00 98.5 85 17 120/76 96 02/10/17 20:00 98.2 93 18 150/84 100 I/O 02/10/17 02/10/17 02/10/17 02/11/17 02/11/17 02/11/17 07:00 15:00 23:00 07:00 15:00 23:00 Intake Total 480 ml 360 ml 720 ml 560 ml Balance 480 ml 360 ml 720 ml 560 ml Intake Oral 480 ml 360 ml 720 ml 560 ml # Voids 2 3 3 2 # Bowel Movements 0 0 0 0 Result Diagram: 02/09/17 0545 02/10/17 0450 Objective Remarks GENERAL: Well-developed, well-nourished, in no acute distress. alert and orientated HEENT: Head is normocephalic without any lesions or masses noted. Facial features are symmetric. Eyes: Extraocular muscles are intact. Conjunctivae were clear. NECK: Supple without any masses. Trachea midline no deviation. No JVD, CARDIAC: Regular rhythm, regular rate. S1/S2 are heard. No murmurs gallops or rubs. LUNGS: Clear to auscultation bilaterally. No wheeze, rhonchi or rales. No use of accessory muscles on inspiration or expiration. ABDOMEN: Soft, nontender. Nondistended. Bowel sounds heard in all 4 quadrants. No organomegaly or masses. Negative rebound, negative guarding EXTREMITIES: No edema, pulses are equal bilaterally. No cyanosis or clubbing NEUROLOGY: Mood and affect appear appropriate. Cranial nerves II through XII grossly intact. Moving all extremities, speech is clear RIGHT UPPER EXTREMITY: Edema and granulation have resolved Procedures KRISTINA Urinary Catheter: No Vascular Central Line Catheter: Yes Assessment to: Continue Date of Insertion: Jan 27, 2017 Line: Central Venous Catheter Side: Right Location: Subclavian A/P Assessment and Plan Endocarditis/bacteremia Echocardiogram and KRISTINA indicates Tricuspid valve, aortic valve involvement.. Cardiology and ID consults appreciated. Status post KRISTINA 01/09/17. Has bacteremia with staph aureus. Cardiothoracic surgery evaluated the patient indicated that she is not a surgical candidate Blood cultures positive with staph aureus, negative culture as of 01/09/17 Follow weekly CBC, CMP, C-reactive protein, sedimentation rate, which all appear to be improving Infectious disease following and made recommendations Continue Ancef until 02/18/17 Repeat echocardiogram pending results Superficial vein thrombosis in the left upper extremity, now has developed in the right upper extremity Ultrasound indicates thrombosis of the cephalic and basilic veins of left arm Hematology consulted for recommendations Patient switched to Arixtra because of possible allergy to Lovenox 01/26/17 patient now complaining of pain in the right arm where midline has been inserted on 01/21/17 Ultrasound performed which did indicate superficial thrombosis which is worrisome for septic thrombophlebitis in the basilic vein. Midline has been removed, vascular access team unable to place any other IVs in her periphery considering patient has thrombophlebitis in bilateral upper extremities Discussed with infectious disease, could be due from systemic infection versus continued IV drug use while in the hospital. Urine drug screen was performed which is positive for opiates. Fever, one documented elevated temperature, resolved Infectious workup was performed and was negative Infectious disease indicated that elevated temperature likely secondary to thrombosis Skin rash, improving Patient had pruritic rash and 01/24 small red papules which has resolved Patient had rash in her groin on 01/25 which has resolved Patient started on Benadryl and nystatin ointment Hip Pain MRI hip w/ small bilateral joint effusions, repeat MRI showed no evidence of joint effusion Orthopedic consulted who indicated patient is not a surgical candidate Continue pain control: We'll need to wean patient off all narcotics weekly, Start ibuprofen 600 mg 3 times daily as needed for pain 610 Discontinue Percocet 5 mg every 6 hours as needed for pain 610, Continue physical therapy IVDU Patient will plan minutes says 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 Discharge Planning Discharge planning after patient completes IV antibiotics Christiano Sandhu Feb 11, 2017 11:18
--- NOTE | 2017-02-11 13:32 | EC ---
Study Study Date:02/11/2017 STUDY CONCLUSIONS SUMMARY - Left ventricle: The cavity size was normal. Wall thickness was normal. Systolic function was normal. The estimated ejection fraction was in the range of 55% to 60%. Wall motion was normal; there were no regional wall motion abnormalities. - Aortic valve: Valve area: 3.39cm^2(VTI). Valve area: 3cm^2 (Vmax). - Mitral valve: Mild regurgitation. - Right ventricle: The cavity size was mildly dilated. Wall thickness was normal. - Tricuspid valve: There was a probablenon-mobile vegetation or annular abscess on the right ventricular aspect of the base of the septal leaflet. Consider transesophageal echocardiography, if clinically indicated. Moderate regurgitation. - Pulmonary arteries: PA peak pressure: 37mm Hg (S). If LV function is below 40, please consider prescribing an ACEI or ARB or document rationale for non-use. PROCEDURE DATA STUDY STATUS: Elective. Procedure: Transthoracic echocardiography. Image quality was good. Scanning was performed from the parasternal, apical, and subcostal acoustic windows. Study completion: The patient tolerated the procedure well. Transthoracic echocardiography. M-mode, complete 2D, complete spectral Doppler, and color Doppler. Height: Height: 65in. Weight: Weight: 225.5lb. Body mass index: BMI: 37.6kg/m^2. Body surface area: BSA: 2.08m^2. Patient status: Inpatient. CARDIAC ANATOMY LEFT VENTRICLE: The cavity size was normal. Wall thickness was normal. Systolic function was normal. The estimated ejection fraction was in the range of 55% to 60%. Wall motion was normal; there were no regional wall motion abnormalities. AORTIC VALVE: Trileaflet; normal thickness leaflets. Doppler: Transvalvular velocity was within the normal range. There was no stenosis. No regurgitation. Valve area: 3.39cm^2(VTI). Indexed valve area: 1.63cm^2/m^2 (VTI). Valve area: 3cm^2 (Vmax). Indexed valve area: 1.44cm^2/m^2 (Vmax). Mean gradient: 3mm Hg (S). AORTA: Aortic root: The aortic root was normal in size. MITRAL VALVE: Structurally normal valve. Doppler: Transvalvular velocity was within the normal range. There was no evidence for stenosis. Mild regurgitation. Peak gradient: 3mm Hg (D). LEFT ATRIUM: The atrium was normal in size. RIGHT VENTRICLE: The cavity size was mildly dilated. Wall thickness was normal. PULMONIC VALVE: Doppler: Transvalvular velocity was within the normal range. There was no evidence for stenosis. No regurgitation. TRICUSPID VALVE: Structurally normal valve. There was a probable non-mobile vegetation or annular abscess on the right ventricular aspect of the base of the septal leaflet. Consider transesophageal echocardiography, if clinically indicated. Doppler: Transvalvular velocity was within the normal range. Moderate regurgitation. PULMONARY ARTERY: The main pulmonary artery was normal-sized. Systolic pressure was within the normal range. RIGHT ATRIUM: The atrium was normal in size. PERICARDIUM: There was no pericardial effusion. SYSTEMIC VEINS: Inferior vena cava: The vessel was normal in size. Patient weight: 225.5lb _Ejection fraction:_ 65-75% _Fractional shortening:_ 32% up to 5Kg 5-11.5Kg 11.6-22.9Kg 23-45Kg 45-57Kg Aortic Root 7-13 <17 13-22 17-27 17-27 LA diam 6-13 <23 24-38 33-47 37-40 RVID 10-17 7-15 7-15 7-18 8-17 LVIDd 12-22 <32 24-38 33-47 37-40 LVPW 2-4 3-6 5-7 6-8 7-8 IVS 2-4 3-6 5-7 6-8 7-8 BASIC MEASUREMENTS ADULT NORMAL Left ventricle LV internal dimension, ED, chordal 51.2 mm 43-52 level, PLAX LV internal dimension, ES, chordal *40.3 mm 23-38 level, PLAX Fractional shortening, chordal level, *21 % >29 PLAX LV posterior wall thickness, ED 9.72 mm IVS/LVPW ratio, ED 1.01 <1.3 Ventricular septum Septal thickness, ED 9.77 mm Aortic valve Leaflet separation 22 mm 15-26 Aorta Root diameter, ED 30 mm Left atrium Anterior-posterior dimension 32 mm Anterior-posterior dimension index 1.54 cm/m^2 <2.2 BASIC MEASUREMENTS ADULT NORMAL Aortic valve Leaflet separation 22 mm 15-26 DOPPLER MEASUREMENTS ADULT NORMAL Main pulmonary artery Pressure, S *37 mm Hg =30 Aortic valve Peak velocity, S 119 cm/s Mean velocity, S 77.3 cm/s VTI, S 18.4 cm Mean gradient, S 3 mm Hg Valve area, VTI 3.39 cm^2 Valve area index, VTI 1.63 cm^2/m^2 Valve area, Vmax 3 cm^2 Valve area index, Vmax 1.44 cm^2/m^2 Mitral valve Peak E-wave velocity 80.9 cm/s Peak A-wave velocity 62.7 cm/s Deceleration time 162 ms 150-230 Peak gradient, D 3 mm Hg Peak E/A ratio 1.3 Tricuspid valve Regurgitant peak velocity 271 cm/s Peak RV-RA gradient, S 29 mm Hg Maximal regurgitant velocity 271 cm/s Systemic veins Estimated CVP 10 mm Hg Right ventricle RV pressure, S *39 mm Hg <30 Pulmonic valve Peak velocity, S 75.9 cm/s LEGEND: Mean values are shown as u=mean value. Asterisk (*) wilde values outside specified normal range. Prepared and signed by Alec Will [id number]
--- NOTE | 2017-02-11 16:24 | PD.CARD.PN ---
Subjective Subjective Remarks Asked to see the patient again due to recent echo Still with some mild chills/diaphoresis, no chest pain Hip pain is doing ok Objective Medications Current Medications Medications (Trade) Dose Ordered Sig/Michelle Route Start Time Stop Time Status Last Admin (NS Flush) 2 ml UNSCH PRN FLUSH 01/04/17 21:45 02/11/17 00:52 (NS Flush) 2 ml BID FLUSH 01/05/17 09:00 02/11/17 09:05 (Dulcolax Supp) 10 mg DAILY PRN [place] 01/04/17 21:45 (Tylenol) 650 mg Q6H PRN PO 01/04/17 21:45 02/10/17 21:35 (Mag-Al Plus Susp Liq) 30 ml Q6H PRN PO 01/06/17 11:00 Temazepam 15 mg 15 mg HS PRN PO 01/06/17 11:00 02/10/17 21:35 (Ancef 2 Gm Premix) 50 ml @ 100 mls/hr Q8H IV 01/09/17 17:00 02/11/17 09:03 (Ibis-Colace) 1 tab BID PRN PO 01/18/17 22:30 01/27/17 12:32 (Zofran Odt) 4 mg Q6H PRN PO 01/19/17 09:15 02/06/17 21:01 (Mycostatin Oint) 1 applic Q12HR TOPICAL 01/25/17 21:00 02/11/17 09:06 (NS Flush) DAILY IVF 01/28/17 09:00 02/11/17 09:05 (NS Flush) UNSCH PRN IVF 01/27/17 18:15 02/09/17 20:56 (Arixtra Inj) 2.5 mg Q24H SQ 02/10/17 09:00 02/19/17 08:59 02/11/17 09:03 (Motrin) 600 mg Q8H PRN PO 02/10/17 15:00 02/11/17 09:02 Vital Signs / I&O Vital Signs Date Time Temp Pulse Resp B/P Pulse Ox O2 Delivery O2 Flow Rate FiO2 02/11/17 10:02 20 02/11/17 08:00 98.5 85 17 120/76 96 02/10/17 20:00 98.2 93 18 150/84 100 I/O 02/10/17 02/10/17 02/10/17 02/11/17 02/11/17 02/11/17 07:00 15:00 23:00 07:00 15:00 23:00 Intake Total 480 ml 360 ml 720 ml 560 ml 360 ml Balance 480 ml 360 ml 720 ml 560 ml 360 ml Intake Oral 480 ml 360 ml 720 ml 560 ml 360 ml # Voids 2 3 3 2 3 # Bowel Movements 0 0 0 0 1 Physical Exam GENERAL: NAD, AAOx3 SKIN: Warm and dry. HEAD: Atraumatic. Normocephalic. EYES: Pupils equal and round. No scleral icterus. No injection or drainage. ENT: No nasal bleeding or discharge. Mucous membranes pink and moist. NECK: Trachea midline. No JVD. CARDIOVASCULAR: Regular rate and rhythm. RESPIRATORY: No accessory muscle use. Clear to auscultation. Breath sounds equal bilaterally. GASTROINTESTINAL: Abdomen soft, non-tender, nondistended. Hepatic and splenic margins not palpable. MUSCULOSKELETAL: Extremities without clubbing, cyanosis, or edema. No obvious deformities. NEUROLOGICAL: Awake and alert. No obvious cranial nerve deficits. Motor grossly within normal limits. Five out of 5 muscle strength in the arms and legs. Normal speech. PSYCHIATRIC: Appropriate mood and affect; insight and judgment normal. 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 2) No plan for KRISTINA unless necessary, TTE shows similar to previous KRISTINA with abscess, little benefit from KRISTINA 3) Discussed with primary, they will talk with infectious disease about further recommendations 4) Will see PRN, call with questions Shimon Beth DO Feb 11, 2017 16:24
[2017-02-11 20:00] VITALS: BP 91/75; PULSE 111; RESP 20; TEMP 98.6; O2SAT 97
[2017-02-11] MEDS: TEMAZEPAM 15 MG CAP PO PRN (20:35)
[2017-02-11] MEDS: ACETAMINOPHEN 325 MG TAB PO PRN (20:36)
[2017-02-12] MEDS: ceFAZolin 2 GM PREMIX 50 ML IV SCH ×3 (01:00→17:37)
[2017-02-12 09:48] VITALS: BP 144/88; PULSE 95; RESP 14; TEMP 98.3; O2SAT 95
[2017-02-12] MEDS: SODIUM CHLORIDE 0.9% FLUSH 10 ML FLUSH IVF SCH (10:22)
[2017-02-12] MEDS: SODIUM CHLORIDE 0.9% FLUSH 10 ML FLUSH IVF PRN (10:22)
[2017-02-12] MEDS: FONDAPARINUX SODIUM 2.5 MG/0.5 ML SYRINGE SQ SCH (10:23)
[2017-02-12] MEDS: NYSTATIN 100,000 U/GM OINT 15 GM TUBE TOPICAL SCH ×2 (10:29→21:51)
[2017-02-12] MEDS: SODIUM CHLORIDE 0.9% FLUSH 5 ML FLUSH FLUSH SCH ×2 (10:32→21:00)
[2017-02-12] MEDS: IBUPROFEN 600 MG TAB PO PRN ×2 (10:37→21:50)
--- NOTE | 2017-02-12 11:57 | HHI.PR ---
Subjective Remarks Patient seen and examined today for follow-up on bacterial endocarditis. Patient is only agitated this morning. Grandmother indicates that she is threatening to leave the hospital. She is upset because she states that she got searched by security. Objective Vitals Vital Signs Date Time Temp Pulse Resp B/P Pulse Ox O2 Delivery O2 Flow Rate FiO2 02/12/17 09:48 98.3 95 14 144/88 95 02/11/17 21:36 16 02/11/17 20:00 98.6 111 20 91/75 97 02/11/17 17:35 20 I/O 02/11/17 02/11/17 02/11/17 02/12/17 02/12/17 02/12/17 07:00 15:00 23:00 07:00 15:00 23:00 Intake Total 560 ml 360 ml 240 ml 60 ml Balance 560 ml 360 ml 240 ml 60 ml Intake Oral 560 ml 360 ml 240 ml 60 ml # Voids 2 3 2 2 # Bowel Movements 0 1 0 0 Result Diagram: 02/09/17 0545 02/10/17 0450 Objective Remarks GENERAL: Well-developed, well-nourished, in no acute distress. alert and orientated HEENT: Head is normocephalic without any lesions or masses noted. Facial features are symmetric. Eyes: Extraocular muscles are intact. Conjunctivae were clear. NECK: Supple without any masses. Trachea midline no deviation. No JVD, CARDIAC: Regular rhythm, regular rate. S1/S2 are heard. No murmurs gallops or rubs. LUNGS: Clear to auscultation bilaterally. No wheeze, rhonchi or rales. No use of accessory muscles on inspiration or expiration. ABDOMEN: Soft, nontender. Nondistended. Bowel sounds heard in all 4 quadrants. No organomegaly or masses. Negative rebound, negative guarding EXTREMITIES: No edema, pulses are equal bilaterally. No cyanosis or clubbing NEUROLOGY: Mood and affect appear appropriate. Cranial nerves II through XII grossly intact. Moving all extremities, speech is clear RIGHT UPPER EXTREMITY: Edema and granulation have resolved Procedures KRISTINA Urinary Catheter: No Vascular Central Line Catheter: Yes Assessment to: Continue Date of Insertion: Jan 27, 2017 Line: Central Venous Catheter Side: Right Location: Subclavian A/P Assessment and Plan Endocarditis/bacteremia Echocardiogram and KRISTINA indicates Tricuspid valve, aortic valve involvement.. Cardiology and ID consults appreciated. Status post KRISTINA 01/09/17. Has bacteremia with staph aureus. Cardiothoracic surgery evaluated the patient indicated that she is not a surgical candidate Blood cultures positive with staph aureus, negative culture as of 01/09/17 Follow weekly CBC, CMP, C-reactive protein, sedimentation rate, which all appear to be improving Infectious disease following and made recommendations Continue Ancef until 02/18/17 Repeat echocardiogram indicates continued mobile vegetation or annular abscess on the right ventricular aspect of the base of the septal leaflet. Discuss with infectious disease who requested cardiology reconsultation to evaluate the studies to see if there is any significant changes or if she is a candidate for valve replacement Consulted computer systems security analyst who evaluated and said KRISTINA is not necessary. That the imaging indicates similar findings to previous KRISTINA. Discussed with computer systems security analyst who indicated that the patient does have a tricuspid valve abscess and he was going to discuss with infectious disease further recommendations. --Discussed with Cardiology and Infectious disease, both of which would appreciate re-evaluation by cardiothoracic surgery, consult was placed. Superficial vein thrombosis in the left upper extremity, now has developed in the right upper extremity Ultrasound indicates thrombosis of the cephalic and basilic veins of left arm Hematology consulted for recommendations Patient switched to Arixtra because of possible allergy to Lovenox 01/26/17 patient now complaining of pain in the right arm where midline has been inserted on 01/21/17 Ultrasound performed which did indicate superficial thrombosis which is worrisome for septic thrombophlebitis in the basilic vein. Midline has been removed, vascular access team unable to place any other IVs in her periphery considering patient has thrombophlebitis in bilateral upper extremities Discussed with infectious disease, could be due from systemic infection versus continued IV drug use while in the hospital. Urine drug screen was performed which is positive for opiates. Fever, one documented elevated temperature, resolved Infectious workup was performed and was negative Infectious disease indicated that elevated temperature likely secondary to thrombosis Skin rash, improving Patient had pruritic rash and 01/24 small red papules which has resolved Patient had rash in her groin on 01/25 which has resolved Patient started on Benadryl and nystatin ointment Hip Pain MRI hip w/ small bilateral joint effusions, repeat MRI showed no evidence of joint effusion Orthopedic consulted who indicated patient is not a surgical candidate Continue pain control: We'll need to wean patient off all narcotics weekly, Start ibuprofen 600 mg 3 times daily as needed for pain 610 Discontinue Percocet 5 mg every 6 hours as needed for pain 610, Continue physical therapy IVDU Patient will plan minutes says 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 Discharge Planning Discharge planning after patient completes IV antibiotics Christiano Sandhu Feb 12, 2017 11:57
[2017-02-12 20:00] VITALS: BP 101/77; PULSE 96; RESP 20; TEMP 97.4; O2SAT 97
[2017-02-12] MEDS: TEMAZEPAM 15 MG CAP PO PRN (21:50)
[2017-02-13] MEDS: ceFAZolin 2 GM PREMIX 50 ML IV SCH ×3 (01:55→17:24)
[2017-02-13] MEDS: SODIUM CHLORIDE 0.9% FLUSH 10 ML FLUSH IVF PRN (01:56)
[2017-02-13 08:00] VITALS: BP 133/89; PULSE 83; RESP 18; TEMP 97.9; O2SAT 99
[2017-02-13] MEDS: SODIUM CHLORIDE 0.9% FLUSH 5 ML FLUSH FLUSH SCH ×2 (09:00→21:00)
[2017-02-13] MEDS: FONDAPARINUX SODIUM 2.5 MG/0.5 ML SYRINGE SQ SCH (09:39)
[2017-02-13] MEDS: SODIUM CHLORIDE 0.9% FLUSH 10 ML FLUSH IVF SCH ×2 (09:39→21:27)
[2017-02-13] MEDS: NYSTATIN 100,000 U/GM OINT 15 GM TUBE TOPICAL SCH ×2 (09:40→21:00)
--- NOTE | 2017-02-13 11:41 | HHI.PR ---
Subjective Remarks Patient seen and examined today for follow-up on bacterial endocarditis. Patient states that she is doing much better. She states that she is not cranky this morning. Anticipating discharge next week. Objective Vitals Vital Signs Date Time Temp Pulse Resp B/P Pulse Ox O2 Delivery O2 Flow Rate FiO2 02/13/17 08:00 97.9 83 18 133/89 99 02/12/17 20:00 97.4 96 20 101/77 97 I/O 02/12/17 02/12/17 02/12/17 02/13/17 02/13/17 02/13/17 07:00 15:00 23:00 07:00 15:00 23:00 Intake Total 60 ml 1740 ml 120 ml Balance 60 ml 1740 ml 120 ml Intake Oral 60 ml 1640 ml 120 ml IV Total 100 ml # Voids 2 6 2 # Bowel Movements 0 0 0 Result Diagram: 02/09/17 0545 02/10/17 0450 Objective Remarks GENERAL: Well-developed, well-nourished, in no acute distress. alert and orientated HEENT: Head is normocephalic without any lesions or masses noted. Facial features are symmetric. Eyes: Extraocular muscles are intact. Conjunctivae were clear. NECK: Supple without any masses. Trachea midline no deviation. No JVD, CARDIAC: Regular rhythm, regular rate. S1/S2 are heard. No murmurs gallops or rubs. LUNGS: Clear to auscultation bilaterally. No wheeze, rhonchi or rales. No use of accessory muscles on inspiration or expiration. ABDOMEN: Soft, nontender. Nondistended. Bowel sounds heard in all 4 quadrants. No organomegaly or masses. Negative rebound, negative guarding EXTREMITIES: No edema, pulses are equal bilaterally. No cyanosis or clubbing NEUROLOGY: Mood and affect appear appropriate. Cranial nerves II through XII grossly intact. Moving all extremities, speech is clear RIGHT UPPER EXTREMITY: Edema and granulation have resolved Procedures KRISTINA Urinary Catheter: No Vascular Central Line Catheter: Yes Assessment to: Continue Date of Insertion: Jan 27, 2017 Line: Central Venous Catheter Side: Right Location: Subclavian A/P Assessment and Plan Endocarditis/bacteremia Echocardiogram and KRISTINA indicates Tricuspid valve, aortic valve involvement.. Cardiology and ID consults appreciated. Status post KRISTINA 01/09/17. Has bacteremia with staph aureus. Cardiothoracic surgery evaluated the patient indicated that she is not a surgical candidate Blood cultures positive with staph aureus, negative culture as of 01/09/17 Follow weekly CBC, CMP, C-reactive protein, sedimentation rate, which all appear to be improving Infectious disease following and made recommendations Continue Ancef until 02/18/17 Repeat echocardiogram indicates continued mobile vegetation or annular abscess on the right ventricular aspect of the base of the septal leaflet. Discuss with infectious disease who requested cardiology reconsultation to evaluate the studies to see if there is any significant changes or if she is a candidate for valve replacement Consulted production underwriter who evaluated and said KRISTINA is not necessary. That the imaging indicates similar findings to previous KRISTINA. Discussed with production underwriter who indicated that the patient does have a tricuspid valve abscess and he was going to discuss with infectious disease further recommendations. --Discussed with Cardiology and Infectious disease, both of which would appreciate re-evaluation by cardiothoracic surgery, consult was placed. Awaiting cardiothoracic surgical consultation Superficial vein thrombosis in the left upper extremity, now has developed in the right upper extremity Ultrasound indicates thrombosis of the cephalic and basilic veins of left arm Hematology consulted for recommendations Patient switched to Arixtra because of possible allergy to Lovenox 01/26/17 patient now complaining of pain in the right arm where midline has been inserted on 01/21/17 Ultrasound performed which did indicate superficial thrombosis which is worrisome for septic thrombophlebitis in the basilic vein. Midline has been removed, vascular access team unable to place any other IVs in her periphery considering patient has thrombophlebitis in bilateral upper extremities Discussed with infectious disease, could be due from systemic infection versus continued IV drug use while in the hospital. Urine drug screen was performed which is positive for opiates. Fever, one documented elevated temperature, resolved Infectious workup was performed and was negative Infectious disease indicated that elevated temperature likely secondary to thrombosis Skin rash, improving Patient had pruritic rash and 01/24 small red papules which has resolved Patient had rash in her groin on 01/25 which has resolved Patient started on Benadryl and nystatin ointment Hip Pain MRI hip w/ small bilateral joint effusions, repeat MRI showed no evidence of joint effusion Orthopedic consulted who indicated patient is not a surgical candidate Continue pain control: We'll need to wean patient off all narcotics weekly, Start ibuprofen 600 mg 3 times daily as needed for pain 610 Discontinue Percocet 5 mg every 6 hours as needed for pain 610, Continue physical therapy IVDU Patient will plan minutes says 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 Discharge Planning Discharge planning after patient completes IV antibiotics Christiano Sandhu Feb 13, 2017 11:41
[2017-02-13 20:00] VITALS: BP 131/96; PULSE 102; RESP 20; TEMP 97.7; O2SAT 100
[2017-02-13] MEDS: TEMAZEPAM 15 MG CAP PO PRN (21:27)
[2017-02-13] MEDS: IBUPROFEN 600 MG TAB PO PRN (21:27)
[2017-02-14] MEDS: ceFAZolin 2 GM PREMIX 50 ML IV SCH ×3 (02:22→17:28)
[2017-02-14 08:00] VITALS: BP 138/71; PULSE 77; RESP 17; TEMP 96.9; O2SAT 98
[2017-02-14] MEDS: SODIUM CHLORIDE 0.9% FLUSH 5 ML FLUSH FLUSH SCH ×2 (09:00→21:00)
[2017-02-14] MEDS: FONDAPARINUX SODIUM 2.5 MG/0.5 ML SYRINGE SQ SCH (09:11)
[2017-02-14] MEDS: NYSTATIN 100,000 U/GM OINT 15 GM TUBE TOPICAL SCH ×2 (09:12→21:00)
--- NOTE | 2017-02-14 12:49 | HHI.PR ---
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 Patient denies any new complaints. Counseled her on possible need for surgical intervention. She does understand. Objective Vitals Vital Signs Date Time Temp Pulse Resp B/P Pulse Ox O2 Delivery O2 Flow Rate FiO2 02/14/17 08:00 96.9 77 17 138/71 98 02/13/17 20:00 97.7 102 20 131/96 100 I/O 02/13/17 02/13/17 02/13/17 02/14/17 02/14/17 02/14/17 07:00 15:00 23:00 07:00 15:00 23:00 Intake Total 120 ml 720 ml 720 ml 480 ml Balance 120 ml 720 ml 720 ml 480 ml Intake Oral 120 ml 720 ml 720 ml 480 ml # Voids 2 3 3 3 # Bowel Movements 0 1 1 1 Result Diagram: 02/10/17 0450 Objective Remarks GENERAL: Well-developed, well-nourished, in no acute distress. alert and orientated HEENT: Head is normocephalic without any lesions or masses noted. Facial features are symmetric. Eyes: Extraocular muscles are intact. Conjunctivae were clear. NECK: Supple without any masses. Trachea midline no deviation. No JVD, CARDIAC: Regular rhythm, regular rate. S1/S2 are heard. No murmurs gallops or rubs. LUNGS: Clear to auscultation bilaterally. No wheeze, rhonchi or rales. No use of accessory muscles on inspiration or expiration. ABDOMEN: Soft, nontender. Nondistended. Bowel sounds heard in all 4 quadrants. No organomegaly or masses. Negative rebound, negative guarding EXTREMITIES: No edema, pulses are equal bilaterally. No cyanosis or clubbing NEUROLOGY: Mood and affect appear appropriate. Cranial nerves II through XII grossly intact. Moving all extremities, speech is clear RIGHT UPPER EXTREMITY: Edema and granulation have resolved Procedures KRISTINA Urinary Catheter: No Vascular Central Line Catheter: Yes Assessment to: Continue Date of Insertion: Jan 27, 2017 Line: Central Venous Catheter Side: Right Location: Subclavian A/P Assessment and Plan Endocarditis/bacteremia Echocardiogram and KRISTINA indicates Tricuspid valve, aortic valve involvement.. Cardiology and ID consults appreciated. Status post KRISTINA 01/09/17. Has bacteremia with staph aureus. Cardiothoracic surgery evaluated the patient indicated that she is not a surgical candidate Blood cultures positive with staph aureus, negative culture as of 01/09/17 Follow weekly CBC, CMP, C-reactive protein, sedimentation rate, which all appear to be improving Infectious disease following and made recommendations Continue Ancef until 02/18/17 Repeat echocardiogram indicates continued mobile vegetation or annular abscess on the right ventricular aspect of the base of the septal leaflet. Discuss with infectious disease who requested cardiology reconsultation to evaluate the studies to see if there is any significant changes or if she is a candidate for valve replacement Consulted account manager education who evaluated and said KRISTINA is not necessary. That the imaging indicates similar findings to previous KRISTINA. 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 --Discussed with Cardiology and Infectious disease, both of which would appreciate re-evaluation by cardiothoracic surgery, consult was placed. Awaiting cardiothoracic surgical consultation Discuss with Dr. Potts/administration who indicates that there is a protocol in place within the hospital that would allow the patient to receive surgery if it is indicated and if he wants to pursue surgery. I discussed this with the patient who is open to having surgery if needed. Discuss with infectious disease Dr. Mccloud, who continues to recommend that cardiothoracic surgery evaluate the patient, to see if she is a candidate and would require surgical intervention at this time. It was indicated that if cardiothoracic surgery has not seen the patient by 2 days prior to finishing antibiotics which would be 02/18/17, we can transfer the patient up to the main hospital 2 days prior to finishing antibiotics in order to have evaluation done by cardiothoracic surgery. Superficial vein thrombosis in the left upper extremity, now has developed in the right upper extremity Ultrasound indicates thrombosis of the cephalic and basilic veins of left arm Hematology consulted for recommendations Patient switched to Arixtra because of possible allergy to Lovenox 01/26/17 patient now complaining of pain in the right arm where midline has been inserted on 01/21/17 Ultrasound performed which did indicate superficial thrombosis which is worrisome for septic thrombophlebitis in the basilic vein. Midline has been removed, vascular access team unable to place any other IVs in her periphery considering patient has thrombophlebitis in bilateral upper extremities Discussed with infectious disease, could be due from systemic infection versus continued IV drug use while in the hospital. Urine drug screen was performed which is positive for opiates. Fever, one documented elevated temperature, resolved Infectious workup was performed and was negative Infectious disease indicated that elevated temperature likely secondary to thrombosis Skin rash, improving Patient had pruritic rash and 01/24 small red papules which has resolved Patient had rash in her groin on 01/25 which has resolved Patient started on Benadryl and nystatin ointment Hip Pain MRI hip w/ small bilateral joint effusions, repeat MRI showed no evidence of joint effusion Orthopedic consulted who indicated patient is not a surgical candidate Continue pain control: We'll need to wean patient off all narcotics weekly, Start ibuprofen 600 mg 3 times daily as needed for pain 610 Discontinue Percocet 5 mg every 6 hours as needed for pain 610, Continue physical therapy IVDU Patient will plan minutes says 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 Discharge Planning Discharge planning after patient completes IV antibiotics Christiano Sandhu Feb 14, 2017 12:49
[2017-02-14 20:00] VITALS: BP 144/91; PULSE 103; RESP 18; TEMP 97.7; O2SAT 98
[2017-02-14] MEDS: IBUPROFEN 600 MG TAB PO PRN (21:02)
[2017-02-14] MEDS: TEMAZEPAM 15 MG CAP PO PRN (21:03)
[2017-02-15] MEDS: ceFAZolin 2 GM PREMIX 50 ML IV SCH ×3 (00:48→17:00)
[2017-02-15 08:00] VITALS: BP 125/80; PULSE 91; RESP 18; TEMP 97.2; O2SAT 99
[2017-02-15] MEDS: NYSTATIN 100,000 U/GM OINT 15 GM TUBE TOPICAL SCH ×2 (09:00→20:28)
[2017-02-15] MEDS: SODIUM CHLORIDE 0.9% FLUSH 5 ML FLUSH FLUSH SCH ×2 (09:00→20:27)
[2017-02-15] MEDS: SODIUM CHLORIDE 0.9% FLUSH 10 ML FLUSH IVF SCH (10:51)
[2017-02-15] MEDS: IBUPROFEN 600 MG TAB PO PRN ×2 (10:51→20:29)
[2017-02-15] MEDS: FONDAPARINUX SODIUM 2.5 MG/0.5 ML SYRINGE SQ SCH (10:51)
--- NOTE | 2017-02-15 11:34 | HHI.PR ---
Subjective Remarks Patient seen and examined today in follow-up for bacterial endocarditis, tricuspid valve abscess. Patient denies any new complaints. Patient states that she still has not seen the cardiothoracic surgeon as of yet. Objective Vitals Vital Signs Date Time Temp Pulse Resp B/P Pulse Ox O2 Delivery O2 Flow Rate FiO2 02/15/17 08:00 97.2 91 18 125/80 99 02/14/17 22:02 16 02/14/17 20:00 97.7 103 18 144/91 98 I/O 02/14/17 02/14/17 02/14/17 02/15/17 02/15/17 02/15/17 07:00 15:00 23:00 07:00 15:00 23:00 Intake Total 480 ml 720 ml 720 ml 240 ml Balance 480 ml 720 ml 720 ml 240 ml Intake Oral 480 ml 720 ml 720 ml 240 ml # Voids 3 4 2 1 # Bowel Movements 1 0 0 0 Objective Remarks GENERAL: Well-developed, well-nourished, in no acute distress. alert and orientated HEENT: Head is normocephalic without any lesions or masses noted. Facial features are symmetric. Eyes: Extraocular muscles are intact. Conjunctivae were clear. NECK: Supple without any masses. Trachea midline no deviation. No JVD, CARDIAC: Regular rhythm, regular rate. S1/S2 are heard. No murmurs gallops or rubs. LUNGS: Clear to auscultation bilaterally. No wheeze, rhonchi or rales. No use of accessory muscles on inspiration or expiration. ABDOMEN: Soft, nontender. Nondistended. Bowel sounds heard in all 4 quadrants. No organomegaly or masses. Negative rebound, negative guarding EXTREMITIES: No edema, pulses are equal bilaterally. No cyanosis or clubbing NEUROLOGY: Mood and affect appear appropriate. Cranial nerves II through XII grossly intact. Moving all extremities, speech is clear RIGHT UPPER EXTREMITY: Edema and granulation have resolved Procedures KRISTINA Vascular Central Line Catheter: Yes Assessment to: Continue Date of Insertion: Jan 27, 2017 Line: Central Venous Catheter Side: Right Location: Subclavian A/P Assessment and Plan Endocarditis/bacteremia Echocardiogram and KRISTINA indicates Tricuspid valve, aortic valve involvement.. Cardiology and ID consults appreciated. Status post KRISTINA 01/09/17. Has bacteremia with staph aureus. Cardiothoracic surgery evaluated the patient indicated that she is not a surgical candidate Blood cultures positive with staph aureus, negative culture as of 01/09/17 Follow weekly CBC, CMP, C-reactive protein, sedimentation rate, which all appear to be improving Infectious disease following and made recommendations Continue Ancef until 02/18/17 Repeat echocardiogram indicates continued mobile vegetation or annular abscess on the right ventricular aspect of the base of the septal leaflet. Discuss with infectious disease who requested cardiology reconsultation to evaluate the studies to see if there is any significant changes or if she is a candidate for valve replacement Consulted purchasing assistant who evaluated and said KRISTINA is not necessary. That the imaging indicates similar findings to previous KRISTINA. 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 --Discussed with Cardiology and Infectious disease, both of which would appreciate re-evaluation by cardiothoracic surgery, consult was placed. Awaiting cardiothoracic surgical consultation Discuss with Dr. Potts/administration who indicates that there is a protocol in place within the hospital that would allow the patient to receive surgery if it is indicated and if he wants to pursue surgery. I discussed this with the patient who is open to having surgery if needed. Discuss with infectious disease Dr. Mccloud, who continues to recommend that cardiothoracic surgery evaluate the patient, to see if she is a candidate and would require surgical intervention at this time. It was indicated that if cardiothoracic surgery has not seen the patient by 2 days prior to finishing antibiotics which would be 02/18/17, we can transfer the patient up to the main hospital 2 days prior to finishing antibiotics in order to have evaluation done by cardiothoracic surgery. We'll plan transfer tomorrow if not seen by cardiothoracic surgery Superficial vein thrombosis in the left upper extremity, now has developed in the right upper extremity Ultrasound indicates thrombosis of the cephalic and basilic veins of left arm Hematology consulted for recommendations Patient switched to Arixtra because of possible allergy to Lovenox 01/26/17 patient now complaining of pain in the right arm where midline has been inserted on 01/21/17 Ultrasound performed which did indicate superficial thrombosis which is worrisome for septic thrombophlebitis in the basilic vein. Midline has been removed, vascular access team unable to place any other IVs in her periphery considering patient has thrombophlebitis in bilateral upper extremities Discussed with infectious disease, could be due from systemic infection versus continued IV drug use while in the hospital. Urine drug screen was performed which is positive for opiates. Fever, one documented elevated temperature, resolved Infectious workup was performed and was negative Infectious disease indicated that elevated temperature likely secondary to thrombosis Skin rash, improving Patient had pruritic rash and 01/24 small red papules which has resolved Patient had rash in her groin on 01/25 which has resolved Patient started on Benadryl and nystatin ointment Hip Pain MRI hip w/ small bilateral joint effusions, repeat MRI showed no evidence of joint effusion Orthopedic consulted who indicated patient is not a surgical candidate Continue pain control: We'll need to wean patient off all narcotics weekly, Ibuprofen 600 mg 3 times daily as needed for pain 610 Continue physical therapy IVDU Patient will plan minutes says 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 Discharge Planning Discharge planning after patient completes IV antibiotics Christiano Sandhu Feb 15, 2017 11:34
[2017-02-15 20:00] VITALS: BP 100/58; PULSE 98; RESP 18; TEMP 97.2; O2SAT 98
[2017-02-15] MEDS: TEMAZEPAM 15 MG CAP PO PRN (20:29)
[2017-02-16] MEDS: ceFAZolin 2 GM PREMIX 50 ML IV SCH ×3 (01:07→17:36)
[2017-02-16 08:00] VITALS: BP 113/78; PULSE 90; RESP 18; TEMP 97.6; O2SAT 99
[2017-02-16] MEDS: FONDAPARINUX SODIUM 2.5 MG/0.5 ML SYRINGE SQ SCH (08:40)
[2017-02-16] MEDS: SODIUM CHLORIDE 0.9% FLUSH 10 ML FLUSH IVF SCH (08:40)
[2017-02-16] MEDS: SODIUM CHLORIDE 0.9% FLUSH 5 ML FLUSH FLUSH SCH ×2 (08:40→21:00)
[2017-02-16] MEDS: NYSTATIN 100,000 U/GM OINT 15 GM TUBE TOPICAL SCH ×2 (08:41→21:11)
--- NOTE | 2017-02-16 14:02 | HHI.PR ---
Subjective Remarks Patient seen and examined today in follow-up for bacterial endocarditis, tricuspid valve abscess. I again spoke with the patient in length about intended plan for possible surgical intervention. Patient is in agreement to pursue invasive procedure if needed. She is in agreement with [place] protocol for valve replacement. We'll need to have cardiothoracic surgery evaluate the patient for recommendations. Objective Vitals Vital Signs Date Time Temp Pulse Resp B/P Pulse Ox O2 Delivery O2 Flow Rate FiO2 02/16/17 08:00 97.6 90 18 113/78 99 02/15/17 21:29 16 02/15/17 20:00 97.2 98 18 100/58 98 I/O 02/15/17 02/15/17 02/15/17 02/16/17 02/16/17 02/16/17 07:00 15:00 23:00 07:00 15:00 23:00 Intake Total 240 ml 1150 ml 720 ml 480 ml Balance 240 ml 1150 ml 720 ml 480 ml Intake Oral 240 ml 1150 ml 720 ml 480 ml # Voids 1 4 2 1 4 # Bowel Movements 0 0 0 0 Objective Remarks GENERAL: Well-developed, well-nourished, in no acute distress. alert and orientated HEENT: Head is normocephalic without any lesions or masses noted. Facial features are symmetric. Eyes: Extraocular muscles are intact. Conjunctivae were clear. NECK: Supple without any masses. Trachea midline no deviation. No JVD, CARDIAC: Regular rhythm, regular rate. S1/S2 are heard. No murmurs gallops or rubs. LUNGS: Clear to auscultation bilaterally. No wheeze, rhonchi or rales. No use of accessory muscles on inspiration or expiration. ABDOMEN: Soft, nontender. Nondistended. Bowel sounds heard in all 4 quadrants. No organomegaly or masses. Negative rebound, negative guarding EXTREMITIES: No edema, pulses are equal bilaterally. No cyanosis or clubbing NEUROLOGY: Mood and affect appear appropriate. Cranial nerves II through XII grossly intact. Moving all extremities, speech is clear RIGHT UPPER EXTREMITY: Edema and granulation have resolved Procedures KRISTINA Urinary Catheter: No Vascular Central Line Catheter: Yes Date of Insertion: Jan 27, 2017 Line: Central Venous Catheter Side: Right Location: Subclavian A/P Assessment and Plan Endocarditis/bacteremia Echocardiogram and KRISTINA indicates Tricuspid valve, aortic valve involvement.. Cardiology and ID consults appreciated. Status post KRISTINA 01/09/17. Has bacteremia with staph aureus. Cardiothoracic surgery evaluated the patient indicated that she is not a surgical candidate Blood cultures positive with staph aureus, negative culture as of 01/09/17 Follow weekly CBC, CMP, C-reactive protein, sedimentation rate, which all appear to be improving Infectious disease following and made recommendations Continue Ancef until 02/18/17 Repeat echocardiogram indicates continued mobile vegetation or annular abscess on the right ventricular aspect of the base of the septal leaflet. Discuss with infectious disease who requested cardiology reconsultation to evaluate the studies to see if there is any significant changes or if she is a candidate for valve replacement Consulted dental surgeon who evaluated and said KRISTINA is not necessary. That the imaging indicates similar findings to previous KRISTINA. 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 --Discussed with Cardiology and Infectious disease, both of which would appreciate re-evaluation by cardiothoracic surgery, consult was placed. Awaiting cardiothoracic surgical consultation Discuss with Dr. Potts/administration who indicates that there is a protocol in place within the hospital that would allow the patient to receive surgery if it is indicated and if she wants to pursue surgery. I discussed this with the patient multiple times at length about the surgical procedure and she wants to pursue it if she is a candidate Discuss with infectious disease Dr. Mccloud, who continues to recommend that cardiothoracic surgery evaluate the patient, to see if she is a candidate and would require surgical intervention at this time. It was indicated that if cardiothoracic surgery has not seen the patient by 2 days prior to finishing antibiotics which would be 02/18/17, we can transfer the patient up to the main hospital 2 days prior to finishing antibiotics in order to have evaluation done by cardiothoracic surgery. We'll plan transfer tomorrow if not seen by cardiothoracic surgery Superficial vein thrombosis in the left upper extremity, now has developed in the right upper extremity Ultrasound indicates thrombosis of the cephalic and basilic veins of left arm Hematology consulted for recommendations Patient switched to Arixtra because of possible allergy to Lovenox 01/26/17 patient now complaining of pain in the right arm where midline has been inserted on 01/21/17 Ultrasound performed which did indicate superficial thrombosis which is worrisome for septic thrombophlebitis in the basilic vein. Midline has been removed, vascular access team unable to place any other IVs in her periphery considering patient has thrombophlebitis in bilateral upper extremities Discussed with infectious disease, could be due from systemic infection versus continued IV drug use while in the hospital. Urine drug screen was performed which is positive for opiates. Fever, one documented elevated temperature, resolved Infectious workup was performed and was negative Infectious disease indicated that elevated temperature likely secondary to thrombosis Skin rash, improving Patient had pruritic rash and 01/24 small red papules which has resolved Patient had rash in her groin on 01/25 which has resolved Patient started on Benadryl and nystatin ointment Hip Pain MRI hip w/ small bilateral joint effusions, repeat MRI showed no evidence of joint effusion Orthopedic consulted who indicated patient is not a surgical candidate Continue pain control: We'll need to wean patient off all narcotics weekly, Ibuprofen 600 mg 3 times daily as needed for pain 610 Continue physical therapy IVDU Patient will plan minutes says 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 Discharge Planning Discharge planning after patient completes IV antibiotics Christiano Sandhu February 16, 2017 14:02
--- NOTE | 2017-02-16 16:02 | PD.CONS ---
HPI Service Critical Care Medicine Consult Requested By [facility] Reason for Consult Endocarditis Primary Care Physician No Primary Care Physician History of Present Illness 27 y/o woman with bacterial endocarditis and multiple positive blood cultures. Organism Staph Aureus. Known and admitted history of recent iv drug abuse. Her blood cultures are negative now and she has normal hemodynamics. Normal renal function. Not requiring diuretics. The small abscess under the tricuspid septal leaflet probably invades the septum and may not be sterilized yet. It may never get sterilized. Her past and current behavior is explicitly unpredictable and she has not demonstrated good judgement. Because of the lack of an established period of predictable behavior and the absence of absolute indications for urgent surgery, I recommend: 1. Discharge to drug rehab or home; her choice. 2. Continue antibiotics per ID Service as definitive therapy. 3. Random drug testing for 3 months. 4. Follow-up with her PCP. 5. We will re-evaluate if she becomes septic or develops intractable heart failure. Past Family Social History Allergies: Coded Allergies: Amoxicillin (Verified Allergy, Severe, HIVES, 01/04/17) Codeine (Verified Allergy, Severe, Hives, 01/04/17) Dilantin (Verified Allergy, Severe, HIVES, 01/04/17) *MDRO Multi-Drug Resistant Organism (Verified Adverse Reaction, Unknown, ) MRSA (wound) - 03/09/16 Physical Exam Vital Signs Vital Signs Date Time Temp Pulse Resp B/P Pulse Ox O2 Delivery O2 Flow Rate FiO2 02/16/17 08:00 97.6 90 18 113/78 99 02/15/17 21:29 16 02/15/17 20:00 97.2 98 18 100/58 98 Flaquito Henderson MD February 16, 2017 16:02
[2017-02-16 20:00] VITALS: BP 131/96; PULSE 120; RESP 20; TEMP 100.3; O2SAT 98
[2017-02-16] MEDS: SODIUM CHLORIDE 0.9% FLUSH 10 ML FLUSH IVF PRN (21:10)
[2017-02-16] MEDS: IBUPROFEN 600 MG TAB PO PRN (21:10)
[2017-02-16] MEDS: TEMAZEPAM 15 MG CAP PO PRN (21:10)
[2017-02-17] MEDS: ceFAZolin 2 GM PREMIX 50 ML IV SCH ×3 (00:56→16:54)
[2017-02-17] MEDS: SODIUM CHLORIDE 0.9% FLUSH 10 ML FLUSH IVF PRN ×2 (00:57→21:04)
[2017-02-17 08:00] VITALS: BP 115/80; PULSE 73; RESP 20; TEMP 98; O2SAT 98
[2017-02-17] MEDS: FONDAPARINUX SODIUM 2.5 MG/0.5 ML SYRINGE SQ SCH (08:55)
[2017-02-17] MEDS: SODIUM CHLORIDE 0.9% FLUSH 5 ML FLUSH FLUSH SCH ×2 (08:55→21:00)
[2017-02-17] MEDS: SODIUM CHLORIDE 0.9% FLUSH 10 ML FLUSH IVF SCH (08:55)
[2017-02-17] MEDS: IBUPROFEN 600 MG TAB PO PRN ×2 (08:55→21:02)
[2017-02-17] MEDS: NYSTATIN 100,000 U/GM OINT 15 GM TUBE TOPICAL SCH ×2 (08:58→21:03)
[2017-02-17 11:59] LABS: AUTOMATED NEUTROPHIL # 6.9 TH/MM3 (1.8-7.7); BASOPHIL # 0.1 TH/MM3 (0-0.2); BASOPHIL % 0.8 % (0.0-2.0); EOSINOPHIL # 1.5 TH/MM3 (0-0.4); EOSINOPHIL % 14.2 % (0.0-4.0); HEMATOCRIT 34.8 % (35.0-46.0); HEMO FLAGS DIFF FINAL; LYMPH % 14.5 % (9.0-44.0); LYMPHOCYTE # 1.6 TH/MM3 (1.0-4.8); MEAN CELL VOLUME 82.8 FL (80.0-100.0); MEAN CORPUSCULAR HEMOGLOBIN 27.5 PG (27.0-34.0); MEAN CORPUSCULAR HGB CONC 33.3 % (32.0-36.0); NEUT % 63.5 % (16.0-70.0); PLATELET COUNT 286 TH/MM3 (150-450); RED BLOOD COUNT 4.21 MIL/MM3 (4.00-5.30); RED CELL DISTRIBUTION WIDTH 13.5 % (11.6-17.2); WHITE BLOOD COUNT 10.9 TH/MM3 (4.0-11.0)
[2017-02-17 12:05] LABS: CHLORIDE 102 MEQ/L (98-107); POTASSIUM 4.1 MEQ/L (3.5-5.1); SODIUM (NA) 139 MEQ/L (136-145)
[2017-02-17 12:09] LABS: ANION GAP 9 MEQ/L (5-15); BICARBONATE 27.7 MEQ/L (21.0-32.0); BLOOD UREA NITROGEN 10 MG/DL (7-18)
[2017-02-17 12:12] LABS: ALT (GPT) 24 U/L (10-53); AST (GOT) 31 U/L (15-37)
[2017-02-17 12:13] LABS: GLOMERULAR FILTRATION RATE 92 ML/MIN (>89)
[2017-02-17 12:14] LABS: TOTAL BILIRUBIN ADULT 0.5 MG/DL (0.2-1.0)
[2017-02-17 12:15] LABS: ALKALINE PHOSPHATASE 60 U/L (45-117)
[2017-02-17 12:45] LABS: WESTERGREN SEDIMENTATION RATE 67 mm/hr (0-20)
--- NOTE | 2017-02-17 16:11 | HHI.PR ---
Subjective Remarks Follow-up for endocarditis, superficial thrombosis of B/L upper extremities. Patient had a temp of 100.3 last night. She denies having fevers or chills at that time stating she was drinking hot coffee at that time. No new symptoms reported. Objective Vitals Vital Signs Date Time Temp Pulse Resp B/P Pulse Ox O2 Delivery O2 Flow Rate FiO2 02/17/17 08:00 98.0 73 20 115/80 98 02/16/17 20:00 100.3 120 20 131/96 98 I/O 02/16/17 02/16/17 02/16/17 02/17/17 02/17/17 02/17/17 07:00 15:00 23:00 07:00 15:00 23:00 Intake Total 480 ml 620 ml 400 ml 960 ml Balance 480 ml 620 ml 400 ml 960 ml Intake Oral 480 ml 560 ml 400 ml 960 ml IV Total 60 ml # Voids 1 7 2 3 # Bowel Movements 0 1 0 1 Result Diagram: 02/17/17 1116 02/17/17 1116 Objective Remarks GENERAL: Obese, well-developed patient in no apparent distress. CARDIOVASCULAR: Regular rate and rhythm. RESPIRATORY: No accessory muscle use. Clear to auscultation. Breath sounds equal bilaterally. GASTROINTESTINAL: Abdomen soft, non-tender, non-distended. NEUROLOGICAL: Awake and alert. Normal speech. PSYCHIATRIC: Appropriate mood and affect; insight and judgment normal. 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 Cardiology and ID consults appreciated. Status post KRISTINA 01/09/17. Has bacteremia with staph aureus. Cardiothoracic surgery evaluated the patient indicated that she is not a surgical candidate Blood cultures positive with staph aureus, negative culture as of 01/09/17 Follow weekly CBC, CMP, C-reactive protein, sedimentation rate, which all appear to be improving Infectious disease following and made recommendations Continue Ancef until 02/18/17 Repeat echocardiogram 02/11 indicates probable non-mobile vegetation or annular abscess on the right ventricular aspect of the base of the septal leaflet. Discussed with infectious disease who requested cardiology reconsultation to evaluate the studies to see if there is any significant changes or if she is a candidate for valve replacement Consulted laboratory sample carrier who evaluated and said KRISTINA is not necessary. That the imaging indicates similar findings to previous KRISTINA. Discussed with Cardiology and Infectious disease, both of which would appreciate re-evaluation by cardiothoracic surgery, consult was placed. Patient desired to pursue surgical intervention if she is a candidate Dr. Henderson, critical care cardiothoracic surgeon evaluated the patient on . Advises discharging patient to drug rehabilitation or home depending on her choice. Advises continuing antibiotics per ID. Random drug testing for 3 months; will reevaluate if she becomes septic or develops intractable heart failure. 02/17: Patient had elevated temperature 100.3 degrees last night. Discussed with Dr. Hernandez. Labs today with increasing ESR of 67 and increasing CRP. White blood cell count is normal but increased from prior labs on 02/09. CMP unremarkable. Discussed with Dr. Vernon, infectious disease, who recommends ordering repeat blood cultures and UA. Patient's last day of antibiotics is supposed to be tomorrow, but patient may need to remain hospitalized longer depending on lab work and clinical status. Superficial vein thrombosis in the left upper extremity, now has developed in the right upper extremity Ultrasound indicates thrombosis of the cephalic and basilic veins of left arm Hematology consulted for recommendations Patient switched to Arixtra because of possible allergy to Lovenox 01/26/17 patient now complaining of pain in the right arm where midline has been inserted on 01/21/17 Ultrasound performed which did indicate superficial thrombosis which is worrisome for septic thrombophlebitis in the basilic vein. Midline has been removed, vascular access team unable to place any other IVs in her periphery considering patient has thrombophlebitis in bilateral upper extremities Discussed with infectious disease, could be due from systemic infection versus continued IV drug use while in the hospital. Urine drug screen was performed which is positive for opiates. Continue Arixtra until discontinuation of antibiotics. Fever resolved. See above. Infectious workup was performed and was negative Infectious disease indicated that elevated temperature likely secondary to thrombosis Skin rash, improved Patient had pruritic rash and 01/24 small red papules which has resolved Patient had rash in her groin on 01/25 which has resolved Patient started on Benadryl and nystatin ointment Hip Pain MRI hip w/ small bilateral joint effusions, repeat MRI showed no evidence of joint effusion Orthopedic consulted who indicated patient is not a surgical candidate Continue pain control: We'll need to wean patient off all narcotics weekly, Ibuprofen 600 mg 3 times daily as needed for pain 610 Continue physical therapy IVDU Patient will plan minutes says 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 Discharge Planning Patient will remain hospitalized until discontinuation of antibiotics. 02/17/17: Per note yesterday Dr. Garvin with infectious disease is going to contact Dr. Mccloud for recommendations for outpatient antibiotics. Problem Qualifiers (1) Sepsis: Qualified Code: A41.9 - Sepsis, due to unspecified organism (2) Septic joint: Della Blackwell February 17, 2017 16:11
[2017-02-17 18:10] LABS: BLOOD, URINE NEG (NEG); GLUCOSE,URINE NEG (NEG); KETONE, URINE NEG (NEG); NITRITE,URINE NEG (NEG); PH, URINE 5.5 (5.0-8.5)
[2017-02-17 18:16] LABS: COMMENT (UR) CULT NOT INDICATED; CULTURE IF INDICATED CULT NOT INDICATED; METHOD OF COLLECTION CLEAN CATCH; URINE COLOR YELLOW (YELLW/STRAW); WBC, URINE 0-2 /hpf (0-5)
[2017-02-17 20:00] VITALS: BP 140/88; PULSE 102; RESP 19; TEMP 97.9; O2SAT 98
[2017-02-18] MEDS: ceFAZolin 2 GM PREMIX 50 ML IV SCH ×3 (00:47→17:16)
[2017-02-18] MEDS: SODIUM CHLORIDE 0.9% FLUSH 10 ML FLUSH IVF PRN (00:48)
[2017-02-18 01:00] VITALS: BP 103/57; PULSE 90; RESP 19; TEMP 96.8; O2SAT 98
[2017-02-18 08:00] VITALS: BP 132/78; PULSE 100; RESP 18; TEMP 96.2; O2SAT 95
[2017-02-18] MEDS: SODIUM CHLORIDE 0.9% FLUSH 5 ML FLUSH FLUSH SCH ×2 (09:00→20:47)
[2017-02-18] MEDS: SODIUM CHLORIDE 0.9% FLUSH 10 ML FLUSH IVF SCH ×2 (09:53→09:55)
[2017-02-18] MEDS: FONDAPARINUX SODIUM 2.5 MG/0.5 ML SYRINGE SQ SCH (09:53)
[2017-02-18] MEDS: NYSTATIN 100,000 U/GM OINT 15 GM TUBE TOPICAL SCH ×2 (09:54→20:47)
--- NOTE | 2017-02-18 11:13 | HHI.PR ---
Subjective Remarks "I want to go home. I've been in the hospital for 2 months and I want to go home." Pt encountered sitting a bed eating breakfast. She stated her desire to go home despite being told of why she needed to stay in the hospital. pt denied cough, fever, heart palpitation, nausea, vomiting, diarrhea. No new complaints/concerns raised by pt. Nursing staff has reported pt is voicing desire to leave AMA. Pt seen a second time to address staying. Dr. Hernandez was pressent and he was able to convince her to stay. Objective Vitals Vital Signs Date Time Temp Pulse Resp B/P Pulse Ox O2 Delivery O2 Flow Rate FiO2 02/18/17 08:00 96.2 100 18 132/78 95 02/18/17 01:00 96.8 90 19 103/57 98 02/17/17 20:00 97.9 102 19 140/88 98 I/O 02/17/17 02/17/17 02/17/17 02/18/17 02/18/17 02/18/17 07:00 15:00 23:00 07:00 15:00 23:00 Intake Total 400 ml 960 ml 480 ml 240 ml Balance 400 ml 960 ml 480 ml 240 ml Intake Oral 400 ml 960 ml 480 ml 240 ml # Voids 2 3 4 2 # Bowel Movements 0 1 1 Result Diagram: 02/17/17 1116 02/17/17 1116 Imaging No new imaging results within past 24 hours Objective Remarks GENERAL: Pt cooperative not appearing acutely ill. SKIN: Warm and dry. Multiple tattoos noted on upper torso. HEAD: Normocephalic. EYES: No scleral icterus. No injection or drainage. NECK: Supple, trachea midline. No JVD or lymphadenopathy. CARDIOVASCULAR: Regular rate and rhythm without murmurs, gallops, or rubs. RESPIRATORY: Breath sounds equal bilaterally. No accessory muscle use. GASTROINTESTINAL: Abdomen soft, non-tender, nondistended. Bowel sounds present all quadrants. MUSCULOSKELETAL: No cyanosis, or edema. PSYCHIATRIC: Pt A&O x3, angry and evidenced some tears when talking about her desire to leave. Procedures KRISTINA Medications and IVs Current Medications Medications (Trade) Dose Ordered Sig/Michelle Route Start Time Stop Time Status Last Admin (NS Flush) 2 ml UNSCH PRN FLUSH 01/04/17 21:45 02/11/17 00:52 (NS Flush) 2 ml BID FLUSH 01/05/17 09:00 02/16/17 08:40 (Dulcolax Supp) 10 mg DAILY PRN MI 01/04/17 21:45 (Tylenol) 650 mg Q6H PRN PO 01/04/17 21:45 02/11/17 20:36 (Mag-Al Plus Susp Liq) 30 ml Q6H PRN PO 01/06/17 11:00 Temazepam 15 mg 15 mg HS PRN PO 01/06/17 11:00 02/16/17 21:10 (Ancef 2 Gm Premix) 50 ml @ 100 mls/hr Q8H IV 01/09/17 17:00 02/18/17 09:53 (Ibis-Colace) 1 tab BID PRN PO 01/18/17 22:30 01/27/17 12:32 (Zofran Odt) 4 mg Q6H PRN PO 01/19/17 09:15 02/06/17 21:01 (Mycostatin Oint) 1 applic Q12HR TOPICAL 01/25/17 21:00 02/18/17 09:54 (NS Flush) DAILY IVF 01/28/17 09:00 02/18/17 09:55 (NS Flush) UNSCH PRN IVF 01/27/17 18:15 02/18/17 00:48 (Arixtra Inj) 2.5 mg Q24H SQ 02/10/17 09:00 02/19/17 08:59 02/18/17 09:53 (Motrin) 600 mg Q8H PRN PO 02/10/17 15:00 02/17/17 21:02 Date of Insertion: Jan 27, 2017 Line: Central Venous Catheter Side: Right Location: Subclavian A/P Problem List: (1) Superficial venous thrombosis of both arms ICD Code: I82.613 Status: Acute (2) Sepsis ICD Code: A41.9 Status: Resolved (3) Bacteremia due to Gram-positive bacteria ICD Code: A49.9 Status: Acute (4) 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 Cardiology and ID consults appreciated. Status post KRISTINA 01/09/17. Has bacteremia with staph aureus. Cardiothoracic surgery evaluated the patient indicated that she is not a surgical candidate Blood cultures positive with staph aureus, negative culture as of 01/09/17 Follow weekly CBC, CMP, C-reactive protein, sedimentation rate, which all appear to be improving Infectious disease following and made recommendations Continue Ancef until 02/18/17 Repeat echocardiogram 02/11 indicates probable non-mobile vegetation or annular abscess on the right ventricular aspect of the base of the septal leaflet. Discussed with infectious disease who requested cardiology reconsultation to evaluate the studies to see if there is any significant changes or if she is a candidate for valve replacement Consulted crystal attacher who evaluated and said KRISTINA is not necessary. That the imaging indicates similar findings to previous KRISTINA. Discussed with Cardiology and Infectious disease, both of which would appreciate re-evaluation by cardiothoracic surgery, consult was placed. Patient desired to pursue surgical intervention if she is a candidate Dr. Henderson, critical care cardiothoracic surgeon evaluated the patient on . Advises discharging patient to drug rehabilitation or home depending on her choice. Advises continuing antibiotics per ID. Random drug testing for 3 months; will reevaluate if she becomes septic or develops intractable heart failure. 02/17: Patient had elevated temperature 100.3 degrees last night. Discussed with Dr. Hernandez. Labs today with increasing ESR of 67 and increasing CRP. White blood cell count is normal but increased from prior labs on 02/09. CMP unremarkable. Discussed with Dr. Vernon, infectious disease, who recommends ordering repeat blood cultures and UA. Patient's last day of antibiotics is supposed to be tomorrow, but patient may need to remain hospitalized longer depending on lab work and clinical status. -02/18: Pt voicing strong desire to go home as "I was supposed to be discharged today." Pt informed of ID input and need to identify why markers have increased.Discussed with Dr. Hernandez who stated pt is to remain in the hospital until blood cultures have returned and ID has been informed of results in order for treatment needs to be addressed. Superficial vein thrombosis in the left upper extremity, now has developed in the right upper extremity Ultrasound indicates thrombosis of the cephalic and basilic veins of left arm Hematology consulted for recommendations Patient switched to Arixtra because of possible allergy to Lovenox 01/26/17 patient now complaining of pain in the right arm where midline has been inserted on 01/21/17 Ultrasound performed which did indicate superficial thrombosis which is worrisome for septic thrombophlebitis in the basilic vein. Midline has been removed, vascular access team unable to place any other IVs in her periphery considering patient has thrombophlebitis in bilateral upper extremities Discussed with infectious disease, could be due from systemic infection versus continued IV drug use while in the hospital. Urine drug screen was performed which is positive for opiates. Continue Arixtra until discontinuation of antibiotics. Fever resolved. See above. Infectious workup was performed and was negative Infectious disease indicated that elevated temperature likely secondary to thrombosis Skin rash, improved Patient had pruritic rash and 01/24 small red papules which has resolved Patient had rash in her groin on 01/25 which has resolved Patient started on Benadryl and nystatin ointment Hip Pain MRI hip w/ small bilateral joint effusions, repeat MRI showed no evidence of joint effusion Orthopedic consulted who indicated patient is not a surgical candidate Continue pain control: We'll need to wean patient off all narcotics weekly, Ibuprofen 600 mg 3 times daily as needed for pain 610 Continue physical therapy IVDU Patient will plan minutes says 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 Discharge Planning Patient will remain hospitalized until discontinuation of antibiotics. 02/17/17: Per note yesterday Dr. Garvin with infectious disease is going to contact Dr. Mccloud for recommendations for outpatient antibiotics. Problem Qualifiers (1) Sepsis: Qualified Code: A41.9 - Sepsis, due to unspecified organism (2) Septic joint: Suhas Bowles Jr. February 18, 2017 11:13
[2017-02-18 20:00] VITALS: BP 142/85; PULSE 98; RESP 21; TEMP 98.8; O2SAT 100
[2017-02-18] MEDS: TEMAZEPAM 15 MG CAP PO PRN (20:47)
[2017-02-18] MEDS: IBUPROFEN 600 MG TAB PO PRN (20:48)
[2017-02-19] VITALS: BP 91/52; PULSE 90; RESP 19; TEMP 98.2; O2SAT 100
[2017-02-19] MEDS: ceFAZolin 2 GM PREMIX 50 ML IV SCH ×3 (00:56→16:45)
[2017-02-19 04:00] VITALS: BP 109/75; PULSE 87; RESP 19; TEMP 96.7; O2SAT 100
[2017-02-19] MEDS: SODIUM CHLORIDE 0.9% FLUSH 5 ML FLUSH FLUSH SCH ×2 (09:00→20:57)
[2017-02-19] MEDS: SODIUM CHLORIDE 0.9% FLUSH 10 ML FLUSH IVF SCH (09:41)
[2017-02-19] MEDS: ONDANSETRON ODT 4 MG TAB PO PRN (10:49)
[2017-02-19] MEDS: NYSTATIN 100,000 U/GM OINT 15 GM TUBE TOPICAL SCH ×2 (10:50→20:58)
[2017-02-19 11:27] VITALS: BP 124/82; PULSE 97; RESP 16; TEMP 97.8; O2SAT 100
--- NOTE | 2017-02-19 13:50 | HHI.PR ---
Subjective Remarks "I'm nauseated from the IV medication." Pt rated the intensity as "2-3 out of 10 ". Pt encountered sitting a bed with IV medication being administered through her port. Pt reported she always gets "nauseated with any type of medicine. It happens when I take Tylenol at home." Pt questioned about why she is needing to stay. She was informed of bacteria in her blood is different from the original infectious agent. Informed she originally was infected with gram positive staph and now has gram negative enterobacter. Pt denied vomiting, fever, chills, body aches, cough, and shortness of breath. No other issues noted or reported. Objective Vitals Vital Signs Date Time Temp Pulse Resp B/P Pulse Ox O2 Delivery O2 Flow Rate FiO2 02/19/17 11:27 97.8 97 16 124/82 100 02/19/17 04:00 96.7 87 19 109/75 100 02/19/17 00:00 98.2 90 19 91/52 100 02/18/17 21:48 16 02/18/17 20:00 98.8 98 21 142/85 100 I/O 02/18/17 02/18/17 02/18/17 02/19/17 02/19/17 02/19/17 07:00 15:00 23:00 07:00 15:00 23:00 Intake Total 240 ml 840 ml 480 ml 315 ml Balance 240 ml 840 ml 480 ml 315 ml Intake Oral 240 ml 840 ml 480 ml 240 ml IV Total 75 ml # Voids 2 2 3 # Bowel Movements 1 Result Diagram: 02/17/17 1116 02/17/17 1116 Imaging No new images ordered/obtained within the past 24 hours. Objective Remarks GENERAL: Pt cooperative not appearing acutely ill. SKIN: Warm and dry. Multiple tattoos noted on upper torso. HEAD: Normocephalic. EYES: No scleral icterus. No injection or drainage. NECK: Supple, trachea midline. No JVD or lymphadenopathy. CARDIOVASCULAR: Regular rate and rhythm without murmurs, gallops, or rubs. RESPIRATORY: Breath sounds equal bilaterally. No accessory muscle use. GASTROINTESTINAL: Abdomen soft, non-tender, nondistended. Bowel sounds present all quadrants. MUSCULOSKELETAL: No cyanosis, or edema. PSYCHIATRIC: Pt A&O x3, pleasant and cooperative. She did not evidence gross signs of anxiety, depression, or psychosis. Procedures KRISTINA Medications and IVs Current Medications Medications (Trade) Dose Ordered Sig/Michelle Route Start Time Stop Time Status Last Admin (NS Flush) 2 ml UNSCH PRN FLUSH 01/04/17 21:45 02/11/17 00:52 (NS Flush) 2 ml BID FLUSH 01/05/17 09:00 02/18/17 20:47 (Dulcolax Supp) 10 mg DAILY PRN NM 01/04/17 21:45 (Tylenol) 650 mg Q6H PRN PO 01/04/17 21:45 02/11/17 20:36 (Mag-Al Plus Susp Liq) 30 ml Q6H PRN PO 01/06/17 11:00 Temazepam 15 mg 15 mg HS PRN PO 01/06/17 11:00 02/18/17 20:47 (Ancef 2 Gm Premix) 50 ml @ 100 mls/hr Q8H IV 01/09/17 17:00 02/19/17 09:41 (Ibis-Colace) 1 tab BID PRN PO 01/18/17 22:30 01/27/17 12:32 (Zofran Odt) 4 mg Q6H PRN PO 01/19/17 09:15 02/19/17 10:49 (Mycostatin Oint) 1 applic Q12HR TOPICAL 01/25/17 21:00 02/19/17 10:50 (NS Flush) DAILY IVF 01/28/17 09:00 02/19/17 09:41 (NS Flush) UNSCH PRN IVF 01/27/17 18:15 02/18/17 00:48 (Motrin) 600 mg Q8H PRN PO 02/10/17 15:00 02/18/17 20:48 Urinary Catheter: No Vascular Central Line Catheter: Yes Assessment to: Continue Date of Insertion: Jan 27, 2017 Line: Central Venous Catheter Side: Right Location: Subclavian A/P Problem List: (1) Superficial venous thrombosis of both arms ICD Code: I82.613 Status: Acute (2) Sepsis ICD Code: A41.9 Status: Resolved (3) Bacteremia due to Gram-positive bacteria ICD Code: A49.9 Status: Acute (4) 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 Cardiology and ID consults appreciated. Status post KRISTINA 01/09/17. Has bacteremia with staph aureus. Cardiothoracic surgery evaluated the patient indicated that she is not a surgical candidate Blood cultures positive with staph aureus, negative culture as of 01/09/17 Follow weekly CBC, CMP, C-reactive protein, sedimentation rate, which all appear to be improving Infectious disease following and made recommendations Continue Ancef until 02/18/17 Repeat echocardiogram 02/11 indicates probable non-mobile vegetation or annular abscess on the right ventricular aspect of the base of the septal leaflet. Discussed with infectious disease who requested cardiology reconsultation to evaluate the studies to see if there is any significant changes or if she is a candidate for valve replacement Consulted screen making supervisor who evaluated and said KRISTINA is not necessary. That the imaging indicates similar findings to previous KRISTINA. Discussed with Cardiology and Infectious disease, both of which would appreciate re-evaluation by cardiothoracic surgery, consult was placed. Patient desired to pursue surgical intervention if she is a candidate Dr. Henderson, critical care cardiothoracic surgeon evaluated the patient on . Advises discharging patient to drug rehabilitation or home depending on her choice. Advises continuing antibiotics per ID. Random drug testing for 3 months; will reevaluate if she becomes septic or develops intractable heart failure. 02/17: Patient had elevated temperature 100.3 degrees last night. Discussed with Dr. Hernandez. Labs today with increasing ESR of 67 and increasing CRP. White blood cell count is normal but increased from prior labs on 02/09. CMP unremarkable. Discussed with Dr. Vernon, infectious disease, who recommends ordering repeat blood cultures and UA. Patient's last day of antibiotics is supposed to be tomorrow, but patient may need to remain hospitalized longer depending on lab work and clinical status. -02/18: Pt voicing strong desire to go home as "I was supposed to be discharged today." Pt informed of ID input and need to identify why markers have increased.Discussed with Dr. Hernandez who stated pt is to remain in the hospital until blood cultures have returned and ID has been informed of results in order for treatment needs to be addressed. 02/19/17: Blood cultures indicate the presence of gram negative rods, Enterobacter. Dr. Vernon (infectious disease) consulted and awaiting her input. Nausea noted during pt's IV antibiotic administration, Zofran given. Superficial vein thrombosis in the left upper extremity, now has developed in the right upper extremity Ultrasound indicates thrombosis of the cephalic and basilic veins of left arm Hematology consulted for recommendations Patient switched to Arixtra because of possible allergy to Lovenox 01/26/17 patient now complaining of pain in the right arm where midline has been inserted on 01/21/17 Ultrasound performed which did indicate superficial thrombosis which is worrisome for septic thrombophlebitis in the basilic vein. Midline has been removed, vascular access team unable to place any other IVs in her periphery considering patient has thrombophlebitis in bilateral upper extremities Discussed with infectious disease, could be due from systemic infection versus continued IV drug use while in the hospital. Urine drug screen was performed which is positive for opiates. Continue Arixtra until discontinuation of antibiotics. Fever resolved. See above. Infectious workup was performed and was negative Infectious disease indicated that elevated temperature likely secondary to thrombosis Skin rash, improved Patient had pruritic rash and 01/24 small red papules which has resolved Patient had rash in her groin on 01/25 which has resolved Patient started on Benadryl and nystatin ointment Hip Pain MRI hip w/ small bilateral joint effusions, repeat MRI showed no evidence of joint effusion Orthopedic consulted who indicated patient is not a surgical candidate Continue pain control: We'll need to wean patient off all narcotics weekly, Ibuprofen 600 mg 3 times daily as needed for pain 610 Continue physical therapy -Pt walking the halls several times a day for exercise and per PT direction. 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 Discharge Planning Patient will remain hospitalized until discontinuation of antibiotics. 02/17/17: Per note yesterday Dr. Garvin with infectious disease is going to contact Dr. Mccloud for recommendations for outpatient antibiotics. Problem Qualifiers (1) Sepsis: Qualified Code: A41.9 - Sepsis, due to unspecified organism (2) Septic joint: Suhas Bowles Jr. February 19, 2017 13:50
--- NOTE | 2017-02-19 18:37 | HHI.IDPN ---
Subjective Subjective Remarks ID RE CONSULT DR VERNON - WE WERE RECONSULTED TO EVALUATE PT DUE TO NEW ONSET BACTEREMIA. PT WAS ADM IN DECEMBER WITH LEFT HIP PAIN/SEPSIS/ FOUND TO HAVE MSSA BACTEREMIA WITH TRICUSPID ENDOCARDITIS ON ECHO AND KRISTINA. PT WAS DUE TO BE COMPLETE OF 6 WEEKS ABX ON 02/18. SHE DELVELOPED FEVER THURSDAY. SHE DENIES ANY ILLICIT DRUG USE. SHE DOES HAVE RUE DVT ON 01/26. SHE DENIES ANY RECENT SOB COUGH OR DYSURIA. NO ABD PAIN. Antibiotics ANCEF Past Medical History ANXIETY ? PTSD ( PT WAS MOLESTED FOR MANY YEARS FROM AGE [age]) IV DRUG USE MSSA TRICUSPID VALVE ENDOCARDITIS (Livia Carpio) Remarks Last fever on 02/16 Antibiotics IV Cefazolin (Chaya Vernon MD) Allergies: Coded Allergies: Amoxicillin (Verified Allergy, Severe, HIVES, 01/04/17) Codeine (Verified Allergy, Severe, Hives, 01/04/17) Dilantin (Verified Allergy, Severe, HIVES, 01/04/17) *MDRO Multi-Drug Resistant Organism (Verified Adverse Reaction, Unknown, ) MRSA (wound) - 03/09/16 Review of Systems Constitutional Constitutional: Fever Constitutional Remarks LOW GRADE FEVER LAST THURSDAY TM 100 (Livia Carpio) Cardiology Cardiology Remarks NO CP (Livia Carpio) Genitourinary Genitorurinary Remarks NO DYSURIA (Livia Carpio) Musculoskeletal MS Remarks C/O LEFT HIP PAIN ON ADM NOW OCC DOES CAUSE PAIN (Livia Carpio) Neurologic Neurologic: Lightheaded (Livia Carpio) Objective . Vital Signs Date Time Temp Pulse Resp B/P Pulse Ox O2 Delivery O2 Flow Rate FiO2 02/19/17 11:27 97.8 97 16 124/82 100 02/19/17 04:00 96.7 87 19 109/75 100 02/19/17 00:00 98.2 90 19 91/52 100 02/18/17 21:48 16 02/18/17 20:00 98.8 98 21 142/85 100 02/18/17 02/18/17 02/19/17 15:00 23:00 07:00 Intake Total 840 ml 480 ml 315 ml Balance 840 ml 480 ml 315 ml Intake Oral 840 ml 480 ml 240 ml IV Total 75 ml # Voids 2 3 # Bowel Movements 1 . Microbiology Date/Time Procedure Status Source Growth 02/17/17 19:00 Aerobic Blood Culture - Preliminary Resulted Blood Peripheral Enterobacter Species 02/17/17 19:00 Anaerobic Blood Culture - Preliminary Resulted Gram Negative Dick 02/17/17 19:10 Aerobic Blood Culture - Preliminary Resulted Blood Peripheral Gram Negative Dick 02/17/17 19:10 Anaerobic Blood Culture - Preliminary Resulted Blood Peripheral NO GROWTH IN 2 DAYS Physical Exam GENERAL: AWAKE NAD HEENT: PERRL NS TEETH NO MISSING TEETH NO DECAY CHEST: LUNGS ARE CLEAR EQUAL CARDIAC: RRR NO MURMURS OR RUBS ABD: SOFT + BS ACTIVE NON TENDER EXT: NO EDEMA. NO PAIN WITH AMBULATING (Livia Carpio) Assessment & Plan Diagnosis: (1) Left hip pain Plan: ? 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 SOURCE MAY NEED CT ABD PELVIS FOLLOW SENSITIVITY WILL FU FURTHER ORDERS TO FOLLOW (Livia Carpio) Diagnosis: (1) Left hip pain Plan: ? 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 SOURCE MAY NEED CT ABD PELVIS FOLLOW SENSITIVITY WILL FU FURTHER ORDERS TO FOLLOW Stop IV Cefazolin Start Cefepime 2g IV q12 Start Cipro 400 mg IV q 12 Check CXR (Chaya Vernon MD) Problem Qualifiers (1) Septic joint: Livia Carpio February 19, 2017 18:37 Chaya Vernon MD February 19, 2017 19:10
[2017-02-19 20:00] VITALS: BP 122/79; PULSE 112; RESP 16; TEMP 98.3; O2SAT 98
[2017-02-19] MEDS: CEFEPIME INJ 2,000 MG in SODIUM CHLORIDE 0.9% INJ 100 ML IV SCH (20:48)
[2017-02-19] MEDS: CIPROFLOXACIN 400 MG PREMIX 200 ML IV SCH (20:57)
[2017-02-19] MEDS: TEMAZEPAM 15 MG CAP PO PRN (20:58)
[2017-02-19] MEDS: IBUPROFEN 600 MG TAB PO PRN (20:58)
--- NOTE | 2017-02-19 21:01 | RADHPO ---
EXAM DATE/TIME: 02/19/2017 20:22 [facility] COMPARISON: CHEST PA & LAT, April 06, 2014, 10:57. INDICATIONS : Patient states she has an abscess on heart. She also said she had a fever yesterday. MEDICAL HISTORY : Hep C SURGICAL HISTORY : None. ENCOUNTER: Initial ACUITY: 1 day PAIN SCORE: 0/10 LOCATION: Bilateral chest FINDINGS: PA and lateral views of the chest demonstrate the lungs to be symmetrically aerated without evidence of mass, infiltrate or effusion. There is a right subclavian central line in place with the tip over lying the right brachiocephalic vein region. The cardiomediastinal contours are unremarkable. Osseou s structures are intact. CONCLUSION: No acute disease. Gregory Loredo MD on February 19, 2017 at 20:58 Board Certified Radiologist. This report was verified electronically.
[2017-02-20] MEDS: CEFEPIME INJ 2,000 MG in SODIUM CHLORIDE 0.9% INJ 100 ML IV SCH ×2 (08:27→21:24)
[2017-02-20] MEDS: SODIUM CHLORIDE 0.9% FLUSH 5 ML FLUSH FLUSH SCH ×2 (09:00→21:00)
[2017-02-20 09:10] VITALS: BP 125/82; PULSE 90; RESP 18; TEMP 97.7; O2SAT 95
[2017-02-20] MEDS: NYSTATIN 100,000 U/GM OINT 15 GM TUBE TOPICAL SCH ×2 (09:21→22:00)
[2017-02-20] MEDS: CIPROFLOXACIN 400 MG PREMIX 200 ML IV SCH ×2 (09:21→23:34)
--- NOTE | 2017-02-20 11:45 | HHI.PR ---
Subjective Remarks "I'm ok, just living the dream." Pt encountered sitting up in bed eating breakfast, receiving medication through her picc line. Pt denied feeling nauseated with this medication, which is a change from previous agent. Pt denied fever, nausea, vomiting, diarrhea, cough, shortness of breath. Pt stated she was seen by infectious disease yesterday. No new issues noted or reported by pt. Objective Vitals Vital Signs Date Time Temp Pulse Resp B/P Pulse Ox O2 Delivery O2 Flow Rate FiO2 02/20/17 09:10 97.7 90 18 125/82 95 02/19/17 21:58 16 02/19/17 20:00 98.3 112 16 122/79 98 I/O 02/19/17 02/19/17 02/19/17 02/20/17 02/20/17 02/20/17 07:00 15:00 23:00 07:00 15:00 23:00 Intake Total 315 ml 820 ml 1720 ml 480 ml Balance 315 ml 820 ml 1720 ml 480 ml Intake Oral 240 ml 720 ml 1720 ml 480 ml IV Total 75 ml 100 ml # Voids 3 6 2 # Bowel Movements 1 0 Result Diagram: 02/17/17 1116 02/17/17 1116 Other Results ESR 36 C reactive protein 1.00 Imaging Last Impressions Chest X-Ray 02/19/17 0000 Signed Impressions: Service Date/Time: February 20:22 - CONCLUSION: No acute disease. Gregory Loredo MD Central Venous Line 01/27/17 0000 Signed Impressions: Service Date/Time: Friday, January 27, 2017 17:50 - CONCLUSION: Uncomplicated line placement as above. Gregory Taylor MD Upper Extremity Ultrasound 01/26/17 0000 Signed Impressions: Service Date/Time: Thursday, January 26, 2017 14:44 - CONCLUSION: No evidence of right arm DVT. Superficial thrombosis including findings worrisome for septic thrombophlebitis in the basilic vein. Gregory Taylor MD Hip MRI 01/11/17 0000 Signed Impressions: Service Date/Time: Wednesday, January 11, 2017 09:16 - CONCLUSION: No evidence of significant joint effusion. There is a slight increase in T2 signal identified within the tendon of the vastus lateralis muscle at the insertion of the greater trochanter which may reflect any tendinopathy.. Eula Núñez MD Consultation 01/05/17 0700 Signed Impressions: Service Date/Time: Thursday, January 05, 2017 07:00 - CONCLUSION: Only a miniscule amount of joint fluid present which would not be amenable to CT guided aspiration. Dillon Archibald MD Lumbar Spine MRI 01/04/17 0000 Signed Impressions: Service Date/Time: Wednesday, January 04, 2017 19:33 - CONCLUSION: 1. Degenerative change at the L4-5 level with annular disc bulge and high intensity zone the posterior annulus most characteristic of a small annular tear. 2. Small amount of free fluid in the cul-de-sac. Castillo Bedoya MD Hip and Pelvis X-Ray 01/04/17 0000 Signed Impressions: Service Date/Time: Wednesday, January 04, 2017 18:51 - CONCLUSION: Unremarkable exam with no underlying bony abnormality. Castillo Bedoya MD Objective Remarks GENERAL: Pt cooperative not appearing acutely ill. SKIN: Warm and dry. Multiple tattoos noted on upper torso. HEAD: Normocephalic. EYES: No scleral icterus. No injection or drainage. NECK: Supple, trachea midline. No JVD or lymphadenopathy. CARDIOVASCULAR: Regular rate and rhythm without murmurs, gallops, or rubs. RESPIRATORY: Breath sounds equal bilaterally. No accessory muscle use. GASTROINTESTINAL: Abdomen soft, non-tender, nondistended. Bowel sounds present all quadrants. MUSCULOSKELETAL: No cyanosis, or edema. PSYCHIATRIC: Pt A&O x3, pleasant and cooperative. She did not evidence gross signs of anxiety, depression, or psychosis. Procedures KRISTINA Medications and IVs Current Medications Medications (Trade) Dose Ordered Sig/Michelle Route Start Time Stop Time Status Last Admin (NS Flush) 2 ml UNSCH PRN FLUSH 01/04/17 21:45 02/11/17 00:52 (NS Flush) 2 ml BID FLUSH 01/05/17 09:00 02/20/17 09:00 (Dulcolax Supp) 10 mg DAILY PRN CA 01/04/17 21:45 (Tylenol) 650 mg Q6H PRN PO 01/04/17 21:45 02/11/17 20:36 (Mag-Al Plus Susp Liq) 30 ml Q6H PRN PO 01/06/17 11:00 (Restoril) 15 mg HS PRN PO 01/06/17 11:00 02/19/17 20:58 (Ibis-Colace) 1 tab BID PRN PO 01/18/17 22:30 01/27/17 12:32 (Zofran Odt) 4 mg Q6H PRN PO 01/19/17 09:15 02/19/17 10:49 (Mycostatin Oint) 1 applic Q12HR TOPICAL 01/25/17 21:00 02/20/17 09:21 (NS Flush) DAILY IVF 01/28/17 09:00 02/19/17 09:41 (NS Flush) UNSCH PRN IVF 01/27/17 18:15 02/18/17 00:48 Ibuprofen 600 mg 600 mg Q8H PRN PO 02/10/17 15:00 02/19/17 20:58 Cefepime HCl 2000 mg/Sodium Chloride 100 ml @ 200 mls/hr Q12H IV 02/19/17 20:00 02/20/17 08:27 (Cipro 400 Mg Premix) 200 ml @ 200 mls/hr Q12H IV 02/19/17 21:00 02/20/17 09:21 Urinary Catheter: No Vascular Central Line Catheter: Yes Assessment to: Continue Date of Insertion: Jan 27, 2017 Line: Central Venous Catheter Side: Right Location: Subclavian A/P Problem List: (1) Superficial venous thrombosis of both arms ICD Code: I82.613 Status: Acute (2) Sepsis ICD Code: A41.9 Status: Resolved (3) Bacteremia due to Gram-positive bacteria ICD Code: A49.9 Status: Acute (4) 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 Cardiology and ID consults appreciated. Status post KRISTINA 01/09/17. Has bacteremia with staph aureus. Cardiothoracic surgery evaluated the patient indicated that she is not a surgical candidate Blood cultures positive with staph aureus, negative culture as of 01/09/17 Follow weekly CBC, CMP, C-reactive protein, sedimentation rate, which all appear to be improving Infectious disease following and made recommendations Continue Ancef until 02/18/17 Repeat echocardiogram 02/11 indicates probable non-mobile vegetation or annular abscess on the right ventricular aspect of the base of the septal leaflet. Discussed with infectious disease who requested cardiology reconsultation to evaluate the studies to see if there is any significant changes or if she is a candidate for valve replacement Consulted flask fitter who evaluated and said KRISTINA is not necessary. That the imaging indicates similar findings to previous KRISTINA. Discussed with Cardiology and Infectious disease, both of which would appreciate re-evaluation by cardiothoracic surgery, consult was placed. Patient desired to pursue surgical intervention if she is a candidate Dr. Henderson, critical care cardiothoracic surgeon evaluated the patient on . Advises discharging patient to drug rehabilitation or home depending on her choice. Advises continuing antibiotics per ID. Random drug testing for 3 months; will reevaluate if she becomes septic or develops intractable heart failure. 02/17: Patient had elevated temperature 100.3 degrees last night. Discussed with Dr. Hernandez. Labs today with increasing ESR of 67 and increasing CRP. White blood cell count is normal but increased from prior labs on 02/09. CMP unremarkable. Discussed with Dr. Vernon, infectious disease, who recommends ordering repeat blood cultures and UA. Patient's last day of antibiotics is supposed to be tomorrow, but patient may need to remain hospitalized longer depending on lab work and clinical status. -02/18: Pt voicing strong desire to go home as "I was supposed to be discharged today." Pt informed of ID input and need to identify why markers have increased.Discussed with Dr. Hernandez who stated pt is to remain in the hospital until blood cultures have returned and ID has been informed of results in order for treatment needs to be addressed. 02/19/17: Blood cultures indicate the presence of gram negative rods, Enterobacter. Dr. Vernon (infectious disease) consulted and awaiting her input. Nausea noted during pt's IV antibiotic administration, Zofran given. 02/20/17: ID saw pt yesterday, discontinued Ancef and initiated Cefepime. No nausea reported with Cefepime. Superficial vein thrombosis in the left upper extremity, now has developed in the right upper extremity Ultrasound indicates thrombosis of the cephalic and basilic veins of left arm Hematology consulted for recommendations Patient switched to Arixtra because of possible allergy to Lovenox 01/26/17 patient now complaining of pain in the right arm where midline has been inserted on 01/21/17 Ultrasound performed which did indicate superficial thrombosis which is worrisome for septic thrombophlebitis in the basilic vein. Midline has been removed, vascular access team unable to place any other IVs in her periphery considering patient has thrombophlebitis in bilateral upper extremities Discussed with infectious disease, could be due from systemic infection versus continued IV drug use while in the hospital. Urine drug screen was performed which is positive for opiates. Continue Arixtra until discontinuation of antibiotics. Fever resolved. See above. Infectious workup was performed and was negative Infectious disease indicated that elevated temperature likely secondary to thrombosis Skin rash, improved Patient had pruritic rash and 01/24 small red papules which has resolved Patient had rash in her groin on 01/25 which has resolved Patient started on Benadryl and nystatin ointment Hip Pain MRI hip w/ small bilateral joint effusions, repeat MRI showed no evidence of joint effusion Orthopedic consulted who indicated patient is not a surgical candidate Continue pain control: We'll need to wean patient off all narcotics weekly, Ibuprofen 600 mg 3 times daily as needed for pain 610 Continue physical therapy -Pt walking the halls several times a day for exercise and per PT direction. IVDU Patient will plan minutes says she has been IV drug user since she was 15 years old with heroin Patient states that she does not want to be on any medications prior to leaving the hospital Patient counseled on cessation DVT Prophylaxis: Arixtra, SCD/Teds. Discharge Planning Patient will remain hospitalized until discontinuation of antibiotics. 02/17/17: Per note yesterday Dr. Garvin with infectious disease is going to contact Dr. Mccloud for recommendations for outpatient antibiotics. Problem Qualifiers (1) Sepsis: Qualified Code: A41.9 - Sepsis, due to unspecified organism (2) Septic joint: Suhas Bowles Jr. February 20, 2017 11:45 Gregory Koenig MD February 20, 2017 13:37
[2017-02-20] MEDS: FONDAPARINUX SODIUM 2.5 MG/0.5 ML SYRINGE SQ SCH (14:57)
[2017-02-20 20:00] VITALS: BP 109/59; PULSE 108; RESP 16; TEMP 98.3; O2SAT 98
[2017-02-20] MEDS: SODIUM CHLORIDE 0.9% FLUSH 10 ML FLUSH IVF PRN (21:24)
[2017-02-20] MEDS: IBUPROFEN 600 MG TAB PO PRN (21:27)
[2017-02-20] MEDS: TEMAZEPAM 15 MG CAP PO PRN (21:28)
[2017-02-21 08:00] VITALS: BP 114/75; PULSE 108; RESP 19; TEMP 97.8; O2SAT 96
[2017-02-21] MEDS: CEFEPIME INJ 2,000 MG in SODIUM CHLORIDE 0.9% INJ 100 ML IV SCH ×2 (08:20→20:25)
[2017-02-21] MEDS: SODIUM CHLORIDE 0.9% FLUSH 5 ML FLUSH FLUSH SCH ×2 (08:20→20:25)
[2017-02-21] MEDS: CIPROFLOXACIN 400 MG PREMIX 200 ML IV SCH ×2 (09:41→21:00)
[2017-02-21] MEDS: SODIUM CHLORIDE 0.9% FLUSH 10 ML FLUSH IVF SCH (09:41)
[2017-02-21] MEDS: NYSTATIN 100,000 U/GM OINT 15 GM TUBE TOPICAL SCH ×2 (09:42→20:24)
--- NOTE | 2017-02-21 10:12 | HHI.PR ---
Subjective Remarks Follow-up for endocarditis with positive repeat blood cultures. Patient denies any fevers or chills, chest pain or shortness of breath, abdominal pain, vomiting, dysuria, or diarrhea. She denies any increasing pain in her left hip. Objective Vitals Vital Signs Date Time Temp Pulse Resp B/P Pulse Ox O2 Delivery O2 Flow Rate FiO2 02/21/17 08:00 97.8 108 19 114/75 96 02/20/17 20:00 98.3 108 16 109/59 98 I/O 02/20/17 02/20/17 02/20/17 02/21/17 02/21/17 02/21/17 07:00 15:00 23:00 07:00 15:00 23:00 Intake Total 480 ml 1860 ml 580 ml Balance 480 ml 1860 ml 580 ml Intake Oral 480 ml 1860 ml 480 ml IV Total 100 ml # Voids 2 7 3 # Bowel Movements 0 1 0 Result Diagram: 02/17/17 1116 02/17/17 1116 Objective Remarks GENERAL: Obese, well-developed patient in no apparent distress. CARDIOVASCULAR: Regular rate and rhythm. RESPIRATORY: No accessory muscle use. Clear to auscultation. Breath sounds equal bilaterally. GASTROINTESTINAL: Abdomen soft, non-tender, non-distended. NEUROLOGICAL: Awake and alert. Normal speech. PSYCHIATRIC: Appropriate mood and affect; insight and judgment normal. Procedures KRISTINA Urinary Catheter: No Vascular Central Line Catheter: Yes Assessment to: Continue Date of Insertion: Jan 27, 2017 Line: Central Venous Catheter Side: Right Location: Subclavian Reason for Continuation senior care antibiotics A/P Problem List: (1) Superficial venous thrombosis of both arms ICD Code: I82.613 Status: Acute (2) Sepsis ICD Code: A41.9 Status: Resolved (3) Bacteremia due to Gram-positive bacteria ICD Code: A49.9 Status: Acute (4) 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 Cardiology and ID consults appreciated. Status post KRISTINA 01/09/17. Has bacteremia with staph aureus. Cardiothoracic surgery evaluated the patient indicated that she is not a surgical candidate Blood cultures positive with staph aureus, negative culture as of 01/09/17 Follow weekly CBC, CMP, C-reactive protein, sedimentation rate, which all appear to be improving Infectious disease following and made recommendations, was to continue Ancef until 02/18/17 Repeat echocardiogram 02/11 indicates probable non-mobile vegetation or annular abscess on the right ventricular aspect of the base of the septal leaflet. Discussed with infectious disease who requested cardiology reconsultation to evaluate the studies to see if there is any significant changes or if she is a candidate for valve replacement Consulted house builder who evaluated and said KRISTINA is not necessary. That the imaging indicates similar findings to previous KRISTINA. Discussed with Cardiology and Infectious disease, both of which would appreciate re-evaluation by cardiothoracic surgery, consult was placed. Patient desired to pursue surgical intervention if she is a candidate Dr. Henderson, critical care cardiothoracic surgeon evaluated the patient on . Advises discharging patient to drug rehabilitation or home depending on her choice. Advises continuing antibiotics per ID. Random drug testing for 3 months; will reevaluate if she becomes septic or develops intractable heart failure. No surgical intervention recommended. Patient had elevated temperature 100.3 degrees on 02/16 at 2000 hrs. ESR increased to 67 from 1 a week prior and CRP also increased. UA 02/17 without infection. Chest x-ray 02/19 normal. Repeat blood cultures 02/17: 3/4 bottles with Enterobacter Cloacae. Repeat blood cultures on 02/19: 3/4 bottles with Group D enterococcus; 2/4 with gram negative rods. 02/19: Improved ESR and CRP at 36 and 1.00 respectively ID re-evaluated patient, discontinued Ancef and started on Cefepime 2g IV q12h and Cipro 400 mg IV q12h; per ID consider CT hip or abdomen/pelvis, but patient has no increasing hip nor has any abdominal pain at this time. 02/21: ID evaluated patient today; will await further recommendations. Superficial vein thrombosis in the left upper extremity, now has developed in the right upper extremity Ultrasound indicates thrombosis of the cephalic and basilic veins of left arm Hematology consulted for recommendations Patient switched to Arixtra because of possible allergy to Lovenox 01/26/17 patient now complaining of pain in the right arm where midline has been inserted on 01/21/17 Ultrasound performed which did indicate superficial thrombosis which is worrisome for septic thrombophlebitis in the basilic vein. Midline has been removed, vascular access team unable to place any other IVs in her periphery considering patient has thrombophlebitis in bilateral upper extremities Discussed with infectious disease, could be due from systemic infection versus continued IV drug use while in the hospital. Urine drug screen was performed which is positive for opiates. Continue Arixtra until discontinuation of antibiotics. Skin rash, improved Patient had pruritic rash and 01/24 small red papules which has resolved Patient had rash in her groin on 01/25 which has resolved Patient started on Benadryl and nystatin ointment Hip Pain: Stable MRI hip w/ small bilateral joint effusions, repeat MRI showed no evidence of joint effusion Orthopedic consulted who indicated patient is not a surgical candidate Continue Ibuprofen 600 mg 3 times daily as needed for pain 610; patient no longer on narcotics Continue physical therapy -Pt walking the halls several times a day for exercise and per PT direction. 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 Discharge Planning Patient will remain hospitalized until discontinuation of antibiotics. Problem Qualifiers (1) Sepsis: Qualified Code: A41.9 - Sepsis, due to unspecified organism (2) Septic joint: Della Blackwell February 21, 2017 10:12
--- NOTE | 2017-02-21 10:20 | HHI.IDPN ---
Subjective Subjective Remarks ID FU DR SIMMONS FEELS BETTER NO COMPLAINTS Last fever on 02/16 Antibiotics IV Cefazolin Past Medical History ANXIETY ? PTSD ( PT WAS MOLESTED FOR MANY YEARS FROM AGE [age]) IV DRUG USE MSSA TRICUSPID VALVE ENDOCARDITIS Allergies: Coded Allergies: Amoxicillin (Verified Allergy, Severe, HIVES, 01/04/17) Codeine (Verified Allergy, Severe, Hives, 01/04/17) Dilantin (Verified Allergy, Severe, HIVES, 01/04/17) *MDRO Multi-Drug Resistant Organism (Verified Adverse Reaction, Unknown, ) MRSA (wound) - 03/09/16 Objective . Vital Signs Date Time Temp Pulse Resp B/P Pulse Ox O2 Delivery O2 Flow Rate FiO2 02/21/17 08:00 97.8 108 19 114/75 96 02/20/17 20:00 98.3 108 16 109/59 98 02/20/17 02/20/17 02/21/17 15:00 23:00 07:00 Intake Total 1860 ml 580 ml Balance 1860 ml 580 ml Intake Oral 1860 ml 480 ml IV Total 100 ml # Voids 7 3 # Bowel Movements 1 0 . Laboratory Tests Test 02/19/17 19:45 Erythrocyte Sedimentation Rate 36 mm/hr Laboratory Tests Test 02/19/17 19:45 C-Reactive Protein 1.00 MG/DL Microbiology Date/Time Procedure Status Source Growth 02/19/17 19:35 Aerobic Blood Culture - Preliminary Resulted Blood Peripheral Gram Positive Cocci Gram Negative Dick 02/19/17 19:35 Anaerobic Blood Culture - Preliminary Resulted Gram Positive Cocci Gram Negative Dick 02/19/17 19:45 Aerobic Blood Culture - Preliminary Resulted Blood Peripheral Gram Positive Cocci 02/19/17 19:45 Anaerobic Blood Culture - Preliminary Resulted Blood Peripheral NO GROWTH IN 1 DAY Physical Exam GENERAL: AWAKE NAD HEENT: PERRL NS TEETH NO MISSING TEETH NO DECAY CHEST: LUNGS ARE CLEAR EQUAL CARDIAC: RRR NO MURMURS OR RUBS ABD: SOFT + BS ACTIVE NON TENDER EXT: NO EDEMA. 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
[2017-02-21] MEDS: FONDAPARINUX SODIUM 2.5 MG/0.5 ML SYRINGE SQ SCH (14:20)
[2017-02-21] MEDS: IBUPROFEN 600 MG TAB PO PRN (14:28)
[2017-02-21 20:00] VITALS: BP 143/96; PULSE 89; RESP 20; TEMP 98.5; O2SAT 98
[2017-02-21] MEDS: TEMAZEPAM 15 MG CAP PO PRN (20:25)
[2017-02-22] VITALS: BP 104/61; PULSE 100; RESP 20; TEMP 96.9; O2SAT 98
[2017-02-22 08:00] VITALS: BP 138/88; PULSE 94; RESP 17; TEMP 97.6; O2SAT 98
[2017-02-22] MEDS: SODIUM CHLORIDE 0.9% FLUSH 5 ML FLUSH FLUSH SCH ×2 (09:00→20:23)
[2017-02-22] MEDS: NYSTATIN 100,000 U/GM OINT 15 GM TUBE TOPICAL SCH ×2 (09:00→20:23)
[2017-02-22] MEDS: SODIUM CHLORIDE 0.9% FLUSH 10 ML FLUSH IVF SCH (09:00)
[2017-02-22] MEDS: CEFEPIME INJ 2,000 MG in SODIUM CHLORIDE 0.9% INJ 100 ML IV SCH (09:08)
[2017-02-22] MEDS: CIPROFLOXACIN 400 MG PREMIX 200 ML IV SCH (10:18)
--- NOTE | 2017-02-22 10:23 | HHI.PR ---
Subjective Remarks Follow up for endocarditis. Patient denies any fevers or chills, cough or shortness of breath, vomiting, or diarrhea. Objective Vitals Vital Signs Date Time Temp Pulse Resp B/P Pulse Ox O2 Delivery O2 Flow Rate FiO2 02/22/17 08:00 97.6 94 17 138/88 98 02/22/17 00:00 96.9 100 20 104/61 98 02/21/17 20:00 98.5 89 20 143/96 98 02/21/17 15:25 18 I/O 02/21/17 02/21/17 02/21/17 02/22/17 02/22/17 02/22/17 07:00 15:00 23:00 07:00 15:00 23:00 Intake Total 580 ml 900 ml 800 ml 1684 ml Balance 580 ml 900 ml 800 ml 1684 ml Intake Oral 480 ml 900 ml 480 ml 962 ml IV Total 100 ml 320 ml 722 ml # Voids 3 6 3 3 # Bowel Movements 0 1 1 Objective Remarks GENERAL: Obese, well-developed patient in no apparent distress. CARDIOVASCULAR: Regular rate and rhythm. RESPIRATORY: No accessory muscle use. Clear to auscultation. Breath sounds equal bilaterally. GASTROINTESTINAL: Abdomen soft, non-tender, non-distended. MUSCULOSKELETAL: Non-tender over L lateral hip. NEUROLOGICAL: Awake and alert. Normal speech. PSYCHIATRIC: Appropriate mood and affect; insight and judgment normal. 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 Cardiology and ID consults appreciated. Status post KRISTINA 01/09/17. Has bacteremia with staph aureus. Cardiothoracic surgery evaluated the patient indicated that she is not a surgical candidate Blood cultures positive with staph aureus, negative culture as of 01/09/17 Follow weekly CBC, CMP, C-reactive protein, sedimentation rate Infectious disease following and made recommendations, was to continue Ancef until 02/18/17 Repeat echocardiogram 02/11 indicates probable non-mobile vegetation or annular abscess on the right ventricular aspect of the base of the septal leaflet. Discussed with infectious disease who requested cardiology reconsultation to evaluate the studies to see if there is any significant changes or if she is a candidate for valve replacement Consulted circular sawyer helper who evaluated and said KRISTINA is not necessary. That the imaging indicates similar findings to previous KRISTINA. Discussed with Cardiology and Infectious disease, both of which would appreciate re-evaluation by cardiothoracic surgery, consult was placed. Patient desired to pursue surgical intervention if she is a candidate Dr. Henderson, critical care cardiothoracic surgeon evaluated the patient on . Advises discharging patient to drug rehabilitation or home depending on her choice. Advises continuing antibiotics per ID. Random drug testing for 3 months; will reevaluate if she becomes septic or develops intractable heart failure. No surgical intervention recommended. Patient had elevated temperature 100.3 degrees on 02/16 at 2000 hrs. ESR increased to 67 from 1 a week prior and CRP also increased. UA 02/17 without infection. Chest x-ray 02/19 normal. Repeat blood cultures 02/17: 3/4 bottles with Enterobacter Cloacae. 02/19: Improved ESR and CRP at 36 and 1.00 respectively ID re-evaluated patient, discontinued Ancef and started on Cefepime 2g IV q12h and Cipro 400 mg IV q12h; per ID consider CT hip or abdomen/pelvis, but patient has no increasing hip nor has any abdominal pain at this time. 02/22/17: Repeat blood cultures 02/19: 3/4 bottles with growth; Enterobacter Cloacae (susceptible to Cefepime), Enterococcus Faecium Vre, gram negative rods , and Group D enterococcus. ID DATABASES COMPUTER CONSULTANT made aware of new culture results. Superficial vein thrombosis in the left upper extremity, now has developed in the right upper extremity Ultrasound indicates thrombosis of the cephalic and basilic veins of left arm Hematology consulted for recommendations Patient switched to Arixtra because of possible allergy to Lovenox 01/26/17 patient now complaining of pain in the right arm where midline has been inserted on 01/21/17 Ultrasound performed which did indicate superficial thrombosis which is worrisome for septic thrombophlebitis in the basilic vein. Midline has been removed, vascular access team unable to place any other IVs in her periphery considering patient has thrombophlebitis in bilateral upper extremities Discussed with infectious disease, could be due from systemic infection versus continued IV drug use while in the hospital. Urine drug screen was performed which is positive for opiates. Continue Arixtra until discontinuation of antibiotics. Skin rash: Improved Patient had pruritic rash to abdomen with small red papules which has resolved. No longer on Lovenox so Benadryl was discontinued. Patient has rash in her groin which is improving with Nystatin use. Continue. Hip Pain: Stable MRI hip w/ small bilateral joint effusions, repeat MRI showed no evidence of joint effusion Orthopedic consulted who indicated patient is not a surgical candidate Continue Ibuprofen 600 mg 3 times daily as needed for pain 610; patient no longer on narcotics Continue physical therapy Pt walking the halls several times a day for exercise and per PT direction. 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 Discharge Planning Patient will remain hospitalized until discontinuation of antibiotics. Problem Qualifiers (1) Sepsis: Qualified Code: A41.9 - Sepsis, due to unspecified organism (2) Septic joint: Della Blackwell February 22, 2017 10:23
[2017-02-22] MEDS: FONDAPARINUX SODIUM 2.5 MG/0.5 ML SYRINGE SQ SCH (14:29)
[2017-02-22] MEDS: DAPTOmycin INJ 650 MG in SODIUM CHLORIDE 0.9% INJ 100 ML IV SCH (20:23)
[2017-02-22] MEDS: TEMAZEPAM 15 MG CAP PO PRN (20:23)
[2017-02-22 21:44] VITALS: BP 117/80; PULSE 75; RESP 18; TEMP 97.4; O2SAT 97
[2017-02-23 05:38] VITALS: BP 108/72; PULSE 82; RESP 18; TEMP 97.2; O2SAT 97
[2017-02-23] MEDS: SODIUM CHLORIDE 0.9% FLUSH 10 ML FLUSH IVF SCH (09:31)
[2017-02-23] MEDS: NYSTATIN 100,000 U/GM OINT 15 GM TUBE TOPICAL SCH ×2 (09:31→20:11)
[2017-02-23] MEDS: SODIUM CHLORIDE 0.9% FLUSH 5 ML FLUSH FLUSH SCH ×2 (09:33→20:11)
--- NOTE | 2017-02-23 10:31 | HHI.PR ---
Subjective Remarks Follow up for endocarditis. Patient has no acute complaints. Objective Vitals Vital Signs Date Time Temp Pulse Resp B/P Pulse Ox O2 Delivery O2 Flow Rate FiO2 02/23/17 05:38 97.2 82 18 108/72 97 02/22/17 21:44 97.4 75 18 117/80 97 I/O 02/22/17 02/22/17 02/22/17 02/23/17 02/23/17 02/23/17 06:59 14:59 22:59 06:59 14:59 22:59 Intake Total 1684 ml 980 ml 240 ml Balance 1684 ml 980 ml 240 ml Intake Oral 962 ml 660 ml 240 ml IV Total 722 ml 320 ml # Voids 3 10 3 # Bowel Movements 1 Objective Remarks GENERAL: Obese, well-developed patient in no apparent distress. CARDIOVASCULAR: Regular rate and rhythm. RESPIRATORY: No accessory muscle use. Clear to auscultation. Breath sounds equal bilaterally. GASTROINTESTINAL: Abdomen soft, non-tender, non-distended. NEUROLOGICAL: Awake and alert. Normal speech. PSYCHIATRIC: Appropriate mood and affect; insight and judgment normal. Procedures KRISTINA Vascular Central Line Catheter: Yes Assessment to: Continue Date of Insertion: Jan 27, 2017 Line: Central Venous Catheter Side: Right Location: Subclavian Reason for Continuation Long-term IV antibiotics A/P Problem List: (1) Superficial venous thrombosis of both arms ICD Code: I82.613 Status: Acute (2) Sepsis ICD Code: A41.9 Status: Resolved (3) Bacteremia due to Gram-positive bacteria ICD Code: A49.9 Status: Acute (4) 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 Cardiology and ID consults appreciated. Status post KRISTINA 01/09/17. Has bacteremia with staph aureus. Cardiothoracic surgery evaluated the patient indicated that she is not a surgical candidate Blood cultures positive with staph aureus, negative culture as of 01/09/17 Follow weekly CBC, CMP, C-reactive protein, sedimentation rate Infectious disease following and made recommendations, was to continue Ancef until 02/18/17 Repeat echocardiogram 02/11 indicates probable non-mobile vegetation or annular abscess on the right ventricular aspect of the base of the septal leaflet. Discussed with infectious disease who requested cardiology reconsultation to evaluate the studies to see if there is any significant changes or if she is a candidate for valve replacement Consulted flight attendant/inflight manager who evaluated and said KRISTINA is not necessary. That the imaging indicates similar findings to previous KRISTINA. Discussed with Cardiology and Infectious disease, both of which would appreciate re-evaluation by cardiothoracic surgery, consult was placed. Patient desired to pursue surgical intervention if she is a candidate Dr. Henderson, critical care cardiothoracic surgeon evaluated the patient on . Advises discharging patient to drug rehabilitation or home depending on her choice. Advises continuing antibiotics per ID. Random drug testing for 3 months; will reevaluate if she becomes septic or develops intractable heart failure. No surgical intervention recommended. Patient had elevated temperature 100.3 degrees on 02/16 at 2000 hrs. ESR increased to 67 from 1 a week prior and CRP also increased. UA 02/17 without infection. Chest x-ray 02/19 normal. Repeat blood cultures 02/17: 3/4 bottles with Enterobacter Cloacae. 02/19: Improved ESR and CRP at 36 and 1.00 respectively ID re-evaluated patient, discontinued Ancef and started on Cefepime 2g IV q12h and Cipro 400 mg IV q12h; per ID consider CT hip or abdomen/pelvis, but patient has no increasing hip nor has any abdominal pain at this time. 02/22/17: Repeat blood cultures 02/19: 3/4 bottles with growth; Enterobacter Cloacae (susceptible to Cefepime), Enterococcus Faecium Vre, gram negative rods , and Group D enterococcus. ID DISTRIBUTION DISTRICT SUPERVISOR made aware of new culture results; antibiotics switched to Daptomycin. There is suspicion for continued drug use while hospitalized. 02/23: Remains afebrile. Appears well clinically. Superficial vein thrombosis in the left upper extremity, now has developed in the right upper extremity Ultrasound indicates thrombosis of the cephalic and basilic veins of left arm Hematology consulted for recommendations Patient switched to Arixtra because of possible allergy to Lovenox 01/26/17 patient now complaining of pain in the right arm where midline has been inserted on 01/21/17 Ultrasound performed which did indicate superficial thrombosis which is worrisome for septic thrombophlebitis in the basilic vein. Midline has been removed, vascular access team unable to place any other IVs in her periphery considering patient has thrombophlebitis in bilateral upper extremities Discussed with infectious disease, could be due from systemic infection versus continued IV drug use while in the hospital. Urine drug screen was performed which is positive for opiates. Continue Arixtra until discontinuation of antibiotics. Skin rash: Improved Patient had pruritic rash to abdomen with small red papules which has resolved. No longer on Lovenox so Benadryl was discontinued. Patient has rash in her groin which is improving with Nystatin use. Continue. Hip Pain: Stable MRI hip w/ small bilateral joint effusions, repeat MRI showed no evidence of joint effusion Orthopedic consulted who indicated patient is not a surgical candidate Continue Ibuprofen 600 mg 3 times daily as needed for pain 610; patient no longer on narcotics Continue physical therapy Pt walking the halls several times a day for exercise and per PT direction. 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 Discharge Planning Patient will remain hospitalized until discontinuation of antibiotics. Problem Qualifiers (1) Sepsis: Qualified Code: A41.9 - Sepsis, due to unspecified organism (2) Septic joint: Della Blackwell February 23, 2017 10:30
[2017-02-23] MEDS: FONDAPARINUX SODIUM 2.5 MG/0.5 ML SYRINGE SQ SCH (15:26)
--- NOTE | 2017-02-23 17:33 | PD.ONC.PN ---
Subjective Subjective Remarks Noted febrile episode BC positive for enterobacter cloacae c/o rash but no skin lesion seen Objective Data Date Time Temp Pulse Resp B/P Pulse Ox O2 Delivery O2 Flow Rate FiO2 02/23/17 05:38 97.2 82 18 108/72 97 02/22/17 21:44 97.4 75 18 117/80 97 02/23/17 02/23/17 02/23/17 07:00 15:00 23:00 Intake Total 240 ml Balance 240 ml Administered Medications Medications (Trade) Dose Ordered Sig/Michelle Route PRN Reason Start Time Stop Time Status Last Admin Dose Admin IV Flush (NS Flush) 2 ml UNSCH PRN FLUSH FLUSH AFTER USING IV ACCESS 01/04/17 21:45 02/11/17 00:52 IV Flush (NS Flush) 2 ml BID FLUSH 01/05/17 09:00 02/23/17 09:33 Acetaminophen (Tylenol) 650 mg Q6H PRN PO FEVER/PAIN SCALE 1 TO 5 01/04/17 21:45 02/11/17 20:36 Temazepam (Restoril) 15 mg HS PRN PO INSOMNIA 01/06/17 11:00 02/22/17 20:23 Senna/Docusate Sodium (Ibis-Colace) 1 tab BID PRN PO CONSTIPATION 01/18/17 22:30 01/27/17 12:32 Ondansetron HCl (Zofran Odt) 4 mg Q6H PRN PO NAUSEA OR VOMITING 01/19/17 09:15 02/19/17 10:49 Nystatin (Mycostatin Oint) 1 applic Q12HR TOPICAL 01/25/17 21:00 02/23/17 09:31 Sodium Chloride (NS Flush) DAILY IVF 01/28/17 09:00 02/23/17 09:31 Sodium Chloride (NS Flush) UNSCH PRN IVF SEE PROTOCOL 01/27/17 18:15 02/20/17 21:24 Ibuprofen (Motrin) 600 mg Q8H PRN PO PAIN SCALE 6 TO 10 02/10/17 15:00 02/21/17 14:28 Fondaparinux 2.5 mg 2.5 mg Q24H SQ 02/20/17 14:00 02/23/17 15:26 Daptomycin/Sodium Chloride (Cubicin Inj/NS Inj) 100 ml @ 200 mls/hr Q24H IV 02/22/17 20:00 03/07/17 20:29 02/22/17 20:23 Objective Remarks GENERAL: Well-nourished, well-developed patient. SKIN: Warm and dry. No rash. HEAD: Normocephalic. EYES: No scleral icterus. No injection or drainage. NECK: Supple, trachea midline. R subclavian central line. LYMPHATIC: No adenopathy. CARDIOVASCULAR: Regular rate and rhythm without murmurs. RESPIRATORY: Breath sounds equal bilaterally. No accessory muscle use. GASTROINTESTINAL: Abdomen soft, non-tender, nondistended. EXTREMITIES: No cyanosis, or edema. MUSCULOSKELETAL: Adequate muscle tone. Assessment/Plan Problem List: (1) Superficial venous thrombosis of both arms Status: Acute Plan: 02/23/17. UE DVt clinically resolved. No new event while on Arixtra. Continue Arixtra until DC and removal of central line. Abx continue another 2 weeks. No rash noted. No bleeding, no bruising at injection site. Anemia resolved, CBC normal 02/17/17. Monitor next menses. 02/09/17. Convinced that she is allergic to lovenox. Pointed out that the bruise in her abdomen is a small injection site hematoma not an allergy. Dry skin was below the area of injection. However, she reports a rash present in the upper abdomen and was told by the doctor it was an allergy. Noted normal platelet count. No bleeding. Hgb stable. Discussed trial of different medication Arixtra. 02/06/17. Menses stopped. Ok to resume Lovenox 100mg daily. Noted decrease in hgb, no other obvious source of bleed, check iron studies. Anemia normocytic. Continue on Lovenox 100mg daily- goal 6 weeks, time to stop at completion of abx therapy. Clinically clot resolved in both upper arms. R subclavian catheter functioning well. Monitor hgb during cycle, noted decrease in hgb, no other site of bleedin. Discussed decrease dose to limit blood loss from menses. Assessment 26 y/o woman with endocarditis, complicated by line related superficial vein thrombosis on LMWH. Plan 1. Continue Arixtra. 2. Dry skin- lotion 3. Monitor for bleeding Sepideh Rivera MD February 23, 2017 17:33
[2017-02-23] MEDS ORDERED: ALTEPLASE RECOMBINANT 2 MG VIAL INTRACATH ONE (18:00)
--- NOTE | 2017-02-23 19:03 | ECHLIM ---
Study Study Date:02/23/2017 STUDY CONCLUSIONS SUMMARY LEFT VENTRICLE: The cavity size was normal. Wall thickness was normal. Systolic function was normal. The estimated ejection fraction was in the range of 55% to 60%. Wall motion was normal; there were no regional wall motion abnormalities. Smaller TV abcess If LV function is below 40, please consider prescribing an ACEI or ARB or document rationale for non-use. PROCEDURE DATA STUDY STATUS: Elective. Procedure: Transthoracic echocardiography. Image quality was good. Scanning was performed from the parasternal, apical, and subcostal acoustic windows. Study completion: The patient tolerated the procedure well. Transthoracic echocardiography. M-mode, complete 2D, complete spectral Doppler, and color Doppler. Patient status: Inpatient. CARDIAC ANATOMY LEFT VENTRICLE: The cavity size was normal. Wall thickness was normal. Systolic function was normal. The estimated ejection fraction was in the range of 55% to 60%. Wall motion was normal; there were no regional wall motion abnormalities. AORTIC VALVE: Trileaflet; normal thickness leaflets. Doppler: Transvalvular velocity was within the normal range. There was no stenosis. No regurgitation. AORTA: Aortic root: The aortic root was normal in size. MITRAL VALVE: Structurally normal valve. Doppler: Transvalvular velocity was within the normal range. There was no evidence for stenosis. No regurgitation. LEFT ATRIUM: The atrium was normal in size. RIGHT VENTRICLE: The cavity size was normal. Wall thickness was normal. PULMONIC VALVE: Doppler: Transvalvular velocity was within the normal range. There was no evidence for stenosis. No regurgitation. TRICUSPID VALVE: Structurally normal valve. Doppler: Transvalvular velocity was within the normal range. No regurgitation. PULMONARY ARTERY: The main pulmonary artery was normal-sized. Systolic pressure was within the normal range. RIGHT ATRIUM: The atrium was normal in size. PERICARDIUM: There was no pericardial effusion. SYSTEMIC VEINS: Inferior vena cava: The vessel was normal in size. Prepared and signed by Oscar Boyer [id number]
[2017-02-23 20:00] VITALS: BP 121/79; PULSE 94; RESP 20; TEMP 97.9; O2SAT 98
[2017-02-23] MEDS: DAPTOmycin INJ 650 MG in SODIUM CHLORIDE 0.9% INJ 100 ML IV SCH (20:11)
[2017-02-23] MEDS: TEMAZEPAM 15 MG CAP PO PRN (20:11)
--- NOTE | 2017-02-24 08:41 | HHI.IDPN ---
Subjective Subjective Remarks Multiple positive blood cultures Wants to go home Feels well Antibiotics IV Daptomycin Past Medical History ANXIETY ? PTSD ( PT WAS MOLESTED FOR MANY YEARS FROM AGE [age]) IV DRUG USE MSSA TRICUSPID VALVE ENDOCARDITIS Allergies: Coded Allergies: Amoxicillin (Verified Allergy, Severe, HIVES, 01/04/17) Codeine (Verified Allergy, Severe, Hives, 01/04/17) Dilantin (Verified Allergy, Severe, HIVES, 01/04/17) *MDRO Multi-Drug Resistant Organism (Verified Adverse Reaction, Unknown, ) MRSA (wound) - 03/09/16 VRE (blood) - 02/19/17 Objective . Vital Signs Date Time Temp Pulse Resp B/P Pulse Ox O2 Delivery O2 Flow Rate FiO2 02/23/17 20:00 97.9 94 20 121/79 98 02/23/17 02/23/17 02/24/17 15:00 23:00 07:00 Intake Total 240 ml 120 ml Balance 240 ml 120 ml Intake Oral 240 ml 120 ml # Voids 3 2 2 # Bowel Movements 0 0 Physical Exam GENERAL: AWAKE NAD HEENT: PERRL NS TEETH NO MISSING TEETH NO DECAY CHEST: LUNGS ARE CLEAR EQUAL CARDIAC: RRR NO MURMURS OR RUBS ABD: SOFT + BS ACTIVE NON TENDER EXT: NO EDEMA. NO PAIN WITH AMBULATING Assessment & Plan Diagnosis: (1) Polymicrobial septicemia Plan: Discontinue Central line Zyvox 600 mg po bid Levaquin 750 mg po daily Check Blood cultures in 24-48 hrs - then if negative- can continue the Zyvox and Levaquin for 2 weeks (2) Septic joint Plan: Treated with IV Cefazolin- finished therapy (3) Endocarditis due to Staphylococcus Plan: ON ANCEF 6 WEEKS COMPLETE 5.3 (4) IV drug abuse (5) Superficial venous thrombosis of both arms (6) TOBACCO USE DISORDER Problem Qualifiers (1) Septic joint: Chaya Vernon MD February 24, 2017 08:41
[2017-02-24] MEDS: NYSTATIN 100,000 U/GM OINT 15 GM TUBE TOPICAL SCH ×2 (09:00→21:00)
[2017-02-24] MEDS: SODIUM CHLORIDE 0.9% FLUSH 5 ML FLUSH FLUSH SCH ×2 (09:00→21:00)
[2017-02-24] MEDS: SODIUM CHLORIDE 0.9% FLUSH 10 ML FLUSH IVF SCH (09:00)
[2017-02-24 10:16] VITALS: BP 125/73; PULSE 77; RESP 18; TEMP 97.8; O2SAT 96
[2017-02-24] MEDS: LINEZOLID 600 MG TAB PO SCH ×2 (10:27→20:31)
[2017-02-24] MEDS: LEVOFLOXACIN 750 MG TAB PO SCH ×2 (10:27→11:00)
--- NOTE | 2017-02-24 14:23 | HHI.PR ---
Subjective Remarks Patient seen and examined today follow-up for bacterial endocarditis, tricuspid valve abscess. Patient states that she is doing better. She is not febrile. I did discuss the case with infectious disease today. Objective Vitals Vital Signs Date Time Temp Pulse Resp B/P Pulse Ox O2 Delivery O2 Flow Rate FiO2 02/24/17 10:16 97.8 77 18 125/73 96 02/23/17 20:00 97.9 94 20 121/79 98 I/O 02/23/17 02/23/17 02/23/17 02/24/17 02/24/17 02/24/17 07:00 15:00 23:00 07:00 15:00 23:00 Intake Total 240 ml 240 ml 120 ml Balance 240 ml 240 ml 120 ml Intake Oral 240 ml 240 ml 120 ml # Voids 3 3 2 2 5 # Bowel Movements 0 0 Objective Remarks GENERAL: Well-developed, well-nourished, in no acute distress. alert and orientated HEENT: Head is normocephalic without any lesions or masses noted. Facial features are symmetric. Eyes: Extraocular muscles are intact. Conjunctivae were clear. NECK: Supple without any masses. Trachea midline no deviation. No JVD, CARDIAC: Regular rhythm, regular rate. S1/S2 are heard. No murmurs gallops or rubs. LUNGS: Clear to auscultation bilaterally. No wheeze, rhonchi or rales. No use of accessory muscles on inspiration or expiration. ABDOMEN: Soft, nontender. Nondistended. Bowel sounds heard in all 4 quadrants. No organomegaly or masses. Negative rebound, negative guarding EXTREMITIES: No edema, pulses are equal bilaterally. No cyanosis or clubbing NEUROLOGY: Mood and affect appear appropriate. Cranial nerves II through XII grossly intact. Moving all extremities, speech is clear RIGHT UPPER EXTREMITY: Edema and granulation have resolved Procedures KRISTINA Urinary Catheter: No Vascular Central Line Catheter: Yes Assessment to: Remove Date of Insertion: Jan 27, 2017 Date of Removal: February 24, 2017 Line: Central Venous Catheter Side: Right Location: Subclavian A/P Assessment and Plan Endocarditis/bacteremia, persistent/recurrent Echocardiogram and KRISTINA indicates Tricuspid valve, aortic valve involvement.. Cardiology and ID consults appreciated. Status post KRISTINA 01/09/17. Repeat echocardiogram indicates decreased size in tricuspid abscess Cardiothoracic surgery evaluated the patient indicated that she is not a surgical candidate, reconsultation was requested and was responded to by Dr. Henderson who gave his recommendations Blood cultures positive with staph aureus, negative culture as of 01/09/17 Blood cultures 02/17/17 Enterobacter cloacae, blood cultures 02/19/17 with Enterobacter cloacae and enterococcus faecium VRE Infectious disease following and made recommendations Completed Ancef until 02/18/17 4 staph aureus bacteremia Start Zyvox, Levaquin by mouth for 4-6 weeks, will likely need consult case management to help with arranging outpatient antibiotics Remove central line Check blood cultures in 2 days Superficial vein thrombosis in the left upper extremity, now has developed in the right upper extremity Ultrasound indicates thrombosis of the cephalic and basilic veins of bilateral arms Hematology consulted for recommendations, who recommended continuation Arixtra until discontinuation of antibiotics Skin rash, improving Patient had pruritic rash and 01/24 small red papules which has resolved Patient had rash in her groin on 01/25 which has resolved Patient started on Benadryl and nystatin ointment Hip Pain MRI hip w/ small bilateral joint effusions, repeat MRI showed no evidence of joint effusion Orthopedic consulted who indicated patient is not a surgical candidate Continue pain control: We'll need to wean patient off all narcotics weekly, Ibuprofen 600 mg 3 times daily as needed for pain 610 Continue physical therapy IVDU Patient will plan minutes says 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 Discharge Planning Discharge planning possibly for5 days if repeat blood cultures are negative Christiano aSndhu February 24, 2017 14:23
[2017-02-24] MEDS: FONDAPARINUX SODIUM 2.5 MG/0.5 ML SYRINGE SQ SCH (15:37)
[2017-02-24] MEDS: IBUPROFEN 600 MG TAB PO PRN (15:50)
[2017-02-24 20:00] VITALS: BP 148/96; PULSE 105; RESP 18; TEMP 96.9; O2SAT 98
[2017-02-24] MEDS: TEMAZEPAM 15 MG CAP PO PRN (20:33)
[2017-02-25] MEDS: LINEZOLID 600 MG TAB PO SCH ×2 (07:54→20:33)
[2017-02-25] MEDS: IBUPROFEN 600 MG TAB PO PRN (07:55)
[2017-02-25 08:00] VITALS: BP 108/80; PULSE 95; RESP 18; TEMP 96.1; O2SAT 100
--- NOTE | 2017-02-25 08:31 | PD.ORT.PN ---
Subjective Subjective Remarks Minimal complaint of pain to left hip Objective Vitals Vital Signs Date Time Temp Pulse Resp B/P Pulse Ox O2 Delivery O2 Flow Rate FiO2 02/24/17 20:00 96.9 105 18 148/96 98 02/24/17 10:16 97.8 77 18 125/73 96 I/O 02/24/17 02/24/17 02/24/17 02/25/17 02/25/17 02/25/17 06:59 14:59 22:59 06:59 14:59 22:59 Intake Total 120 ml 720 ml 480 ml Balance 120 ml 720 ml 480 ml Intake Oral 120 ml 720 ml 480 ml # Voids 2 5 2 2 # Bowel Movements 0 1 0 Imaging Last 24 hours Impressions Chest X-Ray 01/04/17 1806 Signed Impressions: Service Date/Time: Wednesday, January 04, 2017 18:49 - CONCLUSION: No acute disease. There is no evidence of pneumonia. Castillo Bedoya MD Objective Remarks Patient has minimal pain with gentle hip range of motion. She is able to flex her hip from 0 to 100 with minimal discomfort. Skin intact around hip. No warmth or erythema. She has mild tenderness to palpation around the gluteus muscles of right hip. No tenderness around her knee or ankle. Sensation intact left foot. Dorsalis pedis pulses palpable She is able stand and bear full weight. She walks with a near normal gait Assessment & Plan Assessment and Plan left hip pain--initial MRI reveals minimal effusion. Pain is continuing to improve with hip motion and ambulating Continue physical therapy. continue progressing with weight bearing and walking. continue medical management No further orthopedic treatment necessary Castillo Bergman Jr. February 25, 2017 08:31
--- NOTE | 2017-02-25 09:57 | HHI.PR ---
Subjective Remarks Patient seen and examined today in follow-up for bacterial endocarditis, tricuspid valve abscess. Patient states that she is doing much better. Central line was removed yesterday. Discussed with patient plan of care. Patient denies any new complaints. Objective Vitals Vital Signs Date Time Temp Pulse Resp B/P Pulse Ox O2 Delivery O2 Flow Rate FiO2 02/25/17 08:00 96.1 95 18 108/80 100 02/24/17 20:00 96.9 105 18 148/96 98 02/24/17 10:16 97.8 77 18 125/73 96 I/O 02/24/17 02/24/17 02/24/17 02/25/17 02/25/17 02/25/17 06:59 14:59 22:59 06:59 14:59 22:59 Intake Total 120 ml 720 ml 480 ml Balance 120 ml 720 ml 480 ml Intake Oral 120 ml 720 ml 480 ml # Voids 2 5 2 2 # Bowel Movements 0 1 0 Objective Remarks GENERAL: Well-developed, well-nourished, in no acute distress. alert and orientated HEENT: Head is normocephalic without any lesions or masses noted. Facial features are symmetric. Eyes: Extraocular muscles are intact. Conjunctivae were clear. NECK: Supple without any masses. Trachea midline no deviation. No JVD, CARDIAC: Regular rhythm, regular rate. S1/S2 are heard. No murmurs gallops or rubs. LUNGS: Clear to auscultation bilaterally. No wheeze, rhonchi or rales. No use of accessory muscles on inspiration or expiration. ABDOMEN: Soft, nontender. Nondistended. Bowel sounds heard in all 4 quadrants. No organomegaly or masses. Negative rebound, negative guarding EXTREMITIES: No edema, pulses are equal bilaterally. No cyanosis or clubbing NEUROLOGY: Mood and affect appear appropriate. Cranial nerves II through XII grossly intact. Moving all extremities, speech is clear RIGHT UPPER EXTREMITY: Edema and granulation have resolved Procedures KRISTINA Urinary Catheter: No Vascular Central Line Catheter: No Date of Insertion: Jan 27, 2017 Date of Removal: February 24, 2017 A/P Assessment and Plan Endocarditis/bacteremia, persistent/recurrent Echocardiogram and KRISTINA indicates Tricuspid valve, aortic valve involvement.. Cardiology and ID consults appreciated. Status post KRISTINA 01/09/17. Repeat echocardiogram indicates decreased size in tricuspid abscess Cardiothoracic surgery evaluated the patient indicated that she is not a surgical candidate, reconsultation was requested and was responded to by Dr. Henderson who gave his recommendations Blood cultures positive with staph aureus, negative culture as of 01/09/17 Blood cultures 02/17/17 Enterobacter cloacae, blood cultures 02/19/17 with Enterobacter cloacae and enterococcus faecium VRE Infectious disease following and made recommendations Completed Ancef until 02/18/17 4 staph aureus bacteremia Continue Zyvox, Levaquin by mouth for 4-6 weeks, will likely need consult case management to help with arranging outpatient antibiotics Removed central line Re-Check blood cultures in the a.m. Superficial vein thrombosis in the left upper extremity, now has developed in the right upper extremity Ultrasound indicates thrombosis of the cephalic and basilic veins of bilateral arms Hematology consulted for recommendations, who recommended continuation Arixtra until discontinuation of antibiotics Skin rash, improving Patient had pruritic rash and 01/24 small red papules which has resolved Patient had rash in her groin on 01/25 which has resolved Patient started on Benadryl and nystatin ointment Hip Pain MRI hip w/ small bilateral joint effusions, repeat MRI showed no evidence of joint effusion Orthopedic consulted who indicated patient is not a surgical candidate Continue pain control: We'll need to wean patient off all narcotics weekly, Ibuprofen 600 mg 3 times daily as needed for pain 610 Continue physical therapy IVDU Patient will plan minutes says 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 Discharge Planning Discharge planning possibly 35 days if repeat blood cultures are negative Christiano Sandhu February 25, 2017 09:57
[2017-02-25] MEDS: LEVOFLOXACIN 750 MG TAB PO SCH (12:34)
[2017-02-25] MEDS: FONDAPARINUX SODIUM 2.5 MG/0.5 ML SYRINGE SQ SCH (14:00)
[2017-02-25] MEDS: NYSTATIN 100,000 U/GM OINT 15 GM TUBE TOPICAL SCH ×2 (14:22→21:00)
[2017-02-25 20:00] VITALS: BP 126/85; PULSE 97; RESP 18; TEMP 97.4; O2SAT 98
[2017-02-25] MEDS: TEMAZEPAM 15 MG CAP PO PRN (20:33)
[2017-02-26 08:00] VITALS: BP 121/71; PULSE 90; RESP 18; TEMP 98.2; O2SAT 97
[2017-02-26] MEDS: IBUPROFEN 600 MG TAB PO PRN ×2 (09:20→21:13)
[2017-02-26] MEDS: LINEZOLID 600 MG TAB PO SCH ×2 (09:21→21:00)
[2017-02-26] MEDS: NYSTATIN 100,000 U/GM OINT 15 GM TUBE TOPICAL SCH (09:22)
--- NOTE | 2017-02-26 10:31 | HHI.PR ---
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 Patient denies any new complaints. No change in clinical status. Patient remains afebrile. Repeat blood cultures taken today. Objective Vitals Vital Signs Date Time Temp Pulse Resp B/P Pulse Ox O2 Delivery O2 Flow Rate FiO2 02/25/17 20:00 97.4 97 18 126/85 98 I/O 02/25/17 02/25/17 02/25/17 02/26/17 02/26/17 02/26/17 06:59 14:59 22:59 06:59 14:59 22:59 Intake Total 480 ml 690 ml 580 ml 480 ml Balance 480 ml 690 ml 580 ml 480 ml Intake Oral 480 ml 690 ml 580 ml 480 ml # Voids 2 3 2 2 # Bowel Movements 0 1 1 0 Objective Remarks GENERAL: Well-developed, well-nourished, in no acute distress. alert and orientated HEENT: Head is normocephalic without any lesions or masses noted. Facial features are symmetric. Eyes: Extraocular muscles are intact. Conjunctivae were clear. NECK: Supple without any masses. Trachea midline no deviation. No JVD, CARDIAC: Regular rhythm, regular rate. S1/S2 are heard. No murmurs gallops or rubs. LUNGS: Clear to auscultation bilaterally. No wheeze, rhonchi or rales. No use of accessory muscles on inspiration or expiration. ABDOMEN: Soft, nontender. Nondistended. Bowel sounds heard in all 4 quadrants. No organomegaly or masses. Negative rebound, negative guarding EXTREMITIES: No edema, pulses are equal bilaterally. No cyanosis or clubbing NEUROLOGY: Mood and affect appear appropriate. Cranial nerves II through XII grossly intact. Moving all extremities, speech is clear RIGHT UPPER EXTREMITY: Edema and granulation have resolved Procedures KRISTINA Urinary Catheter: No Vascular Central Line Catheter: No Date of Insertion: Jan 27, 2017 Date of Removal: February 24, 2017 A/P Assessment and Plan Endocarditis/bacteremia, persistent/recurrent Echocardiogram and KRISTINA indicates Tricuspid valve, aortic valve involvement.. Cardiology and ID consults appreciated. Status post KRISTINA 01/09/17. Repeat echocardiogram indicates decreased size in tricuspid abscess Cardiothoracic surgery evaluated the patient indicated that she is not a surgical candidate, reconsultation was requested and was responded to by Dr. Henderson who gave his recommendations Blood cultures positive with staph aureus, negative culture as of 01/09/17 Blood cultures 02/17/17 Enterobacter cloacae, blood cultures 02/19/17 with Enterobacter cloacae and enterococcus faecium VRE Infectious disease following and made recommendations Completed Ancef until 02/18/17 4 staph aureus bacteremia Continue Zyvox, Levaquin by mouth for 4-6 weeks, will likely need consult case management to help with arranging outpatient antibiotics Removed central line Re-Check blood cultures today Superficial vein thrombosis in the left upper extremity, now has developed in the right upper extremity Ultrasound indicates thrombosis of the cephalic and basilic veins of bilateral arms Hematology consulted for recommendations, who recommended continuation Arixtra until discharge and removal of central line Skin rash, improving Patient had pruritic rash and 01/24 small red papules which has resolved Patient had rash in her groin on 01/25 which has resolved Patient started on Benadryl and nystatin ointment Hip Pain MRI hip w/ small bilateral joint effusions, repeat MRI showed no evidence of joint effusion Orthopedic consulted who indicated patient is not a surgical candidate Continue pain control: We'll need to wean patient off all narcotics weekly, Ibuprofen 600 mg 3 times daily as needed for pain 610 Continue physical therapy IVDU Patient will plan minutes says 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 Discharge Planning Discharge planning possibly 35 days if repeat blood cultures are negative Christiano Sandhu February 26, 2017 10:30
[2017-02-26] MEDS: LEVOFLOXACIN 750 MG TAB PO SCH (11:02)
[2017-02-26] MEDS: FONDAPARINUX SODIUM 2.5 MG/0.5 ML SYRINGE SQ SCH (14:00)
[2017-02-26 20:00] VITALS: BP 120/79; PULSE 100; RESP 20; TEMP 98.4; O2SAT 100
[2017-02-26] MEDS: TEMAZEPAM 15 MG CAP PO PRN (21:13)
[2017-02-27 08:00] VITALS: BP 104/66; PULSE 87; RESP 16; TEMP 97; TEMP 97.1; O2SAT 96
[2017-02-27] MEDS: LINEZOLID 600 MG TAB PO SCH ×2 (09:40→21:17)
[2017-02-27] MEDS: LEVOFLOXACIN 750 MG TAB PO SCH (09:40)
[2017-02-27] MEDS: IBUPROFEN 600 MG TAB PO PRN (09:41)
--- NOTE | 2017-02-27 10:01 | HHI.PR ---
Subjective Remarks Patient seen and examined today for follow-up on endocarditis, tricuspid valve abscess. Patient is doing much better. Nursing staff indicated that patient was about to evening his medical advice yesterday afternoon. I discussed with her the need to stay for continued management and evaluation so she can receive antibiotics appropriate that would help prevent further worsening her condition and even . Objective Vitals Vital Signs Date Time Temp Pulse Resp B/P Pulse Ox O2 Delivery O2 Flow Rate FiO2 02/26/17 20:00 98.4 100 20 120/79 100 02/26/17 10:20 20 I/O 02/26/17 02/26/17 02/26/17 02/27/17 02/27/17 02/27/17 07:00 15:00 23:00 07:00 15:00 23:00 Intake Total 480 ml 480 ml 120 ml Balance 480 ml 480 ml 120 ml Intake Oral 480 ml 480 ml 120 ml # Voids 2 5 3 2 # Bowel Movements 0 1 Objective Remarks GENERAL: Well-developed, well-nourished, in no acute distress. alert and orientated HEENT: Head is normocephalic without any lesions or masses noted. Facial features are symmetric. Eyes: Extraocular muscles are intact. Conjunctivae were clear. NECK: Supple without any masses. Trachea midline no deviation. No JVD, CARDIAC: Regular rhythm, regular rate. S1/S2 are heard. No murmurs gallops or rubs. LUNGS: Clear to auscultation bilaterally. No wheeze, rhonchi or rales. No use of accessory muscles on inspiration or expiration. ABDOMEN: Soft, nontender. Nondistended. Bowel sounds heard in all 4 quadrants. No organomegaly or masses. Negative rebound, negative guarding EXTREMITIES: No edema, pulses are equal bilaterally. No cyanosis or clubbing NEUROLOGY: Mood and affect appear appropriate. Cranial nerves II through XII grossly intact. Moving all extremities, speech is clear RIGHT UPPER EXTREMITY: Edema and granulation have resolved Procedures KRISTINA Urinary Catheter: No Vascular Central Line Catheter: No Date of Insertion: Jan 27, 2017 Date of Removal: February 24, 2017 A/P Assessment and Plan Endocarditis/bacteremia, persistent/recurrent Echocardiogram and KRISTINA indicates Tricuspid valve, aortic valve involvement.. Cardiology and ID consults appreciated. Status post KRISTINA 01/09/17. Repeat echocardiogram indicates decreased size in tricuspid abscess Cardiothoracic surgery evaluated the patient indicated that she is not a surgical candidate, reconsultation was requested and was responded to by Dr. Henderson who gave his recommendations Blood cultures positive with staph aureus, negative culture as of 01/09/17 Blood cultures 02/17/17 Enterobacter cloacae, blood cultures 02/19/17 with Enterobacter cloacae and enterococcus faecium VRE Infectious disease following and made recommendations Completed Ancef until 02/18/17 4 staph aureus bacteremia Continue Zyvox, Levaquin by mouth for 4-6 weeks, will likely need consult case management to help with arranging outpatient antibiotics Removed central line Awaiting blood culture reports Superficial vein thrombosis in the left upper extremity, now has developed in the right upper extremity Ultrasound indicates thrombosis of the cephalic and basilic veins of bilateral arms Hematology consulted for recommendations, who recommended continuation Arixtra until discharge and removal of central line Skin rash, resolved Patient had pruritic rash and 01/24 small red papules which has resolved Patient had rash in her groin on 01/25 which has resolved Patient started on Benadryl and nystatin ointment Hip Pain MRI hip w/ small bilateral joint effusions, repeat MRI showed no evidence of joint effusion Orthopedic consulted who indicated patient is not a surgical candidate Continue pain control: We'll need to wean patient off all narcotics weekly, Ibuprofen 600 mg 3 times daily as needed for pain 610 Continue physical therapy IVDU Patient will plan minutes says 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 Discharge Planning Discharge planning possibly 35 days if repeat blood cultures are negative Christiano Sandhu February 27, 2017 10:01
[2017-02-27] MEDS: FONDAPARINUX SODIUM 2.5 MG/0.5 ML SYRINGE SQ SCH (12:42)
[2017-02-27 20:00] VITALS: BP 113/77; PULSE 96; RESP 20; TEMP 98.7; O2SAT 98
[2017-02-27] MEDS: TEMAZEPAM 15 MG CAP PO PRN (21:24)
[2017-02-28 08:00] VITALS: BP 98/69; PULSE 85; RESP 17; TEMP 96.9; O2SAT 96
[2017-02-28] MEDS: LINEZOLID 600 MG TAB PO SCH (08:53)
[2017-02-28] MEDS: LEVOFLOXACIN 750 MG TAB PO SCH (11:47)
[2017-02-28] MEDS ORDERED: ZYVO600T PO (12:02)
[2017-02-28] MEDS ORDERED: LEVA750T PO (12:02)
--- NOTE | 2017-02-28 12:02 | HHI.DCPOC ---
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 Avoid second hand smoke Call the 24-hour hour crisis hotline for domestic abuse at Christiano Sandhu February 28, 2017 12:02
--- NOTE | 2017-02-28 13:48 | HHI.DS ---
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 States pain has become so severe she's unable to ambulate due to worsening pain. Reports associated fever/chills. Admits to recent IVDU, however doesn't want to discuss in front of family. On arrival, BP 123/71, HR 124, O2 sat 96% on RA, Temp 103.1. WBC 17.3. Chemistry essentially unremarkable. UA negative for UTI. CXR with no acute findings. Hip X-ray unremarkable. MRI L Spine degenerative changes at L4 5 with annular disc bulge and likely annular tear. MRI Hip with tiny bilateral joint effusion. Dr. Andrea consulted by ER physician, recommended CT-Guided Drainage by IR, no antibiotics until drainage. Imaging Last Impressions Chest X-Ray 02/19/17 0000 Signed Impressions: Service Date/Time: February 20:22 - CONCLUSION: No acute disease. Gregory Loredo MD Central Venous Line 01/27/17 0000 Signed Impressions: Service Date/Time: Friday, January 27, 2017 17:50 - CONCLUSION: Uncomplicated line placement as above. Gregory Taylor MD Upper Extremity Ultrasound 01/26/17 0000 Signed Impressions: Service Date/Time: Thursday, January 26, 2017 14:44 - CONCLUSION: No evidence of right arm DVT. Superficial thrombosis including findings worrisome for septic thrombophlebitis in the basilic vein. Gregory Taylor MD Hip MRI 01/11/17 0000 Signed Impressions: Service Date/Time: Wednesday, January 11, 2017 09:16 - CONCLUSION: No evidence of significant joint effusion. There is a slight increase in T2 signal identified within the tendon of the vastus lateralis muscle at the insertion of the greater trochanter which may reflect any tendinopathy.. Eula Núñez MD Consultation 01/05/17 0700 Signed Impressions: Service Date/Time: Thursday, January 05, 2017 07:00 - CONCLUSION: Only a miniscule amount of joint fluid present which would not be amenable to CT guided aspiration. Dillon Archibald MD Lumbar Spine MRI 01/04/17 0000 Signed Impressions: Service Date/Time: Wednesday, January 04, 2017 19:33 - CONCLUSION: 1. Degenerative change at the L4-5 level with annular disc bulge and high intensity zone the posterior annulus most characteristic of a small annular tear. 2. Small amount of free fluid in the cul-de-sac. Castillo Bedoya MD Hip and Pelvis X-Ray 01/04/17 0000 Signed Impressions: Service Date/Time: Wednesday, January 04, 2017 18:51 - CONCLUSION: Unremarkable exam with no underlying bony abnormality. Castillo Bedoya MD PE at Discharge GENERAL: Obese, well-developed patient in no apparent distress. CARDIOVASCULAR: Regular rate and rhythm. RESPIRATORY: No accessory muscle use. Clear to auscultation. Breath sounds equal bilaterally. GASTROINTESTINAL: Abdomen soft, non-tender, non-distended. NEUROLOGICAL: Awake and alert. Normal speech. PSYCHIATRIC: Appropriate mood and affect; insight and judgment normal. Hospital Course 26-year-old female who originally presented to the hospital because of severe pain in the left hip. Patient was admitted for sepsis with a fever 103.1. Leukocytosis, tachycardia. MRI was done of the hip which did show small joint effusions. Orthopedic was consulted, repeat MRI does not indicate any effusions. No surgical indication. Blood cultures were taken patient had positive blood cultures with staph aureus. Patient had workup for endocarditis with echocardiogram and KRISTINA which did indicate vegetation and endocarditis of aortic and tricuspid valve. Infectious disease follow the patient in patient was started on cefazolin. Recommended that patient continue on Cefzil and until February 18, 2017. Indicating repeat echocardiogram 1 week prior to stopping antibiotic to assess for mitral valve abscess. This patient is going require prolonged hospitalization for IV antibiotics due to IV drug use, endocarditis patient was transferred to [facility] for continued care. While patient Zahida patient developed bilateral thrombophlebitis. Patient was evaluated by hematology was started on Lovenox. Patient had rash developed on her abdomen after Lovenox was used. Hematology reevaluated patient and discontinued the Lovenox is started the patient on Arixtra patient not have any further rash at that time. Patient did undergo repeat echocardiogram which did not show any significant change in the tricuspid abscess. Cardiovascular surgery was reconsulted and Dr. Henderson was able to give a second opinion in which is indicated that her valve may never become sterilized and her past and current behavior it is especially a predictable and she has not demonstrated any good judgment. Is recommended the patient may be discharged to drug rehabilitation. Continue antibiotics per infectious disease, random drug testing every 3 months and follow-up with her PCP. Patient did have recurrent bacteremia with Enterobacter cloacae, enterococcus facium VRE. Infectious disease was reconsulted. PICC line was removed which also grew Holly and enterococcus faecalis VRE. Is recommended by infectious disease patient started on Levaquin and Zyvox by mouth. Repeat cultures were performed which shows no growth for 48 hours. Is recommended the patient remain on by mouth medications of Levaquin and Zyvox for 4 weeks. Patient should undergo CBC and hepatic function testing weekly. Follow-up with infectious disease. Infectious disease indicate patient can be discharged home. Will plan discharge accordingly. Pt Condition on Discharge: Stable Discharge Disposition: Discharge Home Discharge Time: > 30 minutes Discharge Instructions DIET: Follow Instructions for: As Tolerated, No Restrictions Activities you can perform: Regular-No Restrictions Activities to Avoid: Driving for 24 hrs Follow up Referrals: Infectious Disease - [address] Covington PCP Follow-up - 1 Week New Medications: Levofloxacin (Levaquin) 750 Mg Tab 750 MG PO DAILY@11 endocarditis Days 28 TAB Linezolid (Zyvox) 600 Mg Tab 600 MG PO Q12HR endocarditis Days 28 TAB Additional Information Written by Christiano Sandhu, acting as scribe for Dr. Duffy on 02/28/17 at 13: 44. Christiano Sandhu February 28, 2017 13:48
[2017-02-28] MEDS: FONDAPARINUX SODIUM 2.5 MG/0.5 ML SYRINGE SQ SCH (14:00)
== END 2017-02-28 16:06 | disposition home or self-care (01) | DRG 871 ==
LOC: NEPE 15:49 → NEDA 21:33 → N05B 23:11 → UNDODISIN 01-18 19:47 → PH5A 01-18 20:28
PROVIDERS: ADMIT Hospitalist; ATTEND Hospitalist
PROC: B246ZZ4 Ultrasonography of Right and Left Heart, Transesophageal (ICD-10-PCS; 2017-01-09)
PROC: 05H533Z Insertion of Infusion Device into Right Subclavian Vein, Percutaneous Approach (ICD-10-PCS; principal; 2017-01-27)
DX: A41.01 Sepsis due to Methicillin susceptible Staphylococcus aureus (principal); I33.0 Acute and subacute infective endocarditis; T82.868A Thrombosis due to vascular prosthetic devices, implants and grafts, initial encounter; M00.9 Pyogenic arthritis, unspecified; I82.613 Acute embolism and thrombosis of superficial veins of upper extremity, bilateral; B37.89 Other sites of candidiasis; B95.61 Methicillin susceptible Staphylococcus aureus infection as the cause of diseases classified elsewhere; M25.452 Effusion, left hip; M25.451 Effusion, right hip; B19.20 Unspecified viral hepatitis C without hepatic coma; D64.9 Anemia, unspecified; F11.10 Opioid abuse, uncomplicated; F17.210 Nicotine dependence, cigarettes, uncomplicated; R21 Rash and other nonspecific skin eruption; B96.89 Other specified bacterial agents as the cause of diseases classified elsewhere; B95.2 Enterococcus as the cause of diseases classified elsewhere; Z16.21 Resistance to vancomycin; Z88.8 Allergy status to other drugs, medicaments and biological substances; Z88.1 Allergy status to other antibiotic agents; Z88.5 Allergy status to narcotic agent
CPT/HCPCS: 36556; 36569; 51702; 71010; 71020; 72158; 73502; 73721; 73723; 76937; 77001; 80048; 80053; 80076; 80202; 80307; 81001; 82550; 82565; 82728; 83605; 83735; 84484; 85014; 85018; 85025; 85027; 85044; 85610; 85652; 85730; 86140; 86403; 87040; 87071; 87077; 87186; 87205; 87804; 93005; 93306; 93308; 93312; 93320; 93325; 93971; 96361; 96374; 96375; A9579; C1751; J0690; J0692; J0744; J0878; J1650; J1652; J1885; J2060; J2270; J2405; J2997; J3370; J7030; J7040; J7050; Q0163

== ENCOUNTER → 2017-03-09 | Outpatient (CLI) | payer BC ==
[~2017-03-09] MED LIST changes: -CLIN150 PO; +LEVA750T PO; +ZYVO600T PO
[2017-03-09 13:51] LABS: AUTOMATED NEUTROPHIL # 5.7 TH/MM3 (1.8-7.7); BASOPHIL # 0.1 TH/MM3 (0-0.2); BASOPHIL % 0.7 % (0.0-2.0); EOSINOPHIL # 0.5 TH/MM3 (0-0.4); EOSINOPHIL % 5.6 % (0.0-4.0); HEMATOCRIT 35.5 % (35.0-46.0); HEMO FLAGS DIFF FINAL; LYMPH % 27.4 % (9.0-44.0); LYMPHOCYTE # 2.7 TH/MM3 (1.0-4.8); MEAN CELL VOLUME 80.9 FL (80.0-100.0); MEAN CORPUSCULAR HEMOGLOBIN 27.5 PG (27.0-34.0); MONO % 7.8 % (0.0-8.0); NEUT % 58.5 % (16.0-70.0); PLATELET COUNT 282 TH/MM3 (150-450); RED BLOOD COUNT 4.39 MIL/MM3 (4.00-5.30); RED CELL DISTRIBUTION WIDTH 15.1 % (11.6-17.2); WHITE BLOOD COUNT 9.7 TH/MM3 (4.0-11.0)
[2017-03-09 14:21] LABS: INDIRECT BILIRUBIN 0.2 MG/DL (0.0-0.8); TOTAL BILIRUBIN ADULT 0.3 MG/DL (0.2-1.0)
== END ==
LOC: CLAB 13:24
PROVIDERS: ATTEND Physician Assistant Medical
DX: I35.8 Other nonrheumatic aortic valve disorders (principal)
CPT/HCPCS: 36415; 80076; 85025